=== PATIENT | male | born 1955 | race Caucasian/White ===

== ENCOUNTER → 2017-10-25 16:14 | Outpatient (CLI) | payer MEDICAID, SELFPAY ==
[2017-10-25 17:57] LABS: Hemoglobin 16.9 g/dl (13.0-16.5); Red Blood Count 5.68 M/mm3 (4.6-6.2); White Blood Count 12.1 K/mm3 (4.4-11.0)
[2017-10-25 17:58] LABS: Basophil% 0.7 % (0-1); Differential Indicated SCAN CRITERIA MET; Eosinophils% 4.1 % (0-5); Hematocrit 48.4 % (40-54); Lymphocyte % 30.5 % (19-41); Mean Corp Hgb Conc 34.9 g/gl (32-36); Mean Corpuscular Hgb 29.8 pg (27.0-32.0); Mean Corpuscular Volume 85.2 fL (80-94); Mean Platelet Vol. 13.6 fl (6.2-12.0); Monocyte% 9.1 % (0-10); Neutrophil % 55.1 % (47-70); POSITIVE COUNT NO; POSITIVE DIFFERENTIAL NO; POSITIVE MORPHOLOGY YES; Platelet Count 114 K/mm3 (150-450); RBC Distribution Width CV 13.6 % (11.6-14.6); RBC Distribution Width SD 42.4 fl (35.1-43.9)
[2017-10-25 17:59] LABS: Absolute Lymphocyte Count 3.69 X10^3/ul (0.83-4.51); Absolute Neutrophil Count 6.7 X10^3/uL (2.0-7.7); Basophil# 0.09 X10^3/uL; Lymphocyte # 3.69 X10^3/ul (4.0); Neutrophil # 6.67 X10^3/uL (2.7-7.7)
[2017-10-25 18:06] LABS: PSA,Total - Annual Screen 1.75 ng/mL (0.00-4.00); Thyroid Stim Hormone (TSH) 1.74 uIU/mL (0.358-3.74)
[2017-10-25 18:47] LABS: Platelet Estimate SLT DEC (ADEQ); Platelet Morphology LARGE; Red Cell Morphology NORM C+C NORMAL (NORM C&C)
== END ==
PROVIDERS: Family Provider Family Medicine; PCP Family Medicine; Visit Provider Family Medicine
DX: R53.83 Other fatigue (principal); Z12.5 Encounter for screening for malignant neoplasm of prostate
CPT/HCPCS: 36415; 84153; 84443; 85025; G0103

== ENCOUNTER → 2018-02-07 13:35 | Outpatient (CLI) | payer MEDICAID, SELFPAY ==
--- NOTE | 2018-02-07 13:37 | CT_ITS ---
HISTORY: LUNG SCREEN, 49 YEAR SMOKER X 1 1/2 PPD TECHNIQUE: Helically acquired images were obtained of the chest utilizing low dose technique. A radiation dose optimization technique was used for this scan. IV Contrast dosage and agent: None. COMPARISON: None FINDINGS: Advanced centrilobular emphysema within the upper and midlung zones bilaterally. Biapical mild scarring, worse on the left together with lingular segment mild parenchymal scarring. Medial segment right middle lobe minor scarring. Probable small pleural-based scar within the right middle lobe seen on axial images 177 through 180 Left lower lobe multiple calcified granulomas accompanied by left hilar benign calcified lymph nodes. No suspicious pulmonary lesion or acute infiltrate. No pleural effusion or significant pleural disease. Benign appearing mediastinal and bilateral axillary lymph nodes. No pericardial effusion. Atherosclerotic calcifications including coronary artery calcifications. CT/Low Dose CT Lung Screening IMPRESSION: 1. No acute disease or suspicious lesion. 2. Chronic lung disease with extensive emphysema and mild scarring. Old, healed granulomatous disease. 3. Atherosclerotic calcifications including coronary artery calcifications. 4. Suggest continued surveillance with follow-up low-dose CT exam in 1 year. Lung RADS: Category 2: Benign findings. Individualized dose optimization techniques were used for this CT. at 0650 Reported and signed by: Rao Leal MD Electronically Signed: Rao Leal, at 6:48 EST Tel , Service support ,
== END ==
PROVIDERS: Family Provider Family Medicine; PCP Family Medicine; Referring Provider Family Medicine; Visit Provider Family Medicine
DX: F17.200 Nicotine dependence, unspecified, uncomplicated (principal); Z12.2 Encounter for screening for malignant neoplasm of respiratory organs
CPT/HCPCS: G0297

== ENCOUNTER 2018-02-28 21:13 | Emergency (ER) | payer MEDICAID, SELFPAY ==
[2018-02-28 21:14] VITALS: BP 109/77; PULSE 98; RESP 18; TEMP 36.9; O2SAT 93; BMI 23.6
--- NOTE | 2018-02-28 21:32 | ED.VISSUMM ---
- ER Visit Summary Date of Service: 02/28/18 Chief Complaint: Nausea, lightheadedness and decreased urine output History of Present Illness: The patient is a 62 M who presents with nausea that started this morning. Had 2 episodes of bowel movements. First 1 was formed second 1 was watery. He is had decreased urine output. States only P twice which is unusual he normally urinates greater than 6 times a day. He denies fever, chills night sweats. Denies headache. He denies double vision blurred vision loss of vision. No trouble with speech or swallowing. Denies ringing in his ears or decreased hearing. He denies vertiginous symptoms. He denies cardiac or respiratory symptoms. He denies dysuria, urgency or hematuria. He denies paresthesia, anesthesia or motor weakness. Physical Examination: Vital signs are unremarkable. Head is atraumatic normocephalic. Pupils are equal round reactive. Extraocular muscles are intact. TMs are pearly white with landmarks noted. Nares patent with no drainage. Posterior pharynx without erythema or exudate. Tongue and mucosa are dry. Uvula is midline. There is no dysphonia or dysphasia. Trachea is midline. There is no stridor with auscultation of the neck. Heart is regular without murmur, gallop or rub. S1 and S2 are normal. Lungs are clear to auscultation with good movement of air bilaterally. Abdomen is soft nontender bowel sounds are present diminished. There is no guarding or rebound tenderness. There is no extremity swelling. Neuro exam is nonfocal. Affect is normal. Test Results: Glucose 121, BUN 22 and a creatinine of 1.4. No prior labs for comparison. Emergency Department Course and Treatment: IV was established and he received 1 L of normal saline. Since he is elderly with decreased urine output will obtain BMP to assess renal function and electrolytes. He also received 4 mg of Zofran IV push. Treatment Plan: Encourage fluids, prescription for Zofran and follow-up for repeat blood work in 3-5 days. Disposition: Discharged to home in stable condition Impression: 1. Nausea 2. Decreased urine output, renal insufficiency This note was generated with [employer] dictation software. It may contain incorrect words, spelling, and punctuation that were not noted in review of the chart prior to signing ED Disposition - Plan for ED Patient: Disposition: Home or Assisted Living Chief Complaint: Nausea/Vomiting Instructions: ED Nausea Vomiting, ED Insufficiency Renal Prescriptions: Ondansetron [Zofran Odt] 4 mg PO Q8H PRN PRN #10 tab PRN Reason: Nausea Referrals: Kimberley Jauregui MD [Primary Care Provider] - 3-5 Days Additional Instructions: You need to contact your primary care physician for follow-up appointment in 3-5 days for repeat blood work.
[2018-02-28] MEDS: 0.9% Normal Saline 1,000 ML 1000 ML IV (22:18)
[2018-02-28] MEDS: Ondansetron 4 MG/2 ML Vial IV (22:18)
[2018-02-28 22:42] LABS: BUN 22 mg/dL (7-18); Glucose 121 mg/dL (74-106)
[2018-02-28 22:43] LABS: Anion Gap 7 (5-15); BUN/Creat Ratio 15.7 RATIO (10-20); Calcium,Total 9.5 mg/dL (8.5-10.1); Chloride 104 mmol/L (98-107); EST Glomerular Filtration Rate 54 mL/min (>60); Est Glom Filt Rate - Afr Amer 66 mL/min (>60); Estimated Creatinine Clearance 52.93 ml/min; Sodium Level 140 mmol/L (136-145)
[2018-02-28 23:23] VITALS: BP 122/85; PULSE 76; RESP 16; O2SAT 98
== END 2018-02-28 23:25 | disposition home or self-care (01) ==
PROVIDERS: Emergency Provider Emergency Medicine; Family Provider Family Medicine; PCP Family Medicine
DX: N28.9 Disorder of kidney and ureter, unspecified (principal); R11.0 Nausea; E86.0 Dehydration; I10 Essential (primary) hypertension; E78.00 Pure hypercholesterolemia, unspecified; F32.9 Major depressive disorder, single episode, unspecified; Z72.0 Tobacco use; Z79.51 Long term (current) use of inhaled steroids; Z79.82 Long term (current) use of aspirin; Z79.899 Other long term (current) drug therapy
CPT/HCPCS: 80048; 96361; 96374; 99284; J7030; A4216; J2405

== ENCOUNTER → 2018-03-03 09:54 | Outpatient (CLI) | payer MEDICAID, SELFPAY ==
[2018-02-28 21:14] VITALS: BMI 23.6
[2018-03-03 12:24] LABS: Anion Gap 6 (5-15); BUN 12 mg/dL (7-18); Calcium,Total 9.2 mg/dL (8.5-10.1); Chloride 105 mmol/L (98-107); EST Glomerular Filtration Rate 80 mL/min (>60); Est Glom Filt Rate - Afr Amer 97 mL/min (>60); Glucose 86 mg/dL (74-106); Potassium 4.5 mmol/L (3.5-5.1); Sodium Level 140 mmol/L (136-145)
== END ==
PROVIDERS: Family Provider Family Medicine; PCP Family Medicine; Visit Provider Family Medicine
DX: E86.0 Dehydration (principal)
CPT/HCPCS: 36415; 80048

== ENCOUNTER 2018-10-13 16:22 | Observation (INO) | payer MEDICAID, SELFPAY ==
[2018-09-20 11:36] VITALS: BMI 23.7
[2018-10-13 16:23] VITALS: BP 138/88; PULSE 76; RESP 17; TEMP 36.1; O2SAT 95; BMI 24.0
--- NOTE | 2018-10-13 16:35 | EKG12_ITS ---
Test Reason : NAUSEA Blood Pressure : / mmHG Vent. Rate : 075 BPM Atrial Rate : 075 BPM P-R Int : 134 ms QRS Dur : 068 ms QT Int : 366 ms P-R-T Axes : 063 071 073 degrees QTc Int : 408 ms Normal sinus rhythm Normal ECG Confirmed by ZAIDA DEVINE MD ([id number]), slot editor SHAKIRA ZARATE ([id number]) on 10/16/2018 12:23:14 PM Referred By: Marco Antonio Vasquez Confirmed By:ZAIDA DEVINE MD
--- NOTE | 2018-10-13 16:35 | CT_ITS ---
STUDY: CT ABDOMEN AND PELVIS WITH CONTRAST REASON FOR EXAM: Male, 63 years old. Nausea and bloating. Prior cholecystectomy, hernia repair, hypertension, COPD. RADIATION DOSAGE (If Supplied By Facility): CTDIvol = ( 15.39 ) mGy, DLP = ( 686.33 ) mGycm TECHNIQUE: Transaxial images were obtained from the dome of the diaphragm to the symphysis pubis without oral contrast. 100mL IV Isovue 300 was administered. Sagittal and coronal images were reconstructed. Individualized dose optimization techniques were used for this CT. COMPARISON: None. FINDINGS: The visualized lung bases are unremarkable. The visualized portions of the heart are within normal limits. Liver is normal shape and size. It has several simple cysts measuring as much as 1.9 cm. It also has a mixed density partially enhancing mass 2.2 cm along the posterior surface of the right hepatic lobe. This is probably a hemangioma, but confirmation with dynamic contrast CT of the liver is recommended. Gallbladder has been removed. Normal pancreas. Normal shape and size of the spleen with numerous calcified granulomas.. No acute abnormalities of the kidneys. No stones. No hydronephrosis. Normal symmetric contrast enhancement. 2.2 cm simple cyst of the mid right kidney seen. Evaluation of the GI tract is limited by absence of oral contrast. Moderate distention of the stomach with fluid. Multiple loops of fluid-filled distended small bowel in the upper to mid abdomen, with normal caliber loops in the right lower quadrant. Findings are consistent with small bowel obstruction, but site and etiology of obstruction is not clearly depicted. Normal terminal ileum, and appendix. Normal caliber large bowel. Cannot exclude large bowel wall thickening without oral contrast. There is diverticulosis without diverticulitis. There is diffuse atherosclerotic calcification of the abdominal aorta, without a demonstrated aneurysm. Normal inferior vena cava. Normal retroperitoneum. Normal urinary bladder. There is enlargement of the prostate gland. There is a left-sided inguinal hernia containing adipose tissue. Normal osseous structures. CT/Abdomen/Pelvis W IV Cont ONLY IMPRESSION: Findings consistent with mid-distal small bowel obstruction. Probable hemangioma in the right hepatic lobe but recommend dynamic contrast CT of the liver is recommended. Electronically Signed: Maikol Bhagat MD at 18:04 EDT , Service support ,
--- NOTE | 2018-10-13 16:37 | RAD_ITS ---
STUDY: X-RAY CHEST REASON FOR EXAM: Male, 63 years old. Nausea. TECHNIQUE: Single frontal view of the chest. COMPARISON: 03/20/2017. FINDINGS: There is hyperinflation of the lungs consistent with chronic obstructive lung disease (COPD). Stable calcified granuloma over the mid left lung. No infiltrates. No effusions. There is no demonstrated pleural abnormality. Normal size heart. Normal mediastinum and maulik. Normal visualized pulmonary arteries. Normal visualized aortic arch and descending thoracic aorta. Normal visualized thoracic spine. Stable old bilateral rib fractures. There is no demonstrated abnormality of the visualized soft tissue structures of the upper abdomen. RAD/Chest 1 View (Portable) IMPRESSION: There are findings consistent with COPD. There is no evidence of acute chest disease. Electronically Signed: Maikol Bhagat MD at 16:57 EDT , Service support ,
--- NOTE | 2018-10-13 16:41 | NURSING ---
NO OLD EKG
--- NOTE | 2018-10-13 16:44 | ED.DCSUM_ITS ---
- ER Visit Summary Date of Service: 10/13/18 Chief Complaint: Nausea History of Present Illness: The patient is a 63 M who presents with nausea that started when he woke up this morning. He had some chills but denies any other symptoms. He tried to lay down and take a nap, but when he woke up his symptoms persisted. They were not improving, so he came to the ED. He says he had similar symptoms in the past with dehydration. He does not feel like he is dehydrated today. Denies abdominal pain, vomiting. He does have a history of coronary disease, but denies any chest pain or shortness of breath. Denies sweats. Physical Examination: Afebrile and vital signs unremarkable. Alert and oriented. No acute distress. Skin normal in color without pallor, diaphoresis, or jaundice. Heart regular rate and rhythm. Lungs clear. Abdomen soft and nontender. No guarding or rebound. Test Results: EKG, chest x-ray, CT, labs pending. Emergency Department Course and Treatment: Patient treated with fluid and Zofran IV while awaiting results. EKG showed sinus rhythm at a rate of 75. Troponin normal. I have low suspicion for cardiac cause. White count 12.6 and platelets 139. Metabolic panel unremarkable. Lipase normal. Urinalysis unremarkable. Chest x-ray showed chronic changes and COPD. CT abdomen showed a mid to distal small bowel obstruction and a probable hemangioma to his right hepatic lobe. NG and KUB were ordered. Hospitalist was contacted for further care. Treatment Plan: As above Disposition: Admission Impression: 1. Small bowel obstruction 2. Liver hemangioma suspected This note was generated with [employer] dictation software. It may contain incorrect words, spelling, and punctuation that were not noted in review of the chart prior to signing ED Disposition - Plan for ED Patient: Referrals: Kimberley Jauregui MD [Primary Care Provider] -
[2018-10-13 16:52] LABS: Absolute Neutrophil Count 9.2 X10^3/uL (2.0-7.7); Basophil# 0.11 X10^3/uL; Basophil% 0.9 % (0-1); Eosinophil# 0.26 X10^3/uL; Eosinophils% 2.1 % (0-5); Hematocrit 51.6 % (40-54); Hemoglobin 16.7 g/dL (13.0-16.5); Lymphocyte % 16.6 % (19-41); Mean Corp Hgb Conc 32.4 g/dL (32-36); Mean Corpuscular Hgb 28.5 pg (27.0-32.0); Mean Corpuscular Volume 88.1 fL (80-94); Mean Platelet Vol. 13.1 fl (6.2-12.0); Monocyte% 7.1 % (0-10); NRBC Flagged by Analyzer 0 % (0-5); Neutrophil # 9.16 X10^3/uL (2.7-7.7); Neutrophil % 72.4 % (47-70); Platelet Count 139 K/mm3 (150-450); RBC Distribution Width CV 13.9 % (11.6-14.6); RBC Distribution Width SD 44.5 fl (35.1-43.9); Red Blood Count 5.86 M/mm3 (4.6-6.2); White Blood Count 12.6 K/mm3 (4.4-11.0)
[2018-10-13] MEDS: 0.9% Normal Saline 1,000 ML 1000 ML IV (17:04)
[2018-10-13] MEDS: Ondansetron 4 MG/2 ML Vial IV (17:04)
[2018-10-13 17:06] VITALS: BP 126/80; PULSE 73; RESP 21; O2SAT 94
[2018-10-13 17:10] LABS: AST(SGOT) 17 U/L (15-37); Alanine Aminotransfer ALT/SGPT 36 U/L (16-61); Albumin, Serum 3.6 g/dL (3.2-5.0); Alkaline Phosphatase 162 U/L (45-117); Anion Gap 7 (5-15); BUN 14 mg/dL (7-18); BUN/Creat Ratio 12.2 RATIO (10-20); Calcium,Total 9.4 mg/dL (8.5-10.1); Chloride 104 mmol/L (98-107); Creatinine, Serum 1.15 mg/dL (0.70-1.30); EST Glomerular Filtration Rate 68 mL/min (>60); Est Glom Filt Rate - Afr Amer 83 mL/min (>60); Estimated Creatinine Clearance 63.61 ml/min; Globulin 3.5 g/dL (2.2-4.2); Glucose 89 mg/dL (74-106); Lipase 49 U/L (73-393); Potassium 4.9 mmol/L (3.5-5.1); Protein, Total 7.1 g/dL (6.4-8.2); Sodium Level 139 mmol/L (136-145)
[2018-10-13 18:10] LABS: Bacteria 0 SEEN /hpf (None Seen); Mucous, Urine 0 SEEN /hpf (<or=2+); Red Blood Cells-Urine 0 SEEN /hpf (0-5); Squamous Epithelial Cells - UA 0 SEEN /hpf (0-5)
[2018-10-13 18:14] LABS: Color, Urine Yellow (Yellow); Glucose, Dipstick Normal (Normal); Ketone-Dipstick Negative (Negative); Leukocyte Esterase-Dipstick 25 /ul (Negative); Nitrite-Dipstick Negative (Negative); Occult Blood-Urine Negative /ul (Negative); Protein-Dipstick Negative (Negative); Urine Bilirubin Dipstick Negative (Negative); Urine Clarity Clear (Clear); Urine Urobilinogen Normal (Normal)
[2018-10-13 18:20] LABS: White Blood Cells 0-5 SEEN /hpf (0-5)
[2018-10-13 19:06] VITALS: PULSE 73; RESP 21; O2SAT 94
--- NOTE | 2018-10-13 19:13 | HP.PCM_ITS ---
Problem List (1) SBO (small bowel obstruction) Status: Acute (2) Essential hypertension Status: Chronic History of Present Illness Date of Admission: 10/13/18 Chief Complaint: Nausea The patient is a 63 year old M with a significant history of tobacco abuse; COPD; depression; hypertension; tobacco abuse; hyperlipidemia; obstructive sleep apnea on BiPAP who presented to the emergency department with nausea that started on the morning of the day of his presentation. He denies any vomiting. His symptoms started just after waking up from his sleep. Further, he has mild epigastric non radiating pain and bloating of his abdomen. He denies any ameliorating or aggravating factors to his pain. The last time his bowels move it was on the same day of his presentation. Abdominal and pelvic CT at the emergency department showed findings consistent with mid -distal small bowel obstruction and probable hemangioma in the right hepatic lobe for which a contrast CT of the liver was recommended. Past Medical History Past Medical History (Chronic Problems): Chronic Problems (Last Reviewed 10/13/18 @ 20:01 by Marco Antonio Vasquez MD) Nicotine dependence (Chronic) Nonsustained paroxysmal supraventricular tachycardia (Chronic) Atherosclerosis of coronary artery of [place] without angina pectoris (Chronic) Hyperlipidemia (Chronic) Essential hypertension (Chronic) Medical History: Medical History (Last Reviewed 10/13/18 @ 20:01 by Marco Antonio Vasquez MD) Nicotine dependence (Chronic) F17.200 Nonsustained paroxysmal supraventricular tachycardia (Chronic) I47.1 Atherosclerosis of coronary artery of [place] heart without angina pectoris (Chronic) I25.10 Hyperlipidemia (Chronic) E78.5 Essential hypertension (Chronic) I10 COPD (chronic obstructive pulmonary disease) J44.9 Depression F32.9 GERD (gastroesophageal reflux disease) K21.9 GALE on CPAP G47.33, Z99.89 Tobacco abuse Z72.0 Allergies lisinopril Adverse Reaction (Intermediate, Verified 10/13/18 16:23) cough Home Medications: Ambulatory Orders Medication Instructions Recorded Aspirin E.C. [Ecotrin] 81 mg PO DAILY@0800 03/20/17 Atenolol [Tenormin (beta jose)] 50 mg PO DAILY 03/20/17 Fluoxetine [Prozac] 20 mg PO DAILY 03/20/17 Loratadine 10 mg PO DAILY 03/20/17 cyclobenzaprine 10 mg tablet 10 mg PO TID PRN PRN 09/13/18 losartan 100 mg tablet 100 mg PO DAILY #90 tab 09/20/18 Albuterol Sulfate [Ventolin Hfa] 2 puff INHALATION Q4H PRN PRN 10/13/18 Atorvastatin Calcium 40 mg PO QHS 10/13/18 Bupropion HCl [Bupropion HCl Sr] 100 mg PO BID 10/13/18 Omeprazole 20 mg PO DAILY 10/13/18 Surgical History: Surgical History (Last Reviewed 10/13/18 @ 20:01 by Marco Antonio Vasquez MD) History of arthroscopy of right shoulder Z98.890 History of colonoscopy with polypectomy Z98.890, Z86.010 History of rotator cuff surgery Z98.890 open repair of rotator cuff avulsion History of skin graft Z94.5 to right ring finger Lives: Spouse/ Significant Other Smoking Status: Current some day smoker Tobacco Use: Cigarettes Alcohol: None - *Family History Maternal Family History: Family History (Last Reviewed 10/13/18 @ 20:01 by Marco Antonio Vasquez MD) Mother Diabetes Father Cancer Sister Diabetes Review of Systems Constitutional: Reports: Chills. Denies: Weight Change HEENT: Denies: Head Aches, Sinus Congestion, Sinus Drainage Cardiovascular: Denies: Chest Pain, Palpitations Respiratory: Denies: Cough, Shortness of breath at rest, Sputum production Gastrointestinal: Reports: Nausea. Denies: Abdominal Pain, Vomiting Genitourinary: Denies: Dysuria Musculoskeletal: Denies: Joint Pain, Joint Tenderness Skin: Denies: Rash, Wounds Neurological: Denies: Numbness, Tingling, Focal weakness Psychiatric: Denies: Anxiety, Depression, Homicidal Ideations, Suicidal Ideations Hematologic/ Lymphatic: Denies: Easy Bruising, Easy Bleeding VTE Information - Inpt Only VTE Present on Admission: No VTE Mechan Device Prophylaxis: None VTE Pharm Prophylaxis ordered?: Yes Patient Problems: Active and Suspected Problems (Last Reviewed 10/13/18 @ 20:01 by Marco Antonio Vasquez MD) SBO (small bowel obstruction) (Acute) - Physical Exam General: Alert, Oriented x3, Cooperative HEENT: Atraumatic, PERRLA, EOMI, Normocephalic Neck: Supple, No JVD, Negative Carotid Bruits Lungs: Clear to auscultation, Normal air movement Cardiovascular: Regular rate, No murmurs Abdomen: Bowel Sounds Present, Soft, Non Tender, Distended Extremities: No edema, Capillary Refill Less than 3 Seconds Skin: No rashes, No breakdown Musculoskeletal: No Tenderness to Palpation of Joints or Extremities Neurological: Cranial nerves II-XII grossly intact Psych/Mental Status: Normal Affect, Appropriate Vital Signs Temp Pulse Resp BP Pulse Ox 97 F L 73 21 H 126/80 H 94 10/13/18 16:23 10/13/18 19:06 10/13/18 19:06 10/13/18 17:06 10/13/18 19:06 Oxygen Delivery Method Room Air Weight: 71.668 kg Body Mass Index (BMI) 24.0 Laboratory Tests Past 24 Hrs 10/13/18 10/13/18 10/13/18 16:44 16:44 18:06 WBC 12.6 H RBC 5.86 Hgb 16.7 H Hct 51.6 MCV 88.1 MCH 28.5 MCHC 32.4 RDW Std Deviation 44.5 H RDW Coeff of Delfina 13.9 Plt Count 139 L MPV 13.1 H Immature Gran % (Auto) 0.900 Neut % (Auto) 72.4 H Lymph % (Auto) 16.6 L [place] % (Auto) 7.1 Eos % (Auto) 2.1 Baso % (Auto) 0.9 Absolute Neuts (auto) 9.2 H Absolute Lymphs (auto) 2.10 Absolute Nucleated RBC 0.00 Nucleated RBC % 0 Sodium 139 Potassium 4.9 Chloride 104 Carbon Dioxide 28.0 Anion Gap 7 BUN 14 Creatinine 1.15 Estim Creat Clear Calc 63.61 Est GFR (MDRD) Af Amer 83 Est GFR (MDRD) Non-Af 68 BUN/Creatinine Ratio 12.2 Glucose 89 Calcium 9.4 Total Bilirubin 0.70 AST 17 ALT 36 Alkaline Phosphatase 162 H Troponin I < 0.015 Total Protein 7.1 Albumin 3.6 Globulin 3.5 Albumin/Globulin Ratio 1.0 Lipase 49 L Urine Color Yellow Urine Clarity Clear Urine pH 8.0 Ur Specific [place] 1.010 Urine Protein Negative Urine Glucose (UA) Normal Urine Ketones Negative Urine Occult Blood Negative Urine Nitrite Negative Urine Bilirubin Negative Urine Urobilinogen Normal Ur Leukocyte Esterase 25 H Urine RBC 0 SEEN Urine WBC 0-5 SEEN Ur Squamous Epith Cells 0 SEEN Urine Bacteria 0 SEEN Urine Mucus 0 SEEN Assessment/Plan All Active Problems (Last Reviewed 10/13/18 @ 20:01 by Marco Antonio Vasquez MD) SBO (small bowel obstruction) (Acute) The patient is a 63 year old M with a significant history of tobacco abuse; COPD; depression; hypertension; tobacco abuse; hyperlipidemia; obstructive sleep apnea on BiPAP who presented to the emergency department with nausea; mild abdominal pain; abdominal bloating; chills and found to have radiographic evidence of mid distal small bowel obstruction; and probable hemangioma in the right hepatic lobe SBO Received Zofran and normal saline bolus in the emergency department. Continue supportive treatment with IV Zofran; and IV fluids. Will start patient on lactated Ringer's infusion. Keep patient n.p.o. for now. Trend CBC and BMP Consult general surgery. Probable hemangioma Radiographic evidence of probable hemangioma for which dynamics contrast CT of the liver was recommended. Abdominal and pelvic CT was independently reviewed. I agree with the interpretation. Since patient already received IV contrast will order radiograph per radiologist recommendation in next 24 hours HTN Patient is on home losartan. Patient is allergic to lisinopril. Also he is on home atenolol. Would hold p.o. blood pressure medicine at this time and put patient on as needed labetalol because of n.p.o. status. Trend blood pressure CAD Patient denies any CABG or stent. On home aspirin. Hold for now because of n.p.o. status COPD Stable. Albuterol PRN continued. Depression/Anxiety Bupropion and Fluoxetine on hold secondary to n.p.o. status Tobacco abuse Counseled Declined nicotine patch at this time. Stated that he will think about it. GERD On home p.o. omeprazole. While n.p.o. will put patient on IV Protonix. DVT prophylaxis Subcutaneous heparin. Code Visit Inpatient E&M: 34760 Init Hosp L3
--- NOTE | 2018-10-13 20:07 | NURSING ---
this RN attempted to place NG tube and was unable to pass the tube through the nasal passages on both sides. MD aware and stated to cancel the NG placement order.
[2018-10-13 21:00] VITALS: BP 162/77; PULSE 76; RESP 18; TEMP 37.7; O2SAT 95
[2018-10-13 21:06] VITALS: BMI 23.9
[2018-10-13 21:13] VITALS: BMI 23.9
[2018-10-13] MEDS: Lactated Ringers 1,000 ML 75 ML IV (21:37)
[2018-10-13] MEDS: Heparin Injection (Vial) 5,000 UNIT/ML VIAL 5000 UNIT SC (21:41)
[2018-10-13 23:58] VITALS: PULSE 75; RESP 12; RESP 18; O2SAT 99
[2018-10-14 02:55] VITALS: BP 152/93; PULSE 70; RESP 16; TEMP 36.5; O2SAT 96
[2018-10-14 03:00] VITALS: PULSE 76; RESP 12; RESP 21; O2SAT 99
[2018-10-14] MEDS: Heparin Injection (Vial) 5,000 UNIT/ML VIAL 5000 UNIT SC (04:47)
[2018-10-14 07:34] LABS: Absolute Lymphocyte Count 2.58 X10^3/uL (0.83-4.51); Absolute Neutrophil Count 4.8 X10^3/uL (2.0-7.7); Basophil% 1.2 % (0-1); Eosinophil# 0.27 X10^3/uL; Eosinophils% 3.1 % (0-5); Hematocrit 45.6 % (40-54); Hemoglobin 14.8 g/dL (13.0-16.5); Lymphocyte # 2.58 X10^3/ul (4.0); Lymphocyte % 29.9 % (19-41); Mean Corp Hgb Conc 32.5 g/dL (32-36); Mean Corpuscular Hgb 28.3 pg (27.0-32.0); Mean Corpuscular Volume 87.2 fL (80-94); Mean Platelet Vol. 12.8 fl (6.2-12.0); Monocyte# 0.78 X10^3/uL; NRBC Flagged by Analyzer 0 % (0-5); Neutrophil # 4.83 X10^3/uL (2.7-7.7); Neutrophil % 56.1 % (47-70); Platelet Count 107 K/mm3 (150-450); RBC Distribution Width CV 13.7 % (11.6-14.6); RBC Distribution Width SD 43.8 fl (35.1-43.9); Red Blood Count 5.23 M/mm3 (4.6-6.2); White Blood Count 8.6 K/mm3 (4.4-11.0)
--- NOTE | 2018-10-14 07:40 | PCM.CONS.GEN ---
Reason for Consult Date of Consultation: 10/14/18 History of Present Illness: The patient is a 63 year old M presented to the ER due to weakness and dizziness that he was may be dehydrated with the heat. Patient states yesterday he had a nap and woke up at 4 PM and was nauseated and felt weak and dizzy again so he came into the ER. In the ER patient had a CT abdomen pelvis which questioned small bowel obstruction due to mildly dilated small bowel and stomach. Patient was unable to get an NG placed. Currently patient denies any nausea vomiting or abdominal pain and is been having flatus and has had a bowel movement this morning. Patient's only surgery on his abdomen is lap scopic cholecystectomy 3 to 4 years ago. Patient did have a colonoscopy for 5 years ago time he did have multiple follow-up polyps this was his second colonoscopy. Patient's white blood count is 12.6. Past Medical History Past Medical History (Chronic Problems): Chronic Problems (Last Reviewed 10/13/18 @ 20:01 by Marco Antonio Vasquez MD) Nicotine dependence (Chronic) Nonsustained paroxysmal supraventricular tachycardia (Chronic) Atherosclerosis of coronary artery of [place] heart without angina pectoris (Chronic) Hyperlipidemia (Chronic) Essential hypertension (Chronic) Medical History: Medical History (Last Reviewed 10/13/18 @ 20:01 by Marco Antonio Vasquez MD) Nicotine dependence (Chronic) F17.200 Nonsustained paroxysmal supraventricular tachycardia (Chronic) I47.1 Atherosclerosis of coronary artery of [place] heart without angina pectoris (Chronic) I25.10 Hyperlipidemia (Chronic) E78.5 Essential hypertension (Chronic) I10 COPD (chronic obstructive pulmonary disease) J44.9 Depression F32.9 GERD (gastroesophageal reflux disease) K21.9 GALE on CPAP G47.33, Z99.89 Tobacco abuse Z72.0 Allergies lisinopril Adverse Reaction (Intermediate, Verified 10/13/18 16:23) cough Home Medications: Ambulatory Orders Medication Instructions Recorded Aspirin E.C. [Ecotrin] 81 mg PO DAILY@0800 03/20/17 Atenolol [Tenormin (beta jose)] 50 mg PO DAILY 03/20/17 Fluoxetine [Prozac] 20 mg PO DAILY 03/20/17 Loratadine 10 mg PO DAILY 03/20/17 cyclobenzaprine 10 mg tablet 10 mg PO TID PRN PRN 09/13/18 losartan 100 mg tablet 100 mg PO DAILY #90 tab 09/20/18 Albuterol Sulfate [Ventolin Hfa] 2 puff INHALATION Q4H PRN PRN 10/13/18 Atorvastatin Calcium 40 mg PO QHS 10/13/18 Bupropion HCl [Bupropion HCl Sr] 100 mg PO BID 10/13/18 Omeprazole 20 mg PO DAILY 10/13/18 Surgical History: Surgical History (Last Reviewed 10/13/18 @ 20:01 by Marco Antonio Vasquez MD) History of arthroscopy of right shoulder Z98.890 History of colonoscopy with polypectomy Z98.890, Z86.010 History of rotator cuff surgery Z98.890 open repair of rotator cuff avulsion History of skin graft Z94.5 to right ring finger Lives: Spouse/ Significant Other Smoking Status: Current some day smoker Tobacco Use: Cigarettes Alcohol: None - *Family History Maternal Family History: Family History (Last Reviewed 10/13/18 @ 20:01 by Marco Antonio Vasquez MD) Mother Diabetes Father Cancer Sister Diabetes Review of Systems Constitutional: Denies: Anorexia, Chills, Fever Eyes: Denies: Blurred vision HEENT: Denies: Difficulty Swallowing Cardiovascular: Denies: Chest Pain Respiratory: Denies: Cough Gastrointestinal: Reports: Nausea. Denies: Abdominal Pain, Vomiting Genitourinary: Denies: Dysuria Musculoskeletal: Denies: Joint Pain Skin: Denies: Rash Neurological: Denies: Confusion Psychiatric: Reports: Depression - controlled w meds. Denies: Anxiety Hematologic/ Lymphatic: Reports: Easy Bruising. Denies: Easy Bleeding Patient Problems: Active and Suspected Problems (Last Reviewed 10/13/18 @ 20:01 by Marco Antonio Vasquez MD) SBO (small bowel obstruction) (Acute) - Physical Exam General: Alert, Oriented x3, Cooperative, No apparent distress Lungs: Normal air movement Cardiovascular: Regular rate Abdomen: Soft, Non Tender - no PS, Non-Distended Extremities: No clubbing, No cyanosis, No edema Neurological: Cranial nerves II-XII grossly intact Psych/Mental Status: Normal Affect Vital Signs Temp Pulse Resp BP Pulse Ox 97.7 F L 76 21 H 152/93 H 99 10/14/18 02:55 10/14/18 03:00 10/14/18 03:00 10/14/18 02:55 10/14/18 03:00 Oxygen Delivery Method Bi-pap Weight: 157 lb 6.561 oz Body Mass Index (BMI) 23.9 Intake and Output for Last 24 Hours 10/12/18 10/13/18 10/14/18 23:59 23:59 23:59 Intake Total 545 / 545 Balance 545 / 545 Laboratory Tests Past 24 Hrs 10/13/18 10/13/18 10/13/18 16:44 16:44 18:06 WBC 12.6 H RBC 5.86 Hgb 16.7 H Hct 51.6 MCV 88.1 MCH 28.5 MCHC 32.4 RDW Std Deviation 44.5 H RDW Coeff of Delfina 13.9 Plt Count 139 L MPV 13.1 H Immature Gran % (Auto) 0.900 Neut % (Auto) 72.4 H Lymph % (Auto) 16.6 L [place] % (Auto) 7.1 Eos % (Auto) 2.1 Baso % (Auto) 0.9 Absolute Neuts (auto) 9.2 H Absolute Lymphs (auto) 2.10 Absolute Nucleated RBC 0.00 Nucleated RBC % 0 Sodium 139 Potassium 4.9 Chloride 104 Carbon Dioxide 28.0 Anion Gap 7 BUN 14 Creatinine 1.15 Estim Creat Clear Calc 63.61 Est GFR (MDRD) Af Amer 83 Est GFR (MDRD) Non-Af 68 BUN/Creatinine Ratio 12.2 Glucose 89 Calcium 9.4 Total Bilirubin 0.70 AST 17 ALT 36 Alkaline Phosphatase 162 H Troponin I < 0.015 Total Protein 7.1 Albumin 3.6 Globulin 3.5 Albumin/Globulin Ratio 1.0 Lipase 49 L Urine Color Yellow Urine Clarity Clear Urine pH 8.0 Ur Specific [place] 1.010 Urine Protein Negative Urine Glucose (UA) Normal Urine Ketones Negative Urine Occult Blood Negative Urine Nitrite Negative Urine Bilirubin Negative Urine Urobilinogen Normal Ur Leukocyte Esterase 25 H Urine RBC 0 SEEN Urine WBC 0-5 SEEN Ur Squamous Epith Cells 0 SEEN Urine Bacteria 0 SEEN Urine Mucus 0 SEEN 10/14/18 10/14/18 07:00 07:00 WBC 8.6 RBC 5.23 Hgb 14.8 Hct 45.6 MCV 87.2 MCH 28.3 MCHC 32.5 RDW Std Deviation 43.8 RDW Coeff of [place]elf[place] 13.7 Plt Count 107 L MPV 12.8 H Immature Gran % (Auto) 0.700 Neut % (Auto) 56.1 Lymph % (Auto) 29.9 [place] % (Auto) 9.0 Eos % (Auto) 3.1 Baso % (Auto) 1.2 H Absolute Neuts (auto) 4.8 Absolute Lymphs (auto) 2.58 Absolute Nucleated RBC 0.00 Nucleated RBC % 0 Sodium Pending Potassium Pending Chloride Pending Carbon Dioxide Pending Anion Gap Pending BUN Pending Creatinine Pending Estim Creat Clear Calc Est GFR (MDRD) Af Amer Pending Est GFR (MDRD) Non-Af Pending BUN/Creatinine Ratio Pending Glucose Pending Calcium Pending Total Bilirubin AST ALT Alkaline Phosphatase Troponin I Total Protein Albumin Globulin Albumin/Globulin Ratio Lipase Urine Color Urine Clarity Urine pH Ur Specific [place] Urine Protein Urine Glucose (UA) Urine Ketones Urine Occult Blood Urine Nitrite Urine Bilirubin Urine Urobilinogen Ur Leukocyte Esterase Urine RBC Urine WBC Ur Squamous Epith Cells Urine Bacteria Urine Mucus Assessment/Plan All Active Problems (Last Reviewed 10/13/18 @ 20:01 by Marco Antonio Vasquez MD) SBO (small bowel obstruction) (Acute) 63-year-old male initially presented to the ER due to weakness/dizziness questionable dehydration, CT abdomen pelvis questionable small bowel obstruction 1. Patient is denying any nausea vomiting or abdominal pain did have some initial nausea when he came into the ER. Patient is having flatus and bowel function. Patient is only surgery on his abdomen is lap scopic cholecystectomy. CT abdomen pelvis may have been a little bit of an overcall of the small bowel obstruction. Patient's white blood count is back down to normal 8.6 from 12.6. Will give patient full liquid diet if he tolerates that okay to advance to regular if he tolerates that with no issues okay to DC per surgery standpoint. Patient was agreeable with plan. Jen Baker M.D. Pager: [phone] [facility] [address] [place] [address], [facility], [address] [place] [address] Office: [phone] Code Visit Inpatient E&M: 50805 Init Hosp L2
[2018-10-14 07:59] LABS: Anion Gap 3 (5-15); BUN 12 mg/dL (7-18); BUN/Creat Ratio 11.7 RATIO (10-20); Calcium,Total 9.1 mg/dL (8.5-10.1); Chloride 107 mmol/L (98-107); Creatinine, Serum 1.03 mg/dL (0.70-1.30); EST Glomerular Filtration Rate 77 mL/min (>60); Est Glom Filt Rate - Afr Amer 94 mL/min (>60); Estimated Creatinine Clearance 71.02 ml/min; Glucose 89 mg/dL (74-106); Potassium 4.7 mmol/L (3.5-5.1); Sodium Level 138 mmol/L (136-145)
[2018-10-14 08:02] VITALS: BP 139/84; PULSE 73; RESP 18; TEMP 36.7; O2SAT 94
[2018-10-14 08:05] VITALS: PULSE 60
--- NOTE | 2018-10-14 09:05 | PCM.PN.HOSP ---
Patient Problems: Active and Suspected Problems (Last Reviewed 10/13/18 @ 20:01 by Marco Antonio Vasquez MD) SBO (small bowel obstruction) (Acute) Subjective: Doing well. Denies any abdominal pain or nausea. He is positive for flatus as well as a bowel movement this morning and yesterday morning. Vitals/I&O's: Vital Signs Temp Pulse Resp BP Pulse Ox 98.0 F 60 18 139/84 H 94 10/14/18 08:02 10/14/18 08:05 10/14/18 08:02 10/14/18 08:02 10/14/18 08:02 Oxygen Delivery Method Room Air Weight: 157 lb 6.561 oz Body Mass Index (BMI) 23.9 Intake and Output for Last 24 Hours 10/12/18 10/13/18 10/14/18 23:59 23:59 23:59 Intake Total 545 / 545 Balance 545 / 545 General: Alert, Oriented x3, Cooperative, No apparent distress HEENT: Atraumatic, PERRLA, EOMI, Normocephalic Oral: Moist Mucosa Neck: Supple, No JVD Lungs: Clear to auscultation, Normal air movement, No rhonchi, No wheeze, No rales Cardiovascular: Regular rate, Regular Rhythm, Normal S1, Normal S2, No murmurs Abdomen: Soft, Non Tender, Non-Distended, No Hepato-splenomegaly Extremities: No edema, Capillary Refill Less than 3 Seconds Skin: No rashes, No breakdown Neurological: Neuro grossly intact, Sensory exam intact to light touch and pain Psych/Mental Status: Normal Affect, Appropriate Laboratory Results 10/13/18 16:44: WBC 12.6 H, RBC 5.86, Hgb 16.7 H, Hct 51.6, MCV 88.1, MCH 28.5, MCHC 32.4, RDW Std Deviation 44.5 H, RDW Coeff of Delfina 13.9, Plt Count 139 L, MPV 13.1 H, Immature Gran % (Auto) 0.900, Neut % (Auto) 72.4 H, Lymph % (Auto) 16.6 L, [place] % (Auto) 7.1, Eos % (Auto) 2.1, Baso % (Auto) 0.9, Absolute Neuts (auto) 9.2 H, Absolute Lymphs (auto) 2.10, Absolute Nucleated RBC 0.00, Nucleated RBC % 0 10/13/18 16:44: Sodium 139, Potassium 4.9, Chloride 104, Carbon Dioxide 28.0, Anion Gap 7, BUN 14, Creatinine 1.15, Estim Creat Clear Calc 63.61, Est GFR (MDRD) Af Amer 83, Est GFR (MDRD) Non-Af 68, BUN/Creatinine Ratio 12.2, Glucose 89, Calcium 9.4, Total Bilirubin 0.70, AST 17, ALT 36, Alkaline Phosphatase 162 H, Troponin I < 0.015, Total Protein 7.1, Albumin 3.6, Globulin 3.5, Albumin/Globulin Ratio 1.0, Lipase 49 L 10/13/18 18:06: Urine Color Yellow, Urine Clarity Clear, Urine pH 8.0, Ur Specific [place] 1.010, Urine Protein Negative, Urine Glucose (UA) Normal, Urine Ketones Negative, Urine Occult Blood Negative, Urine Nitrite Negative, Urine Bilirubin Negative, Urine Urobilinogen Normal, Ur Leukocyte Esterase 25 H, Urine RBC 0 SEEN, Urine WBC 0-5 SEEN, Ur Squamous Epith Cells 0 SEEN, Urine Bacteria 0 SEEN, Urine Mucus 0 SEEN 10/14/18 07:00: Sodium 138, Potassium 4.7, Chloride 107, Carbon Dioxide 28.0, Anion Gap 3 L, BUN 12, Creatinine 1.03, Estim Creat Clear Calc 71.02, Est GFR (MDRD) Af Amer 94, Est GFR (MDRD) Non-Af 77, BUN/Creatinine Ratio 11.7, Glucose 89, Calcium 9.1 10/14/18 07:00: WBC 8.6, RBC 5.23, Hgb 14.8, Hct 45.6, MCV 87.2, MCH 28.3, MCHC 32.5, RDW Std Deviation 43.8, RDW Coeff of Delfina 13.7, Plt Count 107 L, MPV 12.8 H, Immature Gran % (Auto) 0.700, Neut % (Auto) 56.1, Lymph % (Auto) 29.9, [place] % (Auto) 9.0, Eos % (Auto) 3.1, Baso % (Auto) 1.2 H, Absolute Neuts (auto) 4.8, Absolute Lymphs (auto) 2.58, Absolute Nucleated RBC 0.00, Nucleated RBC % 0 Current Medications Albuterol Sulfate (Ventolin Aerosols) 2.5 mg INHALATION Q2H PRN PRN PRN Reason: SOB/Wheezing Dextrose (D50w Syringe) 0 gm IV X1 PRN; Protocol PRN Reason: Hypoglycemia Glucagon () 1 mg IM .X1 PRN PRN Reason: Hypoglycemia Heparin Sodium (Porcine) (Heparin Na) 5,000 unit SC Q8 [facility] Last Admin: 10/14/18 04:47 Dose: 5,000 unit Documented by: Lactated Ringer's () 1,000 mls @ 75 mls/hr IV .[id number] [facility] Stop: 10/15/18 00:03 Last Admin: 10/13/18 21:37 Dose: 75 mls/hr Documented by: Pantoprazole Sodium 40 mg/ (Sodium Chloride) 110 mls @ 330 mls/hr IV Q24 [facility] Last Admin: 10/14/18 08:56 Dose: 330 mls/hr Documented by: Labetalol HCl (Trandate) 10 mg IV Q4H PRN PRN PRN Reason: SBP > 160 Ondansetron HCl (Zofran) 4 mg IV Q8H PRN PRN PRN Reason: NAUSEA/VOMITING Sodium Chloride () 10 - 40 ml IV UD PRN PRN Reason: SALINE FLUSH Medical Necessity - Tobacco Use Smoking Status: Current some day smoker Tobacco Use: Cigarettes Assessment/Plan All Active Problems (Last Reviewed 10/13/18 @ 20:01 by Marco Antonio Vasquez MD) SBO (small bowel obstruction) (Acute) 1. Nausea and dizziness -He came into the hospital because he thought he may have had heat stroke and they did a CT scan because of his nausea and found mildly dilated loops of small bowel and called him a small bowel obstruction -He has been eating well and has been having flatus as well as bowel movements both yesterday and today without any significant abdominal pain -Will plan on advancing his diet if he tolerates regular diet we will discharge him home later today -Clinical standpoint he does not have a small bowel obstruction 2. Probable hemangioma -Appears to be stable, he can have a repeat radiographic study as an outpatient by his PCP 3. HTN/CAD/HLD -Stable -Can restart his blood pressure medications as well as his aspirin on discharge -Continue with Lipitor on discharge 4. GERD -Stable -Continue with PPI 5. Depression/anxiety -Stable -Continue with Prozac and Wellbutrin 6. COPD -Stable without exacerbation -Continue his albuterol as needed 7. Tobacco abuse -Counseled on cessation -Does not want nicotine patch DVT: Heparin Code Visit Inpatient E&M: 17567 Subs Hosp L2
--- NOTE | 2018-10-14 12:38 | DCINST_ITS ---
- Discharge Diagnoses Current Active Problems: Current Active and Chronic Problems (Last Reviewed 10/13/18 @ 20:01 by Marco Antonio Vasquez MD) SBO (small bowel obstruction) (Acute) You will use the following diet at home:: Cardiac Your food should be the consistency of: Regular Your liquids should be the consistency of: Regular/Thin Discharge Activity: Return to Normal Activity, No Restrictions Call your doctor if you observe: Fever of 101 or Higher, Shortness of breath, Dizziness, Fainting spells, Swelling in the ankles, Chest pain, Increased palpitations (irregular heartbeat) Allergies/Adverse Reactions: Allergies lisinopril Adverse Reaction (Intermediate, Verified 10/13/18 16:23) cough Medications to take at Discharge Aspirin E.C. [Ecotrin] 81 mg PO DAILY@0800 03/20/17 Atenolol [Tenormin (beta jose)] 50 mg PO DAILY 03/20/17 Fluoxetine [Prozac] 20 mg PO DAILY 03/20/17 Loratadine 10 mg PO DAILY 03/20/17 cyclobenzaprine 10 mg tablet 10 mg PO TID PRN PRN 09/13/18 losartan 100 mg tablet 100 mg PO DAILY #90 tab 09/20/18 Albuterol Sulfate [Ventolin Hfa] 2 puff INHALATION Q4H PRN PRN 10/13/18 Atorvastatin Calcium 40 mg PO QHS 10/13/18 Bupropion HCl [Bupropion HCl Sr] 100 mg PO BID 10/13/18 Omeprazole 20 mg PO DAILY 10/13/18 Primary Care Physician: Kimberley Jauregui MD [Primary Care Provider] - Please follow up with your Primary Care Physician in: 3-5 days Test Results: Test results from this visit will be discussed in further detail at your follow- up appointment, if applicable.
--- NOTE | 2018-10-14 12:52 | DS.PCM_ITS ---
Discharge Date and Diagnosis - Problem List Patient Problems: Active and Suspected Problems (Last Reviewed 10/13/18 @ 20:01 by Marco Antonio Vasquez MD) SBO (small bowel obstruction) (Acute) Date of Admission: 10/13/18 Date of Discharge: 10/14/18 - Primary Discharge Diagnosis Active and Suspected Problems (Last Reviewed 10/13/18 @ 20:01 by Marco Antonio Vasquez MD) SBO (small bowel obstruction) (Acute) - Secondary Discharge Diagnosis Chronic Problems (Last Reviewed 10/13/18 @ 20:01 by Marco Antonio Vasquez MD) Nicotine dependence (Chronic) Nonsustained paroxysmal supraventricular tachycardia (Chronic) Atherosclerosis of coronary artery of [place] heart without angina pectoris (Chronic) Hyperlipidemia (Chronic) Essential hypertension (Chronic) Hospital Course and Treatment Imaging Results: CT Abd/Pelvis: IMPRESSION: Findings consistent with mid-distal small bowel obstruction. Probable hemangioma in the right hepatic lobe but recommend dynamic contrast CT of the liver is recommended. CXR: IMPRESSION: There are findings consistent with COPD. There is no evidence of acute chest disease. Consults: None Operations: None Procedures: None Summary of Care Provided: Per HPI: The patient is a 63 year old M with a significant history of tobacco abuse; COPD; depression; hypertension; tobacco abuse; hyperlipidemia; obstructive sleep apnea on BiPAP who presented to the emergency department with nausea that started on the morning of the day of his presentation. He denies any vomiting. His symptoms started just after waking up from his sleep. Fur ther, he has mild epigastric non radiating pain and bloating of his abdomen. He denies any ameliorating or aggravating factors to his pain. The last time his bowels move it was on the same day of his presentation. Abdominal and pelvic CT at the emergency department showed findings consistent with mid -distal small bowel obstruction and probable hemangioma in the right hepatic lobe for which a contrast CT of the liver was recommended. Hospital Course: 1. Nausea and [id number]-old male with a history of tobacco abuse, COPD, depression, HTN presented with nausea and dizziness. He did not have any vomiting. He thought that he might of been having heatstroke because of working outside and being dehydrated. On presentation to the ER he had a CT scan of the abdomen pelvis and had a mild small bowel obstruction per the read. However symptomatically he did not meet criteria for small bowel obstruction as he has been passing flatus and having bowel movements both yesterday and today. He denies any abdominal pain. General surgery evaluated him and did not feel like he had a small bowel obstruction advance his diet. He is tolerating regular diet for lunch and did not have any abdominal pain with it. I discussed with him that if he feels well in about an hour he can go home and that if anything were to happen he is to return to the hospital. He is anxious to get out of the hospital and agrees with plan. 2. Probable hemangioma-Regular CT with contrast, he will need a dynamic CT liver study for further evaluation as an outpatient by his PCP. 3. His other medical diagnoses were evaluated and his home medications were continued where appropriate Patient Problems: Active and Suspected Problems (Last Reviewed 10/13/18 @ 20:01 by Marco Antonio Vasquez MD) SBO (small bowel obstruction) (Acute) - Physical Exam Vital Signs Temp Pulse Resp BP Pulse Ox 98.0 F 60 18 139/84 H 94 10/14/18 08:02 10/14/18 08:05 10/14/18 08:02 10/14/18 08:02 10/14/18 08:02 Oxygen Delivery Method Room Air Weight: 157 lb 6.561 oz Body Mass Index (BMI) 23.9 Intake and Output for Last 24 Hours 10/12/18 10/13/18 10/14/18 23:59 23:59 23:59 Intake Total 545 / 545 Balance 545 / 545 Laboratory Tests Past 24 Hrs 10/13/18 10/13/18 10/13/18 16:44 16:44 18:06 WBC 12.6 H RBC 5.86 Hgb 16.7 H Hct 51.6 MCV 88.1 MCH 28.5 MCHC 32.4 RDW Std Deviation 44.5 H RDW Coeff of Delfina 13.9 Plt Count 139 L MPV 13.1 H Immature Gran % (Auto) 0.900 Neut % (Auto) 72.4 H Lymph % (Auto) 16.6 L [place] % (Auto) 7.1 Eos % (Auto) 2.1 Baso % (Auto) 0.9 Absolute Neuts (auto) 9.2 H Absolute Lymphs (auto) 2.10 Absolute Nucleated RBC 0.00 Nucleated RBC % 0 Sodium 139 Potassium 4.9 Chloride 104 Carbon Dioxide 28.0 Anion Gap 7 BUN 14 Creatinine 1.15 Estim Creat Clear Calc 63.61 Est GFR (MDRD) Af Amer 83 Est GFR (MDRD) Non-Af 68 BUN/Creatinine Ratio 12.2 Glucose 89 Calcium 9.4 Total Bilirubin 0.70 AST 17 ALT 36 Alkaline Phosphatase 162 H Troponin I < 0.015 Total Protein 7.1 Albumin 3.6 Globulin 3.5 Albumin/Globulin Ratio 1.0 Lipase 49 L Urine Color Yellow Urine Clarity Clear Urine pH 8.0 Ur Specific [place] 1.010 Urine Protein Negative Urine Glucose (UA) Normal Urine Ketones Negative Urine Occult Blood Negative Urine Nitrite Negative Urine Bilirubin Negative Urine Urobilinogen Normal Ur Leukocyte Esterase 25 H Urine RBC 0 SEEN Urine WBC 0-5 SEEN Ur Squamous Epith Cells 0 SEEN Urine Bacteria 0 SEEN Urine Mucus 0 SEEN 10/14/18 10/14/18 07:00 07:00 WBC 8.6 RBC 5.23 Hgb 14.8 Hct 45.6 MCV 87.2 MCH 28.3 MCHC 32.5 RDW Std Deviation 43.8 RDW Coeff of Delfina 13.7 Plt Count 107 L MPV 12.8 H Immature Gran % (Auto) 0.700 Neut % (Auto) 56.1 Lymph % (Auto) 29.9 [place] % (Auto) 9.0 Eos % (Auto) 3.1 Baso % (Auto) 1.2 H Absolute Neuts (auto) 4.8 Absolute Lymphs (auto) 2.58 Absolute Nucleated RBC 0.00 Nucleated RBC % 0 Sodium 138 Potassium 4.7 Chloride 107 Carbon Dioxide 28.0 Anion Gap 3 L BUN 12 Creatinine 1.03 Estim Creat Clear Calc 71.02 Est GFR (MDRD) Af Amer 94 Est GFR (MDRD) Non-Af 77 BUN/Creatinine Ratio 11.7 Glucose 89 Calcium 9.1 Total Bilirubin AST ALT Alkaline Phosphatase Troponin I Total Protein Albumin Globulin Albumin/Globulin Ratio Lipase Urine Color Urine Clarity Urine pH Ur Specific [place] Urine Protein Urine Glucose (UA) Urine Ketones Urine Occult Blood Urine Nitrite Urine Bilirubin Urine Urobilinogen Ur Leukocyte Esterase Urine RBC Urine WBC Ur Squamous Epith Cells Urine Bacteria Urine Mucus Discharge Activity: Return to Normal Activity, No Restrictions Call your doctor if you observe: Fever of 101 or Higher, Shortness of breath, Dizziness, Fainting spells, Swelling in the ankles, Chest pain, Increased palpitations (irregular heartbeat) Home Medications: Medications to take at Discharge Aspirin E.C. [Ecotrin] 81 mg PO DAILY@0800 03/20/17 Atenolol [Tenormin (beta jose)] 50 mg PO DAILY 03/20/17 Fluoxetine [Prozac] 20 mg PO DAILY 03/20/17 Loratadine 10 mg PO DAILY 03/20/17 cyclobenzaprine 10 mg tablet 10 mg PO TID PRN PRN 09/13/18 losartan 100 mg tablet 100 mg PO DAILY #90 tab 09/20/18 Albuterol Sulfate [Ventolin Hfa] 2 puff INHALATION Q4H PRN PRN 10/13/18 Atorvastatin Calcium 40 mg PO QHS 10/13/18 Bupropion HCl [Bupropion HCl Sr] 100 mg PO BID 10/13/18 Omeprazole 20 mg PO DAILY 10/13/18 Primary Care Physician: Kimberley Jauregui MD [Primary Care Provider] - Please follow up with your Primary Care Physician in: 3-5 days Disposition: Home Minutes spent on discharge:: 35 Patient Condition:: Good Medical Necessity - Tobacco Use Smoking Status: Current some day smoker Tobacco Use: Cigarettes Meaningful Use Info Meaningful Use Diagnoses (Choose all that apply): None applicable Code Visit OBSV E&M: 53317 Observation care discharge
[2018-10-14 14:14] VITALS: BP 138/71; PULSE 72; RESP 18; TEMP 37.4; O2SAT 94
== END 2018-10-14 14:50 | disposition home or self-care (01) ==
LOC: ED 16:40 → MS3 19:41
PROVIDERS: Admitting Provider Hospitalist; Emergency Provider Emergency Medicine; Family Provider Family Medicine; PCP Family Medicine; Referring Provider Hospitalist; Visit Provider Family Medicine
DX: K56.609 Unspecified intestinal obstruction, unspecified as to partial versus complete obstruction (principal); I10 Essential (primary) hypertension; J44.9 Chronic obstructive pulmonary disease, unspecified; E78.5 Hyperlipidemia, unspecified; G47.33 Obstructive sleep apnea (adult) (pediatric); I25.10 Atherosclerotic heart disease of native coronary artery without angina pectoris; K21.9 Gastro-esophageal reflux disease without esophagitis; F32.9 Major depressive disorder, single episode, unspecified; Z79.899 Other long term (current) drug therapy; Z79.82 Long term (current) use of aspirin; F17.210 Nicotine dependence, cigarettes, uncomplicated; I47.1 Supraventricular tachycardia
CPT/HCPCS: 36415; 71045; 74177; 80048; 80053; 81001; 83690; 84484; 85025; 93005; 94002; 94003; 96361; 96365; 96372; 96375; 99218; 99285; 99406; J7030; J7120; Q9967; A4216; G0378; J2405

== ENCOUNTER → 2018-10-16 | Outpatient (CLI) | payer MEDICAID, SELFPAY ==
[2018-09-20 11:36] VITALS: BMI 23.7
[2018-10-13 21:06] VITALS: BMI 23.9
--- NOTE | 2018-10-16 06:57 | ECHOD_ITS ---
Reason For Study: CAD/ASHD Procedure This was a 2D Doppler, Color Flow transthoracic echocardiogram. Exam performed in department. Left Ventricle Normal LV size. Left ventricular systolic function is normal. The estimated ejection fraction is 60 %. No regional wall motion abnormalities noted. Right Ventricle Normal RV size. Normal systolic function. Atria Normal left atrium. Normal right atrium. Mitral Valve Normal mitral valve. Trivial eccentric mitral valve insufficiency. Tricuspid Valve Normal tricuspid valve. Mild (1+) tricuspid valve insufficiency. Pulmonary artery systolic pressure is 30 mmHg. Aortic Valve Normal aortic valve. Trisinus/trileaflet aortic valve. Pulmonic Valve Normal pulmonic valve. Great Vessels Normal aortic root. The pulmonary artery is normal size. Normal inferior vena cava. Pericardium/Pleural No pericardial effusion. MMode/2D Measurements & Calculations LVIDd: 4.2 cm IVSd: 0.75 cm Ao root diam: 3.4 cm LVIDs: 2.9 cm LVPWd: 0.94 cm RVDd: 3.3 cm FS: 31.2 % LAV(MOD-bp): 36.5 ml LVAd ap4: 22.8 cm2 SV(MOD-sp4): 32.5 ml LAV(MOD-bp) Indexed: 19.8 ml/m2 EDV(MOD-sp4): 54.5 ml LAV(MOD-sp2): 34.9 ml EDV(sp4-el): 57.0 ml LAV(MOD-sp4): 38.2 ml LVAs ap4: 12.5 cm2 ESV(MOD-sp4): 21.9 ml ESV(sp4-el): 23.0 ml EF(MOD-sp4): 59.7 % EF(sp4-el): 59.6 % SV(sp4-el): 34.0 ml LA A4 area: 15.2 cm2 LA dimension(2D): 3.3 cm RA A4 area: 14.8 cm2 Time Measurements MV dec time: 0.18 sec Doppler Measurements & Calculations MV E max ben: 74.7 cm/sec Lat Peak E' Ben: 7.8 cm/sec Med Peak E' Ben: 8.5 cm/sec MV A max ben: 88.9 cm/sec E/E' lat: 9.6 E/E' med: 8.8 MV E/A: 0.84 Ao V2 max: 142.7 cm/sec LV V1 max: 100.0 cm/sec PA V2 max: 87.1 cm/sec Ao max P.2 mmHg LV V1 max P.0 mmHg TR max ben: 261.7 cm/sec TR max P.4 mmHg Interpretation Summary Normal LV size. Left ventricular systolic function is normal. The estimated ejection fraction is 60 %. No regional wall motion abnormalities noted. Pulmonary artery systolic pressure is 30 mmHg. Structurally normal valves. Ordering Physician: Christiano Pope Referring Physician: MARIA DEL ROSARIO GEORGE Performed By: Donna Bonds RDCS
--- NOTE | 2018-10-16 13:22 | STRESSREP ---
Stress Test Report Pharmacologic myocardial perfusion stress test. 63-year-old man with a history of chest pain. Resting EKG demonstrates sinus rhythm with a rate of 69 bpm normal intervals are noted resting blood pressures 150/90 mmHg. The patient exercised according to the Elvis protocol for total duration of 4 minutes and 45 seconds. Patient completed 1 minute and 45 seconds to stage II of the Elvis protocol. The maximum heart rate attained was 146 bpm which was 92% of maximum predicted heart rate and maximum workload was 6.7 metabolic equivalents. At rest there were no ST or T wave changes noted suggest ischemia peak exercise upsloping ST changes were noted with no meet the criteria for ischemia. This was less than 1 mm noted. There was shortness of breath noted with exertion. The test was terminated due to shortness of breath. Next the resting blood pressure 150/90 mmHg with a peak blood pressure of 200/100 mmHg Myocardial perfusion protocol. 11.7 mCi of technetium 99m sestamibi was injected at rest. The patient exercised according to regular Elvis protocol for 4 minutes and 45 seconds. At peak exercise 33.7 mCi of technetium 99m sestamibi was injected stress images were obtained stress and rest images were reconstructed in comparing the short axis vertical and horizontal long axis. Gated images were also obtained Perfusion SPECT analysis: Review of the stress images demonstrate normal uptake of tracer noted in all areas of myocardium a small cardiac silhouette is noted. No areas of reversibility are noted suggest ischemia no previous infarct is noted. Gated SPECT analysis: The gated ejection fraction is noted to be 74%. Conclusion: Normal exercise myocardial perfusion stress test at a moderate workload. Preserved ejection fraction.
== END | disposition home or self-care (01) ==
LOC: CVS 06:56
PROVIDERS: Family Provider Family Medicine; PCP Family Medicine; Referring Provider Internal Medicine Cardiovascular Disease; Visit Provider Internal Medicine Cardiovascular Disease
DX: I25.10 Atherosclerotic heart disease of native coronary artery without angina pectoris (principal)
CPT/HCPCS: 78452; 93017; 93306; A9500; A4216

== ENCOUNTER → 2018-10-23 | Outpatient (CLI) | payer MEDICAID, SELFPAY ==
[2018-10-13 21:06] VITALS: BMI 23.9
[2018-10-23 12:27] LABS: Absolute Lymphocyte Count 2.41 X10^3/uL (0.83-4.51); Absolute Neutrophil Count 5.3 X10^3/uL (2.0-7.7); Basophil# 0.14 X10^3/uL; Basophil% 1.5 % (0-1); Eosinophil# 0.32 X10^3/uL; Eosinophils% 3.5 % (0-5); Hematocrit 47.8 % (40-54); Hemoglobin 15.3 g/dL (13.0-16.5); Lymphocyte # 2.41 X10^3/ul (4.0); Lymphocyte % 26.4 % (19-41); Mean Corpuscular Hgb 28.9 pg (27.0-32.0); Mean Corpuscular Volume 90.2 fL (80-94); Mean Platelet Vol. 13.7 fl (6.2-12.0); Monocyte# 0.82 X10^3/uL; NRBC Flagged by Analyzer 0 % (0-5); Neutrophil # 5.29 X10^3/uL (2.7-7.7); Platelet Count 124 K/mm3 (150-450); RBC Distribution Width CV 14.6 % (11.6-14.6); RBC Distribution Width SD 48.1 fl (35.1-43.9); White Blood Count 9.1 K/mm3 (4.4-11.0)
[2018-10-23 12:33] LABS: AST(SGOT) 17 U/L (15-37); Alanine Aminotransfer ALT/SGPT 41 U/L (16-61); Albumin, Serum 3.5 g/dL (3.2-5.0); Alkaline Phosphatase 128 U/L (45-117); Anion Gap 3 (5-15); BUN 20 mg/dL (7-18); BUN/Creat Ratio 19.4 RATIO (10-20); Calcium,Total 8.9 mg/dL (8.5-10.1); Chloride 106 mmol/L (98-107); Cholesterol 137 mg/dL (200); Creatinine, Serum 1.03 mg/dL (0.70-1.30); EST Glomerular Filtration Rate 77 mL/min (>60); Est Glom Filt Rate - Afr Amer 94 mL/min (>60); Globulin 3.4 g/dL (2.2-4.2); Glucose 97 mg/dL (74-106); High Density Lipoprotein 38 mg/dL; Potassium 4.7 mmol/L (3.5-5.1); Protein, Total 6.9 g/dL (6.4-8.2); Sodium Level 138 mmol/L (136-145); Triglycerides 103 mg/dL; Very Low Density Lipoprotein 21 mg/dL (5-40)
== END | disposition home or self-care (01) ==
LOC: LAB.FUTURE 07:52
PROVIDERS: Family Provider Family Medicine; PCP Family Medicine; Visit Provider Family Medicine
DX: E78.5 Hyperlipidemia, unspecified (principal); I10 Essential (primary) hypertension; J44.9 Chronic obstructive pulmonary disease, unspecified; R53.83 Other fatigue
CPT/HCPCS: 36415; 80053; 80061; 85025

== ENCOUNTER → 2018-10-26 | Outpatient (CLI) | payer MEDICAID, SELFPAY ==
[2018-10-13 21:06] VITALS: BMI 23.9
[2018-10-26 13:03] LABS: PSA,Total - Annual Screen 3.18 ng/mL (0.00-4.00)
== END | disposition home or self-care (01) ==
LOC: BFHLAB 08:53
PROVIDERS: Family Provider Family Medicine; PCP Family Medicine; Visit Provider Family Medicine
DX: Z12.5 Encounter for screening for malignant neoplasm of prostate (principal)
CPT/HCPCS: 36415; 84153; G0103

== ENCOUNTER 2018-10-30 08:13 | Day surgery (SDC) | payer MEDICAID, SELFPAY ==
[2018-10-27 10:12] VITALS: BMI 23.9
--- NOTE | 2018-10-30 | GASB_PTH ---
PATIENT: EDILIA SPARKS LOC: EN U#:[id number] AGE/SX: 63/M ROOM: RE10/30/[address]: Dr. Jen Baker MD : 1955 BED: DIS: 10/30/2018 SPEC #: [id number] RECD: 10/30/18 12:15 STATUS: SARA SANDRITA #: [id number] ROSSANA: 10/30/18 00:[address]: Jen Baker DEPT: SURGICAL PATHOLOGY RECD BY: Oliver Gloria ENTERED: 10/30/18 12:23 SP TYPE: Gastric Bx OTHR DR: Dr. Kimberley Jauregui MD Tissues: A - Gastric mucous membrane B - Gastric mucous membrane C - Rectum, NOS Procedures: Special Stain Group II Surgery Specimen Level IV Alcian Blue/PAS (control) HEADER OPERATION: [place] [place] DIAGNOSIS: GERD, screening TISSUE SUBMITTED: A - Antrum, H. pylori and path, B - GE junction biopsy, C - Rectal biopsy MICROSCOPIC DIAGNOSIS A. Gastric antrum, biopsy: Mild chronic gastritis. B. Gastroesophageal junction, biopsy: Fragment of gastric mucosa with mild chronic inflammation. No evidence of intestinal metaplasia. See comment. C. Rectal biopsy: Hyperplastic polyp. AM:adeola 10/31/18 COMMENT A. The results of immunohistochemistry for Helicobacter pylori will be reported separately ([id number]). B. Alcian blue/PAS stain with matched control supports the above diagnosis. Squamous mucosa is not represented in the biopsy. Clinical correlation is suggested. MICROSCOPIC DESCRIPTION Slides are reviewed. GROSS DESCRIPTION A - Received in fixative is one container labeled with the patient's name and designated antrum biopsy. The specimen consists of one irregular fragment of light haynes soft tissue that measures 0.4 x 0.3 x 0.1 cm. The specimen is totally submitted in one cassette. B - Received in fixative is one container labeled with the patient's name and designated GE junction biopsy. The specimen consists of one irregular fragment of light haynes soft tissue that measures 0.4 x 0.3 x 0.1 cm. The specimen is totally submitted in one cassette. C - Received in fixative is one container labeled with the patient's name and designated rectal biopsy. The specimen consists of two irregular fragments of light haynes soft tissue measuring 0.4 x 0.3 x 0.1 cm and 0.1 cm in greatest dimension. The specimen is totally submitted in one cassette. / SJ:rg 10/30/18 TC:3 CPT: 47730 x3, 71380
--- NOTE | 2018-10-30 06:54 | HP.PCM_ITS ---
History and Physical Date of Admission: 10/30/18 Intake Vital Signs 10/27/18 Body Mass Index (BMI) 23.9 10/27/18 Height 5 ft 8 in 10/27/18 Weight: 164 lb 10/27/18 Body Mass Index (BMI) 24.9 10/27/18 Blood Pressure 151/90 H 10/27/18 Blood Pressure Location Rt brachial 10/27/18 Blood Pressure Position Sitting 10/27/18 Respiratory Rate 14 10/27/18 Pulse Rate 77 10/27/18 Pulse Source Monitor 10/27/18 Temperature 978 F H 10/27/18 Temperature Source Oral 10/27/18 Pulse Ox 96 10/27/18 Oxygen Delivery Method room air Intake Visit Reasons: hosp f/up psbo, abd pain, needs cscope Chief Complaint: Abd pain nausea Booster Pump Oiler Required: No Is patient in pain?: No Allergies lisinopril Adverse Reaction (Intermediate, Verified 10/27/18 10:02) cough Medications Aspirin E.C. [Ecotrin] 81 mg PO DAILY@0800 03/20/17 [History Confirmed 10/27/18] Atenolol [Tenormin (beta jose)] 50 mg PO DAILY 03/20/17 [History Confirmed 10/27/18] Fluoxetine [Prozac] 20 mg PO DAILY 03/20/17 [History Confirmed 10/27/18] Loratadine 10 mg PO DAILY 03/20/17 [History Confirmed 10/27/18] cyclobenzaprine 10 mg tablet 10 mg PO TID PRN PRN 09/13/18 [History Confirmed 10/27/18] losartan 100 mg tablet 100 mg PO DAILY #90 tab 09/20/18 [Rx Confirmed 10/27/18] Albuterol Sulfate [Ventolin Hfa] 2 puff INHALATION Q4H PRN PRN 10/13/18 [History Confirmed 10/27/18] Atorvastatin Calcium 40 mg PO QHS 10/13/18 [History Confirmed 10/27/18] Bupropion HCl [Bupropion HCl Sr] 100 mg PO BID 10/13/18 [History Confirmed 10/13/18] Omeprazole 20 mg PO DAILY 10/13/18 [History Confirmed 10/27/18] albuterol sulfate 90 mcg/actuation breath activated powder inhaler 2 inh INHALATION Q6H 10/27/18 [History Confirmed 10/27/18] benzonatate 100 mg capsule 100 mg PO TID PRN 10/27/18 [History Confirmed 10/27/18] meloxicam 15 mg tablet 15 mg PO DAILY 10/27/18 [History Confirmed 10/27/18] nitroglycerin 0.4 mg sublingual tablet 0.4 mg SUBLINGUAL Q5-15M PRN 10/27/18 [History Confirmed 10/27/18] trazodone 50 mg tablet 50 mg PO QHS 10/27/18 [History Confirmed 10/27/18] [facility] Medical History (Updated 10/27/18 @ 10:00 by Neva Vides) Emphysema/COPD (Acute) Sleep apnea (Acute) Fatigue (Acute) COPD (chronic obstructive pulmonary disease) (Chronic) Depression (Chronic) GERD (gastroesophageal reflux disease) (Chronic) Tobacco abuse (Chronic) GALE on CPAP (Chronic) SBO (small bowel obstruction) (Acute) Nicotine dependence (Chronic) Nonsustained paroxysmal supraventricular tachycardia (Chronic) Atherosclerosis of coronary artery of [place] heart without angina pectoris (Chronic) Hyperlipidemia (Chronic) Essential hypertension (Chronic) Surgical History (Updated 10/27/18 @ 10:00 by Neva Vides) Hx of cholecystectomy (Acute) History of colonoscopy with polypectomy (Resolved) History of arthroscopy of right shoulder (Resolved) History of rotator cuff surgery (Resolved) History of skin graft (Resolved) Family History (Updated 09/13/18 @ 09:17 by Sarah Stauffer) Mother Diabetes Father Cancer prostate Sister Diabetes Social History (Updated 10/27/18 @ 10:12 by Jen Baker MD) Smoking Status: Current some day smoker how long ago did patient quit smokin alcohol intake: never substance use type: does not use caffeine: Yes what type of physical activity do you participate in: none frequency: does not exercise HPI HPI HPI: EDILIA SPARKS, is a 63 M who presents to the office today for screening colonoscopy due to history of colon polyps. Patient's last colonoscopy was in 2013 where he had 3 hyperplastic polyps removed. Patient states his dad had likely pancreatic cancer questionable if it could have been colon or not but he was greater than 61 diagnosed. Patient denies any abdominal pain was admitted for questionable partial small bowel obstruction however this may have been an over call the CAT scan as patient did not need any intervention and was passing gas and having bowel function the next morning. Patient denies any nausea or vomiting. Patient states he gets heartburn maybe once or twice every 3 months he is on omeprazole 20 mg p.o. daily which he states mostly works for him. Patient's been on this for maybe about 3 years he states he did have an EGD in the past maybe about 20 years ago unsure exactly why but has not had any recently HPI HPI HPI: EDILIA SPARKS, is a 63 M who presents to the office today for ROS General General: Yes fatigue; no weight change, colon cancer, breast cancer or weakness HEENT HEENT: No difficulty swallowing, eye injury, eye surgery, swollen glands or hoarseness Endo Endocrine: No thyroid disease, diabetes mellitus, thyroid cancer, Hair loss, heat intolerance or cold intolerance Skin Skin: No rash or changing moles Musc Musculoskeletal: No back problems, arthritis, rheumatoid arthritis, gout or joint pain Cardio Cardiovascular: Yes high blood pressure; no murmur, pacemaker, heart disease, atrial fibrillation, heart attack, heart stent, palpitations, shortness of breat with exertion or chest pain Psych Psychiatric: Yes depression; no anxiety or hearing voices Resp Respiratory: No shortness of breath, Yes sleep apnea, No cough, Yes COPD, No asthma, Yes emphysema, No wheezing Gastro Gastrointestinal: No abdominal pain, No nausea or vomiting, No diarrhea, No constipation, No blood in stool, No acid reflux, No hemorrhoids, No ulcers, No gallbladder problem, No black,tarry stools Sergey Hematologic: No blood thinners, No blood disorders, No bleeding, No anemia, No blood clots Neuro Neurologic: No system reviewed and no additional complaints, except as docu, No as per HPI, No abnormal walking, No abnormal hearing, No abnormal movements, No abnormal speech, No behavioral changes, No burning sensations, No confusion, No seizure-like activity, No unsteadiness, No dizziness, No localized weakness, No frequent falls, No headache(s), No lack of coordination, No loss of vision, No memory loss, No numbness, No other visual disturbances, No radiating pain, No restless legs, No sensory deficit, No fainting, No tingling, No tremor(s), No weakness, No other Exam Const General: cooperative, comfortable, no acute distress Resp Effort & Inspection: normal respiratory effort Cardio Rate: regular rate Heart Sounds: no murmurs GI Inspection: non-distended Palpation: soft, no guarding, nontender Extrem General: no clubbing, cyanosis or edema Psych Affect: normal affect Assessment & Plan Problems 1. Colon polyp, hyperplastic K63.5 2. GERD (gastroesophageal reflux disease) K21.9 Plan Patient states is been on omeprazole for about 3 years and is never had any recent upper endoscopy. Thinks he may have had it about 20 years ago but unsure why. Recommend patient get an EGD to make sure not masking anything with the medication. Patient was agreeable to plan. I have discussed the above with the patient. I have offered the patient EGD & colonoscopy for evaluation. I have explained the risks/benefits of the procedure and described the procedure. I have discussed the risks with the patient, including but not limited to: infection, bleeding, perforation of the GI tract requiring emergency surgery, inability to complete the procedure, injury to any internal organs, complications of anesthesia, etc. - the patient understands and agrees to proceed. I have answered all the patient's questions to the patient's satisfaction and the patient has no further questions. The patient has been given instructions for the colon cleansing preparation. 1 day of clears, MiraLAX Dulcolax split prep. Jen Baker M.D. Pager: [phone] [facility] [address] [place] [address], [address] [place] [address] Office: [phone] Plan Detail Follow Up We will schedule EGD and colonoscopy Coding Level of Care Code Off vis,est,level 3 Diagnoses Colon polyp, hyperplastic K63.5 GERD (gastroesophageal reflux disease) K21.9 10/27/18 1012 <Electronically signed by Jen Beasley am, MD> Date _ Jen Baker MD CC: Kimberley Jauregui MD ~
[2018-10-30 08:27] VITALS: BP 161/86; PULSE 73; RESP 17; TEMP 36.6; O2SAT 98; BMI 23.6
--- NOTE | 2018-10-30 09:30 | IMM_PTH ---
PATIENT: EDILIA SPARKS LOC: ANUP U#:[id number] AGE/SX: 63/M ROOM: RE10/30/[address]: Dr. Jen Baker MD : 1955 BED: DIS: 10/30/2018 SPEC #: [id number] RECD: 10/30/18 12:35 STATUS: SARA REQ #: [id number] ROSSANA: 10/30/18 09:[address]: Jen Baker DEPT: IMMUNOHISTOCHEMISTRY RECD BY: Shanice Beckham ENTERED: 10/30/18 12:35 SP TYPE: IMMUNO OTHR DR: Dr. Kimberley Jauregui MD Tissues: A - Stomach, NOS Procedures: H Pylori (initial) PHYSICIAN & INSTITUTION [place] [id number] SPECIMEN INFORMATION: Tissue Source: A - Antrum Clinical Info: GERD, screening Specimen Number: [id number] CPT code: 16788 METHODOLOGY: Deparaffinized sections of prefer/formalin-fixed tissue or PAP/DQ stained slides are incubated with monoclonal/polyclonal antibodies/oligonucleotide probes. Localization is made via biotin free immunoperoxidase method. Appropriate controls are performed and reacted as expected. Results on target cell population are indicated in the following table: RESULTS: ANTIBODY / CLONE RESULT Block A H Pylori (polyclonal) negative These tests were developed and their performance characteristics determined by [facility]. They may not have been cleared or approved by the U.S. Food and Drug Administration. The FDA has determined that such clearance or approval is not necessary. INTERPRETATION: A. Antrum biopsy: Negative for Helicobacter pylori organisms. AM:adeola 10/31/18
[2018-10-30 09:57] VITALS: BP 107/60; BP 161/86; PULSE 78; RESP 18; TEMP 36.3; O2SAT 94
--- NOTE | 2018-10-30 09:57 | OP.ENDO_ITS ---
10/30/2018 Kimberley Jauregui [place] [id number] [address] Re : Upper GI endoscopy procedure for Feng Norton Dear Dr. Jauregui This procedure was performed on Tuesday, October 30, 2018. My impressions and recommendations are as follows: Impressions : - Z-line irregular, 40 cm from the incisors. Biopsied. - Erythematous mucosa in the antrum. Biopsied. - Normal examined duodenum. Recommendations : - Await pathology results. - Discharge patient to home. - Resume previous diet. - Continue present medications. My findings are described in the full procedure note, which is enclosed. If I can be of further assistance, please feel free to contact me at Doctor phone number(s): , Work: . Sincerely, MD Jen Dorantes MD 10/30/2018 9:56:36 AM This report has been signed electronically.
[2018-10-30 10:00] VITALS: BP 111/64; BP 161/86; PULSE 78; RESP 18; O2SAT 95
--- NOTE | 2018-10-30 10:01 | OP.ENDO_ITS ---
10/30/2018 Kimberley Jauregui [place] [id number] [address] Re : Colonoscopy procedure for Feng Norton Dear Dr. Jauregui This procedure was performed on Tuesday, October 30, 2018. My impressions and recommendations are as follows: Impressions : - Hemorrhoids found on perianal exam. - <5mm rectal polyp removed. Recommendations : - Discharge patient to home. - Await pathology results. - Repeat colonoscopy in 5-10 years for surveillance based on pathology results. - Continue present medications. My findings are described in the full procedure note, which is enclosed. If I can be of further assistance, please feel free to contact me at Doctor phone number(s): , Work: . Sincerely, MD Jen Dorantes MD 10/30/2018 10:00:50 AM This report has been signed electronically.
[2018-10-30 10:05] VITALS: BP 113/65; BP 161/86; PULSE 77; RESP 18; O2SAT 94
[2018-10-30 10:09] VITALS: BP 111/73; BP 161/86; PULSE 75; RESP 16; TEMP 36.3; O2SAT 93
[2018-10-30 10:11] VITALS: BP 161/86
== END 2018-10-30 10:41 | disposition home or self-care (01) ==
LOC: EN 08:13 → AC 08:13
PROVIDERS: Family Provider Family Medicine; PCP Family Medicine; Referring Provider Family Medicine; Visit Provider Surgery
PROC: 0DJD8ZZ Inspection of Lower Intestinal Tract, Via Natural or Artificial Opening Endoscopic (ICD-10-PCS; CPT 45378; principal; 2018-10-30 09:25)
DX: K29.50 Unspecified chronic gastritis without bleeding (principal); K62.1 Rectal polyp; K21.9 Gastro-esophageal reflux disease without esophagitis; K64.0 First degree hemorrhoids; J44.9 Chronic obstructive pulmonary disease, unspecified; G47.30 Sleep apnea, unspecified; F32.9 Major depressive disorder, single episode, unspecified; I25.10 Atherosclerotic heart disease of native coronary artery without angina pectoris; E78.5 Hyperlipidemia, unspecified; I10 Essential (primary) hypertension; F17.200 Nicotine dependence, unspecified, uncomplicated; Z87.19 Personal history of other diseases of the digestive system; Z79.82 Long term (current) use of aspirin; Z79.51 Long term (current) use of inhaled steroids; Z79.899 Other long term (current) drug therapy
CPT/HCPCS: 43239; 45380; 88305; 88313; 88342; J7120

== ENCOUNTER → 2018-11-06 06:37 | Outpatient (CLI) | payer MEDICAID, SELFPAY ==
[2018-10-30 08:27] VITALS: BMI 23.6
--- NOTE | 2018-11-06 06:40 | CT_ITS ---
STUDY: CT ABDOMEN WITH CONTRAST REASON FOR EXAM: Male, 63 years old. Hemangioma follow-up RADIATION DOSAGE (If Supplied By Facility): CTDIvol = ( 16.24 ) mGy, DLP = ( 1363.6 ) mGycm TECHNIQUE: Transaxial images were obtained post I.V. administration of 100 IV Isovue 300, and oral contrast. Sagittal and coronal images were reconstructed. Individualized dose optimization techniques were used for this CT. COMPARISON: October 13 FINDINGS: The visualized lung bases are unremarkable. The visualized portions of the heart are within normal limits. Multiple tiny cysts within the liver as well as a peripheral nodular enhancing lesion in the posterior segment of the right lobe which becomes isoattenuated with normal liver measuring approximately 2 to 3 cm in size consistent with hemangioma. Bile ducts are not dilated. Gallbladder has been removed. Tiny granulomatous calcifications within normal size spleen. Normal pancreas. Normal bilateral adrenal glands. Normal visualized stomach. Normal small intestine. Normal colon. The appendix is visualized and appears normal. No evidence for renal obstruction or ureteral calculus. There is a simple cyst in the right kidney. Atherosclerotic changes of the aorta without evidence for aneurysm Normal inferior vena cava. Normal retroperitoneum. Normal abdominal wall. Normal osseous structures. No significant change since prior study CT/Abdomen WITH IV Contrast IMPRESSION: Findings consistent with hemangioma in the posterior segment of the right lobe of the liver prior exam No acute abnormality Electronically Signed: Travon Murphy MD at 17:14 EDT , Service support ,
== END ==
PROVIDERS: Family Provider Family Medicine; PCP Family Medicine; Referring Provider Family Medicine; Visit Provider Family Medicine
DX: K76.9 Liver disease, unspecified (principal)
CPT/HCPCS: 74160; Q9967

== ENCOUNTER → 2019-05-01 11:04 | Outpatient (CLI) | payer MEDICAID, SELFPAY ==
[2019-05-01 12:52] LABS: ALB/GLOB Ratio 1.1 RATIO (0.9-2.4); AST(SGOT) 14 U/L (15-37); Absolute Lymphocyte Count 2.41 X10^3/uL (0.83-4.51); Absolute Neutrophil Count 3.9 X10^3/uL (2.0-7.7); Alanine Aminotransfer ALT/SGPT 31 U/L (16-61); Albumin, Serum 3.6 g/dL (3.2-5.0); Alkaline Phosphatase 111 U/L (45-117); Anion Gap 5 (5-15); BUN 14 mg/dL (7-18); BUN/Creat Ratio 12.7 RATIO (10-20); Basophil% 1.3 % (0-1); Calcium,Total 9.9 mg/dL (8.5-10.1); Chloride 105 mmol/L (98-107); Cholesterol 151 mg/dL (200); EST Glomerular Filtration Rate 72 mL/min (>60); Eosinophil# 0.33 X10^3/uL; Eosinophils% 4.3 % (0-5); Est Glom Filt Rate - Afr Amer 87 mL/min (>60); Globulin 3.4 g/dL (2.2-4.2); Glucose 67 mg/dL (74-106); Hematocrit 45.6 % (40-54); Hemoglobin 15.1 g/dL (13.0-16.5); High Density Lipoprotein 37 mg/dL; Lymphocyte # 2.41 X10^3/ul (4.0); Lymphocyte % 31.5 % (19-41); Mean Corp Hgb Conc 33.1 g/dL (32-36); Mean Corpuscular Hgb 28.8 pg (27.0-32.0); Monocyte# 0.85 X10^3/uL; Monocyte% 11.1 % (0-10); NRBC Flagged by Analyzer 0 % (0-5); Neutrophil # 3.92 X10^3/uL (2.7-7.7); Neutrophil % 51.3 % (47-70); Platelet Count 119 K/mm3 (150-450); Potassium 4.4 mmol/L (3.5-5.1); RBC Distribution Width CV 12.8 % (11.6-14.6); RBC Distribution Width SD 40.3 fl (35.1-43.9); Red Blood Count 5.24 M/mm3 (4.6-6.2); Sodium Level 139 mmol/L (136-145); Triglycerides 102 mg/dL; Very Low Density Lipoprotein 20 mg/dL (5-40); White Blood Count 7.7 K/mm3 (4.4-11.0)
== END ==
PROVIDERS: PCP Family Medicine; Visit Provider Family Medicine
DX: I10 Essential (primary) hypertension (principal); J44.9 Chronic obstructive pulmonary disease, unspecified; E78.5 Hyperlipidemia, unspecified
CPT/HCPCS: 36415; 80053; 80061; 85025

== ENCOUNTER → 2019-05-04 14:02 | Outpatient (CLI) | payer MEDICAID, SELFPAY ==
--- NOTE | 2019-05-04 14:05 | CT_ITS ---
STUDY: CT CHEST WITHOUT CONTRAST- LOW DOSE SCREENING PROTOCOL REASON FOR EXAM: Male, 64 years old. Current smoker. 75 pack per year history. No current symptoms of lung cancer or pulmonary infection. Shared decision-making with referring PCP documented in patient''s record. RADIATION DOSAGE (If Supplied By Facility): CTDIvol = ( 2.55 ) mGy, DLP = ( 90.60 ) mGycm TECHNIQUE: Low dose screening CT examination performed from the base of the neck to the upper abdomen. Sagittal and coronal reformatted images performed. Sagittal and coronal MIP images provided. The measurements provided are average, rounded measurements per ACR guidelines. COMPARISON: 02/07/2018 FINDINGS: Moderate emphysematous changes. No noncalcified nodule or mass. Some calcified granulomata along the anterior margin of the left lower lobe. There is no demonstrated pleural abnormality. Normal heart and pericardium. There are calcifications of the coronary arteries. Normal mediastinum. Normal hilar regions. Normal unenhanced pulmonary arteries. Normal aorta arch and descending thoracic aorta. Normal osseous structures. Status post cholecystectomy. CT/Low Dose CT Lung Screening IMPRESSION: 1. No significant indeterminate incidental findings requiring additional imaging. 2. Incidental findings include moderate emphysema and calcified coronary plaque.. ASSESSMENT CATEGORY: LungRADS 1 - Negative. Continue annual screening with LDCT in 12 months, per established ACR guidelines. Electronically Signed: Joe Ramirez MD at 15:54 EST Tel , Service support ,
== END ==
PROVIDERS: PCP Family Medicine; Referring Provider Family Medicine; Visit Provider Family Medicine
DX: Z12.2 Encounter for screening for malignant neoplasm of respiratory organs (principal); F17.200 Nicotine dependence, unspecified, uncomplicated
CPT/HCPCS: G0297

== ENCOUNTER → 2020-03-11 06:05 | Outpatient (CLI) | payer MEDICARE, MEDICAID, SELFPAY ==
[2019-11-19 07:56] VITALS: BMI 24.3
[2020-03-11 07:18] LABS: Absolute Lymphocyte Count 2.76 X10^3/uL (0.83-4.51); Absolute Neutrophil Count 4.1 X10^3/uL (2.0-7.7); Basophil# 0.11 X10^3/uL; Basophil% 1.3 % (0-1); Eosinophil# 0.54 X10^3/uL; Eosinophils% 6.3 % (0-5); Hematocrit 48.2 % (40-54); Hemoglobin 15.8 g/dL (13.0-16.5); Lymphocyte # 2.76 X10^3/ul (4.0); Lymphocyte % 32.2 % (19-41); Mean Corp Hgb Conc 32.8 g/dL (32-36); Mean Corpuscular Hgb 28.8 pg (27.0-32.0); Mean Platelet Vol. 14.3 fl (6.2-12.0); Monocyte# 0.92 X10^3/uL; Monocyte% 10.7 % (0-10); NRBC Flagged by Analyzer 0 % (0-5); Neutrophil # 4.14 X10^3/uL (2.7-7.7); Neutrophil % 48.3 % (47-70); Platelet Count 117 K/mm3 (150-450); RBC Distribution Width CV 13.1 % (11.6-14.6); RBC Distribution Width SD 42.3 fl (35.1-43.9); Red Blood Count 5.48 M/mm3 (4.6-6.2); White Blood Count 8.6 K/mm3 (4.4-11.0)
[2020-03-11 07:59] LABS: ALB/GLOB Ratio 1.2 RATIO (0.9-2.4); AST(SGOT) 12 U/L (15-37); Alanine Aminotransfer ALT/SGPT 33 U/L (16-61); Albumin, Serum 3.7 g/dL (3.2-5.0); Alkaline Phosphatase 129 U/L (45-117); Anion Gap 4 (5-15); BUN 22 mg/dL (7-18); BUN/Creat Ratio 20.4 RATIO (10-20); Calcium,Total 8.9 mg/dL (8.5-10.1); Chloride 109 mmol/L (98-107); Cholesterol 148 mg/dL (200); Creatinine, Serum 1.08 mg/dL (0.70-1.30); EST Glomerular Filtration Rate 73 mL/min (>60); Est Glom Filt Rate - Afr Amer 88 mL/min (>60); Globulin 3.1 g/dL (2.2-4.2); Glucose 99 mg/dL (74-106); High Density Lipoprotein 35 mg/dL; Protein, Total 6.8 g/dL (6.4-8.2); Sodium Level 142 mmol/L (136-145); Thyroid Stim Hormone (TSH) 2.02 uIU/mL (0.358-3.74); Triglycerides 111 mg/dL; Very Low Density Lipoprotein 22 mg/dL (5-40)
[2020-03-11 08:34] LABS: Vitamin B12 577 pg/mL (211-911)
== END ==
PROVIDERS: PCP Family Medicine; Referring Provider Family Medicine; Visit Provider Family Medicine
DX: R53.83 Other fatigue (principal); I10 Essential (primary) hypertension
CPT/HCPCS: 36415; 80053; 80061; 82607; 84443; 85025

== ENCOUNTER 2020-06-25 11:00 | Outpatient (RCR) | payer MEDICARE, MEDICAID, SELFPAY ==
[2019-11-19 07:56] VITALS: BMI 24.3
--- NOTE | 2020-05-15 11:40 | HP.PTEVAL_ITS ---
Patient's Visit Information EDILIA SPARKS is a 65 year old M referred to Physical Therapy by Dr. Edilia Brady MD with a diagnosis of R RTC injury. Date of Evaluation: 05/15/20 Physical Therapist: Oniel Ruiz DPT - Visit Plan Frequency: 2x /Week Duration: 4 Weeks Plan: 1)Start with AAROM progression as tolerated. 2) DFM and US to bicipital groove/supraspinatus insertion. 3) progress iso strengthening to functional RTC stability/strengthening. - Subjective Pt. is here today for his initial evaluation with diagnosis of R shoulder pain. Pt. has a hisotry of R RTC repair. He did not know which muscles were repair, but from the incision it was an open surgery rather than arthroscopic. He did report that the phsyician said it was a difficulty surgery due to the amount of muscle retracton. He reports having increased pain for ~2 months, no NENA. Increased pain: lifting, raising arm over head, upper body dressing. Decreased pain: rest. No issues with sleeping. No N/T. 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 He reports minimal increase in symptoms with working. He is hopeful to reduce symptoms in order to complete all recreational and work activities. - Pain R shoulder Pain Intensity (Out of 10): 6 Pain Intensity Range: 3, 8 Comment: anterior aspect - Objective POSTURE: Pt. has FH and rounded shoulders. Pt. has normal arm positioning. PALPATION: Pt. has increased pain at anterior shoulder closed to bicipital groove and anterior aspect of supraspinatus insertion. NEURO: normal DTR of BUE s. Normal sensation of BUEs. ROM: AROM: L shoulder- flexion 160deg, abd 155deg, Functional ER C5, functional IR L2. R shoulder- flexion- 125deg increase NW, abd 105deg increase NW, functional ER C3 increase NW, functional IR L5 increase NW. PROM: R shoulder- flexion 140deg increase NW, abd 130deg increase NW, ER at 30deg of abd 25deg increase NW, ER at 30deg 30dge increase NW. MMT: LUE- 5/5 throughout. RUE- elbow/wrist 5/5 throughout; shoulder- flexuon 4/5 increase NW, abd 4/5 increase NW, ER 4/5 increase NW, IR 4/5 increase NW (worst with this motion). - Special Tests R Shoulder Lift Off Test - Subscapular Tear: Positive R Shoulder Drop Sign - IS Test: Negative R Shoulder Empty Can - SS: Positive R Shoulder Neer - Impingement: Positive R Shoulder Hernandez Javier - Impingement: Positive R Shoulder Yeargasons - SLAP: Positive - Goals Goal 1:: LTG: Pt. to be I with HEP. Goal Time Frame: 4-6 Weeks Goal 2:: STG: Pt. to have increased PROM of R shoulder by 25% in all directions. Goal Time Frame: 2-4 Weeks Goal 3:: LTG: Pt. to have symmetrical R shoulder AROM to L shoulder without inc rease in symptoms. Goal Time Frame: 4-6 Weeks Goal 4:: LTG: Pt. to have increase RUE strength by 1/2 grade of all effected musculature. Goal Time Frame: 4-6 Weeks Goal 5:: LTG: Pt. to complete all work activities without limitations. Goal Time Frame: 4-6 Weeks - Rehabilitation Potential Physical Therapy Diagnosis: Pt. has signs and symptoms consistent with R RTC pathology. He had decent strength suggesting not complete tearing, but has marked loss of ROM and pain with all over head motions. He had some positive signs for bicpital involvement as well. Pt. would benefit from PT to work on his ROM, decrease his symptoms progressing to strength and stability as tolerated. Rehabilitation Potential: Fair - Anticipated Interventions Patient/Client Instruction: Educate patient on: Condition, Plan of Care, Risk Factors, Benefits of Fitness Program For the Purpose of:: To improve decision making, To facilitate caregiver knowledge, To improve self management, To prevent re-injury, To improve ability to perform tasks related to life management, To improve tolerance to ADL's Therapeutic Exercise to Include: Strength training, Power training, Endurance training, Postural training, Flexibilty training, Passive ROM, Active ROM, Scapular Strength/Stabilization For the Purpose of:: To decrease pain, To decrease swelling/inflammation, To increase ROM, To improve nutrient delivery to tissue, To increase oxygenation perfusion, To improve muscle performance and motor function, To decrease level of supervision to perform tasks, To improve ability of physical actions for home/community/work/leisure, To improve health of tissue, To decrease soft tissue restriction, To increase flexibility/ROM Manual Therapy Techniques to Include: Mobilization, Soft tissue mobilization Comment: Deep friction massage For the Purpose of:: To decrease pain, To decrease swelling/inflammation, To increase ROM Ultrasound (thermal/non thermal): Yes For the Purpose of:: To decrease pain, To decrease swelling/inflammation, To increase ROM, To improve nutrient delivery to tissue Thank you for the opportunity to evaluate your patient. For Medicare and Medicare HMO plans, please review the plan of care and approve it. It will need to be FAXED BACK to us at [phone] for Medicare purposes. For Medicare only, by signing this I certify the plan of care. Please let me know if there are questions or concerns regarding this plan of care. Physician Signature: Date:
--- NOTE | 2020-09-03 10:53 | HP.PTDCNRP_ITS ---
EDILIA SPARKS was seen in my office for initial evaluation on 05/15/20. The following Plan of Care was established for this patient: Initial Frequency: 2x /Week Initial Duration: 4 Weeks Patient/Client Instruction: Educate patient on: Condition, Plan of Care, Risk Factors, Benefits of Fitness Program For the Purpose of:: To improve decision making, To facilitate caregiver knowledge, To improve self management, To prevent re-injury, To improve ability to perform tasks related to life management, To improve tolerance to ADL's Therapeutic Exercise to Include: Strength training, Power training, Endurance training, Postural training, Flexibilty training, Passive ROM, Active ROM, Scapular Strength/Stabilization For the Purpose of:: To decrease pain, To decrease swelling/inflammation, To increase ROM, To improve nutrient delivery to tissue, To increase oxygenation perfusion, To improve muscle performance and motor function, To decrease level of supervision to perform tasks, To improve ability of physical actions for sanket e/community/work/leisure, To improve health of tissue, To decrease soft tissue restriction, To increase flexibility/ROM Manual Therapy Techniques to Include: Mobilization, Soft tissue mobilization Comment: Deep friction massage For the Purpose of:: To decrease pain, To decrease swelling/inflammation, To increase ROM Ultrasound (thermal/non thermal): Yes For the Purpose of:: To decrease pain, To decrease swelling/inflammation, To increase ROM, To improve nutrient delivery to tissue This patient was last seen in our office 06/25/20. Pertinent comments regarding their Physical therapy will appear below: Pt. was seen in PT for his R shoulder pain. He progressed well with ROM, strengthening and some modalities. He was doing well at our last visit. He has not been seen in several months and will be DC from PT at this point in time. At this point I will be discontinuing this patient from physical therapy. I would be happy to see this patient again in the future if found appropriate by the physician. Thank you! CHRISTIANO VenturaT
== END 2020-06-25 19:00 | disposition home or self-care (01) ==
LOC: PT 11:00
PROVIDERS: PCP Family Medicine; Referring Provider Family Medicine; Visit Provider Family Medicine
DX: S46.001D Unspecified injury of muscle(s) and tendon(s) of the rotator cuff of right shoulder, subsequent encounter (principal)
CPT/HCPCS: 97035; 97110; 97161

== ENCOUNTER 2020-09-27 12:18 | Emergency (ER) | payer MEDICARE, MEDICAID, SELFPAY ==
[2019-11-19 07:56] VITALS: BMI 24.3
[2020-09-27] VITALS (11 sets, daily range): BP systolic 119–160; BP diastolic 77–110; PULSE 80–94; RESP 12–30; TEMP 36; O2SAT 91–97; BMI 25.5
--- NOTE | 2020-09-27 12:37 | EKG12_ITS ---
Test Reason : SOB Blood Pressure : / mmHG Vent. Rate : 093 BPM Atrial Rate : 093 BPM P-R Int : 090 ms QRS Dur : 078 ms QT Int : 358 ms P-R-T Axes : 057 069 063 degrees QTc Int : 445 ms Sinus rhythm with borderline short NC Nonspecific ST abnormality Abnormal ECG Confirmed by MARIELENA ROBERTS, PITO ([id number]), slot editor SHAKIRA ZARATE ([id number]) on 10/01/2020 1:50:00 PM Referred By: DAYANA Confirmed By:PITO PEGUERO MD
--- NOTE | 2020-09-27 12:37 | RAD_ITS ---
HISTORY: chest pain EXAMINATION/TECHNIQUE: XR Chest 1 View: Portable upright AP chest x-ray COMPARISON: 10/13/18 FINDINGS: LINES/DEVICES: None. LUNGS: No consolidation, edema or effusion. No pneumothorax. MEDIASTINUM AND CARDIOVASCULAR STRUCTURES: Cardiac silhouette not enlarged. Central airways and mediastinal contour are unremarkable. BONES AND SOFT TISSUES: No acute bony abnormalities. Stable deformities of multiple bilateral ribs. RAD/Chest 1 View (Portable) IMPRESSION: No radiographic evidence of acute cardiopulmonary disease. at 1345 Reported and signed by: Marin Moreno MD Electronically Signed: Marin Moreno MD at 13:44 EDT Tel , Service support ,
--- NOTE | 2020-09-27 12:38 | EDS_ITS ---
HPI History of Present Illness Chief Complaint: Shortness of Breath Informant: patient and spouse/S.O. Onset/Context/Timing Onset: Today Context: gradual Timing: Continuous Quality: Positive for Wheezing Current Severity: Moderate Maximum Severity: Moderate Associated Symptoms cough; Negative for rhinorrhea, post nasal drip, ear pain, sore throat, clear sputum, white sputum, yellow sputum or green sputum Chest Pain: Positive for None Narrative Narrative: 65-year-old male history of COPD he has BiPAP at home and aerosol machine. He was at work today got worsening shortness of breath they called the squad who gave aerosol treatments and brought him in. He is currently been placed on BiPAP by respiratory therapy. He denies any chest pain. No history of DVT or PE. No recent travel, surgery or immobilization. No leg pain or swelling. No hemoptysis. No recent fever or chills. PE Risk Factors: Negative for Cancer, OCP + Smoking + > 35, Prior DVT or PE, Recent immobilization, Recent surgery and Recent travel Prior similar symptoms: Yes Recent Illness/Hospitalization: No PFSH PFS Medical History (Updated 09/27/20 @ 14:[address] Nathan Cho MD) Atherosclerosis of coronary artery of [place] heart without angina pectoris COPD (chronic obstructive pulmonary disease) Depression Essential hypertension GERD (gastroesophageal reflux disease) Hyperlipidemia (Unknown) Nicotine dependence Nonsustained paroxysmal supraventricular tachycardia GALE on CPAP SBO (small bowel obstruction) Home Medications aspirin 81 mg PO DAILY@0800 03/20/17 [History Last Taken 10/13/18] atenolol 50 mg PO DAILY 03/20/17 [History Last Taken 10/30/18 06:30] fluoxetine 20 mg PO DAILY 03/20/17 [History Last Taken 10/13/18] loratadine 10 mg PO DAILY 03/20/17 [History Last Taken 10/13/18] albuterol sulfate 2 puff INHALATION Q4H PRN PRN 10/13/18 [History Last Taken 10/12/18] bupropion HCl 100 mg PO BID 10/13/18 [History Last Taken 10/13/18] omeprazole 20 mg PO DAILY 10/13/18 [History Last Taken 10/13/18] albuterol sulfate 90 mcg/actuation breath activated powder inhaler 2 inh INHALATION Q6H 10/27/18 [History Last Taken Unknown] meloxicam 15 mg tablet 15 mg PO DAILY PRN 10/27/18 [History Last Taken Unknown] nitroglycerin 0.4 mg sublingual tablet 0.4 mg SUBLINGUAL Q5-15M PRN 10/27/18 [History Last Taken Unknown] atorvastatin 20 mg tablet 20 mg PO QHS tab 09/11/19 [History Last Taken Unknown] beclomethasone dipropionate 40 mcg/actuation HFA breath activated aerosol 1 inh INHALATION BID 09/11/19 [History Last Taken Unknown] losartan 100 mg tablet 100 mg PO DAILY #90 tab 10/02/19 [Rx Last Taken Unknown] albuterol sulfate [Ventolin HFA] 1 - 2 puff INHALATION Q4H PRN PRN 7 Days g NS 09/27/20 [Rx Last Taken Unknown] prednisone 40 mg PO DAILY 7 Days #14 tab 09/27/20 [Rx Last Taken Unknown] Allergy/AdvReac Type Severity Reaction Status Date / Time lisinopril AdvReac Intermediate cough Verified 09/27/20 12:23 Family History Mother Diabetes Father Cancer prostate Sister Diabetes Surgical History History of arthroscopy of right shoulder History of colonoscopy with polypectomy History of rotator cuff surgery History of skin graft Hx of cholecystectomy Social History Smoking Status: Former smoker how long ago did patient quit smokin alcohol intake: never substance use type: does not use caffeine: Yes what type of physical activity do you participate in: none frequency: does not exercise ROS ROS ED ROS Narrative Denies recent illness. Has a chronic nonproductive cough. Review of Systems ROS Unobtainable: Denies due to encephalopathy Constitutional Constitutional ED: Denies chills or fever(s) Eyes Eyes: Denies change in vision ENT ENT ED: Denies ear pain or sore throat Cardiovascular Cardiovascular: Denies chest pain or palpitations Respiratory/Chest Respiratory/Chest: Reports cough and dyspnea; Denies sputum Gastrointestinal Gastrointestinal: Denies abdominal pain, diarrhea, nausea or vomiting Genitourinary Genitourinary ED: Denies dysuria or hematuria Musculoskeletal Musculoskeletal: Denies myalgias Integumentary Denies rash Neurologic Neurologic: Denies headache(s) Psychiatric Psychiatric: Denies depression Endocrine Endocrinology: Denies polyuria Hematologic/Lymphatic Hematologic/Lymphatic: Denies easy bruising Allergic/Immunologic Allergic/Immunologic ED: Denies urticaria EXAM Physical Exam Narrative Exam Narrative: Well-appearing 65-year-old male currently on BiPAP. Is tolerating well. His vital signs are stable and pulse is 97% on the BiPAP. HEENT exam unremarkable. Lungs inspiratory wheezing throughout. Equal symmetrical. Heart regular rhythm rate in 90s no murmur. Abdomen soft nontender. Moving all 4 extremities. Calves are nontender without edema or cords. Neurologically is awake alert moving all 4 extremities. No motor deficits. Const Vital Signs: 09/27/20 12:19 09/27/20 12:22 09/27/20 12:45 Temperature 96.8 F L Temperature Source Temporal Pulse Rate 94 93 Respiratory Rate 30 H 28 H Respiratory Effort Respiratory Depth Respiratory Pattern Blood Pressure 160/110 H Blood Pressure Mean 126 Pulse Ox 97 97 97 Oxygen Delivery Method Non-Rebreather Bi-pap Oxygen Flow Rate (L/min) Fraction of Inspired Oxygen (FIO2) 30 09/27/20 12:47 09/27/20 12:57 09/27/20 13:48 Temperature Temperature Source Pulse Rate 90 90 88 Respiratory Rate 14 12 14 Respiratory Effort Respiratory Depth Respiratory Pattern Blood Pressure 119/92 H 127/94 H Blood Pressure Mean 101 105 Pulse Ox 94 92 Oxygen Delivery Method Bi-pap Bi-pap Oxygen Flow Rate (L/min) Fraction of Inspired Oxygen (FIO2) 09/27/20 13:58 09/27/20 14:00 09/27/20 14:20 Temperature Temperature Source Pulse Rate 83 Respiratory Rate 21 H Respiratory Effort Short of Breath Respiratory Depth Shallow Respiratory Pattern Tachypnea Blood Pressure 133/85 H Blood Pressure Mean 101 Pulse Ox 93 91 Oxygen Delivery Method Nasal Cannula Non-Rebreather Room Air Oxygen Flow Rate (L/min) 3 Fraction of Inspired Oxygen (FIO2) Positive well nourished and well developed; Negative for obese General Appearance ED: well developed Nutritional Appearance: Negative for obese HEENT Reports moist mucous membranes atraumatic; Negative for trauma or tenderness Eyes PERRL and EOMs intact bilaterally Neck no lymphadenopathy, supple, no meningeal signs and no JVD General: Negative for tenderness Resp normal respiratory effort and No clear to auscultation bilaterally Auscultation: wheezes; Negative for rales or rhonchi Cardio regular rate, regular rhythm, S1 normal heart sound, S2 normal heart sound and no murmurs GI non-tender, non-distended and no masses Auscultation: normoactive bowel sounds Palpation: soft; Negative for tender Back/Spine normal to inspection; Negative for no CVA tenderness Extremity normal to inspection General Extremety ED: Negative for edema or tenderness General Extremity: Negative for edema Neuro oriented x3 and CN's II-XII intact bilaterally Sensorium / Orientation: oriented to person, oriented to place, oriented to time and orientation impaired; Negative for confused Motor Exam: strength 5/5 throughout Psych mental status grossly normal Skin Lesions: no lesions Rashes: no rashes MDM MDM MDM Narrative Medical decision making narrative: 65-year-old male with COPD history seems like a COPD flare currently on BiPAP. He also be treated with aerosols and Solu- Medrol. Covid testing and lab work-up. Repeat exam at 2:45 PM patient is doing much better. He is no longer wheezing. We have taken him off of the oxygen and his O2 sat is around 92 to 94%. He is in no distress. His labs and chest x-ray are unremarkable. Were going to walk him if he does not desaturate we need we will treat him as an outpatient with steroids and aerosol treatments at home. He needs his inhaler refilled also. But he has medication and put through his nebulizer. Patient was ambulated by nursing around 2:50 PM. He did very well said he felt fine. His O2 saturation stayed between 88 - 92 %and he had no symptoms with then said he felt fine some comfortable with him being discharged to home. Lab Data Attestation: I reviewed the patient's lab results. Lab results narrative: CBC unremarkable white count of 9. Hemoglobin 15.8. Electrolytes unremarkable gap of 5. Creatinine 1.1. High sensitive troponin is 5. Labs: Laboratory Results - last 24 hr 09/27/20 09/27/20 12:25 12:25 WBC 9.7 RBC 5.38 Hgb 15.8 Hct 48.2 MCV 89.6 MCH 29.4 MCHC 32.8 RDW Std Deviation 38.7 RDW Coeff of Delfina 11.9 Plt Count 144 L MPV 13.8 H Immature Gran % (Auto) 1.100 H Neut % (Auto) 47.7 Lymph % (Auto) 29.5 [place] % (Auto) 8.3 Eos % (Auto) 12.0 H Baso % (Auto) 1.4 H Absolute Neuts (auto) 4.6 Absolute Lymphs (auto) 2.86 Nucleated RBC % 0 Sodium 137 Potassium 4.8 Chloride 104 Carbon Dioxide 28.0 Anion Gap 5 BUN 18 Creatinine 1.14 Estim Creat Clear Calc 62.50 Est GFR (MDRD) Af Amer 83 Est GFR (MDRD) Non-Af 68 BUN/Creatinine Ratio 15.8 Glucose 165 H Calcium 8.9 Troponin I High Sens 5.1 Radiography Chest X-Ray - ED: 1 View, Read by ED Physician, Heart, Lungs, Mediastinum, Bony Structures, No Acute Disease and Chronic Changes Diagnostic Testing: Radiology Impression Chest X-Ray 09/27/20 12:37 IMPRESSION: No radiographic evidence of acute cardiopulmonary disease. at 1345 Reported and signed by: Marin Moreno MD Electronically Signed: Marin Moreno MD at 13:44 EDT Tel , Service support , Rhythm Strip Rhythm Strip: Sinus Rhythm Rate: 93 Ectopy: None EKG Initial EKG: Attestation: I personally reviewed and interpreted this EKG as follows: Interpretation: Sinus Rhythm Comments: Sinus rhythm rate of 93 no acute signs of MT or ischemia. No old EKG available at this time. Prior EKG tracings: not available for review Discharge Plan Triage Chief Complaint: Shortness of Breath ED Provider: Nathan Cho Dx/Rx/DC Orders Clinical Impression: Acute exacerbation of chronic obstructive pulmonary disease Instructions: ED COPD Flare Prescriptions: New prednisone 20 mg tablet 40 mg PO DAILY 7 Days Qty: 14 RF: 0 albuterol sulfate [Ventolin HFA] 90 mcg/actuation HFA aerosol inhaler 1 - 2 puff inhalation Q4H PRN PRN (Reason: Wheezing) 7 Days RF: 1 No Action atorvastatin 20 mg tablet 20 mg PO QHS RF: 0 Qvar RediHaler 40 mcg/actuation HFA aerosol breath activated 1 inh INHALATION BID RF: 0 albuterol sulfate 90 mcg/actuation aerosol powdr breath activated 2 inh INHALATION Q6H RF: 0 meloxicam 15 mg tablet 15 mg PO DAILY PRN (Reason: Pain) RF: 0 nitroglycerin 0.4 mg tablet, sublingual 0.4 mg SUBLINGUAL Q5-15M PRN (Reason: CP) RF: 0 aspirin 81 MG tablet 81 mg PO DAILY@0800 RF: 0 fluoxetine 20 MG capsule 20 mg PO DAILY RF: 0 atenolol 50 MG tablet 50 mg PO DAILY RF: 0 loratadine 10 MG tablet 10 mg PO DAILY RF: 0 bupropion HCl 100 MG tablet sustained-release 12 hr 100 mg PO BID RF: 0 omeprazole 20 MG capsule,delayed release(DR/EC) 20 mg PO DAILY RF: 0 albuterol sulfate 18 GM HFA aerosol inhaler 2 puff inhalation Q4H PRN PRN (Reason: Sob &/Or Wheezing) RF: 0 losartan 100 mg tablet 100 mg PO DAILY Qty: 90 RF: 6 Primary Care Provider: Feng Brady Referrals: Feng Brady MD [Primary Care Provider] - As soon as possible Activity Restrictions/Additional Instructions: Prednisone daily for the next 7 days 40 mg a day. Use your inhaler and home nebulizer treatments as needed. Follow-up with your doctor to ensure you are improving. Return emergency department if feeling a lot worse. Disposition Disposition: Home, Self Care
[2020-09-27] MEDS: Ipratropium/Albuterol Sulfate 3 ML AMPUL.NEB INHALATION (12:45)
[2020-09-27 12:49] LABS: Absolute Lymphocyte Count 2.86 X10^3/uL (0.83-4.51); Absolute Neutrophil Count 4.6 X10^3/uL (2.0-7.7); Basophil# 0.14 X10^3/uL; Basophil% 1.4 % (0-1); Eosinophil# 1.16 X10^3/uL; Hematocrit 48.2 % (40-54); Hemoglobin 15.8 g/dL (13.0-16.5); Lymphocyte # 2.86 X10^3/ul (0.83-4.51); Lymphocyte % 29.5 % (19-41); Mean Corp Hgb Conc 32.8 g/dL (32-36); Mean Corpuscular Hgb 29.4 pg (27.0-32.0); Mean Corpuscular Volume 89.6 fL (80-94); Mean Platelet Vol. 13.8 fl (6.2-12.0); Monocyte% 8.3 % (0-10); NRBC Flagged by Analyzer 0 % (0-5); Neutrophil # 4.62 X10^3/uL (2.7-7.7); Neutrophil % 47.7 % (47-70); Platelet Count 144 K/mm3 (150-450); RBC Distribution Width CV 11.9 % (11.6-14.6); RBC Distribution Width SD 38.7 fl (35.1-43.9); Red Blood Count 5.38 M/mm3 (4.6-6.2); White Blood Count 9.7 K/mm3 (4.4-11.0)
[2020-09-27] MEDS: MethylPREDNISolone 125 MG/2 ML Vial IV (13:01)
[2020-09-27 13:05] LABS: Anion Gap 5 (5-15); BUN 18 mg/dL (7-18); BUN/Creat Ratio 15.8 RATIO (10-20); Calcium,Total 8.9 mg/dL (8.5-10.1); Chloride 104 mmol/L (98-107); Creatinine, Serum 1.14 mg/dL (0.70-1.30); EST Glomerular Filtration Rate 68 mL/min (>60); Est Glom Filt Rate - Afr Amer 83 mL/min (>60); Glucose 165 mg/dL (74-106); Potassium 4.8 mmol/L (3.5-5.1); Sodium Level 137 mmol/L (136-145); Troponin-I HS 5.1 pg/mL (3.0-78.5)
== END 2020-09-27 15:05 | disposition home or self-care (01) ==
PROVIDERS: Emergency Provider Emergency Medicine; PCP Family Medicine
DX: J44.1 Chronic obstructive pulmonary disease with (acute) exacerbation (principal); I25.10 Atherosclerotic heart disease of native coronary artery without angina pectoris; E78.5 Hyperlipidemia, unspecified; F32.9 Major depressive disorder, single episode, unspecified; I10 Essential (primary) hypertension; K21.9 Gastro-esophageal reflux disease without esophagitis; Z79.52 Long term (current) use of systemic steroids; Z79.82 Long term (current) use of aspirin; Z79.899 Other long term (current) drug therapy; Z87.891 Personal history of nicotine dependence
CPT/HCPCS: 71045; 80048; 84484; 85025; 87426; 93005; 94002; 94640; 96374; 99285; A4216

== ENCOUNTER → 2020-10-07 08:46 | Outpatient (CLI) | payer MEDICARE, MEDICAID, SELFPAY ==
[2020-09-27 12:19] VITALS: BMI 25.5
[2020-10-07 10:25] LABS: Hematocrit 47.4 % (40-54); Hemoglobin 15.3 g/dL (13.0-16.5); Mean Corp Hgb Conc 32.3 g/dL (32-36); Mean Corpuscular Hgb 29.6 pg (27.0-32.0); Mean Corpuscular Volume 91.7 fL (80-94); POSITIVE COUNT YES; POSITIVE DIFFERENTIAL YES; POSITIVE MORPHOLOGY YES; Platelet Count 127 K/mm3 (150-450); RBC Distribution Width CV 12.9 % (11.6-14.6); RBC Distribution Width SD 43.8 fl (35.1-43.9); Red Blood Count 5.17 M/mm3 (4.6-6.2); White Blood Count 18.5 K/mm3 (4.4-11.0)
[2020-10-07 10:27] LABS: Differential Indicated MANUAL DIFF
[2020-10-07 10:49] LABS: Basophil 1 % (0-1); Eosinophil 6 % (0-5); Lymphocyte 9 % (19-41); Monocyte 14 % (0-10); Neutrophil-Segmented 70 % (47-70); Total Cells Counted 100 (MANUAL DIFF)
[2020-10-07 10:50] LABS: Platelet Estimate SLT DEC (ADEQ); Red Cell Morphology NORM C+C NORMAL (NORM C&C)
[2020-10-07 11:02] LABS: AST(SGOT) 13 U/L (15-37); Alanine Aminotransfer ALT/SGPT 44 U/L (16-61); Albumin, Serum 3.1 g/dL (3.2-5.0); Alkaline Phosphatase 125 U/L (45-117); Anion Gap 6 (5-15); BUN 19 mg/dL (7-18); BUN/Creat Ratio 18.1 RATIO (10-20); Calcium,Total 8.9 mg/dL (8.5-10.1); Chloride 100 mmol/L (98-107); Cholesterol 138 mg/dL (200); Creatinine, Serum 1.05 mg/dL (0.70-1.30); EST Glomerular Filtration Rate 75 mL/min (>60); Est Glom Filt Rate - Afr Amer 91 mL/min (>60); Globulin 3.2 g/dL (2.2-4.2); Glucose 87 mg/dL (74-106); High Density Lipoprotein 60 mg/dL; Potassium 4.3 mmol/L (3.5-5.1); Protein, Total 6.3 g/dL (6.4-8.2); Sodium Level 135 mmol/L (136-145); Triglycerides 92 mg/dL; Very Low Density Lipoprotein 18 mg/dL (5-40)
[2020-10-08 13:38] LABS: Pathologist Review Reviewed
== END ==
PROVIDERS: PCP Family Medicine; Referring Provider Family Medicine; Visit Provider Family Medicine
DX: J44.9 Chronic obstructive pulmonary disease, unspecified (principal); I10 Essential (primary) hypertension
CPT/HCPCS: 36415; 80053; 80061; 85025

== ENCOUNTER → 2020-10-14 07:09 | Outpatient (CLI) | payer MEDICARE, MEDICAID, SELFPAY ==
[2020-09-27 12:19] VITALS: BMI 25.5
--- NOTE | 2020-10-14 17:01 | STRESSREP ---
Stress Test Report Exercise myocardial perfusion stress test. 65-year-old man with a history of chest pain. Stress protocol: Resting EKG demonstrates normal sinus rhythm with a rate of 88 bpm normal intervals are noted resting blood pressure is 138/90 mmHg. The patient exercised according to regular Elvis protocol for total duration of 4 minutes and 36 seconds. The maximum heart rate attained was 137 bpm which was 88% of max infected heart rate the maximum workload was 6.5 metabolic workload loads METS. At rest there were no ST or T wave changes noted suggest ischemia, and at peak exercise no ST or T wave changes were noted to suggest ischemia. No clinical angina was noted the test was terminated due to shortness of breath and fatigue. The peak blood pressure was 174/92 mmHg. Myocardial perfusion protocol. 10.0 mCi of technetium 99m sestamibi was injected at rest. The patient exercised according to regular Elvis protocol for 4-1/2 minutes and at peak exercise 33.3 mCi of technetium 99m sestamibi was injected stress images were obtained stress and rest images were reconstructed and compared in the short axis vertical long and horizontal long axis. Gated images were also obtained. Perfusion SPECT analysis: Review of the stress images demonstrate normal uptake of tracer noted in all areas of the myocardium. The resting images similarly demonstrate normal uptake of tracer noted in all areas of the myocardium. No areas of reversibility are noted to suggest ischemia and no previous infarct is noted. Gated SPECT analysis: The gated ejection fraction is noted to be 60%. Conclusion: Normal exercise myocardial perfusion stress test at a moderate workload. Preserved ejection fraction.
== END ==
PROVIDERS: PCP Family Medicine; Referring Provider Family Medicine; Visit Provider Family Medicine
DX: R06.02 Shortness of breath (principal)
CPT/HCPCS: 78452; 93017; A9500; A4216

== ENCOUNTER → 2020-11-13 09:24 | Outpatient (CLI) | payer MEDICARE, MEDICAID, SELFPAY ==
[2020-11-13 10:29] LABS: Absolute Lymphocyte Count 2.68 X10^3/uL (0.83-4.51); Absolute Neutrophil Count 5.8 X10^3/uL (2.0-7.7); Basophil# 0.14 X10^3/uL; Basophil% 1.4 % (0-1); Eosinophil# 0.71 X10^3/uL; Eosinophils% 6.9 % (0-5); Hemoglobin 15.5 g/dL (13.0-16.5); Lymphocyte # 2.68 X10^3/ul (0.83-4.51); Lymphocyte % 25.9 % (19-41); Mean Corpuscular Hgb 29.3 pg (27.0-32.0); Mean Corpuscular Volume 88.8 fL (80-94); Mean Platelet Vol. 14.2 fl (6.2-12.0); Monocyte# 0.92 X10^3/uL; Monocyte% 8.9 % (0-10); NRBC Flagged by Analyzer 0 % (0-5); Neutrophil # 5.78 X10^3/uL (2.7-7.7); Neutrophil % 55.7 % (47-70); Platelet Count 121 K/mm3 (150-450); RBC Distribution Width CV 12.5 % (11.6-14.6); RBC Distribution Width SD 40.5 fl (35.1-43.9); Red Blood Count 5.29 M/mm3 (4.6-6.2); White Blood Count 10.4 K/mm3 (4.4-11.0)
[2020-11-13 11:26] LABS: PSA,Total - Annual Screen 2.84 ng/mL (0.00-4.00)
== END ==
PROVIDERS: PCP Family Medicine; Referring Provider Family Medicine; Visit Provider Family Medicine
DX: D72.829 Elevated white blood cell count, unspecified (principal); Z12.5 Encounter for screening for malignant neoplasm of prostate
CPT/HCPCS: 36415; 84153; 85025; G0103

== ENCOUNTER 2020-12-10 00:48 | Emergency (ER) | payer MEDICARE, MEDICAID, SELFPAY ==
[2020-12-10] VITALS (9 sets, daily range): BP systolic 137–194; BP diastolic 89–95; PULSE 79–97; RESP 18–36; TEMP 35.9; O2SAT 71–98; BMI 25.0
--- NOTE | 2020-12-10 01:50 | RAD_ITS ---
STUDY: X-RAY CHEST REASON FOR EXAM: Male, 65 years old. Shortness of breath TECHNIQUE: Single AP portable view of the chest. COMPARISON: 09/27/2020 FINDINGS: No confluent airspace opacity. Calcified nodule in the left lateral midlung. No pleural effusion or pneumothorax. Normal size heart. Normal mediastinum and maulik. Normal visualized pulmonary arteries. There is atherosclerotic calcification of the aortic arch . Normal visualized thoracic spine. Old healed bilateral rib fracture deformities. Normal visualized ribs, clavicles, and shoulders. There is no demonstrated abnormality of the visualized soft tissue structures of the upper abdomen. RAD/Chest 1 View (Portable) IMPRESSION: No acute cardiopulmonary disease Electronically Signed: Oliver Holt MD at 2:12 EDT Tel , Service support ,
--- NOTE | 2020-12-10 02:29 | EKG12_ITS ---
Test Reason : DYSRHYTHMIA Blood Pressure : / mmHG Vent. Rate : 093 BPM Atrial Rate : 093 BPM P-R Int : 092 ms QRS Dur : 072 ms QT Int : 350 ms P-R-T Axes : 055 065 052 degrees QTc Int : 435 ms Sinus rhythm Confirmed by MARIELENA ROBERTS, PITO ([id number]), senior technical editor ALIX RENEE ([id number]) on 12/10/2020 1:27:47 PM Referred By: ZACH Confirmed By:PITO PEGUEOR MD
--- NOTE | 2020-12-10 02:29 | EDS_ITS ---
HPI History of Present Illness Chief Complaint: Shortness of Breath Informant: patient and spouse/S.O. Onset/Context/Timing Onset: Hours (1-2) Context: sudden and activity on onset (Walking across the house) Timing: Continuous Quality: Positive for Wheezing Current Severity: Mild Maximum Severity: Severe Worsened by: Exertion and Coughing Relieved by: - (Patient is unsure. Albuterol aerosols at home did not help.) Associated Symptoms cough Chest Pain: Positive for None Narrative Narrative: Patient presents after an acute COPD flareup according to the patient. He states he was really struggling to breathe after walking across the house, he was wheezing a lot, his sats were in the 50s according to his . He is not on home oxygen. Last on steroids couple months ago when he was seen here. States he did not feel like he was sick lately but he does have a chronic cough that he has noticed, denies any fevers, chills, myalgias, loss of taste or smell, contact with Covid that they know of. He has not been vaccinated. He does not have a reason why he decided not to. [facility] Medical History Atherosclerosis of coronary artery of [place] heart without angina pectoris COPD (chronic obstructive pulmonary disease) Depression Essential hypertension GERD (gastroesophageal reflux disease) Hyperlipidemia (Unknown) Nicotine dependence Nonsustained paroxysmal supraventricular tachycardia GALE on CPAP SBO (small bowel obstruction) Home Medications aspirin 81 mg PO DAILY@0800 03/20/17 [History Last Taken 10/13/18] atenolol 50 mg PO DAILY 03/20/17 [History Last Taken 10/30/18 06:30] fluoxetine 20 mg PO DAILY 03/20/17 [History Last Taken 10/13/18] loratadine 10 mg PO DAILY 03/20/17 [History Last Taken 10/13/18] albuterol sulfate 2 puff INHALATION Q4H PRN PRN 10/13/18 [History Last Taken 10/12/18] bupropion HCl 100 mg PO BID 10/13/18 [History Last Taken 10/13/18] omeprazole 20 mg PO DAILY 10/13/18 [History Last Taken 10/13/18] albuterol sulfate 90 mcg/actuation breath activated powder inhaler 2 inh INHALATION Q6H 10/27/18 [History Last Taken Unknown] meloxicam 15 mg tablet 15 mg PO DAILY PRN 10/27/18 [History Last Taken Unknown] nitroglycerin 0.4 mg sublingual tablet 0.4 mg SUBLINGUAL Q5-15M PRN 10/27/18 [History Last Taken Unknown] atorvastatin 20 mg tablet 20 mg PO QHS tab 09/11/19 [History Last Taken Unknown] beclomethasone dipropionate 40 mcg/actuation HFA breath activated aerosol 1 inh INHALATION BID 09/11/19 [History Last Taken Unknown] losartan 100 mg tablet 100 mg PO DAILY #90 tab 10/02/19 [Rx Last Taken Unknown] prednisone 40 mg PO DAILY #8 tablet 12/10/20 [Rx Last Taken Unknown] Allergy/AdvReac Type Severity Reaction Status Date / Time lisinopril AdvReac Intermediate cough Verified 12/10/20 00:52 Family History Mother Diabetes Father Cancer prostate Sister Diabetes Surgical History History of arthroscopy of right shoulder History of colonoscopy with polypectomy History of rotator cuff surgery History of skin graft Hx of cholecystectomy Social History Smoking Status: Former smoker how long ago did patient quit smokin alcohol intake: never substance use type: does not use caffeine: Yes what type of physical activity do you participate in: none frequency: does not exercise ROS ROS ED Constitutional Constitutional ED: Denies chills or fever(s) Eyes Eyes: Denies change in vision or diplopia ENT ENT ED: Denies rhinorrhea or sore throat Cardiovascular Cardiovascular: Denies chest pain or palpitations Respiratory/Chest Respiratory/Chest: Reports as per HPI, cough, dyspnea, dyspnea on exertion and wheezing Gastrointestinal Gastrointestinal: Denies abdominal pain, diarrhea, nausea or vomiting Genitourinary Genitourinary ED: Denies dysuria or hematuria Musculoskeletal Musculoskeletal: Denies back pain or neck pain Integumentary Denies abscess or rash Neurologic Neurologic: Denies headache(s), paresthesias or weakness Psychiatric Psychiatric: Denies anxiety or suicidal thoughts EXAM Physical Exam Const Vital Signs: 12/10/20 00:48 12/10/20 00:52 12/10/20 01:08 Temperature 96.7 F L Temperature Source Temporal Pulse Rate 97 94 Respiratory Rate 36 H Respiratory Effort Respiratory Depth Respiratory Pattern Blood Pressure 194/94 H Blood Pressure Mean 127 Pulse Ox 71 94 94 Oxygen Delivery Method Room Air Nasal Cannula Nasal Cannula Oxygen Flow Rate (L/min) 6 6 12/10/20 01:45 12/10/20 01:46 12/10/20 02:37 Temperature Temperature Source Pulse Rate 93 Respiratory Rate 20 H 24 H Respiratory Effort Short of Breath Labored Short of Breath Labored Respiratory Depth Shallow Shallow Respiratory Pattern Normal Tachypnea Blood Pressure Blood Pressure Mean Pulse Ox 98 90 Oxygen Delivery Method Nasal Cannula Nasal Cannula Room Air Oxygen Flow Rate (L/min) 6 12/10/20 02:41 12/10/20 03:00 Temperature Temperature Source Pulse Rate 95 90 Respiratory Rate 18 19 H Respiratory Effort Respiratory Depth Respiratory Pattern Blood Pressure 137/95 H 145/89 H Blood Pressure Mean 109 107 Pulse Ox 90 Oxygen Delivery Method Room Air Oxygen Flow Rate (L/min) Positive well nourished and well developed General Appearance ED: well developed and NAD HEENT Reports moist mucous membranes normocephalic and atraumatic Eyes PERRL and EOMs intact bilaterally Neck full ROM and supple Resp normal respiratory effort Effort and Inspection: prolonged expiratory phase; Negative for respiratory distress Auscultation: wheezes expiratory wheezes and throughout; Negative for crackles, rales or rhonchi Cardio regular rate, regular rhythm and no murmurs GI non-tender and non-distended Auscultation: normoactive bowel sounds Palpation: soft Back/Spine no CVA tenderness General Back: other FROM Extremity normal to inspection, no calf tenderness and no pedal edema General Extremety ED: Negative for edema, pulses abnormal or tenderness General Extremity: Negative for edema or pulses abnormal Neuro oriented x3, CN's II-XII intact bilaterally and no sensory deficits noted Sensorium / Orientation: awake and alert Motor Exam: strength 5/5 throughout Skin no rashes or lesions noted and no wounds MDM MDM MDM Narrative Medical decision making narrative: Patient was given a duo nebulizer treatment as well as some albuterol afterwards, Solu-Medrol 125 IV. On reevaluation he is breathing much better. Sats are around 90%, he is able to ambulate to and from the bathroom without any desaturation or difficulty. He wants to go home. Will prescribe him prednisone burst, recommend close outpatient follow-up for r eevaluation especially of his oxygen saturations. His Covid was negative, his chest x-ray was unremarkable. Since he is much better on beta agonist and has not been tachycardic I do not think he needs to be evaluated for pulmonary embolus at this time. Also since he really has no symptoms of an acute illness/infection, I do not think he needs antibiotics at this time either. Lab Data Attestation: I reviewed the patient's lab results. Labs: Laboratory Results - last 24 hr 12/10/20 12/10/20 01:01 01:01 WBC 11.5 H RBC 5.23 Hgb 15.0 Hct 47.6 MCV 91.0 MCH 28.7 MCHC 31.5 L RDW Std Deviation 42.5 RDW Coeff of Delfina 12.8 Plt Count 142 L MPV TNP Immature Gran % (Auto) 0.700 Neut % (Auto) 46.5 L Lymph % (Auto) 33.4 [place] % (Auto) 8.3 Eos % (Auto) 9.5 H Baso % (Auto) 1.6 H Absolute Neuts (auto) 5.4 Absolute Lymphs (auto) 3.85 Nucleated RBC % 0 Sodium 139 Potassium 4.9 Chloride 103 Carbon Dioxide 31.0 Anion Gap 5 BUN 19 H Creatinine 1.21 Estim Creat Clear Calc 58.88 Est GFR (MDRD) Af Amer 77 Est GFR (MDRD) Non-Af 64 BUN/Creatinine Ratio 15.7 Glucose 139 H Calcium 9.8 Troponin I High Sens 6 Radiography Chest X-Ray - ED: 1 View, Read by ED Physician, No Acute Disease and Chronic Changes Diagnostic Testing: Radiology Impression Chest X-Ray 12/10/20 01:50 IMPRESSION: No acute cardiopulmonary disease Electronically Signed: Oliver Holt MD at 2:12 EDT Tel , Service support , EKG Initial EKG: Attestation: I personally reviewed and interpreted this EKG as follows: Interpretation: Sinus Rhythm and No Acute Injury Pattern Discharge Plan Triage Chief Complaint: Shortness of Breath ED Provider: Dean Singer Dx/Rx/DC Orders Clinical Impression: Acute exacerbation of chronic obstructive pulmonary disease Instructions: ED COPD Flare Prescriptions: New prednisone 20 MG tablet 40 mg PO DAILY Qty: 8 RF: 0 No Action atorvastatin 20 mg tablet 20 mg PO QHS RF: 0 Qvar RediHaler 40 mcg/actuation HFA aerosol breath activated 1 inh INHALATION BID RF: 0 albuterol sulfate 90 mcg/actuation aerosol powdr breath activated 2 inh INHALATION Q6H RF: 0 meloxicam 15 mg tablet 15 mg PO DAILY PRN (Reason: Pain) RF: 0 nitroglycerin 0.4 mg tablet, sublingual 0.4 mg SUBLINGUAL Q5-15M PRN (Reason: CP) RF: 0 aspirin 81 MG tablet 81 mg PO DAILY@0800 RF: 0 fluoxetine 20 MG capsule 20 mg PO DAILY RF: 0 atenolol 50 MG tablet 50 mg PO DAILY RF: 0 loratadine 10 MG tablet 10 mg PO DAILY RF: 0 bupropion HCl 100 MG tablet sustained-release 12 hr 100 mg PO BID RF: 0 omeprazole 20 MG capsule,delayed release(DR/EC) 20 mg PO DAILY RF: 0 albuterol sulfate 18 GM HFA aerosol inhaler 2 puff inhalation Q4H PRN PRN (Reason: Sob &/Or Wheezing) RF: 0 losartan 100 mg tablet 100 mg PO DAILY Qty: 90 RF: 6 Primary Care Provider: Feng Brady Referrals: Feng Brady MD [Primary Care Provider] - 3-5 Days if not improving Disposition Disposition: Home, Self Care
[2020-12-10] MEDS: Albuterol 2.5 MG/3 ML VIAL.NEB. INHALATION (02:37)
[2020-12-10] MEDS: Ipratropium/Albuterol Sulfate 3 ML AMPUL.NEB INHALATION (02:37)
[2020-12-10] MEDS: MethylPREDNISolone 125 MG/2 ML Vial IV (02:43)
[2020-12-10 02:44] LABS: Absolute Lymphocyte Count 3.85 X10^3/uL (0.83-4.51); Absolute Neutrophil Count 5.4 X10^3/uL (2.0-7.7); Basophil# 0.18 X10^3/uL; Basophil% 1.6 % (0-1); Eosinophil# 1.09 X10^3/uL; Eosinophils% 9.5 % (0-5); Hematocrit 47.6 % (40-54); Lymphocyte # 3.85 X10^3/ul (0.83-4.51); Lymphocyte % 33.4 % (19-41); Mean Corp Hgb Conc 31.5 g/dL (32-36); Mean Corpuscular Hgb 28.7 pg (27.0-32.0); Monocyte# 0.96 X10^3/uL; Monocyte% 8.3 % (0-10); NRBC Flagged by Analyzer 0 % (0-5); Neutrophil # 5.37 X10^3/uL (2.7-7.7); Neutrophil % 46.5 % (47-70); Platelet Count 142 K/mm3 (150-450); RBC Distribution Width CV 12.8 % (11.6-14.6); RBC Distribution Width SD 42.5 fl (35.1-43.9); Red Blood Count 5.23 M/mm3 (4.6-6.2); White Blood Count 11.5 K/mm3 (4.4-11.0)
[2020-12-10 03:01] LABS: Anion Gap 5 (5-15); BUN 19 mg/dL (7-18); BUN/Creat Ratio 15.7 RATIO (10-20); Calcium,Total 9.8 mg/dL (8.5-10.1); Chloride 103 mmol/L (98-107); Creatinine, Serum 1.21 mg/dL (0.70-1.30); EST Glomerular Filtration Rate 64 mL/min (>60); Est Glom Filt Rate - Afr Amer 77 mL/min (>60); Estimated Creatinine Clearance 58.88 ml/min; Glucose 139 mg/dL (74-106); Potassium 4.9 mmol/L (3.5-5.1); Sodium Level 139 mmol/L (136-145); Troponin-I HS 6 pg/mL (3.0-78.0)
--- NOTE | 2020-12-10 03:14 | CPS ---
x1 Albuterol given in ER as well
== END 2020-12-10 05:05 | disposition home or self-care (01) ==
PROVIDERS: Emergency Provider Emergency Medicine; PCP Family Medicine
DX: J44.1 Chronic obstructive pulmonary disease with (acute) exacerbation (principal); I25.10 Atherosclerotic heart disease of native coronary artery without angina pectoris; K21.9 Gastro-esophageal reflux disease without esophagitis; F32.9 Major depressive disorder, single episode, unspecified; E78.5 Hyperlipidemia, unspecified; I10 Essential (primary) hypertension; Z79.82 Long term (current) use of aspirin; Z79.899 Other long term (current) drug therapy; Z87.891 Personal history of nicotine dependence
CPT/HCPCS: 71045; 80048; 84484; 85025; 87426; 93005; 94640; 94760; 96374; 99251; 99284; A4216; G0463

== ENCOUNTER → 2020-12-30 06:33 | Outpatient (CLI) | payer MEDICARE, MEDICAID, SELFPAY ==
--- NOTE | 2020-12-30 06:36 | CT_ITS ---
STUDY: LOW DOSE CT LUNG CANCER SCREENING REASON FOR EXAM: Male, 65 years old. Long history of smoking. Screening for lung cancer. RADIATION DOSAGE (If Supplied By Facility): CTDIvol = ( 3.02 ) mGy, DLP = ( 111.36 ) mGycm TECHNIQUE: No contrast was administered. Low dose technique was utilized (average mAS-38 and kVp 120). 1.25 mm axial source images with a slice interval of 1.25-mm were reconstructed in lung windows. 2.5 mm axial source images with a slice interval of 2.5-mm were reconstructed in lung windows. 5.0 mm axial source images with a slice interval of 5.0-mm were reconstructed in soft tissue windows. Nodule measured using lung windows on PACS and/or independent workstation with automated measurement of minimum and maximum diameter. Nodule measurement reported as average diameter rounded to the nearest whole number. Growth is defined as an increase ins size of greater than 1.5 mm. COMPARISON: None. NODULES: There is hyperinflation of the lungs consistent with chronic obstructive lung disease (COPD). There is extensive centrilobular emphysema more prominent in the upper lobes. There are no suspicious lung nodules There are no endobronchial lesions. There is no demonstrated pleural abnormality. Normal heart and pericardium. Normal mediastinum. Normal hilar regions. Normal unenhanced pulmonary arteries. Normal aorta arch and descending thoracic aorta. Normal osseous structures. There is no demonstrated abnormality of the visualized upper abdomen. CT/Low Dose CT Lung Screening IMPRESSION: Lung-RADS category 2. COPD and emphysema. Recommendation: Routine screening CT scan in one year. IMPORTANT NOTES FOR USE: ACR Lung-RADS Version 1.0 Assessment Categories Release Date: July 23, 2013 Category: Coded 0-4 bases on nodule(s) with highest degree of suspicion. Negative screen is defined as categories 1 and 2; a positive screen is defined as categories 3 and 4. Category 3 and 4A nodules that are unchanged on interval CT should be coded as category 2, and individuals returned to screening in 12 months. Category 4X: Category 3 or 4 nodules with additional imaging findings that increase the suspicion of lung cancer, such as spiculation, GGN that doubles in size in 1 year, enlarged lymph notes, etc. Category Modifiers: S (significant finding unrelated to lung cancer) and C (prior history of treated lung cancer) may be added to the 0-4 Lung-RADS Electronically Signed: Yeimi Armstrong MD at 7:07 EDT Tel , Service support ,
== END ==
PROVIDERS: PCP Family Medicine; Referring Provider Internal Medicine Critical Care Medicine; Visit Provider Internal Medicine Critical Care Medicine
DX: F17.211 Nicotine dependence, cigarettes, in remission (principal)
CPT/HCPCS: 71271

== ENCOUNTER → 2021-01-19 10:05 | Outpatient (CLI) | payer MEDICARE, MEDICAID, SELFPAY ==
[2020-12-25 12:13] LABS: Absolute Neutrophil Count 4.7 X10^3/uL (2.0-7.7); Basophil# 0.08 X10^3/uL; Eosinophil# 0.52 X10^3/uL; Eosinophils% 6.3 % (0-5); Hematocrit 43.7 % (40-54); Hemoglobin 14.1 g/dL (13.0-16.5); Lymphocyte % 26.8 % (19-41); Mean Corp Hgb Conc 32.3 g/dL (32-36); Mean Corpuscular Volume 89.7 fL (80-94); Mean Platelet Vol. 13.6 fl (6.2-12.0); Monocyte# 0.69 X10^3/uL; Monocyte% 8.4 % (0-10); NRBC Flagged by Analyzer 0 % (0-5); Neutrophil # 4.68 X10^3/uL (2.7-7.7); Platelet Count 132 K/mm3 (150-450); RBC Distribution Width CV 12.8 % (11.6-14.6); RBC Distribution Width SD 41.9 fl (35.1-43.9); Red Blood Count 4.87 M/mm3 (4.6-6.2); White Blood Count 8.2 K/mm3 (4.4-11.0)
[2020-12-29 18:07] LABS: Cytoplasmic Ab (C-ANCA) <1:20 titer (Neg:<1:20)
[2020-12-29 23:24] LABS: Immunoglobulin E 26 IU/mL (6-495); Perinuclear Ab (P-ANCA) <1:20 titer (Neg:<1:20)
[2020-12-30 10:08] LABS: Alternaria tenuis <0.10 kU/L (Class 0); Ash, White <0.10 kU/L (Class 0); Aspergillus fumigatus <0.10 kU/L (Class 0); Bermuda Grass <0.10 kU/L (Class 0); Birch <0.10 kU/L (Class 0); Black Walnut <0.10 kU/L (Class 0); Cat Hair / Dander,Stand <0.10 kU/L (Class 0); Cedar, Mountain <0.10 kU/L (Class 0); Cladosporium herbarum <0.10 kU/L (Class 0); Cockroach, American <0.10 kU/L (Class 0); Cottonwood <0.10 kU/L (Class 0); D farinae Mite <0.10 kU/L (Class 0); D pteronyssinus <0.10 kU/L (Class 0); Dog Epithelia <0.10 kU/L (Class 0); Elm, American White <0.10 kU/L (Class 0); Immunoglobulin E 23 IU/mL (6-495); Maple/Box Elder <0.10 kU/L (Class 0); Mulberry, White <0.10 kU/L (Class 0); Oak, White <0.10 kU/L (Class 0); Pecan <0.10 kU/L (Class 0); Penicillium Notatum <0.10 kU/L (Class 0); Pigweed, Rough <0.10 kU/L (Class 0); Ragweed, Short/Common <0.10 kU/L (Class 0); Russian Thistle <0.10 kU/L (Class 0); Sheep Sorrel <0.10 kU/L (Class 0); Sycamore, American <0.10 kU/L (Class 0); Timothy Grass <0.10 kU/L (Class 0)
[2020-12-30 16:32] LABS: Mouse Urine <0.10 kU/L (Class 0)
--- NOTE | 2021-01-19 15:29 | PFTCOMP_ITS ---
COMPLETE PULMONARY FUNCTION TEST INTERPRETATION Brief HPI: Patient is a 65 year old male, currently under the care of Dr. Daniels, who presents to [facility] for complete pulmonary function tests secondary to diagnosis of COPD. Respiratory therapist reports good effort and reproducible results. Interpretation: Forced expiration spirometry shows a moderately severe large airways obstructive ventilatory defect with an FEV1 of 50% predicted. There is a significant bronchodilator response in FVC and FEV1 by strict ATS criteria. Spirograms are of good quality and plateau slowly, indicating slowly emptying areas of the lungs. The respiratory flow volume loop shows decreased expiratory flow rates at all lung volumes consistent with airway obstruction. Lung volumes by body plethysmography show an elevated total lung capacity at 7.5 L, 123% predicted. FRC and RV are elevated out of proportion. Lung volume measurements are consistent with hyperinflation and air-trapping. Diffusion capacity by carbon monoxide is decreased at 64% predicted. The airway resistance is elevated. No previous pulmonary function tests were available for review. Impression: Partially reversible moderately severe large airways obstructive ventilatory defect with a symmetric adduction diffusion capacity, resulting in air trapping with hyperinflation, in a pattern consistent with COPD/asthma overlap syndrome.
== END ==
PROVIDERS: PCP Family Medicine; Referring Provider Internal Medicine Critical Care Medicine; Visit Provider Internal Medicine Critical Care Medicine
DX: J44.9 Chronic obstructive pulmonary disease, unspecified (principal); J30.9 Allergic rhinitis, unspecified
CPT/HCPCS: 36415; 82785; 85025; 86003; 86256; 94060; 94726; 94729

== ENCOUNTER → 2021-03-19 08:49 | Outpatient (CLI) | payer MEDICARE, MEDICAID, SELFPAY ==
[2021-03-19 11:20] LABS: Anion Gap 5 (5-15); BUN 15 mg/dL (7-18); BUN/Creat Ratio 13.8 RATIO (10-20); Calcium,Total 9.4 mg/dL (8.5-10.1); Chloride 106 mmol/L (98-107); Cholesterol 143 mg/dL (200); Creatinine, Serum 1.09 mg/dL (0.70-1.30); EST Glomerular Filtration Rate 72 mL/min (>60); Est Glom Filt Rate - Afr Amer 87 mL/min (>60); Glucose 94 mg/dL (74-106); High Density Lipoprotein 35 mg/dL; Potassium 4.9 mmol/L (3.5-5.1); Sodium Level 139 mmol/L (136-145); Triglycerides 90 mg/dL; Very Low Density Lipoprotein 18 mg/dL (5-40)
== END ==
PROVIDERS: PCP Family Medicine; Referring Provider Family Medicine; Visit Provider Family Medicine
DX: I10 Essential (primary) hypertension (principal)
CPT/HCPCS: 36415; 80048; 80061

== ENCOUNTER 2021-04-15 13:44 | Outpatient (CLI) | payer MEDICARE, MEDICAID, SELFPAY ==
[2021-04-15 14:42] LABS: Ammonia < 10.0 umol/L (11-32); Vitamin B12 554 pg/mL (211-911)
[2021-04-15 14:46] LABS: Thyroid Stim Hormone (TSH) 1.78 uIU/mL (0.358-3.74)
[2021-04-21 00:06] LABS: Ceruloplasmin 23.8 mg/dL (16.0-31.0)
[2021-04-21 16:42] LABS: Copper, Serum or Plasma 100 ug/dL (69-132)
== END 2021-04-15 23:59 | disposition short-term general hospital (02) ==
LOC: LAB 13:49
PROVIDERS: PCP Family Medicine; Referring Provider Registered Nurse; Visit Provider Registered Nurse
DX: R25.1 Tremor, unspecified (principal); R41.3 Other amnesia
CPT/HCPCS: 36415; 82140; 82390; 82525; 82607; 84443

== ENCOUNTER 2021-04-17 15:18 | Outpatient (CLI) | payer MEDICARE, MEDICAID, SELFPAY ==
--- NOTE | 2021-04-17 15:23 | MRI_ITS ---
STUDY: MRI BRAIN WITHOUT CONTRAST REASON FOR EXAM: Male, 66 years old. NEW ONSET OF HEADACHES AFTER AGE 50 TECHNIQUE: Standardized multiplanar fat and water weighted pulse sequences were obtained. COMPARISON: None. FINDINGS: There is disproportionate ventricular enlargement with prominence of the anterior horns and temporal tips of the bilateral lateral ventricles. There is confluent periventricular hyperintensity cloaking the lateral ventricles. There is thinning with bowing of the corpus callosum. There is moderate enlargement of the third ventricle. The findings are highly suggestive of normal pressure hydrocephalus (NPH). Normal white matter tracts of the supratentorial brain. There is no evidence for recent intracranial ischemia or other cause of cytotoxic edema on diffusion weighted imaging (DWI). Normal T2* images of the brain without demonstrated susceptibility artifact. There is no demonstrated hemosiderin stain. Normal bilateral basal ganglia. Normal thalami. There is no extra-axial fluid accumulation. Normal flow voids within the major intracranial circulation suggesting patency by spin echo criteria. Normal sella turcica, pituitary gland, infundibular stalk, optic chiasm and hypothalamus. Normal tectal plate and pineal gland. Normal midbrain, cristi and medulla. Normal cerebellum. Normal basal cisterns. Normal bilateral temporal bones. Normal bilateral internal auditory canals. No demonstrated orbital abnormality, within the constraints of a routine brain study. Mucus retention cyst in right sphenoid sinus consistent with chronic sinusitis. Normal calvarium and skull base. Normal visualized soft tissue structures. Normal visualized upper cervical spine. MRI/Brain without Contrast IMPRESSION: Suspected normal pressure hydrocephalus. Electronically Signed: Joe Ramirez MD at 16:46 EST Tel , Service support ,
== END 2021-04-17 23:59 | disposition short-term general hospital (02) ==
LOC: MRI 15:20
PROVIDERS: PCP Family Medicine; Referring Provider Registered Nurse; Visit Provider Registered Nurse
DX: R51.9 Headache, unspecified (principal)
CPT/HCPCS: 70551

== ENCOUNTER 2021-05-06 13:58 | Outpatient (CLI) | payer MEDICARE, MEDICAID, SELFPAY ==
[2021-05-06 15:40] LABS: Erythrocyte Sedimentation Rate 16 mm/hr (0-20)
[2021-05-06 16:04] LABS: CRP 8.57 mg/L (0.0-3.0)
== END 2021-05-06 23:59 | disposition home or self-care (01) ==
LOC: MFPLAB 14:02
PROVIDERS: PCP Family Medicine; Referring Provider Family Medicine; Visit Provider Psychiatry & Neurology Neurology
DX: R51.9 Headache, unspecified (principal)
CPT/HCPCS: 36415; 85652; 86140

== ENCOUNTER 2021-07-08 16:48 | Emergency (ER) | payer MEDICARE, MEDICAID, SELFPAY ==
[2021-07-08 16:48] VITALS: BP 107/70; PULSE 136; RESP 16; TEMP 36.8; O2SAT 95; BMI 25.4
[2021-07-08] MEDS: 0.9% Normal Saline 1,000 ML 1000 ML IV (17:22)
[2021-07-08] MEDS: Ondansetron 4 MG/2 ML Vial IV (17:22)
[2021-07-08 17:31] LABS: Absolute Lymphocyte Count 0.29 X10^3/uL (0.83-4.51); Absolute Neutrophil Count 9.9 X10^3/uL (2.0-7.7); Basophil# 0.04 X10^3/uL; Basophil% 0.4 % (0-1); Eosinophil# 0.01 X10^3/uL; Eosinophils% 0.1 % (0-5); Hematocrit 50.2 % (40-54); Hemoglobin 16.3 g/dL (13.0-16.5); Lymphocyte # 0.29 X10^3/ul (0.83-4.51); Lymphocyte % 2.7 % (19-41); Mean Corp Hgb Conc 32.5 g/dL (32-36); Mean Corpuscular Hgb 28.4 pg (27.0-32.0); Mean Corpuscular Volume 87.5 fL (80-94); Mean Platelet Vol. 13.4 fl (6.2-12.0); Monocyte# 0.38 X10^3/uL; Monocyte% 3.6 % (0-10); NRBC Flagged by Analyzer 0 % (0-5); Neutrophil % 92.6 % (47-70); POSITIVE DIFFERENTIAL YES; Platelet Count 152 K/mm3 (150-450); RBC Distribution Width CV 14.2 % (11.6-14.6); RBC Distribution Width SD 45.5 fl (35.1-43.9); Red Blood Count 5.74 M/mm3 (4.6-6.2); White Blood Count 10.7 K/mm3 (4.4-11.0)
[2021-07-08 17:33] LABS: Differential Indicated SCAN CRITERIA MET
[2021-07-08 17:45] LABS: AST(SGOT) 12 U/L (15-37); Alanine Aminotransfer ALT/SGPT 22 U/L (16-61); Albumin, Serum 3.6 g/dL (3.2-5.0); Alkaline Phosphatase 107 U/L (45-117); Anion Gap 8 (5-15); BUN 25 mg/dL (7-18); BUN/Creat Ratio 17.5 RATIO (10-20); Bilirubin, Direct 0.17 mg/dL (0.00-0.30); Calcium,Total 9.3 mg/dL (8.5-10.1); Chloride 109 mmol/L (98-107); Creatinine, Serum 1.43 mg/dL (0.70-1.30); EST Glomerular Filtration Rate 53 mL/min (>60); Est Glom Filt Rate - Afr Amer 64 mL/min (>60); Estimated Creatinine Clearance 49.16 ml/min; Globulin 3.4 g/dL (2.2-4.2); Glucose 127 mg/dL (74-106); Lipase 43 U/L (73-393); Potassium 4.1 mmol/L (3.5-5.1); Sodium Level 142 mmol/L (136-145)
[2021-07-08 18:04] LABS: Differential Comment SCANNED
[2021-07-08 19:09] VITALS: BP 134/76; PULSE 81; RESP 18
--- NOTE | 2021-07-08 19:30 | EX.ED.DYSGE1 ---
HPI History of Present Illness Chief Complaint: Nausea/Vomiting Informant: patient Onset/Context/Timing Onset: Today Current Severity: Moderate Narrative Narrative: Patient presents with nausea and vomiting that he believes may be rate related to food poisoning. He ate a sub sandwich from a local grocery store last evening. He woke at 2:30 in the morning with vomiting. He denies diarrhea. He was seen by his PCP this morning who gave him a shot of some nausea medicine. He went home and slept but when awoke was still unable to keep anything down. The pharmacy did not have his prescription ready yet. He presents for evaluation. On arrival heart rate is noted to be 136. Other vitals normal. [facility] Medical History Atherosclerosis of coronary artery of [place] heart without angina pectoris COPD (chronic obstructive pulmonary disease) Depression Essential hypertension GERD (gastroesophageal reflux disease) Hyperlipidemia (Unknown) Nicotine dependence Nonsustained paroxysmal supraventricular tachycardia GALE on CPAP SBO (small bowel obstruction) Home Medications aspirin 81 mg PO DAILY@0800 03/20/17 [History Last Taken 10/13/18] atenolol 50 mg PO DAILY 03/20/17 [History Last Taken 10/30/18 06:30] fluoxetine 20 mg PO DAILY 03/20/17 [History Last Taken 10/13/18] albuterol sulfate 2 puff INHALATION Q4H PRN PRN 10/13/18 [History Last Taken 10/12/18] bupropion HCl 100 mg PO BID 10/13/18 [History Last Taken 10/13/18] omeprazole 20 mg PO DAILY 10/13/18 [History Last Taken 10/13/18] nitroglycerin 0.4 mg sublingual tablet 0.4 mg SUBLINGUAL Q5-15M PRN 10/27/18 [History Last Taken Unknown] atorvastatin 20 mg tablet 20 mg PO QHS tab 09/11/19 [History Last Taken Unknown] losartan 100 mg tablet 100 mg PO DAILY #90 tab 10/02/19 [Rx Last Taken Unknown] albuterol sulfate 2.5 mg INHALATION Q8H ml 12/25/20 [History Last Taken Unknown] fluticasone fur. 200 mcg-umeclid 62.5 mcg-vilant 25 mcg inhalat.powder 1 inh INHALATION DAILY #60 ea 05/26/21 [Rx Last Taken Unknown] ondansetron 4 mg PO Q8H PRN #10 tab 07/08/21 [Rx Last Taken Unknown] Allergy/AdvReac Type Severity Reaction Status Date / Time lisinopril AdvReac Intermediate cough Verified 07/08/21 16:51 Family History Mother Diabetes Father Cancer prostate Sister Diabetes Surgical History History of arthroscopy of right shoulder History of colonoscopy with polypectomy History of rotator cuff surgery History of skin graft Hx of cholecystectomy Social History Smoking Status: Former smoker how long ago did patient quit smokin alcohol intake: never substance use type: does not use caffeine: Yes what type of physical activity do you participate in: none frequency: does not exercise ROS ROS ED Constitutional Constitutional ED: Denies chills or fever(s) Eyes Eyes: Denies change in vision ENT ENT ED: Denies sore throat Cardiovascular Cardiovascular: Denies chest pain Respiratory/Chest Respiratory/Chest: Denies cough or dyspnea Gastrointestinal Gastrointestinal: Reports abdominal pain, nausea and vomiting; Denies diarrhea Genitourinary Genitourinary ED: Denies dysuria Musculoskeletal Musculoskeletal: Denies back pain Integumentary Denies rash Neurologic Neurologic: Denies headache(s) Allergic/Immunologic Allergic/Immunologic ED: Denies urticaria EXAM Physical Exam Const Vital Signs: 07/08/21 16:48 07/08/21 19:09 07/08/21 19:42 Temperature 98.3 F Temperature Source Temporal Pulse Rate 136 H 81 84 Respiratory Rate 16 18 18 Blood Pressure 107/70 134/76 H 139/76 H Blood Pressure Mean 82 95 Pulse Ox 95 Oxygen Delivery Method Room Air Positive well nourished and well developed General Appearance ED: well developed HEENT Reports dry mucous membranes Mouth ED: Yes dry mucous membranes Mouth: dry mucous membranes Eyes PERRL and EOMs intact bilaterally Neck supple Chest Wall inspection of chest normal and palpation of chest normal Resp normal respiratory effort and clear to auscultation bilaterally Cardio regular rhythm Rate: tachycardic GI non-tender Auscultation: hypoactive bowel sounds Palpation: soft Extremity normal to inspection Neuro oriented x3 Sensorium / Orientation: alert Psych mental status grossly normal Skin no rashes or lesions noted and no wounds MDM MDM MDM Narrative Medical decision making narrative: Patient was given IV fluids along with Zofran. Lab work obtained. Lab Data Attestation: I reviewed the patient's lab results. Labs: Laboratory Results - last 24 hr 07/08/21 07/08/21 17:20 17:20 WBC 10.7 RBC 5.74 Hgb 16.3 Hct 50.2 MCV 87.5 MCH 28.4 MCHC 32.5 RDW Std Deviation 45.5 H RDW Coeff of Delfina 14.2 Plt Count 152 MPV 13.4 H Immature Gran % (Auto) 0.600 Neut % (Auto) 92.6 H Lymph % (Auto) 2.7 L [place] % (Auto) 3.6 Eos % (Auto) 0.1 Baso % (Auto) 0.4 Absolute Neuts (auto) 9.9 H Absolute Lymphs (auto) 0.29 L Nucleated RBC % 0 Differential Comment SCANNED Sodium 142 Potassium 4.1 Chloride 109 H Carbon Dioxide 25.0 Anion Gap 8 BUN 25 H Creatinine 1.43 H Estim Creat Clear Calc 49.16 Est GFR (MDRD) Af Amer 64 Est GFR (MDRD) Non-Af 53 L BUN/Creatinine Ratio 17.5 Glucose 127 H Calcium 9.3 Total Bilirubin 0.60 Direct Bilirubin 0.17 AST 12 L ALT 22 Alkaline Phosphatase 107 Total Protein 7.0 Albumin 3.6 Globulin 3.4 Lipase 43 L Treatment and Re-Evaluation Narrative: Repeat evaluation patient does feel improved. CBC is unremarkable. Chemistry studies significant for creatinine of 1.43. LFTs and lipase normal. Patient is able to tolerate p.o. fluids at this time. He is given a prescription for Zofran as he believes the prior prescription was for Phenergan. Patient has prescription filled here at the hospital pharmacy prior to discharge so that he will have meds at home. Return instructions are provided. Discharge Plan Triage Chief Complaint: Nausea/Vomiting ED Provider: Idalmis Sommers Dx/Rx/DC Orders Clinical Impression: Vomiting Instructions: ED Vomiting (Adult) Prescriptions: New ondansetron 4 mg tablet,disintegrating 4 mg PO Q8H PRN (Reason: nausea and vomiting) Qty: 10 RF: 0 No Action atorvastatin 20 mg tablet 20 mg PO QHS RF: 0 nitroglycerin 0.4 mg tablet, sublingual 0.4 mg SUBLINGUAL Q5-15M PRN (Reason: CP) RF: 0 albuterol sulfate 2.5 mg /3 mL (0.083 %) solution for nebulization 2.5 mg inhalation Q8H RF: 0 aspirin 81 MG tablet 81 mg PO DAILY@0800 RF: 0 fluoxetine 20 MG capsule 20 mg PO DAILY RF: 0 atenolol 50 MG tablet 50 mg PO DAILY RF: 0 bupropion HCl 100 MG tablet sustained-release 12 hr 100 mg PO BID RF: 0 omeprazole 20 MG capsule,delayed release(DR/EC) 20 mg PO DAILY RF: 0 albuterol sulfate 18 GM HFA aerosol inhaler 2 puff inhalation Q4H PRN PRN (Reason: Sob &/Or Wheezing) RF: 0 losartan 100 mg tablet 100 mg PO DAILY Qty: 90 RF: 6 Trelegy Ellipta 200-62.5-25 mcg blister with device 1 inh inhalation DAILY Qty: 60 RF: 6 Primary Care Provider: Abiodun Grider Referrals: Abiodun Grider MD [Primary Care Provider] - 3-5 Days if not improving Disposition Disposition: Home, Self Care Discharge Date/Time: 07/08/21 19:48
[2021-07-08 19:42] VITALS: BP 139/76; PULSE 84; RESP 18
[2021-07-08] MEDS: 0.9% Normal Saline 1,000 ML 150 ML IV (19:47)
== END 2021-07-08 19:48 | disposition home or self-care (01) ==
PROVIDERS: Emergency Provider Emergency Medicine; PCP Family Medicine; Visit Provider Emergency Medicine
DX: R11.2 Nausea with vomiting, unspecified (principal); I25.10 Atherosclerotic heart disease of native coronary artery without angina pectoris; G47.33 Obstructive sleep apnea (adult) (pediatric); Z87.891 Personal history of nicotine dependence
CPT/HCPCS: 80048; 80076; 83690; 85025; 96374; 99283; J7030; A4216; J2405

== ENCOUNTER → 2021-11-12 | Outpatient (CLI) | payer MEDICARE, MEDICAID, SELFPAY ==
[2021-11-12 08:32] LABS: Anion Gap 4 (5-15); BUN 19 mg/dL (7-18); BUN/Creat Ratio 16.2 RATIO (10-20); Chloride 112 mmol/L (98-107); Cholesterol 134 mg/dL (200); Creatinine, Serum 1.17 mg/dL (0.70-1.30); EST Glomerular Filtration Rate 66 mL/min (>60); Est Glom Filt Rate - Afr Amer 80 mL/min (>60); Glucose 100 mg/dL (74-106); High Density Lipoprotein 29 mg/dL; Potassium 4.1 mmol/L (3.5-5.1); Sodium Level 142 mmol/L (136-145); Triglycerides 257 mg/dL; Very Low Density Lipoprotein 51 mg/dL (5-40)
== END | disposition home or self-care (01) ==
LOC: LAB 07:32
PROVIDERS: PCP Family Medicine; Visit Provider Family Medicine
DX: I10 Essential (primary) hypertension (principal)
CPT/HCPCS: 36415; 80048; 80061

== ENCOUNTER → 2022-01-01 | Outpatient (CLI) | payer MEDICARE, MEDICAID, SELFPAY ==
--- NOTE | 2022-01-01 07:42 | CT_ITS ---
STUDY: LOW DOSE CT LUNG CANCER SCREENING REASON FOR EXAM: Male, 66 years old. Smoker and gt; 30 pack years quit 2015 RADIATION DOSAGE (If Supplied By Facility): CTDIvol = ( 3.02 ) mGy, DLP = ( 110.61 ) mGycm TECHNIQUE: No contrast was administered. Low dose technique was utilized (average mAS-38 and kVp 120). 1.25 mm axial source images with a slice interval of 1.25-mm were reconstructed in lung windows. 2.5 mm axial source images with a slice interval of 2.5-mm were reconstructed in lung windows. 5.0 mm axial source images with a slice interval of 5.0-mm were reconstructed in soft tissue windows. COMPARISON: Comparison is made with prior study dated 12/30/2020. NODULES: No suspicious nodules are seen. Emphysema: Hyperinflation. Diffuse emphysematous changes worse in the upper lobes with the centrilobular emphysematous changes. Calcified granulomas in the anterior aspect of the left lower lobe. Stable scarring in the right lung base as well as the right middle lobe and lingular segment of the left upper lobe. Endobronchial lesion: Unremarkable Aorta: Atherosclerotic plaque formation. CORONARY ARTERIES: Coronary artery calcification is seen. Heart: Unremarkable Pulmonary artery: Unremarkable Mediastinal nodes: Unremarkable Other chest and abdominal findings: Calcified left hilar lymph nodes. CT/Low Dose CT Lung Screening IMPRESSION: Lung-RADS category 2 - Continue annual screening with LDCT in 12 months. IMPORTANT NOTES FOR USE: ACR Lung-RADS Version 1.1 Assessment Categories Release Date: 2018 Category: Coded 0-4 bases on nodule(s) with highest degree of suspicion. Negative screen is defined as categories 1 and 2; a positive screen is defined as categories 3 and 4. Category 3 and 4A nodules that are unchanged on interval CT should be coded as category 2, and individuals returned to screening in 12 months. Category 4X: Category 3 or 4 nodules with additional imaging findings that increase the suspicion of lung cancer, such as spiculation, GGN that doubles in size in 1 year, enlarged lymph notes, etc. Category Modifiers: S (significant finding unrelated to lung cancer) Electronically Signed: Dean Oviedo MD at 10:53 EDT ,
== END | disposition home or self-care (01) ==
LOC: CT 07:41
PROVIDERS: PCP Family Medicine; Referring Provider Nurse Practitioner Acute Care; Visit Provider Nurse Practitioner Acute Care
DX: F17.210 Nicotine dependence, cigarettes, uncomplicated (principal)
CPT/HCPCS: 71271

== ENCOUNTER → 2022-05-12 | Outpatient (CLI) | payer MEDICARE, MEDICAID, SELFPAY ==
[2022-05-12 11:20] LABS: ALB/GLOB Ratio 1.2 RATIO (0.9-2.4); AST(SGOT) 13 U/L (15-37); Alanine Aminotransfer ALT/SGPT 25 U/L (16-61); Albumin, Serum 3.4 g/dL (3.2-5.0); Alkaline Phosphatase 137 U/L (45-117); Anion Gap 5 (5-15); BUN 22 mg/dL (7-18); BUN/Creat Ratio 17.5 RATIO (10-20); Calcium,Total 9.2 mg/dL (8.5-10.1); Chloride 108 mmol/L (98-107); Cholesterol 165 mg/dL (200); Creatinine, Serum 1.26 mg/dL (0.70-1.30); EST Glomerular Filtration Rate 61 mL/min (>60); Est Glom Filt Rate - Afr Amer 73 mL/min (>60); Globulin 2.9 g/dL (2.2-4.2); Glucose 88 mg/dL (74-106); High Density Lipoprotein 36 mg/dL; Potassium 4.5 mmol/L (3.5-5.1); Protein, Total 6.3 g/dL (6.4-8.2); Sodium Level 142 mmol/L (136-145); Triglycerides 153 mg/dL; Very Low Density Lipoprotein 31 mg/dL (5-40)
== END | disposition home or self-care (01) ==
LOC: MFPLAB 08:43
PROVIDERS: PCP Family Medicine; Referring Provider Family Medicine; Visit Provider Family Medicine
DX: E78.5 Hyperlipidemia, unspecified (principal)
CPT/HCPCS: 36415; 80053; 80061

== ENCOUNTER → 2022-10-14 | Outpatient (CLI) | payer MEDICARE, MEDICAID, SELFPAY ==
[2022-10-14 12:32] LABS: Absolute Lymphocyte Count 2.05 X10^3/uL (0.83-4.51); Absolute Neutrophil Count 4.6 X10^3/uL (2.0-7.7); Basophil# 0.11 X10^3/uL; Basophil% 1.4 % (0-1); Eosinophil# 0.34 X10^3/uL; Eosinophils% 4.4 % (0-5); Hematocrit 46.7 % (40-54); Hemoglobin 15.2 g/dL (13.0-16.5); Lymphocyte # 2.05 X10^3/ul (0.83-4.51); Lymphocyte % 26.6 % (19-41); Mean Corp Hgb Conc 32.5 g/dL (32-36); Mean Corpuscular Hgb 29.2 pg (27.0-32.0); Mean Corpuscular Volume 89.8 fL (80-94); Mean Platelet Vol. 13.9 fl (6.2-12.0); Monocyte# 0.54 X10^3/uL; NRBC Flagged by Analyzer 0 % (0-5); Neutrophil % 59.8 % (47-70); Platelet Count 130 K/mm3 (150-450); RBC Distribution Width CV 12.9 % (11.6-14.6); RBC Distribution Width SD 42.3 fl (35.1-43.9); White Blood Count 7.7 K/mm3 (4.4-11.0)
[2022-10-14 12:59] LABS: ALB/GLOB Ratio 1.1 RATIO (0.9-2.4); AST(SGOT) 12 U/L (15-37); Alanine Aminotransfer ALT/SGPT 22 U/L (16-61); Albumin, Serum 3.4 g/dL (3.2-5.0); Alkaline Phosphatase 115 U/L (45-117); Anion Gap 5 (5-15); BUN 17 mg/dL (7-18); BUN/Creat Ratio 13.6 RATIO (10-20); Chloride 108 mmol/L (98-107); Creatinine, Serum 1.25 mg/dL (0.70-1.30); EST Glomerular Filtration Rate 61 mL/min (>60); Est Glom Filt Rate - Afr Amer 74 mL/min (>60); Globulin 3.2 g/dL (2.2-4.2); Glucose 112 mg/dL (74-106); Potassium 4.4 mmol/L (3.5-5.1); Protein, Total 6.6 g/dL (6.4-8.2); Sodium Level 138 mmol/L (136-145)
== END | disposition home or self-care (01) ==
LOC: MFPLAB 11:18
PROVIDERS: PCP Family Medicine; Visit Provider Family Medicine
DX: R14.0 Abdominal distension (gaseous) (principal)
CPT/HCPCS: 36415; 80053; 85025

== ENCOUNTER → 2022-11-05 | Outpatient (CLI) | payer MEDICARE, MEDICAID, SELFPAY ==
[2022-11-05 10:25] LABS: Anion Gap 3 (5-15); BUN 17 mg/dL (7-18); BUN/Creat Ratio 15.7 RATIO (10-20); Chloride 111 mmol/L (98-107); Cholesterol 126 mg/dL (200); Creatinine, Serum 1.08 mg/dL (0.70-1.30); EST Glomerular Filtration Rate 72 mL/min (>60); Est Glom Filt Rate - Afr Amer 88 mL/min (>60); Glucose 95 mg/dL (74-106); High Density Lipoprotein 32 mg/dL; Potassium 4.2 mmol/L (3.5-5.1); Sodium Level 140 mmol/L (136-145); Triglycerides 109 mg/dL; Very Low Density Lipoprotein 22 mg/dL (5-40)
== END | disposition home or self-care (01) ==
LOC: MFPLAB 08:01
PROVIDERS: PCP Family Medicine; Visit Provider Family Medicine
DX: I10 Essential (primary) hypertension (principal)
CPT/HCPCS: 36415; 80048; 80061

== ENCOUNTER → 2022-11-25 | Outpatient (CLI) | payer MEDICARE, MEDICAID, SELFPAY ==
--- NOTE | 2022-11-25 13:53 | CT_ITS ---
STUDY: CT ABDOMEN AND PELVIS WITH CONTRAST REASON FOR EXAM: Male, 67 years old. Mid abdominal pain. Possible hernia. RADIATION DOSAGE (If Supplied By Facility): CTDIvol = ( 13.26 ) mGy, DLP = ( 852.81 ) mGycm TECHNIQUE: Transaxial images were obtained from the dome of the diaphragm to the symphysis pubis with oral contrast. Oral and amp; IV Readi-CAT and amp; 100mL Isovue-300 was administered. Sagittal and coronal images were reconstructed. Individualized dose optimization techniques were used for this CT. COMPARISON: Comparison is made with prior study November 06, 2018. FINDINGS: Findings suggest mild scarring in the posterior medial segment of the right lower lobe. The visualized portions of the heart are within normal limits. 1 cm cyst in the left lobe of the liver. Small cysts are seen in the right lobe. The largest cyst measures 2 cm and is in the dome of the right lobe of the liver. Findings suggestive of a 2.1 cm x 2.1 cm hemangioma in the peripheral medial aspect of the right lobe of liver inferiorly. There are surgical clips in the gallbladder fossa consistent with a prior cholecystectomy. There is a benign calcified granuloma of the spleen. Normal pancreas. Normal bilateral adrenal glands. There is a 2.3 cm cyst in the posterior midportion of the right kidney. Normal left kidney. Large amount of residual food particles are seen within a distended stomach. Normal small intestine. Normal colon. The appendix is visualized and appears normal. There is scattered atherosclerotic calcification of the abdominal aorta, without a demonstrated aneurysm. Normal inferior vena cava. Normal retroperitoneum. Normal urinary bladder. A penile implant is seen with the chamber and the right hemipelvis. There is a small umbilical hernia containing fat. Normal osseous structures. CT/Abdomen/Pelvis WITH Contrast IMPRESSION: Small hepatic cysts. Findings suggestive of an hemangioma in the inferior medial aspect of the right lobe of the liver. Stable right renal cyst. Distention of the stomach with residual food particles. Electronically Signed: Dean Oviedo MD at 15:20 EDT ,
== END | disposition home or self-care (01) ==
LOC: CT 13:51
PROVIDERS: PCP Family Medicine; Referring Provider Family Medicine; Visit Provider Family Medicine
DX: R10.9 Unspecified abdominal pain (principal)
CPT/HCPCS: 74177; Q9967

== ENCOUNTER → 2023-01-17 | Outpatient (CLI) | payer MEDICARE, MEDICAID, SELFPAY ==
--- NOTE | 2023-01-17 12:45 | CT_ITS ---
STUDY: LOW DOSE CT LUNG CANCER SCREENING REASON FOR EXAM: Male, 67 years old. 2 pack per day smoker x52 years RADIATION DOSAGE (If Supplied By Facility): CTDIvol = ( 3.02 ) mGy, DLP = ( 114.38 ) mGycm TECHNIQUE: No contrast was administered. Low dose technique was utilized (average mAS-38 and kVp 120). 1.25 mm axial source images with a slice interval of 1.25-mm were reconstructed in lung windows. 2.5 mm axial source images with a slice interval of 2.5-mm were reconstructed in lung windows. 5.0 mm axial source images with a slice interval of 5.0-mm were reconstructed in soft tissue windows. Comparison: 01/01/2022 FINDINGS: Lung windows show significant underlying emphysema with bleb formation throughout both lung longoria. Scattered calcified granulomata and nonspecific scarring noted in both lung longoria. No organized infiltrate or effusion. No suspicious noncalcified mass or nodule. Limited soft tissue windows show normal-appearing thyroid gland. No suspicious axillary, mediastinal, or perihilar mass or adenopathy. Normal tapering of the thoracic aorta is noted. There are punctate coronary artery calcifications. Limited cuts through the upper abdomen show splenic granulomatous calcifications and bony structures show degenerative change CT/Low Dose CT Lung Screening IMPRESSION: Lung-RADS category 2 - Continue annual screening with LDCT in 12 months. IMPORTANT NOTES FOR USE: ACR Lung-RADS Version 1.1 Assessment Categories Release Date: 2018 Category: Coded 0-4 bases on nodule(s) with highest degree of suspicion. Negative screen is defined as categories 1 and 2; a positive screen is defined as categories 3 and 4. Category 3 and 4A nodules that are unchanged on interval CT should be coded as category 2, and individuals returned to screening in 12 months. Category 4X: Category 3 or 4 nodules with additional imaging findings that increase the suspicion of lung cancer, such as spiculation, GGN that doubles in size in 1 year, enlarged lymph notes, etc. Category Modifiers: S (significant finding unrelated to lung cancer) Electronically Signed: Paulino Valdivia MD at 15:09 EDT ,
== END | disposition home or self-care (01) ==
LOC: CT 12:30
PROVIDERS: PCP Family Medicine; Referring Provider Nurse Practitioner Acute Care; Visit Provider Nurse Practitioner Acute Care
DX: Z12.2 Encounter for screening for malignant neoplasm of respiratory organs (principal); F17.210 Nicotine dependence, cigarettes, uncomplicated
CPT/HCPCS: 71271

== ENCOUNTER → 2023-06-08 | Outpatient (CLI) | payer MEDICARE, MEDICAID, SELFPAY ==
--- NOTE | 2023-06-08 09:57 | RAD_ITS ---
STUDY: X-RAY CHEST REASON FOR EXAM: Male, 68 years old. Pleural density. TECHNIQUE: Frontal and lateral views of the chest on 3 images. COMPARISON: None. FINDINGS: Hyperinflation with scattered healed granulomatous calcifications. There is no demonstrated pleural abnormality. Normal size heart. Normal mediastinum and maulik. Normal visualized pulmonary arteries. Aortic tortuosity with calcification. Mild diffuse thoracic spondylosis. Multiple right healed rib fractures. No abnormality of the visualized soft tissue structures of the upper abdomen. RAD/Chest PA and Lateral IMPRESSION: Hyperinflation with no acute or active cardiopulmonary disease. Electronically Signed: Augusto Clifford MD at 10:58 EDT ,
--- OUTSIDE RECORDS SUMMARY | 2023-06-08 11:35 | XMS RPT_ITS | CCD ---
Author Name Unknown Address [address] [place] [address] Organization [facility] Care Team Providers Care Non Destructive Evaluation Technician Name Role Phone ROBERT, BRENDEN E Unavailable Unavailable ROBERT, BRENDEN E Unavailable Unavailable AUDREY, JAYRAM Unavailable Unavailable MARIA DEL ROSARIO GEORGE Unavailable Unavailabl e ROBERT, BRENDEN Unavailable Unavailable ROBERT, BRENDEN Unavailable Unavailable Daron, Sage Unavailable Unavailable ROBERT, BRENDEN Unavailable Unavailable ROBERT, BRENDEN Unavailable Unavailable [place], Sage Unavailable Unavailable AUDREY, JAYRAM Unavailable Unavailable [facility] Unavailable Unavailable [facility] Unavailable Unavailable Abiodun Nolasco MD Primary Care Provider Abiodun Nolasco MD Primary Care Provider ALEISHA LOVE Attending Unavailabl e LEAL, CHAY THACKER Admitting Unavailable NOLASCOABIODUN ARIZA Primary Care Unavailable LEAL, CHAYYRIS JARRELLN Admitting Unavailable ABIODUN NOLASCO Primary Care Unavailable ALEISHA LOVE Attending Unavailabl e LEAL, CHAY THACKER Attending Unavailable LEAL, CHAY THACKER Admitting Unavailable ABIODUN NOLASCO Primary Care Unavailable LEAL, CHAY THACKER Attending Unavailable LEAL, CHAY JARRELLN Admitting Unavailable NOLASCOABIODUN ARIZA Primary Care Unavailable Abiodun Nolasco MD Primary Care Provider Abiodun Nolasco MD Primary Care Provider LEAL, CHAY THACKER Attending Unavailable ABIODUN NOLASCO Primary Care Unavailable LEAL, CHAY THACKER Attending Unavailable ABIODUN NOLASCO Referring Unavailable ABIODUN NOLASCO Primary Care Unavailable LEAL, CHAY THACKER Attending Unavailable ABIODUN NOLASCO Primary Care Unavailable ABIODUN NOLASCO Primary Care Unavailable LEAL, CHAY THACKER Attending Unavailable LEAL, CHAY THACKER Attending Unavailable LEAL, CHAYYRIS THACKER Attending Unavailable ABIODUN NOLASCO Primary Care Unavailable Abiodun Nolasco MD Primary Care Provider ABIODUN NOLASCO Primary Care Unavailable LITTLE LOGAN Attending Unavailable ABIODUN NOLASCO Primary Care Unavailable VASYL MONZON Attending Unavailable ABIODUN NOLASCO Unavailable Allergies Allergy Classification Reported Allergen(s) Allergy Type Date of Onset Reaction(s) Facility (14 sources) lisinopril; Translations: [LISINOPRIL] Drug Allergy 12-14-2013 Cough [facility] Other [employer] [facility] Medications Current Medications Medication Drug Class(es) Dates Sig (Normalized) Sig (Original) atenolol 50 mg / chlorthalidone 25 mg oral tablet (6 sources) Thiazide-like Diuretic, beta-Adrenergic Jess take 1 tablet by mouth once daily atenoloL-chlorthali done (TENORETIC) 50-25 mg per tablet Take 1 (one) tablet by mouth daily Morning . 0 Active 12 hr buPROPion hydrochloride 100 mg extended release oral tablet (6 sources) Aminoketone Start: 10-13-2018 take 1 tablet by mouth every twelve hours buPROPion (WELLBUTRIN SR) 100 MG 12 hr tablet Take by mouth Morning . 0 10/13/2018 Active ciclopirox 80 mg/ml topical solution (4 sources) Start: 07-21-2016 End: 11-16-2023 Ciclopirox (LOPROX) 8 % solution Indications: onychomycosis due to dermatophyte Apply to affected area daily at bedtime. 6.6 mL 5 11/17/2022 11/16/2023 Active Completed/Discontinued Medications Medication Drug Class(es) Dates Sig (Normalized) Sig (Original) [id number] 200 actuat albuterol 0.09 mg/actuat metered dose inhaler (2 sources) beta2-Adrenergic Agonist Start: 02-07-2018 take 2 puff(s) by mouth every four hours as needed VENTOLIN HFA 90 mcg/actuation inhaler INHALE 2 (TWO) PUFFS BY MOUTH EVERY 4 HOURS NEEDED 18 g 10 02/07/2018 Active Problems Active Problems Problem Classification Problem Date Documented Date Episodic/Chronic Cardiac dysrhythmias (4 sources) Supraventricular tachycardia; Translations: [Supraventricular tachycardia] Onset: 03-19-2016 03-19-2016 Chronic Chronic obstructive pulmonary disease and bronchiectasis (7 sources) Chronic obstructive lung disease; Translations: [Chronic obstructive pulmonary disease, unspecified] Onset: 10-26-2013 08-12-2021 Chronic Coronary atherosclerosis and other heart disease (1 source) Atherosclerotic heart disease of zuni coronary artery without angina pectoris; Translations: [Atherosclerotic heart disease of zuni coronary artery without angina pectoris] Onset: 04-27-2017 Chronic Disorders of lipid metabolism (7 sources) Hyperlipidemia; Translations: [Hyperlipidemia, unspecified] Onset: 12-24-2010 08-12-2021 Chronic Essential hypertension (7 sources) Hypertensive disorder; Translations: [Essential (primary) hypertension] Onset: 12-05-2015 08-12-2021 Chronic Genitourinary symptoms and ill-defined conditions (1 source) Gross hematuria; Translations: [Gross hematuria] Onset: 11-22-2017 Episodic Mood disorders (2 sources) Depressive disorder; Translations: [Depression] Onset: 08-25-2011 08-25-2011 Chronic Mycoses (1 source) Onychomycosis; Translations: [Tinea unguium] 11-17-2022 Episodic Osteoarthritis (2 sources) Osteoarthritis; Translations: [Unspecified osteoarthritis, unspecified site] Onset: 03-30-2011 03-30-2011 Chronic Other circulatory disease (1 source) Abnormal peripheral pulse; Translations: [Other specified symptoms and signs involving the circulatory and respiratory systems] 11-17-2022 Episodic Other connective tissue disease (1 source) Pain of toe of left foot; Translations: [Pain in left toe(s)] 11-17-2022 Episodic Other connective tissue disease (1 source) Pain of toe of right foot; Translations: [Pain in right toe(s)] 11-17-2022 Episodic Other male genital disorders (13 sources) Male erectile dysfunction, unspecified; Translations: [Impotence of organic origin] Onset: 08-05-2021 Chronic Other skin disorders (1 source) Ingrowing nail; Translations: [Ingrowing nail] 11-17-2022 Episodic Other skin disorders (1 source) Callosity; Translations: [Corns and callosities] 11-17-2022 Episodic Residual codes; unclassified (7 sources) Obstructive sleep apnea syndrome; Translations: [Obstructive sleep apnea (adult) (pediatric)] Onset: 12-24-2010 08-12-2021 Chronic Residual codes; unclassified (1 source) Pain; Translations: [Pain, unspecified] 11-17-2022 Episodic Residual codes; unclassified (2 sources) Pain, unspecified; Translations: [Pain] Onset: 11-17-2022 Episodic Unclassified (1 source) Family history of malignant neoplasm of prostate; Translations: [Family history of malignant neoplasm of prostate] Onset: 11-22-2017 Episodic Unclassified (1 source) Unknown / UNK(Unknown) Onset: 03-19-2016 Past or Other Problems Problem Classification Problem Date Documented Date Episodic/Chronic Other and unspecified benign neoplasm (2 sources) Polyp of colon; Translations: [Polyp of colon] Onset: 12-24-2010 03-23-2021 Episodic Other connective tissue disease (2 sources) Diastasis of muscle; Translations: [Separation of muscle (nontraumatic), unspecified site] Onset: 07-16-2011 07-16-2011 Episodic Other connective tissue disease (2 sources) Full thickness rotator cuff tear; Translations: [Complete rotator cuff tear or rupture of right shoulder, not specified as traumatic] Onset: 02-02-2016 02-02-2016 Episodic Other screening for suspected conditions (not mental disorders or infectious disease) (2 sources) Thallium stress test abnormal; Translations: [Abnormal result of other cardiovascular function study] Onset: 03-19-2016 03-19-2016 Episodic Results Test Name Value Interpretation Reference Range Facil it Vital Signs Date Time Vital Sign Value Performing Clinician Faci lity 03-17-2022 09:44-0500 Diastolic blood pressure 87 mm[Hg] Chay Leal MD Work Phone: [facility] 03-17-2022 09:44-0500 Heart rate 74 /min Chay Leal MD Work Phone: [facility] 03-17-2022 09:44-0500 SaO2% (BldA) [Mass fraction] 90 % Chay Leal MD Work Phone: [facility] 03-17-2022 09:44-0500 Systolic blood pressure 161 mm[Hg] Chay Leal MD Work Phone: [facility] 12-23-2021 11:04-0400 Body mass index (BMI) [Ratio] 24.33 kg/m2 Chay Leal MD Work Phone: [facility] 12-23-2021 11:04-0400 Body weight 72.58 kg Chay Leal MD Work Phone: [facility] 12-23-2021 11:04-0400 Diastolic blood pressure 80 mm[Hg] Chay Leal MD Work Phone: [facility] 12-23-2021 11:04-0400 Heart rate 77 /min Chay Leal MD Work Phone: [facility] 12-23-2021 11:04-0400 SaO2% (BldA) [Mass fraction] 91 % Chay Leal MD Work Phone: [facility] 12-23-2021 11:04-0400 Systolic blood pressure 136 mm[Hg] Chay Leal MD Work Phone: [facility] 08-05-2021 08:15-0400 Body temperature 98.4 [degF] Chay Leal MD Work Phone: [facility] 08-05-2021 08:15-0400 Diastolic blood pressure 80 mm[Hg] Chay Leal MD Work Phone: [facility] 08-05-2021 08:15-0400 Heart rate 76 /min Chay Leal MD Work Phone: [facility] 08-05-2021 08:15-0400 SaO2% (BldA) [Mass fraction] 95 % Chay Leal MD Work Phone: [facility] 08-05-2021 08:15-0400 Systolic blood pressure 119 mm[Hg] Chay Leal MD Work Phone: [facility] Encounters Encounter Date Encounter Type Care Provider Facility Start: 04-14-2023 End: 04-14-2023 ambulatory VASYL MCKENNABLOSSOM Not Available Start: 11-24-2022 Telephone encounter Little Logan DPM Work Phone: Podiatry Procedures Date Procedure Procedure Detail Performing Clinician Start: 08-16-2013 Colonoscopy Little Hild DPM Work Phone: Plan of Treatment Date Care Activity Detail Author Start: 09-20-2023 Tetanus vaccination Tetanus: Every 10yrs [facility] Start: 09-20-2023 Urine microalbumin profile DTAP,TDAP,TD (2 - Td or Tdap) [facility] Start: 01-25-2023 Pneumococcal Vaccine: Age 65+ (2 - PCV) Pneumococcal Vaccine: Age 65+ (2 - PCV) [facility] Start: 01-06-2023 LIPID SCREEN LIPID SCREEN [facility] Start: 11-26-2022 Influenza vaccination INFLUENZA (#1) [facility] Start: 11-25-2022 PROSTATE CANCER SCREENING DISCUSSION PROSTATE CANCER SCREENING DISCUSSION [facility] Start: 06-23-2022 End: 06-23-2022 Patient encounter procedure 06/23/2022 Office Visit Urology Leal, MD [address] [place] [address] [facility] Start: 03-28-2022 ADVANCE DIRECTIVE DISCUSSION ADVANCE DIRECTIVE DISCUSSION [facility] Start: 12-31-2021 COVID-19 Vaccine (5 - Booster for Pfizer series) COVID-19 Vaccine (5 - Booster for Pfizer series) [facility] Start: 12-31-2021 COVID-19 VACCINE (5 - Pfizer series) COVID-19 VACCINE (5 - Pfizer series) [facility] Start: 11-26-2021 Influenza vaccination [facility] Start: 10-21-2021 End: 10-21-2021 Admission to establishment 10/21/2021 Clinical Support Pre-Admission Testing [facility] Preadmission Testing Start: 09-23-2021 COVID-19 Vaccine (3 - Booster for Pfizer series) COVID-19 Vaccine (3 - Booster for Pfizer series) [facility] Start: 08-26-2021 End: 08-26-2021 Admission to same day surgery center 08/26/2021 Surgery Leal, Chay Thacker MD [address] [place] [address] INSERTION PENILE PROSTHESIS INFLATABLE (AMS 700) [facility] Periop Immunizations Immunization Date Immunization Notes Care Provider Fa cility 12-27-2016 influenza, injectabl e, quadrivalent, contains preservative Little Hild DPM Work Phone: [facility] 01-09-2016 influenza, injectabl e, quadrivalent, contains preservative Little Hild DPM Work Phone: [facility] Work Phone: 12-20-2014 influenza, seasonal, injectable Little Hild DPM Work Phone: [facility] 01-05-2014 zoster vaccine, live Little Hi ld DPM Work Phone: [facility] 12-26-2013 influenza, seasonal, injectable Little Hild DPM Work Phone: [facility] 09-19-2013 tetanus toxoid, redu milagros diphtheria toxoid, and acellular pertussis vaccine, adsorbed Little Hild DPM Work Phone: [facility] 12-25-2012 pneumococcal polysaccharide vaccine, 23 valent Little Hild DPM Work Phone: [facility] Payers Date Payer Category Payer Unknown [id number] 2021 Medicaid MEDICAID [facility] [id number] 2021-Present [phone] [address] [place] [address] [id number] 2021 Medicaid [id number] 2020 Medicare [id number] 2020 Medicare [id number] 2020 Medicare [id number] 1955 Unknown [id number] 1955 Unknown [id number] 1955 Unknown [id number] 1955 Unknown [id number] 1955 Unknown [id number] 1955 Unknown [id number] 1955 Unknown [id number] 1955 Unknown [id number] 1955 Unknown [id number] 1955 Unknown [id number] 1955 Unknown [id number] Medicaid [id number] Social History Date Type Detail Facility Tobacco smoking stat [facility] Tobacco smoking consumption unknown [facility] Start: 1955 Sex Assigned At Not on file [facility] Start: 07-26-2021 End: 03-17-2022 Exposure to SARS-CoV-2 (event) Not sure [facility] Start: 08-12-2021 End: 10-21-2021 Tobacco smoking status NHIS Ex-smoker [facility] End: 08-12-2020 History of tobacco use Current smoker [facility] Start: 03-28-1970 End: 08-12-2020 History of tobacco use Cigarette Smoker [facility] Start: 08-12-2021 End: 03-17-2022 Alcohol intake Ex-drinker (finding) [facility] Start: 10-21-2021 End: 11-17-2022 Tobacco use and exposure Smokeless tobacco non-user [facility] Start: 03-28-1970 [facility] Start: 11-17-2022 Cigarettes smoked cu rrent (pack per day) - Reported 0.3 [facility] Start: 11-17-2022 Alcohol intake Current non-dr mothers helper of alcohol (finding) [facility] Start: 11-17-2022 Tobacco use panel [facility] National Score (1-10 0), lower number is lower risk 66 [facility] Start: 01-06-2017 Alcohol Comment has drank in 3 0 years, in younger day s drank [facility] Start: 1955 [facility] At [facility] Start: 07-20-2018 Gender identity Identifies as male gender (finding) [facility] Start: 07-20-2018 Sexual orientation Heterosexual (brody powers) [facility] Medical Equipment Procedure Code Equipment Code Equipment Origin al Text Equipment Identifier Dates Ams 700 Lgx Ms Pump [id number], [id number] FDA Start: 11-04-2021 [place] Bio-Swive lock 4.75mm 24.5mm Suture Self Punch Sterile Disposable - [id number] Start: 12-19-2015 Clinical Notes 12-05-2015 to 12-02-2022 Telephone Encounter - Chelsy Argueta RN - 12/02/2022 8:26 AM EDTTelephone Encounter - Chelsy Argueta RN - 12/01/2022 9:03 AM EDTTelephone Encounter - Chelsy Argueta RN - 11/26/2022 12:55 PM EDT Note Date & Type Note Facility 12-02-2022 Miscellaneous Notes Patient has not returned calls. LVM for patient to call the office. Please relay message below: Urea Cream denied by insurance- not a covered medication. Can use Good Rx to get at lower cost. Go online type in GoodRx, type in medication and can get a coupon, or stop by office and get one. Most pharmacies can help with this as well. LVM for patient to call the office. Please relay message below: Urea Cream denied by insurance- not a covered medication. Can use Good Rx to get at lower cost. Go online type in GoodRx, type in medication and can get a coupon, or stop by office and get one. Most pharmacies can help with this as well. Patient returning call from Dr. Logan's office. Didn't answer because he did not recognize number. He can be reached at [phone]. JOANNA Snider LVM for patient to call the office. Urea Cream denied by insurance- not a covered medication. Can use Good Rx to get at lower cost. documented in this encounter [facility] 11-17-2022 Note HNO ID: [id number] Author: Little Logan DPM Service: ? Author Type: Physician Type: Progress Notes Filed: 11/17/2022 3:35 PM Note Text: Initial Podiatric Office Visit: Chief Complaint: This 67 year old patient who presents with: thickened toenails. HPI Patient presents today for concerns regarding nail fungus. Patient states that they have elongated, thickened toenails that are difficult to trim on their own. Thick callusing b/l plantar feet. They have tried penlac for their nails with limited success. Has been seen by Dr. Corado in [place] and Dr. Brock back in 2017. No debridement. They are interested in finding out options for their nails at this time. PAIN EVALUATION No data found in the last 1 encounters. PCP: Abiodun Nolasco MD HBA1C, [place] Date Value Ref Range Status 03/31/2010 5.8 4.0 - 6.0 % Final Comment: CC VS CLINIC PAST MEDICAL HISTORY Diagnosis Date Bloating Chronic obstructive pulmonary disease (COPD) (HCC) Depression GERD (gastroesophageal reflux disease) Hernia of unspecified site of abdominal cavity without mention of obstruction or gangrene High cholesterol HTN (hypertension) Obstructive sleep apnea Tobacco abuse has quit Current Outpatient Medications Medication Sig FLUoxetine (PROZAC) 20 mg capsule Take 1 capsule by mouth once daily. losartan (COZAAR) 50 mg tablet TAKE 1 TABLET BY MOUTH ONCE DAILY. loratadine (CLARITIN) 10 mg tablet TAKE 1 TABLET BY MOUTH ONCE DAILY. atorvastatin (LIPITOR) 40 mg tablet Take 1 tablet by mouth once daily. cyclobenzaprine (FLEXERIL) 10 mg tablet TAKE ONE (1) TABLET BY MOUTH THREE TIMES DAILY NEEDED FOR MUSCLE SPASMS omeprazole (PRILOSEC) 20 mg capsule TAKE ONE (1) CAPSULE BY MOUTH ONCE DAILY atenolol (TENORMIN) 50 mg tablet TAKE 1 TABLET BY MOUTH ONCE DAILY. aspirin, enteric coated (ASPIRIN, ENTERIC COATED) 81 mg EC tablet Take 1 tablet by mouth once daily. meloxicam (MOBIC) 15 mg tablet Take 1 tablet by mouth once daily. traZODone (DESYREL) 50 mg tablet Take 1 tablet by mouth at bedtime as needed (sedation). COMPOUNDED PRESCRIPTION cpap mask. Sleep apnea COMPOUNDED PRESCRIPTION BiPAP @ 19/15 cm of water with humidification. Mask (per patient preference) optional chin strap (if indicated) , filters, tubing, humidifier and lifetime supplies. Dx. GALE 327.23 urea (CARMOL) 40 % Apply to affected area as needed. Ciclopirox (LOPROX) 8 % solution Apply to affected area daily at bedtime. nitroglycerin sublingual (NITROQUICK) 0.4 mg SL tablet Dissolve 1 tablet under the tongue every 5 minutes as needed for Chest Pain. (Patient not taking: Reported on 11/17/2022) aspirin, enteric coated (ASPIRIN, ENTERIC COATED) 81 mg EC tablet TAKE 1 TABLET BY MOUTH ONCE DAILY VENTOLIN HFA 90 mcg/actuation inhaler INHALE 2 (TWO) PUFFS BY MOUTH EVERY 4 HOURS NEEDED INCRUSE ELLIPTA 62.5 mcg/actuation inhaler INHALE ONE (1) PUFF BY MOUTH DIRECTED ONCE DAILY *DO NOT CLICK OPEN UNTIL READY FOR DOSE* clotrimazole (MYCELEX) 10 mg sanjay Use 1 Sanjay as instructed five times daily. doxycycline monohydrate 100 mg tablet Take 1 tablet by mouth twice daily. benzonatate (TESSALON PERLE) 100 mg capsule Take 1 capsule by mouth three times daily as needed for Cough. terbinafine HCl (LAMISIL) 1 % cream APPLY 1 APPLICATION TO AFFECTED AREA EVERY NIGHT AT BEDTIME (Patient not taking: Reported on 12/26/2017) mometasone (ELOCON) 0.1 % cream Apply 1 application to affected area once daily. (Patient not taking: Reported on 12/26/2017 ) Ciclopirox (LOPROX) 8 % solution APPLY 1 APPLICATION TO AFFECTED AREA AT BEDTIME. (Patient not taking: Reported on 12/26/2017) No current facility-administered medications for this visit. ALLERGIES Allergen Reactions Lisinopril Cough PAST SURGICAL HISTORY Procedure Laterality Date COLONOSCOPY AND POLYPECTOMY 09/02/09 adenomatous polyp COLONOSCOPY FLX DX W/COLLJ SPEC WHEN PFRMD 08/16/13 Colonoscopy DIAGNOSTIC ARTHROSCOPY SHOULDER +- SYNOVIAL BX Right 12/19/2015 Right shoulder arthroscopy EGD 04/01/05 negative PAST SURGICAL HISTORY OF as child skin graft to right ring finger as a child RECONSTRUCTION ROTATOR CUFF AVULSION CHRONIC Right 12/19/2015 Open rotator cuff repair and SAD FAMILY HISTORY Problem Relation Age of Onset Diabetes Mother Prostate Cancer Father Diabetes Maternal Aunt Diabetes Maternal Uncle Diabetes Sister Social History Tobacco Use Smoking status: Every Day Packs/day: 0.25 Years: 1.00 Additional pack years: 0.00 Total pack years: 0.25 Types: Cigarettes Start date: 03/28/1970 Last attempt to quit: 03/28/2015 Years since quittin.6 Smokeless tobacco: Never Substance Use Topics Alcohol use: No Comment: has drank in 30 years, in younger day s drank Drug use: No REVIEW OF SYSTEMS GENERAL: Negative for Malaise, significant weight loss, fever RESPIRATORY: Negative for cough, wheezing and shortness of breath CARDIO (more content not included)... [facility] 11-17-2022 Instructions Little Logan DPM - 11/17/2022 3:30 PM EDT You have calluses on your feet. The best way to treat these is with a pumice stone or ped egg to debride dry skin. If you are diabetic be very cautious doing this. Constantly feel the skin to ensure that you do not get too close. Trimming your calluses will work the best right after a shower when the skin is soft. The best lotions I have found are amlactin/lac-hydrin 12% (usually at [facility]) unless you have been prescribed UREA 40 cream in which case you should use this. Amlactin cream is more expensive than other creams but will actually debride some of thickened tissue for you. Another lotion that is good is eucerin but this cream will not debride for you. I do not recommend vaseline on your feet. For nail fungus I recommend penlac which was prescribed today. Apply once daily for a year. Keep nails thin while treating for best results. The metal nail files work best for this. Use a file on the top of your nails. The thinner your nails are the more likely the medication will be able to penetrate the thick nail plate and attack the fungus which are deep under the nail plate. Once nail fungus has cleared (which often times takes a year or more) then continue to treat preventatively with the medicine a few times a week or weekly. Penlac should be removed once weekly with alcohol. If you don't completely remove the medicine a thick buildup will occur and it will appear as if the nails are getting worse. Vicks vapo rub can also be used to soften the nails but should be used in combo with penlac. If nails are not improving after about 4 months of this regimen return to my office to discuss other options. [facility] will accept Good RX as well and may offer substantial saving if the cost to you for this medication is high. documented in this encounter [facility] 11-17-2022 History of Presen t illness Narrative Initial Podiatric Office Visit: Chief Complaint: This 67 year old patient who presents with: thickened toenails. HPI Patient presents today for concerns regarding nail fungus. Patient states that they have elongated, thickened toenails that are difficult to trim on their own. Thick callusing b/l plantar feet. They have tried penlac for their nails with limited success. Has been seen by Dr. Corado in [place] and Dr. Brock back in 2017. No debridement. They are interested in finding out options for their nails at this time. PAIN EVALUATION No data found in the last 1 encounters. PCP: Abiodun Nolasco MD [facility], [place] Date Value Ref Range Status 03/31/2010 5.8 4.0 - 6.0 % Final Comment: CC VS CLINIC PAST MEDICAL HISTORY Diagnosis Date Bloating Chronic obstructive pulmonary disease (COPD) (HCC) Depression GERD (gastroesophageal reflux disease) Hernia of unspecified site of abdominal cavity without mention of obstruction or gangrene High cholesterol HTN (hypertension) Obstructive sleep apnea Tobacco abuse has quit Current Outpatient Medications Medication Sig FLUoxetine (PROZAC) 20 mg capsule Take 1 capsule by mouth once daily. losartan (COZAAR) 50 mg tablet TAKE 1 TABLET BY MOUTH ONCE DAILY. loratadine (CLARITIN) 10 mg tablet TAKE 1 TABLET BY MOUTH ONCE DAILY. atorvastatin (LIPITOR) 40 mg tablet Take 1 tablet by mouth once daily. cyclobenzaprine (FLEXERIL) 10 mg tablet TAKE ONE (1) TABLET BY MOUTH THREE TIMES DAILY NEEDED FOR MUSCLE SPASMS omeprazole (PRILOSEC) 20 mg capsule TAKE ONE (1) CAPSULE BY MOUTH ONCE DAILY atenolol (TENORMIN) 50 mg tablet TAKE 1 TABLET BY MOUTH ONCE DAILY. aspirin, enteric coated (ASPIRIN, ENTERIC COATED) 81 mg EC tablet Take 1 tablet by mouth once daily. meloxicam (MOBIC) 15 mg tablet Take 1 tablet by mouth once daily. traZODone (DESYREL) 50 mg tablet Take 1 tablet by mouth at bedtime as needed (sedation). COMPOUNDED PRESCRIPTION cpap mask. Sleep apnea COMPOUNDED PRESCRIPTION BiPAP @ 19/15 cm of water with humidification. Mask (per patient preference) optional chin strap (if indicated) , filters, tubing, humidifier and lifetime supplies. Dx. GALE 327.23 urea (CARMOL) 40 % Apply to affected area as needed. Ciclopirox (LOPROX) 8 % solution Apply to affected area daily at bedtime. nitroglycerin sublingual (NITROQUICK) 0.4 mg SL tablet Dissolve 1 tablet under the tongue every 5 minutes as needed for Chest Pain. (Patient not taking: Reported on 11/17/2022) aspirin, enteric coated (ASPIRIN, ENTERIC COATED) 81 mg EC tablet TAKE 1 TABLET BY MOUTH ONCE DAILY VENTOLIN HFA 90 mcg/actuation inhaler INHALE 2 (TWO) PUFFS BY MOUTH EVERY 4 HOURS NEEDED INCRUSE ELLIPTA 62.5 mcg/actuation inhaler INHALE ONE (1) PUFF BY MOUTH DIRECTED ONCE DAILY *DO NOT CLICK OPEN UNTIL READY FOR DOSE* clotrimazole (MYCELEX) 10 mg sanjay Use 1 Sanjay as instructed five times daily. doxycycline monohydrate 100 mg tablet Take 1 tablet by mouth twice daily. benzonatate (TESSALON PERLE) 100 mg capsule Take 1 capsule by mouth three times daily as needed for Cough. terbinafine HCl (LAMISIL) 1 % cream APPLY 1 APPLICATION TO AFFECTED AREA EVERY NIGHT AT BEDTIME (Patient not taking: Reported on 12/26/2017) mometasone (ELOCON) 0.1 % cream Apply 1 application to affected area once daily. (Patient not taking: Reported on 12/26/2017 ) Ciclopirox (LOPROX) 8 % solution APPLY 1 APPLICATION TO AFFECTED AREA AT BEDTIME. (Patient not taking: Reported on 12/26/2017) No current facility-administered medications for this visit. ALLERGIES Allergen Reactions Lisinopril Cough PAST SURGICAL HISTORY Procedure Laterality Date COLONOSCOPY & POLYPECTOMY 09/02/09 adenomatous polyp COLONOSCOPY FLX DX W/COLLJ SPEC WHEN PFRMD 08/16/13 Colonoscopy DIAGNOSTIC ARTHROSCOPY SHOULDER +- SYNOVIAL BX Right 12/19/2015 Right shoulder arthroscopy EGD 04/01/05 negative PAST SURGICAL HISTORY OF as child skin graft to right ring finger as a child RECONSTRUCTION ROTATOR CUFF AVULSION CHRONIC Right 12/19/2015 Open rotator cuff repair and SAD FAMILY HISTORY Problem Relation Age of Onset Diabetes Mother Prostate Cancer Father Diabetes Maternal Aunt Diabetes Maternal Uncle Diabetes Sister Social History Tobacco Use Smoking status: Every Day Packs/day: 0.25 Years: 1.00 Additional pack years: 0.00 Total pack years: 0.25 Types: Cigarettes Start date: 03/28/1970 Last attempt to quit: 03/28/2015 Years since quittin.6 Smokeless tobacco: Never Substance Use Topics Alcohol use: No Comment: has drank in 30 years, in younger day s drank Drug use: No REVIEW OF SYSTEMS GENERAL: Negative for Malaise, significant weight loss, fever RESPIRATORY: Negative for cough, wheezing and shortness of breath CARDIOVASCULAR: Negative for chest pain, leg swelling and palpitations GI: Negative for abdominal discomfort, blood in stools or black stools and change in bowel habits : Negative for dysuria, frequency and incontinence MUSCULOSKELETAL: Negative for joint pain or swelling, back pain, and muscle pain. SKIN: Negative for lesions, rash, and itching. HEMATOLOGY/LYMPHOLOGY Negative for prolonged bleeding, bruising easily, and swollen nodes. ENDOCRINE: +heat intolerance, polyuria, polydipsia and goiter. NEURO: negative Physical Exam: OBJECTIVE: Constitutional: Pt is a well developed 67 year old male who is alert, oriented, cooperative and in no apparent distress. Eyes: Following during examination. No redness or drainage. Respiratory: RR normal and nonlabored. Even breathing. No evidence of distress. Psychology: Patient is engaged during conversation. Normal affect and mood. Does not appear depressed or anxious. Vascular: Dorsalis pedis diminished b/l and posterior tibial pulses palpable b/l Capillary Fill time < 3 seconds to digits 1-5 b/l Skin temperature warm to warm proximal to distal b/l Hair growth present to digits Neurological: Intact light touch/epicritic sensation Vibratory sensation intact to MTPJ b/l Intact protective sensation NO significant neurological deficits Dermatological: Nails 1-5 b/l are severely yellow, thickened, hypertrophic and dystrophic. Over growth of penlac on all nails today. Nails are brittle and have subungual debrise. Patient has no pain to palpation of nails 1-5 b/l. Webspaces clean and dry 1-4 b/l. Skin appears well hydrated and supple. good color, texture, turgor. No open lesions present. Hyperkeratosis noted diffuse plantar feet b/l Musculoskeletal/Orthopaedic: Foot type is structurally within normal limits MTJ, STJ are full and free of pain and crepitus. +5/5 muscle strength dorsiflexion, plantarflexion, inversion, eversion b/l Radiographs:defer 08/11/22: +tinea unguium ASSESSMENT: Onychomycosis (primary encounter diagnosis) Onychocryptosis Pain Pain in toe of left foot Pain in toe of right foot Tyloma Diminished pulses in lower extremity PLAN: 1. History and physical examination 2. Nails 1-10 b/l debrided today in both length and thickness without complication. Overgrown nails today, thick with penlac 3. For nail fungus I recommend penlac which was prescribed today. Apply once daily for a year. Keep nails thin while treating for best results. The metal nail files work best for this. Use a file on the top of your nails. The thinner your nails are the more likely the medication will be able to penetrate the thick nail plate and attack the fungus which are deep under the nail plate. Once nail fungus has cleared (which often times takes a year or more) then continue to treat preventatively with the medicine a few times a week or weekly. Penlac should be removed once weekly with alcohol. If you don't completely remove the medicine a thick buildup will occur and it will appear as if the nails are getting worse. Vicks vapo rub can also be used to soften the nails but should be used in combo with penlac. If nails are not improving after about 4 months of this regimen return to my office to discuss other options. 4. RX Urea 40. [place] DPM, TREVOR, FACFAS Pager: [phone] [facility] [place] [facility] and [facility] locations documented in this encounter [facility] 03-17-2022 Evaluation + Plan note Associated Problem(s): Erectile dysfunction He felt like he was having difficulty operating the device. Turns out that he had not fully inflated and that is why he could not squeeze the pump any further. I once again instructed him on operation of the device. I was able to deflate the device completely and then inflated again without difficulty. It is in excellent position and actually functions perfectly. I reassured him and we did have him practice operating the device while he was in the office today. [facility] 03-17-2022 History of Presen t illness Narrative Images from the original note were not included. DATE: 03/17/2022 CHIEF COMPLAINT: Chief Complaint Patient presents with Penile Implant Assessment HISTORY OF PRESENT ILLNESS: Edilia Norton is a 66 y.o. male with history of erectile dysfunction. He had penile prosthesis placed earlier this year. He felt like it was functioning reasonably well but recently he felt like he could not squeeze the pump any further and he did not feel it was operating properly. He has some concerns and presents for evaluation. He has no voiding issues. Initially seen by and referred by Abiodun Nolasco MD . Duration: Chronic Aggravating Factors: Multiple medical issues Alleviating Factors: Penile prosthesis Associated Symptoms: None Systemic:The patient denies any weight loss, malaise, fatigue, pain, or night sweats. Urinary: The patient reports normal FOS and urinary function. Patient denies urinary dysuria, frequency, urgency, nocturia, hematuria, or incontinence. Bowel: No constipation, diarrhea, or fecal incontinence HISTORY: PMH Past Medical History: Diagnosis Date Anxiety Cancer (HCC) skin COPD (chronic obstructive pulmonary disease) (HCC) Depression Emphysema (subcutaneous) (surgical) resulting from a procedure Erectile dysfunction HL (hearing loss) hearing aids Hyperlipidemia Hypertension Sleep apnea, obstructive BPAP PSH Past Surgical History: Procedure Laterality Date cancer removal in arm CHOLECYSTECTOMY PENILE PROSTHESIS INFLATABLE (MULTI PART) INSERTION N/A 11/04/2021 Procedure: INSERTION PENILE PROSTHESIS INFLATABLE AMS 700; Surgeon: Chay Leal MD; Location: [place]; Service: Urology PROSTHODONTIC PROCEDURE upper and lower Social History Socioeconomic History Marital status: Tobacco Use Smoking status: Former Types: Cigarettes Quit date: 08/12/2020 Years since quittin.5 Smokeless tobacco: Never Vaping Use Vaping Use: Never used Substance and Sexual Activity Alcohol use: Not Currently Drug use: Never FH Family History Problem Relation Age of Onset No Known Problems Mother Lung cancer Father Diabetes Sister No Known Problems Brother ALLERGIES AND MEDICATIONS Allergies: Lisinopril Current Outpatient Medications: aspirin 81 MG EC tablet, Take 1 (one) tablet (81 mg total) by mouth daily Morning ., Disp: , Rfl: atenoloL-chlorthalidone (TENORETIC) 50-25 mg per tablet, Take 1 (one) tablet by mouth daily Morning ., Disp: , Rfl: atorvastatin (LIPITOR) 20 MG tablet, Take 1 (one) tablet (20 mg total) by mouth daily Morning ., Disp: , Rfl: buPROPion (WELLBUTRIN SR) 100 MG 12 hr tablet, Take by mouth Morning ., Disp: , Rfl: custom prescription (e-prescribable), cpap mask. Sleep apnea, Disp: , Rfl: FLUoxetine (PROZAC) 20 MG capsule, Take by mouth Morning ., Disp: , Rfl: fscnfyhaifu-zektvmgow-mrauyqcp (Trelegy Ellipta) 200-62.5-25 mcg DsDv, daily AM ., Disp: , Rfl: losartan (COZAAR) 100 MG tablet, Take 1 (one) tablet (100 mg total) by mouth daily morning ., Disp: , Rfl: tiotropium bromide (Spiriva Respimat) 2.5 mcg/actuation Mist, as needed ., Disp: , Rfl: REVIEW OF SYSTEMS: CONSTITUTIONAL: No weight loss, malaise, or fatigue EYES: No changes in vision, no blurry vision EARS, NOSE, MOUTH, THROAT: No change in hearing, No difficulty swallowing. CARDIOVASCULAR: No chest pain or heart palpitations. RESPIRATORY: No difficulty breathing or wheezing. GI: No changes in bowel habit. No blood in his stool. : No dysuria, hematuria, or urinary tract infections. The rest as above in the HPI. MUSCULOSKELETAL: No joint pain or swelling. VASCULAR: No peripheral edema. No calf pain with exertion. NEURO: No changes in gait or sensation. SKIN: No rashes or lesions. PSYCHIATRIC: No depressive or suicidal thoughts PHYSICAL EXAM: CONSTITUTIONAL: VITAL SIGNS: Vitals: 03/17/22 0944 BP: (!) 161/87 BP Location: Left arm Patient Position: Sitting BP Cuff Size: Adult Pulse: 74 SpO2: 90% GENERAL: Well appearing. No acute distress. EYES: PERRLA, EOMI EARS, NOSE, MOUTH, THROAT: mucous memebranes moist, trachea midline CARDIOVASCULAR: RRR, normal carotid pulse, no peripheral edema. ABDOMEN: Soft, nondistended, nontender. BACK: No CVA tenderness. : Inflatable IPP in place with good position and good function MUSCULOSKELETAL: normal extremity ROM with no edema LYMPH: No cervical or supraclavicular lymphadenopathy NEURO: Normal gait, CN II-XII grossly intact PSYCHATRIC: A & O x3, mood and affect appropriate SKIN: No rashes, ulcers, or lesions visible ASSESSMENT / PLAN: Problem List Items Addressed This Visit Other Erectile dysfunction He felt like he was having difficulty operating the device. Turns out that he had not fully inflated and that is why he could not squeeze the pump any further. I once again instructed him on operation of the device. I was able to deflate the device completely and then inflated again without difficulty. It is in excellent position and actually functions perfectly. I reassured him and we did have him practice operating the device while he was in the office today. We discussed the differential diagnosis which includes: Patient wants to pursue evaluation with: We discussed treatment options including: Chay Leal M.D [facility] documented in this encounter [facility] 03-17-2022 Miscellaneous Notes Associated Problem(s): Erectile dysfunction He felt like he was having difficulty operating the device. Turns out that he had not fully inflated and that is why he could not squeeze the pump any further. I once again instructed him on operation of the device. I was able to deflate the device completely and then inflated again without difficulty. It is in excellent position and actually functions perfectly. I reassured him and we did have him practice operating the device while he was in the office today. documented in this encounter [facility] 12-23-2021 History of Presen t illness Narrative Images from the original note were not included. DATE: 12/23/2021 CHIEF COMPLAINT: Chief Complaint Patient presents with Post-op HISTORY OF PRESENT ILLNESS: Edilia Norton is a 66 y.o. male with history of erectile dysfunction now status post insertion of an inflatable penile prosthesis (AMS 700) on November 04, 2021. He presents for his postop follow-up. He is healing well. He has no pain. He has no voiding issues. Initially seen by and referred by Abiodun Nolasco MD . Duration: Chronic Aggravating Factors: Multiple medical factors Alleviating Factors: Penile prosthesis Associated Symptoms: None Systemic:The patient denies any weight loss, malaise, fatigue, pain, or night sweats. Urinary: The patient reports normal FOS and urinary function. Patient denies urinary dysuria, frequency, urgency, nocturia, hematuria, or incontinence. Bowel: No constipation, diarrhea, or fecal incontinence HISTORY: [facility] Past Medical History: Diagnosis Date Anxiety Cancer (HCC) skin COPD (chronic obstructive pulmonary disease) (HCC) Depression Emphysema (subcutaneous) (surgical) resulting from a procedure Erectile dysfunction HL (hearing loss) hearing aids Hyperlipidemia Hypertension Sleep apnea, obstructive BPAP PSH Past Surgical History: Procedure Laterality Date cancer removal in arm CHOLECYSTECTOMY PENILE PROSTHESIS INFLATABLE (MULTI PART) INSERTION N/A 11/04/2021 Procedure: INSERTION PENILE PROSTHESIS INFLATABLE AMS 700; Surgeon: Chay Leal MD; Location: [facility] [place]; Service: Urology PROSTHODONTIC PROCEDURE upper and lower [place] Social History Socioeconomic History Marital status: Tobacco Use Smoking status: Former Types: Cigarettes Quit date: 08/12/2020 Years since quittin.3 Smokeless tobacco: Never Vaping Use Vaping Use: Never used Substance and Sexual Activity Alcohol use: Not Currently Drug use: Never FH Family History Problem Relation Age of Onset No Known Problems Mother Lung cancer Father Diabetes Sister No Known Problems Brother ALLERGIES AND MEDICATIONS Allergies: Lisinopril Current Outpatient Medications: aspirin 81 MG EC tablet, Take 81 mg by mouth daily Morning ., Disp: , Rfl: atenoloL-chlorthalidone (TENORETIC) 50-25 mg per tablet, Take 1 tablet by mouth daily Morning ., Disp: , Rfl: atorvastatin (LIPITOR) 20 MG tablet, Take 20 mg by mouth daily Morning ., Disp: , Rfl: buPROPion (WELLBUTRIN SR) 100 MG 12 hr tablet, Take by mouth Morning ., Disp: , Rfl: custom prescription (e-prescribable), cpap mask. Sleep apnea, Disp: , Rfl: FLUoxetine (PROZAC) 20 MG capsule, Take by mouth Morning ., Disp: , Rfl: xezplsioocg-gvzjlafwp-wrljtgre (Trelegy Ellipta) 200-62.5-25 mcg DsDv, daily AM ., Disp: , Rfl: losartan (COZAAR) 100 MG tablet, Take 100 mg by mouth daily morning ., Disp: , Rfl: tiotropium bromide (Spiriva Respimat) 2.5 mcg/actuation Mist, as needed ., Disp: , Rfl: REVIEW OF SYSTEMS: CONSTITUTIONAL: No weight loss, malaise, or fatigue EYES: No changes in vision, no blurry vision EARS, NOSE, MOUTH, THROAT: No change in hearing, No difficulty swallowing. CARDIOVASCULAR: No chest pain or heart palpitations. RESPIRATORY: No difficulty breathing or wheezing. GI: No changes in bowel habit. No blood in his stool. : No dysuria, hematuria, or urinary tract infections. The rest as above in the HPI. MUSCULOSKELETAL: No joint pain or swelling. VASCULAR: No peripheral edema. No calf pain with exertion. NEURO: No changes in gait or sensation. SKIN: No rashes or lesions. PSYCHIATRIC: No depressive or suicidal thoughts PHYSICAL EXAM: CONSTITUTIONAL: VITAL SIGNS: Vitals: 12/23/21 1104 BP: 136/80 BP Location: Left arm Patient Position: Sitting BP Cuff Size: Adult Pulse: 77 SpO2: 91% Weight: 72.6 kg (160 lb) GENERAL: Well appearing. No acute distress. EYES: PERRLA, EOMI EARS, NOSE, MOUTH, THROAT: mucous memebranes moist, trachea midline CARDIOVASCULAR: RRR, normal carotid pulse, no peripheral edema. ABDOMEN: Soft, nondistended, nontender. BACK: No CVA tenderness. : Incision well-healed. Prosthesis in good position both cylinders and pump. Good function of device. MUSCULOSKELETAL: normal extremity ROM with no edema LYMPH: No cervical or supraclavicular lymphadenopathy NEURO: Normal gait, CN II-XII grossly intact PSYCHATRIC: A & O x3, mood and affect appropriate SKIN: No rashes, ulcers, or lesions visible ASSESSMENT / PLAN: Problem List Items Addressed This Visit Other Erectile dysfunction He has healed nicely status post insertion of inflatable penile prosthesis on November 04, 2021. I was able to cycle the device with ease today and there was good position of the cylinders in the pump. I reviewed operation of the device in detail with the patient. We had the patient actually practice inflation and deflation while in the office. Plan will be to see him back in about 6 months. We discussed the differential diagnosis which includes: Patient wants to pursue evaluation with: We discussed treatment options including: Chay Leal M.D [facility] documented in this encounter [facility] 12-23-2021 Evaluation + Plan note Associated Problem(s): Erectile dysfunction He has healed nicely status post insertion of inflatable penile prosthesis on November 04, 2021. I was able to cycle the device with ease today and there was good position of the cylinders in the pump. I reviewed operation of the device in detail with the patient. We had the patient actually practice inflation and deflation while in the office. Plan will be to see him back in about 6 months. [facility] 12-23-2021 Miscellaneous Notes Associated Problem(s): Erectile dysfunction He has healed nicely status post insertion of inflatable penile prosthesis on November 04, 2021. I was able to cycle the device with ease today and there was good position of the cylinders in the pump. I reviewed operation of the device in detail with the patient. We had the patient actually practice inflation and deflation while in the office. Plan will be to see him back in about 6 months. documented in this encounter [facility] 10-06-2021 History of Presen t illness Narrative [facility] for [facility] Wu penile rep to call office to schedule for this procedure. documented in this encounter [facility] 10-06-2021 History of Presen t illness Narrative Patient faxed a reversal decision from insurance company that approved his penile implant surgery. Patient has been informed that surgery is scheduled for 11/04/21 and PAT 10/21/21 @ 8 am. Patient is also aware that he is to arrive at [facility] @ 1130 am on day of surgery. Patient was informed to follow all previous instructions for surgery. He stated that he understood. documented in this encounter [facility] 08-05-2021 History of Presen t illness Narrative Images from the original note were not included. DATE: 08/05/2021 CHIEF COMPLAINT: Chief Complaint Patient presents with Erectile Dysfunction HISTORY OF PRESENT ILLNESS: Edilia Norton is a 66 y.o. male with history of erectile dysfunction. He has had this for some years. He states he gets slight partial erections on his own. He has failed the oral erection medications. He also tried the vacuum erection therapy without success. He is here to discuss other potential treatment options. His libido is very good. His is present for this discussion. Initially seen by and referred by Abiodun Nolasco MD . Duration: Chronic Aggravating Factors: Hypertension and elevated cholesterol Alleviating Factors: None Associated Symptoms: None Systemic:The patient denies any weight loss, malaise, fatigue, pain, or night sweats. Urinary: The patient reports normal FOS and urinary function. Patient denies urinary dysuria, frequency, urgency, nocturia, hematuria, or incontinence. Bowel: No constipation, diarrhea, or fecal incontinence HISTORY: PMH Past Medical History: Diagnosis Date Anxiety COPD (chronic obstructive pulmonary disease) (HCC) Emphysema (subcutaneous) (surgical) resulting from a procedure Erectile dysfunction Hypertension PSH Past Surgical History: Procedure Laterality Date cancer removal in arm CHOLECYSTECTOMY SH Social History Socioeconomic History Marital status: FH History reviewed. No pertinent family history. ALLERGIES AND MEDICATIONS Allergies: Lisinopril Current Outpatient Medications: aspirin 81 MG EC tablet, every night at bedtime ., Disp: , Rfl: atenoloL-chlorthalidone (TENORETIC) 50-25 mg per tablet, every night at bedtime ., Disp: , Rfl: atorvastatin (LIPITOR) 20 MG tablet, every night at bedtime ., Disp: , Rfl: buPROPion (WELLBUTRIN SR) 100 MG 12 hr tablet, Take by mouth ., Disp: , Rfl: custom prescription (e-prescribable), cpap mask. Sleep apnea, Disp: , Rfl: FLUoxetine (PROZAC) 20 MG capsule, Take by mouth ., Disp: , Rfl: gswbnlzeteu-vrpyufcdt-ffekzkve (Trelegy Ellipta) 200-62.5-25 mcg DsDv, every night at bedtime ., Disp: , Rfl: losartan (COZAAR) 100 MG tablet, every night at bedtime ., Disp: , Rfl: tiotropium bromide (Spiriva Respimat) 2.5 mcg/actuation Mist, every night at bedtime ., Disp: , Rfl: umeclidinium (Incruse Ellipta) 62.5 mcg/actuation DsDv, INHALE ONE (1) PUFF BY MOUTH DIRECTED ONCE DAILY *DO NOT CLICK OPEN UNTIL READY FOR DOSE*, Disp: , Rfl: REVIEW OF SYSTEMS: CONSTITUTIONAL: No weight loss, malaise, or fatigue EYES: No changes in vision, no blurry vision EARS, NOSE, MOUTH, THROAT: No change in hearing, No difficulty swallowing. CARDIOVASCULAR: No chest pain or heart palpitations. RESPIRATORY: No difficulty breathing or wheezing. GI: No changes in bowel habit. No blood in his stool. : No dysuria, hematuria, or urinary tract infections. The rest as above in the HPI. MUSCULOSKELETAL: No joint pain or swelling. VASCULAR: No peripheral edema. No calf pain with exertion. NEURO: No changes in gait or sensation. SKIN: No rashes or lesions. PSYCHIATRIC: No depressive or suicidal thoughts PHYSICAL EXAM: CONSTITUTIONAL: VITAL SIGNS: Vitals: 08/05/21 0815 BP: 119/80 BP Location: Left arm Patient Position: Sitting BP Cuff Size: X-large Adult Pulse: 76 Temp: 98.4 F (36.9 C) SpO2: 95% GENERAL: Well appearing. No acute distress. EYES: PERRLA, EOMI EARS, NOSE, MOUTH, THROAT: mucous memebranes moist, trachea midline CARDIOVASCULAR: RRR, normal carotid pulse, no peripheral edema. ABDOMEN: Soft, nondistended, nontender. BACK: No CVA tenderness. : Normal external genitalia, circumcised, normal scrotum and testicles. MUSCULOSKELETAL: normal extremity ROM with no edema LYMPH: No cervical or supraclavicular lymphadenopathy NEURO: Normal gait, CN II-XII grossly intact PSYCHATRIC: A & O x3, mood and affect appropriate SKIN: No rashes, ulcers, or lesions visible ASSESSMENT / PLAN: Problem List Items Addressed This Visit Other Erectile dysfunction He has failed oral ED meds and vacuum erection therapy. He is not interested in penile injection therapy because of issues with needles. He is interested in the penile prosthesis and we discussed this in detail. We are going to plan an inflatable penile prosthesis implant for him in the near future. We will likely be able to do this as an outpatient. Literature was provided as well. All of the risks of the procedure and long-term risks and potential complications of the device were discussed. Relevant Orders Case Request Operating Room: INSERTION PENILE PROSTHESIS INFLATABLE (AMS 700) We discussed the differential diagnosis which includes: Patient wants to pursue evaluation with: We discussed treatment options including: Chay Leal M.D [facility] documented in this encounter [facility] 08-05-2021 Evaluation + Plan note Associated Problem(s): Erectile dysfunction He has failed oral ED meds and vacuum erection therapy. He is not interested in penile injection therapy because of issues with needles. He is interested in the penile prosthesis and we discussed this in detail. We are going to plan an inflatable penile prosthesis implant for him in the near future. We will likely be able to do this as an outpatient. Literature was provided as well. All of the risks of the procedure and long-term risks and potential complications of the device were discussed. [facility] 08-05-2021 Miscellaneous Notes Associated Problem(s): Erectile dysfunction He has failed oral ED meds and vacuum erection therapy. He is not interested in penile injection therapy because of issues with needles. He is interested in the penile prosthesis and we discussed this in detail. We are going to plan an inflatable penile prosthesis implant for him in the near future. We will likely be able to do this as an outpatient. Literature was provided as well. All of the risks of the procedure and long-term risks and potential complications of the device were discussed. documented in this encounter [facility] documented as of this encounter (statuses as of 11/18/2022) [facility]09-[facility]2016 History of Past illness Narrative* Problem Noted Date Diagnosed Date Resolved Date Thrombocytopenia 12/05/2015 05/13/2016 Skin lesion of scalp 04/13/2014 017 Lipoma of unspecified site 04/13/2014 0 05/13/2016 Sebaceous cyst 04/03/2014 05/13/2016 Right rotator cuff tear 11/20/201204/28 Pain in joint, shoulder region 10/10/2012 05/13/2016 Abdominal muscle strain 07/16/201104/28 Back pain 07/16/2011 05/13/2016 Bloating 05/13/2016 documented as of this encounter (statuses as of 12/02/2022) [facility] note* Diagnosis Erectile dysfunction, unspecified erectile dysfunction type- Primary documented in this encounter [facility] [place] note* Diagnosis Erectile dysfunction, unspecified erectile dysfunction type Erectile dysfunction, unspecified erectile dysfunction type documented in this encounter [facility] note* Diagnosis Erectile dysfunction, unspecified erectile dysfunction type- Primary documented in this encounter [facility] note* Diagnosis Erectile dysfunction, unspecified erectile dysfunction type documented in this encounter [facility] note* Diagnosis Erectile dysfunction, unspecified erectile dysfunction type documented in this encounter [facility] note* Diagnosis Onychomycosis- Primary Dermatophytosis of nail Onychocryptosis Ingrowing nail Pain Generalized pain Pain in toe of left foot Pain in limb Pain in toe of right foot Pain in limb Tyloma Corns and callosities Diminished pulses in lower extremity Other symptoms involving cardiovascular system [facility] Diagnostic Procedure Only (Routine) - Authorized Specialty Diagnoses / Procedures Referred By Lauryn landry Referred To Contact XR IMAGING Diagnoses Pain Procedures XR FOOT GENERAL 3V AP/LAT/OBL BILATERAL RADEX FOOT COMPLETE MINIMUM 3 VIEWS [place] [facility] [address] [place] [address] Xr Imaging [place] [address] Referral ID Status Reason Start Date Expiration Date Visits Requested Visits Authorized [id number] Authorized Auto-Generat ed Referral 11/17/2022 03/27/2023 3 3 [facility] Summary Purpose Family History No Family History Records FoundNo Family History Records FoundNo Family History Records FoundNo Family History Records FoundNo Family History Records FoundNo Family History Records FoundNo Family History Records Found Advance Directives No Advanced Directives Records FoundDocuments on File Type Date Recorded 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 Advance Directives and Livin g Will 06/22/2021 12:00 AM Documents on File Type Date Recorded 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 Advance Directives and Living Will Documents on File Type Date Recorded 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 Advance Directive(s) 01/21/2016 9:00 PM Documents on File Type Date Recorded 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 Advance Directive(s) 01/21/2016 9:00 PM Reason for Referral Specialty Diagnoses / Procedures Referred By Contac t Referred To Contact Urology Diagnoses Erectile dysfunction, unspecified erectile dysfunction type Abiodun Nolasco MD [address] [facility] [address] [place] [address] Chay Leal MD [facility] [place] [address] Referral ID Status Reason Start Date Expiration Date Visits Requested Visits Authorized [id number] Pending Review Specialty Services Required/Pat ient's Best Interest 06/23/2021 06/23/2022 1 1 Additional Source Comments (unrecognized sect ion and content) No Status Records FoundNo Status Records FoundNo Status Records FoundNo Status Records FoundNo Status Records FoundNo Status Records FoundNo Status Records Found INFORMATION SOURCE (unrecogn ized section and content) DATE CREATED AUTHOR AUTHOR'S ORGANIZ ATION 11/29/2017 [facility] DATE CREATED AUTHOR AUTHOR'S ORGANIZ ATION 11/06/2021 [facility] DATE CREATED AUTHOR AUTHOR'S ORGANIZ ATION 03/20/2022 [facility] DATE CREATED AUTHOR AUTHOR'S ORGANIZ ATION 11/18/2022 [facility] DATE CREATED AUTHOR AUTHOR'S ORGANIZ ATION 12/03/2022 [facility] DATE CREATED AUTHOR AUTHOR'S ORGANIZ ATION 04/15/2023 [facility] Care Teams (unrecognized sec tion and content) Non Destructive Evaluation Technician Relationship Specialty Start Date End Date Abiodun Nolasco MD [address] [facility] [address] [place] [address] PCP - General Family Medicine 06/23/21 Non Destructive Evaluation Technician Relationship Specialty Start Date End Date Abiodun Nolasco MD [address] [facility] [address] [place] [address] PCP - General Family Medicine 06/23/21 Non Destructive Evaluation Technician Relationship Specialty Start Date End Date Abiodun Nolasco MD [address] [facility] [address] [place] [address] PCP - General Family Medicine 06/23/21 Non Destructive Evaluation Technician Relationship Specialty Start Date End Date Abiodun Nolasco MD [address] [facility] [address] [place] [address] PCP - General Family Medicine 06/23/21 Non Destructive Evaluation Technician Relationship Specialty Start Date End Date Abiodun Nolasco MD [address] [facility] [address] [place] [address] PCP - General Family Medicine 06/23/21 Non Destructive Evaluation Technician Relationship Specialty Start Date End Date Abiodun Nolasco MD [address] [facility] [address] [place] [address] PCP - General Family Medicine 05/26/21 Non Destructive Evaluation Technician Relationship Specialty Start Date End Date Abiodun Nolasco MD [address] [facility] [address] [place] [address] PCP - General Family Medicine 05/26/21 Reason for Visit (unrecogniz ed section and content) Specialty Diagnoses / Procedures Referred By Contjenna t Referred To Contact Urology Diagnoses Erectile dysfunction, unspecified erectile dysfunction type Abiodun Nolasco MD [address] [facility] [address] [place] [address] Chay Leal MD [address] [place] [address] Referral ID Status Reason Start Date Expiration Date V isits Requested Visits Authorized [id number] Closed Specialty Services Required/Lakeshia ent's Best Interest 06/23/2021 06/23/2022 1 1 Reason Comments Post-op Reason Comments Penile Implant Assessment Reason Comments New Nail Check Reason Comments Medication Problem Source Comments (unrecognize d section and content) In the event this informatio n is protected by the Federal Confidentiality of Alcohol and Drug Abuse Patient Records regulations: The Federal rules restrict any use of the information to criminally investigate or prosecute any alcohol or drug abuse patient.[facility] the event this information is protected by the Federal Confidentiality of Alcohol and Drug Abuse Patient Records regulations: The Federal rules restrict any use of the information to criminally investigate or prosecute any alcohol or drug abuse patient.[facility] FOR RECORDS PERTAINING TO PATIENTS WHO ARE OR HAVE BEEN ENROLLED IN A CHEMICAL DEPENDENCY/SUBSTANCEABUSE PROGRAM, SOME INFORMATION MAY BE OMITTED. This clinical summary was aggregated from multiple sources. Caution should be exercised in using it in the provision of clinical care. This summary normalizes information from multiple sources, and as a consequence, information in this document may materially change the coding, format and clinical context of patient data. In addition, data may be omitted in some cases. CLINICAL DECISIONS SHOULD BE BASED ON THE PRIMARY CLINICAL RECORDS. [facility] [employer] [facility]. provides no warranty or guarantee of the accuracy or completeness of information in this document.
== END | disposition home or self-care (01) ==
PROVIDERS: PCP Family Medicine; Referring Provider Family Medicine; Visit Provider Family Medicine
DX: R07.81 Pleurodynia (principal)
CPT/HCPCS: 71046

== ENCOUNTER → 2023-06-17 | Outpatient (CLI) | payer MEDICARE, MEDICAID, SELFPAY | END | disposition home or self-care (01) | LOC: SL 19:59 | PROVIDERS: PCP Family Medicine; Referring Provider Nurse Practitioner Acute Care; Visit Provider Nurse Practitioner Acute Care | DX: G47.33 Obstructive sleep apnea (adult) (pediatric) (principal) | CPT/HCPCS: 95810 ==

== ENCOUNTER → 2023-07-25 | Outpatient (CLI) | payer MEDICARE, MEDICAID, SELFPAY ==
--- NOTE | 2023-07-25 15:12 | RAD_ITS ---
STUDY: X-RAY CHEST REASON FOR EXAM: Male, 68 years old. ASTHMA-COPD TECHNIQUE: PA and lateral views of the chest. COMPARISON: Comparison is made with prior examination dated June 08, 2023. FINDINGS: There is hyperinflation of the lungs consistent with chronic obstructive lung disease (COPD). Scattered calcified granulomatous disease. There is no demonstrated pleural abnormality. Normal size heart. Normal mediastinum and maulik. Normal visualized pulmonary arteries. There is atherosclerotic calcification of the aortic arch with tortuosity. There are diffuse degenerative changes of the visualized thoracic spine. There is evidence of prior right rotator cuff. There is no demonstrated abnormality of the visualized soft tissue structures of the upper abdomen. RAD/Chest PA and Lateral IMPRESSION: Hyperinflation. Stable examination. Electronically Signed: Dean Oviedo MD at 12:56 EDT ,
== END | disposition home or self-care (01) ==
PROVIDERS: PCP Family Medicine; Referring Provider Family Medicine; Visit Provider Family Medicine
DX: J44.89 Other specified chronic obstructive pulmonary disease (principal)
CPT/HCPCS: 71046

== ENCOUNTER → 2023-08-11 | Outpatient (CLI) | payer MEDICARE, MEDICAID, SELFPAY ==
[2023-08-11 12:28] LABS: Absolute Lymphocyte Count 2.22 X10^3/uL (0.83-4.51); Absolute Neutrophil Count 6.5 X10^3/uL (2.0-7.7); Basophil# 0.12 X10^3/uL; Basophil% 1.2 % (0-1); Eosinophil# 0.39 X10^3/uL; Eosinophils% 3.8 % (0-5); Hematocrit 49.2 % (40-54); Hemoglobin 15.3 g/dL (13.0-16.5); Lymphocyte # 2.22 X10^3/ul (0.83-4.51); Lymphocyte % 21.7 % (19-41); Mean Corp Hgb Conc 31.1 g/dL (32-36); Mean Corpuscular Hgb 28.7 pg (27.0-32.0); Mean Corpuscular Volume 92.3 fL (80-94); Monocyte% 7.8 % (0-10); NRBC Flagged by Analyzer 0 % (0-5); Neutrophil # 6.47 X10^3/uL (2.7-7.7); Neutrophil % 63.2 % (47-70); Platelet Count 137 K/mm3 (150-450); RBC Distribution Width CV 13.9 % (11.6-14.6); RBC Distribution Width SD 46.9 fl (35.1-43.9); Red Blood Count 5.33 M/mm3 (4.6-6.2); White Blood Count 10.2 K/mm3 (4.4-11.0)
[2023-08-11 12:50] LABS: Anion Gap 2 (5-15); BUN 15 mg/dL (7-18); Calcium,Total 9.5 mg/dL (8.5-10.1); Chloride 112 mmol/L (98-107); Creatinine, Serum 1.07 mg/dL (0.70-1.30); EST Glomerular Filtration Rate 73 mL/min (>60); Est Glom Filt Rate - Afr Amer 88 mL/min (>60); Glucose 105 mg/dL (74-106); Potassium 4.7 mmol/L (3.5-5.1); Sodium Level 140 mmol/L (136-145); Thyroid Stim Hormone (TSH) 1.65 uIU/mL (0.358-3.74)
== END | disposition home or self-care (01) ==
LOC: MFPLAB 10:50
PROVIDERS: PCP Family Medicine; Visit Provider Family Medicine
DX: R53.83 Other fatigue (principal)
CPT/HCPCS: 36415; 80048; 84403; 84443; 85025

== ENCOUNTER 2023-08-24 14:02 | Inpatient (IN) | payer MEDICARE, SELFPAY ==
[2023-08-24 14:03] VITALS: BP 139/91; PULSE 102; RESP 18; TEMP 36.4; O2SAT 95; BMI 24.6
--- NOTE | 2023-08-24 14:57 | CT_ITS ---
EXAM: CT ABDOMEN AND PELVIS WITH INTRAVENOUS CONTRAST CLINICAL INDICATION: abdominal pain TECHNIQUE: Helically acquired images were obtained of the abdomen and pelvis with intravenous contrast. This CT exam was performed using one or more of the following dose reduction techniques: automated exposure control, adjustment of the mA and/or kV according to patient size, and/or use of iterative reconstruction technique. CONTRAST: IV 100mL Isovue-300 RADIATION DOSE: CTDIvol = 17.42 mGy, DLP = 727.50 mGy-cm COMPARISON: No relevant prior studies available. FINDINGS: LOWER THORAX: Unremarkable. Lung bases are clear. No cardiomegaly. No significant pericardial effusion. ABDOMEN: LIVER: Unremarkable. Normal shape and size of the liver. There are multiple liver cysts measuring as much as 2 cm in the dome of the liver. 2 cm hemangioma in the posterior surface of right hepatic lobe. GALLBLADDER AND BILE DUCTS: Cholecystectomy. No extrahepatic biliary ductal dilation. PANCREAS: Unremarkable. No focal cystic or solid mass. SPLEEN: Unremarkable. Normal size without focal cystic or solid mass. ADRENALS: Unremarkable. No nodules. KIDNEYS AND URETERS: 3.1 cm mid right renal cysts. No acute abnormalities. Normal renal size and position. No hydronephrosis. STOMACH AND BOWEL: Evaluation of the GI tract is limited by absence of oral contrast. Cannot exclude stomach wall thickening. Cannot exclude segmental thickening of the garcia of the small or large bowel. Cannot exclude enteritis or colitis. Moderate diffuse fecal retention. Normal caliber large bowel Diverticulosis without definite diverticulitis. Distended fluid-filled small bowel in the midabdomen with normal caliber ileum and large bowel . Prominent transition point in the mid bowel consistent with obstruction. A specific etiology is not seen. No focal inflammatory change. PELVIS: APPENDIX: No evidence of acute appendicitis. BLADDER: Unremarkable. REPRODUCTIVE: Moderate prostate enlargement. Fluid-filled reservoir for penile prosthesis in the right lower quadrant. ABDOMEN and PELVIS: INTRAPERITONEAL SPACE: Unremarkable. No ascites or other fluid collection. No free air. BONES/JOINTS: Unremarkable. No suspicious lytic or blastic abnormality. SOFT TISSUES: Unremarkable. No discrete abdominal or pelvic wall hernia. VASCULATURE: Heavily calcified aorta and iliac branches with no aneurysm. LYMPH NODES: Unremarkable. No enlarged lymph nodes. CT/Abdomen/Pelvis W IV Cont ONLY IMPRESSION: 1. Findings consistent with mid small bowel obstruction. 2. Intra hepatic bile duct. Electronically Signed: Maikol Bhagat MD at 17:09 EDT ,
--- NOTE | 2023-08-24 14:58 | EDS_ITS ---
HPI HPI - GI History of Present Illness Chief Complaint: Abd Pain Detail of Chief Complaint: Abdominal pain Informant: patient Narrative Narrative: Patient presents to the emergency department complaint of abdominal pain that started this morning. Patient states that he woke up feeling fine and gradually developed lower abdomen pain. Patient has nausea but no vomiting. Has had no fever. Pain worse with certain movements and rates it a 10 out of 10. He denies urinary symptoms. Pain does not go to his back. Has had prior cholecystectomy. No history of diverticulitis. [facility] Medical History (Updated 08/24/23 @ 17:[address] Lucia Jackman, DO) Personal history of colonic polyps SBO (small bowel obstruction) Nicotine dependence Nonsustained paroxysmal supraventricular tachycardia Atherosclerosis of coronary artery of havasupai heart without angina pectoris GALE on CPAP Hyperlipidemia (Unknown) Essential hypertension GERD (gastroesophageal reflux disease) Depression COPD (chronic obstructive pulmonary disease) Home Medications ?Medication ?Instructions ?Recorded ?Last Taken ?Type aspirin 81 mg tablet,delayed 81 mg PO DAILY@0800 03/20/17 10/13/18 History release atenolol 50 mg tablet 50 mg PO DAILY 03/20/17 10/30/18 06:30 History fluoxetine 20 mg capsule 20 mg PO DAILY 03/20/17 10/13/18 History bupropion HCl 100 mg tablet,12 hr 100 mg PO BID 10/13/18 10/13/18 History sustained-release atorvastatin 20 mg tablet 20 mg PO QHS 09/11/19 Unknown History losartan 100 mg tablet 100 mg PO DAILY #90 tabs 10/02/19 Unknown Rx albuterol sulfate 2.5 mg/3 mL 2.5 mg (3 mL) inhalation Q8H #180 06/23/22 Unknown Rx (0.083 %) solution for nebulization mL albuterol sulfate 90 mcg/actuation 2 puff inhalation Q4H PRN PRN Sob 10/14/22 Unknown Rx aerosol inhaler &/Or Wheezing #8.5 grams amlodipine 5 mg tablet 5 mg PO 12/22/22 Unknown History topiramate 25 mg tablet 25 mg PO BID 12/22/22 Unknown History fluticasone fur. 200 mcg-umeclid 1 inh inhalation DAILY #60 ea 04/18/23 Unknown Rx 62.5 mcg-vilant 25 mcg inhalat.powder (Trelegy Ellipta) nitroglycerin 0.4 mg sublingual 0.4 mg sublingual QDAY 07/29/23 Unknown History tablet rizatriptan 10 mg tablet mg PO 07/29/23 Unknown History Allergy/AdvReac Type Severity Reaction Status Date / Time lisinopril AdvReac Intermediate cough Verified 08/24/23 14:05 Family History (Reviewed 07/29/23 @ 14:28 by Mylene Albarran 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, 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-C) Mother Diabetes Father Cancer prostate Sister Diabetes Surgical History Hx of cholecystectomy History of skin graft History of rotator cuff surgery History of arthroscopy of right shoulder History of colonoscopy with polypectomy Social History (Reviewed 07/29/23 @ 14:28 by Mylene Albarran 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, 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-C) Smoking Status: Former smoker how long ago did patient quit smokin alcohol intake: never substance use type: does not use caffeine: Yes what type of physical activity do you participate in: none frequency: does not exercise ROS ROS ED Review of Systems ROS Unobtainable: other Constitutional Constitutional ED: Reports lethargy; Denies chills, fever(s), sweats or weight loss Eyes Eyes: Denies blurry vision, change in vision or diplopia ENT ENT ED: Denies rhinorrhea or sore throat Cardiovascular Cardiovascular: Denies chest pain, orthopnea or racing heartbeat Respiratory/Chest Respiratory/Chest: Denies cough, dyspnea, dyspnea on exertion, orthopnea or sputum Gastrointestinal Gastrointestinal: Reports abdominal pain and nausea; Denies diarrhea or vomiting Genitourinary Genitourinary ED: Denies dysuria, hematuria or urinary frequency Musculoskeletal Musculoskeletal: Denies arthralgias, back pain, myalgias or neck pain Integumentary Denies abscess, Abrasions or rash Neurologic Neurologic: Denies headache(s) or weakness Psychiatric Psychiatric: Denies anxiety, depression or suicidal thoughts Endocrine Endocrinology: Denies polydipsia, polyphagia or polyuria Hematologic/Lymphatic Hematologic/Lymphatic: Denies easy bleeding, easy bruising or lymphadenopathy Allergic/Immunologic Allergic/Immunologic ED: Denies mouth swelling, tongue swelling or urticaria EXAM Physical Exam Const Vital Signs: 08/24/23 14:03 Temperature 97.6 F L Temperature Source Temporal Pulse Rate 102 H Respiratory Rate 18 Blood Pressure 139/91 H Blood Pressure Mean 107 Pulse Ox 95 Oxygen Delivery Method Room Air Positive well nourished and well developed General Appearance ED: well developed and NAD HEENT Reports TM's clear and moist mucous membranes normocephalic and atraumatic; Negative for trauma or tenderness Tympanic Membrane ED: Yes TM's clear Eyes PERRL and EOMs intact bilaterally General Eye ED: Negative for pale conjunctiva or scleral icterus Neck no lymphadenopathy, supple and no JVD General: Negative for tenderness Chest Wall inspection of chest normal and palpation of chest normal Chest: Negative for tenderness Resp normal respiratory effort and clear to auscultation bilaterally Effort and Inspection: Negative for respiratory distress or pain with movement Auscultation: Negative for rhonchi, wheezes or diminished lung sounds Cardio regular rate, regular rhythm, S1 normal heart sound, S2 normal heart sound and no murmurs Peripheral Pulses: pulses 2+ throughout GI normal to inspection, nondistended, normoactive bowel sounds, soft to palpation, non-distended and no masses GI Narrative: Tenderness palpation over the suprapubic region and left lower quadrant with guarding. There is no rebound, rigidity, or pineal signs. No masses palpated. Back/Spine no CVA tenderness and no thoracic nor lumbar tenderness Extremity normal to inspection General Extremety ED: Negative for edema General Extremity: Negative for edema Neuro oriented x3, CN's II-XII intact bilaterally, no sensory deficits noted and gait normal Sensorium / Orientation: awake, alert, oriented to person, oriented to place and oriented to time Motor Exam: strength 5/5 throughout and strength abnormal Psych mental status grossly normal Skin no rashes or lesions noted and no wounds MDM MDM MDM Narrative Medical decision making narrative: Patient presents to the emergency department with abdominal pain that started today. She had prior cholecystectomy. Complains nausea but no vomiting. IV line established. CBC with differential obtained showed a white count of 9.2 with hemoglobin 15.9 and platelet count of 130. Chemistries were unremarkable. BUN 16 and creatinine 1.1. Lactate was normal at 1.1. CT scan of the abdomen pelvis obtained was read by radiology as small bowel obstruction. Will discuss case with general surgeon on-call as well as hospitalist to evaluate patient for admission. Will discuss placing an NG tube. Lab Data Attestation: I reviewed the patient's lab results. Labs: Laboratory Results - last 24 hr 08/24/23 15:05 WBC 9.2 RBC 5.59 Hgb 15.9 Hct 50.0 MCV 89.4 MCH 28.4 MCHC 31.8 L RDW Std Deviation 43.5 RDW Coeff of Delfina 13.4 Plt Count 130 L MPV 14.0 H Immature Gran % (Auto) 0.800 Neut % (Auto) 73.2 H Lymph % (Auto) 13.9 L [place] % (Auto) 7.5 Eos % (Auto) 3.8 Baso % (Auto) 0.8 Absolute Neuts (auto) 6.8 Absolute Lymphs (auto) 1.28 Nucleated RBC % 0 Sodium 141 Potassium 4.7 Chloride 110 H Carbon Dioxide 26.0 Anion Gap 5 BUN 16 Creatinine 1.10 Estim Creat Clear Calc 62.18 Est GFR (MDRD) Af Amer 86 Est GFR (MDRD) Non-Af 71 BUN/Creatinine Ratio 14.5 Glucose 86 Lactic Acid 1.1 Calcium 9.8 Radiography Diagnostic Testing: Clinical Impression(s) from Imaging Studies Abdomen/Pelvis CT 08/24/23 14:57 IMPRESSION: 1. Findings consistent with mid small bowel obstruction. 2. Intra hepatic bile duct. Electronically Signed: Maikol Bhagat MD at 17:09 EDT , Discharge Plan Triage Chief Complaint: Abd Pain ED Provider: Lucia Jackman Dx/Rx/DC Orders Clinical Impression: Abdominal pain, SBO (small bowel obstruction), History of hypertension, History of COPD Prescriptions: No Action atorvastatin 20 mg tablet 20 mg PO QHS albuterol sulfate 90 mcg/actuation HFA aerosol inhaler 2 puff inhalation Q4H PRN PRN (Reason: Sob &/Or Wheezing) Qty: 8.5 11RF Trelegy Ellipta 200-62.5-25 mcg blister with device 1 inh inhalation DAILY Qty: 60 6RF topiramate 25 mg tablet 25 mg PO BID amlodipine 5 mg tablet 5 mg PO Patient Comments: TAKE 1 TABLET BY MOUTHgONCE DAILY rizatriptan 10 mg tablet PO nitroglycerin 0.4 mg tablet, sublingual 0.4 mg sublingual QDAY aspirin 81 MG tablet 81 mg PO DAILY@0800 fluoxetine 20 MG capsule 20 mg PO DAILY Patient Comments: TAKE ONE (1) CAPSULE BY MOUTH ONCE DAILY atenolol 50 MG tablet 50 mg PO DAILY Patient Comments: TAKE 1 TABLET BY MOUTH ONCE DAILY. bupropion HCl 100 MG tablet sustained-release 12 hr 100 mg PO BID Patient Comments: TAKE ONE (1) TABLET BY MOUTH TWICE DAILY losartan 100 mg tablet 100 mg PO DAILY Qty: 90 6RF albuterol sulfate 2.5 mg /3 mL (0.083 %) solution for nebulization 2.5 mg inhalation Q8H Qty: 180 6RF Primary Care Provider: Abiodun Grider Referrals: Abiodun Grider MD [Primary Care Provider] - Print Language: Greek Disposition Disposition: Acute Care Hospital [facility]
[2023-08-24] MEDS: Morphine 4 MG/ML Syringe IV (15:09)
[2023-08-24] MEDS: 0.9% Normal Saline (1000mL) 1,000 ML 125 ML IV (15:09)
[2023-08-24] MEDS: Ondansetron 4 MG/2 ML Vial IV (15:09)
[2023-08-24 15:26] LABS: Absolute Lymphocyte Count 1.28 X10^3/uL (0.83-4.51); Absolute Neutrophil Count 6.8 X10^3/uL (2.0-7.7); Basophil# 0.07 X10^3/uL; Basophil% 0.8 % (0-1); Eosinophil# 0.35 X10^3/uL; Eosinophils% 3.8 % (0-5); Hemoglobin 15.9 g/dL (13.0-16.5); Lymphocyte # 1.28 X10^3/ul (0.83-4.51); Lymphocyte % 13.9 % (19-41); Mean Corp Hgb Conc 31.8 g/dL (32-36); Mean Corpuscular Hgb 28.4 pg (27.0-32.0); Mean Corpuscular Volume 89.4 fL (80-94); Monocyte# 0.69 X10^3/uL; Monocyte% 7.5 % (0-10); NRBC Flagged by Analyzer 0 % (0-5); Neutrophil # 6.75 X10^3/uL (2.7-7.7); Neutrophil % 73.2 % (47-70); Platelet Count 130 K/mm3 (150-450); RBC Distribution Width CV 13.4 % (11.6-14.6); RBC Distribution Width SD 43.5 fl (35.1-43.9); Red Blood Count 5.59 M/mm3 (4.6-6.2); White Blood Count 9.2 K/mm3 (4.4-11.0)
[2023-08-24 15:32] LABS: Anion Gap 5 (5-15); BUN 16 mg/dL (7-18); BUN/Creat Ratio 14.5 RATIO (10-20); Calcium,Total 9.8 mg/dL (8.5-10.1); Chloride 110 mmol/L (98-107); EST Glomerular Filtration Rate 71 mL/min (>60); Est Glom Filt Rate - Afr Amer 86 mL/min (>60); Estimated Creatinine Clearance 62.18 ml/min; Glucose 86 mg/dL (74-106); Potassium 4.7 mmol/L (3.5-5.1); Sodium Level 141 mmol/L (136-145)
[2023-08-24 15:51] LABS: Lactic Acid 1.1 mmol/L (0.4-1.9)
[2023-08-24 17:24] VITALS: BP 142/94; PULSE 65; RESP 16; TEMP 36.1
--- NOTE | 2023-08-24 17:30 | PCM.HP.STD ---
HPI - General General Date of Admission: 08/24/23 Date of Service: 08/24/23 Chief Complaint: Lower abdominal pain HPI Narrative EDILIA SPARKS, is a 68 M with a significant history of COPD; hypertension; GERD; cholecystectomy; and former smoker who presents with excruciating lower abdominal pain that started on the morning of the day of presentation. His pain started when he was taking his dog to defecate. His pain was sudden onset and it persisted. The intensity of the pain was 10 out of 10. He denies any aggravating or ambulating factors to the pain. However he was given some morphine at the emergency department; and that helped with his pain. Associated symptoms is nausea without vomiting. He had a bowel movement on the same day of presentation and before his pain started. His stool was mushy. At the emergency department imaging showed small bowel obstruction. Emergency department doctor discussed the case with general surgery who recommended admission to internal medicine with general surgery following. [facility] Medical History (Updated 08/24/23 @ 19:09 by Rachel Skelton) Former smoker Hypertension Personal history of colonic polyps SBO (small bowel obstruction) Nicotine dependence Nonsustained paroxysmal supraventricular tachycardia Atherosclerosis of coronary artery of [place] heart without angina pectoris GALE on CPAP Hyperlipidemia (Unknown) Essential hypertension GERD (gastroesophageal reflux disease) Depression COPD (chronic obstructive pulmonary disease) Home Medications ?Medication ?Instructions ?Recorded ?Last Taken ?Type aspirin 81 mg tablet,delayed 81 mg PO DAILY@0800 preventive 03/20/17 10/13/18 History release atenolol 50 mg tablet 50 mg PO DAILY bp 03/20/17 10/30/18 06:30 History fluoxetine 20 mg capsule 20 mg PO DAILY mood 03/20/17 10/13/18 History bupropion HCl 100 mg tablet,12 hr 100 mg PO BID mood 10/13/18 10/13/18 History sustained-release atorvastatin 20 mg tablet 20 mg PO QHS cholestrol 09/11/19 Unknown History losartan 100 mg tablet 100 mg PO DAILY bp #90 tabs 10/02/19 Unknown Rx albuterol sulfate 90 mcg/actuation 2 puff inhalation Q4H PRN PRN Sob 10/14/22 Unknown Rx aerosol inhaler &/Or Wheezing #8.5 grams amlodipine 5 mg tablet 5 mg PO DAILY blood pressure 12/22/22 Unknown History topiramate 25 mg tablet 25 mg PO BID headaches 12/22/22 Unknown History fluticasone fur. 200 mcg-umeclid 1 inh inhalation DAILY breathing 04/18/23 Unknown Rx 62.5 mcg-vilant 25 mcg #60 ea inhalat.powder (Trelegy Ellipta) nitroglycerin 0.4 mg sublingual 0.4 mg sublingual QDAY PRN chest 07/29/23 Unknown History tablet pain albuterol sulfate 2.5 mg/3 mL 2.5 mg inhalation Q8H PRN 08/24/23 Unknown History (0.083 %) solution for nebulization shortness of breath or wheezing Allergy/AdvReac Type Severity Reaction Status Date / Time lisinopril AdvReac Intermediate cough Verified 08/24/23 14:05 Family History Mother Diabetes Father Cancer prostate Sister Diabetes Surgical History Hx of cholecystectomy History of skin graft History of rotator cuff surgery History of arthroscopy of right shoulder History of colonoscopy with polypectomy Social History Smoking Status: Former smoker how long ago did patient quit smokin alcohol intake: never substance use type: does not use caffeine: Yes what type of physical activity do you participate in: none frequency: does not exercise ROS ROS Narrative Pertinent positives and pertinent negatives as noted in HPI. All other systems were reviewed and are negative Vital Signs Vital Signs Vital Signs: 08/24/23 14:03 08/24/23 17:24 Temperature 97.6 F L 96.9 F L Temperature Source Temporal Temporal Pulse Rate 102 H 65 Respiratory Rate 18 16 Blood Pressure 139/91 H 142/94 H Blood Pressure Mean 107 110 Pulse Ox 95 Oxygen Delivery Method Room Air Weight Weight: 73.527 kg Body Mass Index (BMI) 24.6 Physical Exam Narrative Physical exam: General: Well-nourished, well-developed. Head: Normocephalic, atraumatic, no tenderness Eyes: Vision is grossly intact. EOMI ENT, no trauma, moist mucous membranes, no rhinorrhea Neck: Nontender, No thyromegaly. CVS: Regular rate and rhythm. S1-S2 present. No murmur, gallop or rub. Respiratory : clear to auscultation bilaterally, chest wall nontender Abdomen: Soft, nontender, nondistended, normal bowel sounds, no masses : Deferred Back: Nontender, no CVA tenderness, no midline spinal tenderness, deformities, step-offs Extremities: Nontender full range of motion, no trauma Skin: Normal color, no trauma, abrasions Neuro: Alert, oriented, cranial nerves II through XII grossly intact. Psychiatry: Normal mood. Normal affect. Not depressed. Not anxious. Results Lab / Micro Data 08/24/23 15:05 08/24/23 15:05 Labs: Laboratory Results - last 24 hr 08/24/23 15:05: WBC 9.2, RBC 5.59, Hgb 15.9, Hct 50.0, MCV 89.4, MCH 28.4, MCHC 31.8 L, RDW Std Deviation 43.5, RDW Coeff of Delfina 13.4, Plt Count 130 L, MPV 14.0 H, Immature Gran % (Auto) 0.800, Neut % (Auto) 73.2 H, Lymph % (Auto) 13.9 L, [place] % (Auto) 7.5, Eos % (Auto) 3.8, Baso % (Auto) 0.8, Absolute Neuts (auto) 6.8, Absolute Lymphs (auto) 1.28, Nucleated RBC % 0, Sodium 141, Potassium 4.7, Chloride 110 H, Carbon Dioxide 26.0, Anion Gap 5, BUN 16, Creatinine 1.10, Estim Creat Clear Calc 62.18, Est GFR (MDRD) Af Amer 86, Est GFR (MDRD) Non-Af 71, BUN/Creatinine Ratio 14.5, Glucose 86, Lactic Acid 1.1, Calcium 9.8 Imaging Radiology Impression Abdomen/Pelvis CT 08/24/23 14:57 IMPRESSION: 1. Findings consistent with mid small bowel obstruction. 2. Intra hepatic bile duct. Electronically Signed: Maikol Bhagat MD at 17:09 EDT , Assessment & Plan Assessment/Plan (1) SBO (small bowel obstruction): (2) History of hypertension: (3) History of COPD: PLAN: Plan Small bowel obstruction CT of abdomen and pelvis was visualized. Imaging independently interpreted: CT scan of abdomen and pelvis with results as mid small bowel obstruction. Agrees with delayed interpretation. NG tube was ordered at the ED A as needed morphine; as needed Zofran for pain and nausea respectively. Patient noted to have mild hyperchloremia. D5 with half-normal saline ordered. General surgery consult. Hyperchloremia: Noted on presentation. Also noted on 08/11/2023. Mild. D5 half-normal saline as above. Trend BMP. Hypertension Blood pressure is not within goal. Likely pain contributing. Hold home p.o. medications.. Hydralazine ordered. Trend. History of COPD Stable As needed albuterol ordered. Time spent in the patient's overall evaluation,decision-making process, review of diagnostic data, adjustment of management, discussion with other providers, nursing and ancillary staff involved in patient's care documentation, 70 minutes. Surrogate decision maker is patient's . Charges/Coding Visit Charges Inpatient E&M: 98319 Init Hosp L3 Procedures Hospitalists Procedures: 47495 Advncd Care Plan 30 Min
[2023-08-24 17:59] LABS: Bacteria 0 SEEN /hpf (None Seen); Mucous, Urine 0 SEEN /hpf (<or=2+); Red Blood Cells-Urine 0 SEEN /hpf (0-5); Squamous Epithelial Cells - UA 0 SEEN /hpf (0-5); White Blood Cells 0 SEEN /hpf (0-5)
[2023-08-24 18:00] LABS: Color, Urine Yellow (Yellow); Glucose, Dipstick Normal (Normal); Ketone-Dipstick 15 mg/dl (Negative); Leukocyte Esterase-Dipstick Negative /ul (Negative); Nitrite-Dipstick Negative (Negative); Occult Blood-Urine Negative /ul (Negative); Protein-Dipstick Negative (Negative); Urine Bilirubin Dipstick Negative (Negative); Urine Clarity Clear (Clear); Urine Urobilinogen Normal (Normal)
--- NOTE | 2023-08-24 18:12 | RAD_ITS ---
STUDY: X-RAY - ABDOMEN/PELVIS REASON FOR EXAM: Male, 68 years old. NG Insertion TECHNIQUE: Single AP view of the abdomen / pelvis. COMPARISON: CT scan of earlier today. FINDINGS: Normal visualized lung bases. There is a nasogastric tube coiled in the proximal stomach . Multiple dilated small bowel loops are still noted. Electronically Signed: Maikol Bhagat MD at 18:37 EDT , RAD/Abdomen Single View (Portable) IMPRESSION: undefined
[2023-08-24 18:40] VITALS: BP 142/94; PULSE 65; RESP 16; TEMP 36.1; O2SAT 94
[2023-08-24 19:00] VITALS: BP 155/97; PULSE 104; RESP 18; TEMP 36.8; O2SAT 93
[2023-08-24 19:04] VITALS: BMI 23.5
[2023-08-24 20:00] VITALS: RESP 15
[2023-08-24] MEDS: Dext 5%-0.45% NS 1,000 ML 75 ML IV (20:05)
[2023-08-24] MEDS: 0.9% Saline Lock 10 ML Syringe IV (20:05)
[2023-08-25 02:37] VITALS: BP 106/71; PULSE 102; RESP 15; TEMP 36.9; O2SAT 91
[2023-08-25 06:00] VITALS: RESP 15; O2SAT 90
[2023-08-25 06:25] LABS: Absolute Lymphocyte Count 1.83 X10^3/uL (0.83-4.51); Absolute Neutrophil Count 5.3 X10^3/uL (2.0-7.7); Basophil# 0.08 X10^3/uL; Basophil% 0.9 % (0-1); Eosinophils% 5.8 % (0-5); Hematocrit 44.8 % (40-54); Hemoglobin 14.7 g/dL (13.0-16.5); Lymphocyte # 1.83 X10^3/ul (0.83-4.51); Lymphocyte % 21.2 % (19-41); Mean Corp Hgb Conc 32.8 g/dL (32-36); Mean Corpuscular Hgb 29.2 pg (27.0-32.0); Mean Corpuscular Volume 88.9 fL (80-94); Mean Platelet Vol. 13.8 fl (6.2-12.0); Monocyte# 0.84 X10^3/uL; Monocyte% 9.7 % (0-10); NRBC Flagged by Analyzer 0 % (0-5); Neutrophil # 5.32 X10^3/uL (2.7-7.7); Neutrophil % 61.7 % (47-70); Platelet Count 129 K/mm3 (150-450); RBC Distribution Width CV 13.3 % (11.6-14.6); RBC Distribution Width SD 43.1 fl (35.1-43.9); Red Blood Count 5.04 M/mm3 (4.6-6.2); White Blood Count 8.6 K/mm3 (4.4-11.0)
[2023-08-25 06:44] LABS: Anion Gap 8 (5-15); BUN 15 mg/dL (7-18); BUN/Creat Ratio 15.2 RATIO (10-20); Chloride 110 mmol/L (98-107); Creatinine, Serum 0.99 mg/dL (0.70-1.30); EST Glomerular Filtration Rate 80 mL/min (>60); Est Glom Filt Rate - Afr Amer 97 mL/min (>60); Estimated Creatinine Clearance 69.09 ml/min; Glucose 118 mg/dL (74-106); Potassium 3.6 mmol/L (3.5-5.1); Sodium Level 143 mmol/L (136-145)
--- NOTE | 2023-08-25 07:10 | CON.PCM.SX_ITS ---
Assessment & Plan Assessment/Plan (1) SBO (small bowel obstruction): PLAN: Plan Continue NG/n.p.o./IV fluids. Will check KUB this morning. Likely do a small bowel follow-through later this morning. Discussed with patient and he is agreeable with plan. Patient does state he is currently having some flatus and denies any abdominal pain. Jen Baker M.D. Pager: [phone] [facility] [address] [place] [address], [facility], [address] [place] [id number] Office: [phone] HPI Consult Data Date of Consult: 08/25/23 HPI Narrative HPI Narrative: EDILIA SPARKS, is a 68 M who presents to the ER due to abdominal pain mid abdomen. Patient states started about 10 AM yesterday morning with nausea no vomiting. CT abdomen pelvis showed small bowel obstruction. NG was placed in the ER. Patient has gotten up 1500 out yesterday with the thousand overnight and has about 700 in the container currently. Patient denies any abdominal pain currently states he is having a small amount of flatus. Patient's last bowel movement was yesterday on the looser side but not diarrhea. Patient's only abdominal surgery is laparoscopic cholecystectomy. Patient did have a similar episode 09/2018 NG was unable to be placed at that time but by the next morning patient was doing well was able to be DC'd home. [facility] Medical History (Updated 08/24/23 @ 19:09 by Rachel Skelton) Former smoker Hypertension Personal history of colonic polyps SBO (small bowel obstruction) Nicotine dependence Nonsustained paroxysmal supraventricular tachycardia Atherosclerosis of coronary artery of [place] heart without angina pectoris GALE on CPAP Hyperlipidemia (Unknown) Essential hypertension GERD (gastroesophageal reflux disease) Depression COPD (chronic obstructive pulmonary disease) Home Medications ?Medication ?Instructions ?Recorded ?Last Taken ?Type aspirin 81 mg tablet,delayed 81 mg PO DAILY@0800 preventive 03/20/17 10/13/18 History release atenolol 50 mg tablet 50 mg PO DAILY bp 03/20/17 10/30/18 06:30 History fluoxetine 20 mg capsule 20 mg PO DAILY mood 03/20/17 10/13/18 History bupropion HCl 100 mg tablet,12 hr 100 mg PO BID mood 10/13/18 10/13/18 History sustained-release atorvastatin 20 mg tablet 20 mg PO QHS cholestrol 09/11/19 Unknown History losartan 100 mg tablet 100 mg PO DAILY bp #90 tabs 10/02/19 Unknown Rx albuterol sulfate 90 mcg/actuation 2 puff inhalation Q4H PRN PRN Sob 10/14/22 Unknown Rx aerosol inhaler &/Or Wheezing #8.5 grams amlodipine 5 mg tablet 5 mg PO DAILY blood pressure 12/22/22 Unknown History topiramate 25 mg tablet 25 mg PO BID headaches 12/22/22 Unknown History fluticasone fur. 200 mcg-umeclid 1 inh inhalation DAILY breathing 04/18/23 Unknown Rx 62.5 mcg-vilant 25 mcg #60 ea inhalat.powder (Trelegy Ellipta) nitroglycerin 0.4 mg sublingual 0.4 mg sublingual QDAY PRN chest 07/29/23 Unknown History tablet pain albuterol sulfate 2.5 mg/3 mL 2.5 mg inhalation Q8H PRN 08/24/23 Unknown History (0.083 %) solution for nebulization shortness of breath or wheezing Allergy/AdvReac Type Severity Reaction Status Date / Time lisinopril AdvReac Intermediate cough Verified 08/24/23 14:05 Family History Mother Diabetes Father Cancer prostate Sister Diabetes Surgical History Hx of cholecystectomy History of skin graft History of rotator cuff surgery History of arthroscopy of right shoulder History of colonoscopy with polypectomy Social History Smoking Status: Former smoker how long ago did patient quit smokin alcohol intake: never substance use type: does not use caffeine: Yes what type of physical activity do you participate in: none frequency: does not exercise ROS Constitutional Constitutional: Reports anorexia; Denies fever(s) Eyes Eyes: Denies loss of central vision ENT HEENT: Denies dysphagia Cardiovascular Cardiovascular: Denies chest pain Respiratory/Chest Respiratory/Chest: Denies productive cough Gastrointestinal Gastrointestinal: Reports abdominal pain, bloating and nausea; Denies constipation or vomiting Genitourinary Genitourinary: Denies dysuria Musculoskeletal Musculoskeletal: Denies joint swelling Integumentary Integumentary: Denies jaundice Neurologic Neurologic: Denies focal weakness Psychiatric Psychiatric: Denies anxiety or depression Hematologic/Lymphatic Hematologic/Lymphatic: Denies easy bleeding Physical Exam Const alert, oriented x3 and no apparent distress HEENT normocephalic and head/scalp atraumatic HEENT Narrative: NG in place?700 cc in the container Resp normal respiratory effort Cardio regular rate GI soft to palpation and non-tender; Negative for non-distended Palpation: Negative for guarding Extremity no clubbing, cyanosis or edema Neuro CN's II-XII intact bilaterally Psych mental status grossly normal Lab / Micro Data 08/25/23 06:03 08/25/23 06:03 Labs: Laboratory Results - last 24 hr 08/24/23 15:05: WBC 9.2, RBC 5.59, Hgb 15.9, Hct 50.0, MCV 89.4, MCH 28.4, MCHC 31.8 L, RDW Std Deviation 43.5, RDW Coeff of Delfina 13.4, Plt Count 130 L, MPV 14.0 H, Immature Gran % (Auto) 0.800, Neut % (Auto) 73.2 H, Lymph % (Auto) 13.9 L, [place] % (Auto) 7.5, Eos % (Auto) 3.8, Baso % (Auto) 0.8, Absolute Neuts (auto) 6.8, Absolute Lymphs (auto) 1.28, Nucleated RBC % 0, Sodium 141, Potassium 4.7, Chloride 110 H, Carbon Dioxide 26.0, Anion Gap 5, BUN 16, Creatinine 1.10, Estim Creat Clear Calc 62.18, Est GFR (MDRD) Af Amer 86, Est GFR (MDRD) Non-Af 71, BUN/Creatinine Ratio 14.5, Glucose 86, Lactic Acid 1.1, Calcium 9.8 08/24/23 17:54: Urine Color Yellow, Urine Clarity Clear, Urine pH 5.0, Ur Specific [place] 1.010, Urine Protein Negative, Urine Glucose (UA) Normal, Urine Ketones 15 H, Urine Occult Blood Negative, Urine Nitrite Negative, Urine Bilirubin Negative, Urine Urobilinogen Normal, Ur Leukocyte Esterase Negative, Urine RBC 0 SEEN, Urine WBC 0 SEEN, Ur Squamous Epith Cells 0 SEEN, Urine Bacteria 0 SEEN, Urine Mucus 0 SEEN 08/25/23 06:03: WBC 8.6, RBC 5.04, Hgb 14.7, Hct 44.8, MCV 88.9, MCH 29.2, MCHC 32.8, RDW Std Deviation 43.1, RDW Coeff of Delfina 13.3, Plt Count 129 L, MPV 13.8 H , Immature Gran % (Auto) 0.700, Neut % (Auto) 61.7, Lymph % (Auto) 21.2, [place] % (Auto) 9.7, Eos % (Auto) 5.8 H, Baso % (Auto) 0.9, Absolute Neuts (auto) 5.3, Absolute Lymphs (auto) 1.83, Nucleated RBC % 0, Sodium 143, Potassium 3.6, C hloride 110 H, Carbon Dioxide 25.0, Anion Gap 8, BUN 15, Creatinine 0.99, Estim Creat Clear Calc 69.09, Est GFR (MDRD) Af Amer 97, Est GFR (MDRD) Non-Af 80, BUN/Creatinine Ratio 15.2, Glucose 118 H, Calcium 9.0 Imaging Radiology Impression Abdomen/Pelvis CT 08/24/23 14:57 IMPRESSION: 1. Findings consistent with mid small bowel obstruction. 2. Intra hepatic bile duct. Electronically Signed: Maikol Bhagat MD at 17:09 EDT , KUB X-Ray 08/24/23 18:12 IMPRESSION: undefined Charges/Coding Visit Charges Inpatient E&M: 15725 Init Hosp L3
[2023-08-25] MEDS: Dext 5%-0.45% NS 1,000 ML 75 ML IV (07:38)
[2023-08-25 08:16] VITALS: BP 137/69; PULSE 101; RESP 18; TEMP 36.9; O2SAT 91
--- NOTE | 2023-08-25 08:35 | RAD_ITS ---
STUDY: X-RAY - ABDOMEN/PELVIS REASON FOR EXAM: Male, 68 years old. sbo -- portable TECHNIQUE: Single AP view of the abdomen / pelvis. COMPARISON: Comparison is made with prior study dated August 24, 2023. FINDINGS: Normal visualized lung bases. A nasogastric tube is seen with the tip in the second portion of the duodenum. There is an unremarkable bowel gas pattern. The visualized liver, spleen and kidneys are grossly normal in size and morphology. Patient status post cholecystectomy. IV contrast is seen within the urinary bladder. Penile implant is visualized. Mild levoscoliosis. RAD/Abdomen Single View (Portable) IMPRESSION: The tip of the nasogastric tube is in the second portion of the duodenum. Electronically Signed: Dean Oviedo MD at 9:04 EDT ,
--- NOTE | 2023-08-25 09:13 | PN.HOSP_ITS ---
Reason for Visit Reason for Visit: Diagnoses Unspecified intestinal obstruction, unspecified as to partial versus complete obstruction (08/24/23) Personal history of other diseases of the circulatory system (08/24/23) Personal history of other diseases of the respiratory system (08/24/23) Subjective Subjective Patient was seen and examined today, he was admitted for a possible small bowel obstruction yesterday, he has an NG in place. Patient has no complaints of any abdominal pain at this time to this examiner Objective Data Objective Data Vital Signs: Vital Signs Temp Pulse Resp BP Pulse Ox O2 Del Method 98.4 F 101 H 18 137/69 H 91 Room Air 08/25/23 08:16 08/25/23 08:16 08/25/23 08:16 08/25/23 08:16 08/25/23 08:16 08/25/23 08:16 Oxygen Delivery Method Room Air Weight: 70.1 kg Body Mass Index (BMI) 23.5 Intake & Output: Intake and Output for Last 24 Hours 08/23/23 08/24/23 08/25/23 23:59 23:59 23:59 Intake Total 608.33 / 608.33 866.25 / 866.25 Output Total 1725 / 1725 Balance 608.33 / 108.33 -858.75 / -858.75 Lab / Micro Data 08/25/23 06:03 08/25/23 06:03 Labs: Laboratory Results - last 24 hr 08/24/23 15:05: WBC 9.2, RBC 5.59, Hgb 15.9, Hct 50.0, MCV 89.4, MCH 28.4, MCHC 31.8 L, RDW Std Deviation 43.5, RDW Coeff of Delfina 13.4, Plt Count 130 L, MPV 14.0 H, Immature Gran % (Auto) 0.800, Neut % (Auto) 73.2 H, Lymph % (Auto) 13.9 L, [place] % (Auto) 7.5, Eos % (Auto) 3.8, Baso % (Auto) 0.8, Absolute Neuts (auto) 6.8, Absolute Lymphs (auto) 1.28, Nucleated RBC % 0, Sodium 141, Potassium 4.7, Chloride 110 H, Carbon Dioxide 26.0, Anion Gap 5, BUN 16, Creatinine 1.10, Estim Creat Clear Calc 62.18, Est GFR (MDRD) Af Amer 86, Est GFR (MDRD) Non-Af 71, BUN/Creatinine Ratio 14.5, Glucose 86, Lactic Acid 1.1, Calcium 9.8 08/24/23 17:54: Urine Color Yellow, Urine Clarity Clear, Urine pH 5.0, Ur Specific [place] 1.010, Urine Protein Negative, Urine Glucose (UA) Normal, Urine Ketones 15 H, Urine Occult Blood Negative, Urine Nitrite Negative, Urine Bilirubin Negative, Urine Urobilinogen Normal, Ur Leukocyte Esterase Negative, Urine RBC 0 SEEN, Urine WBC 0 SEEN, Ur Squamous Epith Cells 0 SEEN, Urine Bacteria 0 SEEN, Urine Mucus 0 SEEN 08/25/23 06:03: WBC 8.6, RBC 5.04, Hgb 14.7, Hct 44.8, MCV 88.9, MCH 29.2, MCHC 32.8, RDW Std Deviation 43.1, RDW Coeff of Delfina 13.3, Plt Count 129 L, MPV 13.8 H , Immature Gran % (Auto) 0.700, Neut % (Auto) 61.7, Lymph % (Auto) 21.2, [place] % (Auto) 9.7, Eos % (Auto) 5.8 H, Baso % (Auto) 0.9, Absolute Neuts (auto) 5.3, Absolute Lymphs (auto) 1.83, Nucleated RBC % 0, Sodium 143, Potassium 3.6, C hloride 110 H, Carbon Dioxide 25.0, Anion Gap 8, BUN 15, Creatinine 0.99, Estim Creat Clear Calc 69.09, Est GFR (MDRD) Af Amer 97, Est GFR (MDRD) Non-Af 80, BUN/Creatinine Ratio 15.2, Glucose 118 H, Calcium 9.0 Radiography Diagnostic Testing: Radiology Impression Abdomen/Pelvis CT 08/24/23 14:57 IMPRESSION: 1. Findings consistent with mid small bowel obstruction. 2. Intra hepatic bile duct. Electronically Signed: Maikol Bhagat MD at 17:09 EDT , KUB X-Ray 08/24/23 18:12 IMPRESSION: undefined KUB X-Ray 08/25/23 08:35 IMPRESSION: The tip of the nasogastric tube is in the second portion of the duodenum. Electronically Signed: Dean Oviedo MD at 9:04 EDT , Physical Exam Const alert, oriented x3 and no apparent distress Constitutional Narrative: Patient appears older than his stated age General Appearance: cooperative, well kempt and well developed Orientation / Consciousness: awake, oriented to person, oriented to place and oriented to time HEENT normocephalic, head/scalp atraumatic and moist oral mucous membranes Eyes PERRL, EOMs intact bilaterally and conjunctivae normal Neck supple, no JVD, thyroid normal and no carotid bruits General: trachea midline Resp normal respiratory effort, no retractions, no use of accessory muscles and clear to auscultation bilaterally Auscultation: Negative for rales, rhonchi or wheezes Cardio regular rate, regular rhythm, no murmurs, no rub and no gallops GI GI Narrative: Patient has an NG tube in place Extremity no clubbing, cyanosis or edema Skin no rashes or lesions noted General Skin Exam: no breakdown Neuro oriented x3, CN's II-XII intact bilaterally, moves all extremities, no focal motor deficits and no sensory deficits noted Sensorium / Orientation: awake and alert Speech: speech normal Psych affect normal Assessment & Plan Assessment/Plan (1) SBO (small bowel obstruction): PLAN: Plan 1. Small bowel obstruction-General surgery is seeing the patient in consultation and patient will likely have a small bowel follow-through performed today. #2 chronic obstructive pulmonary disease-patient is on room air at this time, he is on albuterol aerosols as needed, I will place him on DuoNeb aerosol treatments every 6 hours while awake #3 essential hypertension-patient's blood pressure will be monitored, he is on IV hydralazine as needed #4 chronic depression-patient's home medications are being held at this time due to his NG tube Total clinical time spent by myself addressing the patient's medical issues, reviewing all of his data, and collaborating with patient's care team: 35 minutes Charges/Coding Visit Charges Inpatient E&M: 40606 Subs Hosp L2
--- NOTE | 2023-08-25 09:15 | RAD_ITS ---
STUDY: MODIFIED GASTROGRAFIN SMALL BOWEL FOLLOW-THROUGH EXAMINATION. REASON FOR EXAM: Male, 68 years old. sbo-gastrografin -- modified-KUB 1hr/3hr- gastrografin TECHNIQUE: Gastrografin was introduced through the indwelling nasogastric tube. COMPARISON: None. FINDINGS: Imaging at one hour was obtained. Contrast is seen throughout the colon. No evidence of bowel obstruction. RAD/Small Bowel Series Only IMPRESSION: No evidence of bowel obstruction. Electronically Signed: Dean Oviedo MD at 10:53 EDT ,
--- NOTE | 2023-08-25 11:11 | NURSING ---
NG removed at 1105 08/25/[address] Baker's orders
--- NOTE | 2023-08-25 12:20 | CASEMGMT ---
MOOSE LUZ Assessment: Face to Face with pt for initial transition planning/care coordination assessment. RN SUKH introduced self and role at [facility], pt voices understanding and consents to assessment. Pt lying in bed in no distress, pt at bedside. Pt is A&O x4 and answers all questions appropriately at this time. Care providers, pharmacy, and demographics verified/updated. Admitting Dx: Small Bowel obstruction PCP: [facility] Specialists: Deyvi Daniels - sales engagement manager Preferred Pharmacy: [facility] Insurance: [facility] Prescription Benefit: yes LNOK: Sharla - Living Arrangements: Pt lives with in a 1 story apt. with zero steps to enter. Pt states he is I with ADLs and IADLs. Transportation: Pt drives self and denies concerns with transportation. DME: [employer] - pt states he does not use it. HHC/SNF: Denies Hx of Pt states no concerns with going home at time of dc. Pt states no further concerns/needs. CM to follow. Advised pt to ask CM if any further question/concerns/needs arise, voices understanding. Pt Goal: Home Plan: Home no needs. Alexis VIRK CM
--- NOTE | 2023-08-25 13:02 | CHAPLAIN ---
Type of Pastoral Visit _x__ Initial Visit ___ Follow-up Visit ___ On-call Visit ___ General Patient Visit ___ Spiritual Assessment ___ Family Conference ___ Bereavement ___ Rapid Response ___ Code Blue ___ Other (describe below) Pastoral Care Referral From _x__ Patient ___ Family ___ Nurse ___ Physician ___ Watermaster ___ Quality Control Auditor ___ Other (describe below) Sacrament/Intervention _x__ Active listening ___ Anointing ___ Christianity ___ Bereavement ___ Communion ___ Estella exploration ___ ___ Life review ___ Prayer ___ Reconciliation ___ Sacrament of Sick ___ Supportive presence ___ Wedding ___ Other (describe below) Pastoral Comments patient reports on his health and treatment; spouse is at bedside; pt states that he is feeling better and hopefully will continue to make progress so that he can go home today; pt uses humor in his conversation; pt reports no other needs or concerns at this time
--- NOTE | 2023-08-25 13:38 | DCINST_ITS ---
Discharge Instructions Diet Discharge Diet: No restrictions Activity Discharge Activity: Return to Normal Activity Weight Bearing Status: Full weight bearing Follow Up Care Test Results: Test results from this visit will be discussed in further detail at your follow- up appointment, if applicable. Discharge Plan Admission Admit Date/Time: 08/24/23 18:07 Primary Reason for Your Visit: small bowel obstruction Attending Provider: Kristian Mills Primary Care Provider: Abiodun Grider Consulting Providers: Jen Baker; Marco Antonio Vasquez Discharge Orders/Prescriptions Prescriptions: Continued atorvastatin 20 mg tablet 20 mg PO QHS albuterol sulfate 90 mcg/actuation HFA aerosol inhaler 2 puff inhalation Q4H PRN PRN (Reason: Sob &/Or Wheezing) Qty: 8.5 11RF Trelegy Ellipta 200-62.5-25 mcg blister with device 1 inh inhalation DAILY Qty: 60 6RF topiramate 25 mg tablet 25 mg PO BID amlodipine 5 mg tablet 5 mg PO DAILY Patient Comments: TAKE 1 TABLET BY MOUTHgONCE DAILY nitroglycerin 0.4 mg tablet, sublingual 0.4 mg sublingual QDAY PRN (Reason: chest pain) aspirin 81 MG tablet 81 mg PO DAILY@0800 fluoxetine 20 MG capsule 20 mg PO DAILY Patient Comments: TAKE ONE (1) CAPSULE BY MOUTH ONCE DAILY atenolol 50 MG tablet 50 mg PO DAILY Patient Comments: TAKE 1 TABLET BY MOUTH ONCE DAILY. bupropion HCl 100 MG tablet sustained-release 12 hr 100 mg PO BID Patient Comments: TAKE ONE (1) TABLET BY MOUTH TWICE DAILY albuterol sulfate 2.5 mg /3 mL (0.083 %) solution for nebulization 2.5 mg inhalation Q8H PRN (Reason: shortness of breath or wheezing) losartan 100 mg tablet 100 mg PO DAILY Qty: 90 6RF Referrals / Follow Up: Abiodun Grider MD [Primary Care Provider] - Within 1 Month Disposition Disposition (needs filled in before D/C Order can be placed): Home, Self Care
--- NOTE | 2023-08-25 13:45 | DS.PCM_ITS ---
Providers Date of Admission: 08/24/23 Date of Discharge: 08/25/23 Primary Care Physician: Dr. Abiodun Grider MD Consultations 08/24/23 19:31 Consult: General Surgery Routine Consulting Provider: Jen Baker Reason for Consult: sbo EMERGENT Consult: No MD Notified: Yes Date Notified: 08/24/23 Time Notified: 18:12 Method of Notification: ED Physician Initiated Reason For Visit: SMALL BOWEL OBSTRUCTION Diagnosis Discharge Diagnosis (1) SBO (small bowel obstruction): Status: Acute Code(s): K56.609 - Unspecified intestinal obstruction, unspecified as to partial versus complete obstruction Plan 1. Small bowel obstruction- #2 chronic obstructive pulmonary disease-patient is on room air at this time, he is on albuterol aerosols as needed, I will place him on DuoNeb aerosol treatments every 6 hours while awake #3 essential hypertension-patient's blood pressure will be monitored, he is on IV hydralazine as needed #4 chronic depression-patient's home medications are being held at this time due to his NG tube Total clinical time spent by myself addressing the patient's medical issues, reviewing all of his data, and collaborating with patient's care team: 35 minutes Medications at Discharge Home Medications aspirin 81 mg tablet,delayed release 81 mg PO DAILY@0800 preventive 03/20/17 atenolol 50 mg tablet 50 mg PO DAILY bp 03/20/17 fluoxetine 20 mg capsule 20 mg PO DAILY mood 03/20/17 bupropion HCl 100 mg tablet,12 hr sustained-release 100 mg PO BID mood 10/13/18 atorvastatin 20 mg tablet 20 mg PO QHS cholestrol 09/11/19 losartan 100 mg tablet 100 mg PO DAILY bp #90 tabs 10/02/19 albuterol sulfate 90 mcg/actuation aerosol inhaler 2 puff inhalation Q4H PRN PRN Sob &/Or Wheezing #8.5 grams 10/14/22 amlodipine 5 mg tablet 5 mg PO DAILY blood pressure 12/22/22 topiramate 25 mg tablet 25 mg PO BID headaches 12/22/22 fluticasone fur. 200 mcg-umeclid 62.5 mcg-vilant 25 mcg inhalat.powder (Trelegy Ellipta) 1 inh inhalation DAILY breathing #60 ea 04/18/23 nitroglycerin 0.4 mg sublingual tablet 0.4 mg sublingual QDAY PRN chest pain 07/29/23 albuterol sulfate 2.5 mg/3 mL (0.083 %) solution for nebulization 2.5 mg inhalation Q8H PRN shortness of breath or wheezing 08/24/23 Hospital Course Operations None Procedures None Summary of Care Provided Minutes Spent on Discharge: 30 Hospital Course: This 68-year-old white male was seen in the emergency room at [facility] with complaints of abdominal pain, he stated the abdominal pain was in the lower abdomen, he had nausea but no vomiting. Lab work done in the emergency room showed a normal white blood cell count, chemistry profile was unremarkable, CT scan of the abdomen and pelvis was read by radiology as a small bowel obstruction. General surgery was contacted, they recommended insertion of an NG tube and the patient was admitted to [place] [address] under the hospitalist service. Patient received IV fluids and a small bowel follow-through was obtained on 08/25/2023 which showed resolution of the small bowel obstruction. Etiology of the small bowel obstruction was not known but it was suspected that the patient may have had adhesions. Patient's medical condition stabilized and his small bowel obstruction resolved quicker than expected. On 08/25/2023, patient was seen and examined: On examination he appeared in good health and spirits. Vital signs as documented. Skin warm and dry and without overt rashes. Neck without JVD, neck was supple, trachea midline, thyroid was normal. Lungs clear bilaterally, normal air movement was noted. Heart exam notable for regular rhythm, normal sounds and absence of murmurs, rubs or gallops. Abdomen unremarkable and without evidence of organomegaly, masses, or abdominal aortic enlargement. Bowel sounds are present, abdomen is not distended. Extremities nonedematous, no cyanosis was noted, no clubbing was noted. Neuro: Cranial nerves II through XII are grossly intact, no focal motor deficits were noted, sensation to light touch and pinprick intact, motor exam 5/5 throughout. Psych: Patient is alert and oriented x3, he does not appear anxious or depressed, he does not appear agitated. On 08/25/2023, patient was seen and examined and felt in stable condition for discharge home Weight / BMI Weight Weight: 70.1 kg Body Mass Index (BMI) 23.5 ABG / Lab / Microbiology Data 08/25/23 06:03 05/30/24 06:03 Laboratory: Laboratory Results - last 24 hr 08/24/23 15:05: WBC 9.2, RBC 5.59, Hgb 15.9, Hct 50.0, MCV 89.4, MCH 28.4, MCHC 31.8 L, RDW Std Deviation 43.5, RDW Coeff of Delfina 13.4, Plt Count 130 L, MPV 14.0 H, Immature Gran % (Auto) 0.800, Neut % (Auto) 73.2 H, Lymph % (Auto) 13.9 L, [place] % (Auto) 7.5, Eos % (Auto) 3.8, Baso % (Auto) 0.8, Absolute Neuts (auto) 6.8, Absolute Lymphs (auto) 1.28, Nucleated RBC % 0, Sodium 141, Potassium 4.7, Chloride 110 H, Carbon Dioxide 26.0, Anion Gap 5, BUN 16, Creatinine 1.10, Estim Creat Clear Calc 62.18, Est GFR (MDRD) Af Amer 86, Est GFR (MDRD) Non-Af 71, BUN/Creatinine Ratio 14.5, Glucose 86, Lactic Acid 1.1, Calcium 9.8 08/24/23 17:54: Urine Color Yellow, Urine Clarity Clear, Urine pH 5.0, Ur Specific [place] 1.010, Urine Protein Negative, Urine Glucose (UA) Normal, Urine Ketones 15 H, Urine Occult Blood Negative, Urine Nitrite Negative, Urine Bilirubin Negative, Urine Urobilinogen Normal, Ur Leukocyte Esterase Negative, Urine RBC 0 SEEN, Urine WBC 0 SEEN, Ur Squamous Epith Cells 0 SEEN, Urine Bacteria 0 SEEN, Urine Mucus 0 SEEN 08/25/23 06:03: WBC 8.6, RBC 5.04, Hgb 14.7, Hct 44.8, MCV 88.9, MCH 29.2, MCHC 32.8, RDW Std Deviation 43.1, RDW Coeff of Delfina 13.3, Plt Count 129 L, MPV 13.8 H , Immature Gran % (Auto) 0.700, Neut % (Auto) 61.7, Lymph % (Auto) 21.2, [place] % (Auto) 9.7, Eos % (Auto) 5.8 H, Baso % (Auto) 0.9, Absolute Neuts (auto) 5.3, Absolute Lymphs (auto) 1.83, Nucleated RBC % 0, Sodium 143, Potassium 3.6, C hloride 110 H, Carbon Dioxide 25.0, Anion Gap 8, BUN 15, Creatinine 0.99, Estim Creat Clear Calc 69.09, Est GFR (MDRD) Af Amer 97, Est GFR (MDRD) Non-Af 80, BUN/Creatinine Ratio 15.2, Glucose 118 H, Calcium 9.0 Radiography Diagnostic Testing: Radiology Impression Abdomen/Pelvis CT 08/24/23 14:57 IMPRESSION: 1. Findings consistent with mid small bowel obstruction. 2. Intra hepatic bile duct. Electronically Signed: Maikol Bhagat MD at 17:09 EDT , KUB X-Ray 08/24/23 18:12 IMPRESSION: undefined KUB X-Ray 08/25/23 08:35 IMPRESSION: The tip of the nasogastric tube is in the second portion of the duodenum. Electronically Signed: Dean Oviedo MD at 9:04 EDT , Small Bowel X-Ray 08/25/23 09:15 IMPRESSION: No evidence of bowel obstruction. Electronically Signed: Dean Oviedo MD at 10:53 EDT , D/C Instructions Discharge Diet: No restrictions Weight Bearing Status: Full weight bearing Meaningful Use Info Meaningful Use Meaningful Use Diagnoses (Choose all that apply): None applicable Ischemic Stroke Statin Dosing Therapy Reference: STATIN DOSE THERAPY REFERENCE: * Patients > 75 years receive moderate or high dose statin therapy. * Patients 75 years or YOUNGER should receive HIGH intensity statin dose unless contraindicated. You will be required to document reason for non-treatment if statin daily dose does not meet guidelines. HIGH DOSE STATIN THERAPY DAILY Atorvastatin > than or = to 40 mg Rosuvastatin > than or = to 20 mg Amlodipine + Atorvastatin > than or = to 2.5/40 mg Ezetimibe + Simvastatin 10/80 mg Simvastatin 80mg Discharge Plan Admission Admit Date/Time: 08/24/23 18:07 Primary Reason for Your Visit: small bowel obstruction Attending Provider: Kristian Mills Primary Care Provider: Abiodun Grider Consulting Providers: Jen Baker; Marco Antonio Vasquez Discharge Orders/Prescriptions Prescriptions: Continued atorvastatin 20 mg tablet 20 mg PO QHS albuterol sulfate 90 mcg/actuation HFA aerosol inhaler 2 puff inhalation Q4H PRN PRN (Reason: Sob &/Or Wheezing) Qty: 8.5 11RF Trelegy Ellipta 200-62.5-25 mcg blister with device 1 inh inhalation DAILY Qty: 60 6RF topiramate 25 mg tablet 25 mg PO BID amlodipine 5 mg tablet 5 mg PO DAILY Patient Comments: TAKE 1 TABLET BY MOUTHgONCE DAILY nitroglycerin 0.4 mg tablet, sublingual 0.4 mg sublingual QDAY PRN (Reason: chest pain) aspirin 81 MG tablet 81 mg PO DAILY@0800 fluoxetine 20 MG capsule 20 mg PO DAILY Patient Comments: TAKE ONE (1) CAPSULE BY MOUTH ONCE DAILY atenolol 50 MG tablet 50 mg PO DAILY Patient Comments: TAKE 1 TABLET BY MOUTH ONCE DAILY. bupropion HCl 100 MG tablet sustained-release 12 hr 100 mg PO BID Patient Comments: TAKE ONE (1) TABLET BY MOUTH TWICE DAILY albuterol sulfate 2.5 mg /3 mL (0.083 %) solution for nebulization 2.5 mg inhalation Q8H PRN (Reason: shortness of breath or wheezing) losartan 100 mg tablet 100 mg PO DAILY Qty: 90 6RF Referrals / Follow Up: Abiodun Grider MD [Primary Care Provider] - Within 1 Month Disposition Disposition (needs filled in before D/C Order can be placed): Home, Self Care Charges/Coding Visit Charges Inpatient E&M: 64348 Disch Hosp
--- NOTE | 2023-08-25 14:26 | PHA.DC.MR.R ---
Pharmacy [place] Med Reconciliation Pharmacy Service has performed discharge medication reconciliation for this patient. No new medications issued at the time of medication list review. Medications reviewed are from previously reported home medications. The patient's discharge medication list was reviewed for discrepancies and discrepancies were resolved. Medications at Discharge Home Medications aspirin 81 mg tablet,delayed release 81 mg PO DAILY@0800 preventive 03/20/17 atenolol 50 mg tablet 50 mg PO DAILY bp 03/20/17 fluoxetine 20 mg capsule 20 mg PO DAILY mood 03/20/17 bupropion HCl 100 mg tablet,12 hr sustained-release 100 mg PO BID mood 10/13/18 atorvastatin 20 mg tablet 20 mg PO QHS cholestrol 09/11/19 losartan 100 mg tablet 100 mg PO DAILY bp #90 tabs 10/02/19 albuterol sulfate 90 mcg/actuation aerosol inhaler 2 puff inhalation Q4H PRN PRN Sob &/Or Wheezing #8.5 grams 10/14/22 amlodipine 5 mg tablet 5 mg PO DAILY blood pressure 12/22/22 topiramate 25 mg tablet 25 mg PO BID headaches 12/22/22 fluticasone fur. 200 mcg-umeclid 62.5 mcg-vilant 25 mcg inhalat.powder (Trelegy Ellipta) 1 inh inhalation DAILY breathing #60 ea 04/18/23 nitroglycerin 0.4 mg sublingual tablet 0.4 mg sublingual QDAY PRN chest pain 07/29/23 albuterol sulfate 2.5 mg/3 mL (0.083 %) solution for nebulization 2.5 mg inhalation Q8H PRN shortness of breath or wheezing 08/24/23
[2023-08-25 15:35] VITALS: BP 127/72; PULSE 104; RESP 18; TEMP 37.2; O2SAT 93
== END 2023-08-25 15:44 | disposition home or self-care (01) | DRG 389 ==
LOC: ED 17:51 → MS3 18:16
PROVIDERS: Admitting Provider Hospitalist; Emergency Provider Emergency Medicine; PCP Family Medicine; Visit Provider Internal Medicine
DX: K56.50 Intestinal adhesions [bands], unspecified as to partial versus complete obstruction (principal); I47.10 Supraventricular tachycardia, unspecified; E87.8 Other disorders of electrolyte and fluid balance, not elsewhere classified; J44.9 Chronic obstructive pulmonary disease, unspecified; K56.609 Unspecified intestinal obstruction, unspecified as to partial versus complete obstruction; I10 Essential (primary) hypertension; F32.A Depression, unspecified; E78.5 Hyperlipidemia, unspecified; I25.10 Atherosclerotic heart disease of native coronary artery without angina pectoris; G47.33 Obstructive sleep apnea (adult) (pediatric); K21.9 Gastro-esophageal reflux disease without esophagitis; Z79.51 Long term (current) use of inhaled steroids; Z79.82 Long term (current) use of aspirin; Z79.899 Other long term (current) drug therapy; Z87.891 Personal history of nicotine dependence; Z90.49 Acquired absence of other specified parts of digestive tract
CPT/HCPCS: 36415; 74018; 74177; 74250; 80048; 81001; 83605; 85025; 97802; 99285; 99406; J7030; Q9967; A4216; J2405; J7799

== ENCOUNTER 2023-08-27 00:09 | Observation (INO) | payer MEDICARE, MEDICAID, SELFPAY ==
[2023-08-27] VITALS (20 sets, daily range): BP systolic 106–154; BP diastolic 71–96; PULSE 78–118; RESP 16–25; TEMP 36.5–38.4; O2SAT 87–99; BMI 23.8; BMI 23.1
--- NOTE | 2023-08-27 00:27 | RAD_ITS ---
ACR Level 3 findings have been noted. An addendum which confirms receipt of the report will follow. INDICATION: chest pain EXAMINATION/TECHNIQUE: X-RAY - XR Chest 1 View COMPARISON: 07/25/2023. FINDINGS: LINES/DEVICES: None. LUNGS: Small left apical pneumothorax, less than 10%. No focal infiltrate is identified. No evidence of a pleural effusion. MEDIASTINUM AND CARDIOVASCULAR STRUCTURES: Cardiac silhouette is normal in size and contour. Mediastinum is unremarkable. BONES AND SOFT TISSUES: No acute abnormality. Chronic bilateral rib fractures. RAD/Chest 1 View (Portable) IMPRESSION: Small left apical pneumothorax, less than 10%. Electronically Signed: Travon Akins DO at 1:06 EDT ,
--- NOTE | 2023-08-27 00:27 | EKG12_ITS ---
Test Reason : CP Blood Pressure : / mmHG Vent. Rate : 117 BPM Atrial Rate : 170 BPM P-R Int : 000 ms QRS Dur : 068 ms QT Int : 306 ms P-R-T Axes : 066 061 067 degrees QTc Int : 426 ms SINUS TACHYCARDIA Nonspecific ST abnormality Abnormal ECG Confirmed by SYBIL ROBERTS, ZAIDA ([id number]), metropolitan editor SHAWN ZUÑIGA ([id number]) on 08/29/2023 6:47:23 AM Referred By: Confirmed By:ZAIDA DEVINE MD
--- NOTE | 2023-08-27 00:27 | ED.VIS.CHEST ---
HPI History of Present Illness Chief Complaint: Chest Pain Informant: patient, spouse/S.O. and EMS Narrative Narrative: 68-year-old male presenting to the emergency room chief complaint of chest pain. Patient states he has no history of heart disease. He states he has no medical history but then notes a history of COPD/asthma. Patient was admitted into the hospital several days ago with a small bowel obstruction and had an NG tube placed which resolved the obstruction. Patient states this evening he developed pain in his heart. He states it is 10 out of 10 and the equivalent to being eaten alive by a bear. He had a burrito earlier in the day. He denies any indigestion vomiting or nausea. States he has more cough than normal. EMS notes that he is pulse ox was in the high 80s on room air. He does not wear oxygen at home. He denies history of DVT or PE. No aortic aneurysm or dissection history. [facility] Medical History Wears hearing aid Wears glasses Arthritis Former smoker BiPAP (biphasic positive airway pressure) dependence Sleep apnea Emphysema, unspecified Asthma Shortness of breath on exertion Leg cramps History of stress test Cardiology follow-up encounter Hypertension Personal history of colonic polyps SBO (small bowel obstruction) Nicotine dependence Nonsustained paroxysmal supraventricular tachycardia Atherosclerosis of coronary artery of [place] heart without angina pectoris GALE on CPAP Hyperlipidemia (Unknown) Essential hypertension GERD (gastroesophageal reflux disease) Depression COPD (chronic obstructive pulmonary disease) Home Medications ?Medication ?Instructions ?Recorded ?Last Taken ?Type aspirin 81 mg tablet,delayed 81 mg PO DAILY@0800 preventive 03/20/17 10/13/18 History release atenolol 50 mg tablet 50 mg PO DAILY bp 03/20/17 10/30/18 06:30 History fluoxetine 20 mg capsule 20 mg PO DAILY mood 03/20/17 10/13/18 History bupropion HCl 100 mg tablet,12 hr 100 mg PO BID mood 10/13/18 10/13/18 History sustained-release atorvastatin 20 mg tablet 20 mg PO QHS cholestrol 09/11/19 Unknown History losartan 100 mg tablet 100 mg PO DAILY bp #90 tabs 10/02/19 Unknown Rx albuterol sulfate 90 mcg/actuation 2 puff inhalation Q4H PRN PRN Sob 10/14/22 Unknown Rx aerosol inhaler &/Or Wheezing #8.5 grams amlodipine 5 mg tablet 5 mg PO DAILY blood pressure 12/22/22 Unknown History topiramate 25 mg tablet 75 mg PO BID headaches 12/22/22 Unknown History fluticasone fur. 200 mcg-umeclid 1 inh inhalation DAILY breathing 04/18/23 Unknown Rx 62.5 mcg-vilant 25 mcg #60 ea inhalat.powder (Trelegy Ellipta) nitroglycerin 0.4 mg sublingual 0.4 mg sublingual QDAY PRN chest 07/29/23 Unknown History tablet pain albuterol sulfate 2.5 mg/3 mL 2.5 mg inhalation Q8H PRN 08/24/23 Unknown History (0.083 %) solution for nebulization shortness of breath or wheezing Allergy/AdvReac Type Severity Reaction Status Date / Time lisinopril AdvReac Intermediate cough Verified 08/26/23 08:33 Family History Mother Diabetes Father Cancer prostate Sister Diabetes Surgical History History of esophagogastroduodenoscopy (EGD) Hx of cholecystectomy History of skin graft History of rotator cuff surgery History of colonoscopy with polypectomy Social History Smoking Status: Former smoker how long ago did patient quit smokin alcohol intake: never substance use type: does not use caffeine: Yes what type of physical activity do you participate in: none frequency: does not exercise ROS ROS ED Constitutional Constitutional ED: Denies chills, fever(s) or weight loss Eyes Eyes: Denies change in vision or diplopia ENT ENT ED: Denies ear pain, rhinorrhea or sore throat Cardiovascular Cardiovascular: Reports chest pain; Denies orthopnea, palpitations or racing heartbeat Respiratory/Chest Respiratory/Chest: Reports cough and other Details: No change in chronic dyspnea ; Denies dyspnea or orthopnea Gastrointestinal Gastrointestinal: Denies abdominal pain, diarrhea, nausea or vomiting Genitourinary Genitourinary ED: Denies dysuria, hematuria or urinary frequency Musculoskeletal Musculoskeletal: Denies arthralgias or myalgias Integumentary Denies abscess or rash Neurologic Neurologic: Denies headache(s) or weakness Psychiatric Psychiatric: Denies anxiety, depression, suicidal ideation or suicidal thoughts Endocrine Endocrinology: Denies polydipsia, polyphagia or polyuria Allergic/Immunologic Allergic/Immunologic ED: Denies mouth swelling, tongue swelling or urticaria EXAM Physical Exam Narrative Exam Narrative: 68-year-old male laying comfortably in the bed in no acute distress. He is breathing normally. He points to the left anterior lower chest as a source of pain. Const Vital Signs: 08/27/23 00:10 08/27/23 00:13 08/27/23 00:14 Temperature 99 F 99 F Temperature Source Oral Oral Pulse Rate 113 H 118 H Respiratory Rate 24 H 25 H Respiratory Effort Respiratory Pattern Blood Pressure 154/84 H 154/84 H Blood Pressure Mean 107 107 Pulse Ox 87 87 94 Oxygen Delivery Method Room Air Room Air Nasal Cannula Oxygen Flow Rate (L/min) 2 08/27/23 00:15 08/27/23 00:35 08/27/23 00:40 Temperature Temperature Source Pulse Rate 108 H Respiratory Rate 20 H Respiratory Effort Normal Non-Labored Respiratory Pattern Normal Blood Pressure Blood Pressure Mean Pulse Ox Oxygen Delivery Method Nasal Cannula Oxygen Flow Rate (L/min) 2 08/27/23 00:40 08/27/23 01:05 08/27/23 02:00 Temperature 99.2 F H Temperature Source Oral Pulse Rate 104 H 94 Respiratory Rate 24 H 24 H Respiratory Effort Respiratory Pattern Blood Pressure 134/83 H 107/72 Blood Pressure Mean 100 83 Pulse Ox 95 94 98 Oxygen Delivery Method Nasal Cannula Nasal Cannula Nasal Cannula Oxygen Flow Rate (L/min) 2 2 2 08/27/23 02:00 Temperature 98 F Temperature Source Temporal Pulse Rate 78 Respiratory Rate 25 H Respiratory Effort Respiratory Pattern Blood Pressure 107/72 Blood Pressure Mean 83 Pulse Ox 97 Oxygen Delivery Method Nasal Cannula Oxygen Flow Rate (L/min) 2 Positive well nourished and well developed General Appearance ED: well developed HEENT Reports normocephalic, head/scalp atraumatic and moist mucous membranes Eyes PERRL and EOMs intact bilaterally Neck no lymphadenopathy, supple and no JVD Chest Wall inspection of chest normal and palpation of chest normal Resp normal respiratory effort and clear to auscultation bilaterally Cardio regular rate, regular rhythm and no murmurs GI normal to inspection, nondistended, normoactive bowel sounds and non-tender Palpation: soft Back/Spine no CVA tenderness and normal ROM Extremity normal to inspection General Extremety ED: Negative for edema General Extremity: Negative for edema Neuro oriented x3 and CN's II-XII intact bilaterally Sensorium / Orientation: alert Motor Exam: strength 5/5 throughout Psych mental status grossly normal Mood & Affect: Negative for depressed or tearful Skin no rashes or lesions noted and no wounds MDM MDM MDM Narrative Medical decision making narrative: Prehospital EKG was reviewed which shows a sinus tachycardia at a rate of 114 bpm. PVC noted. EKG done here in the department shows a sinus tachycardic rhythm at a rate of [address] elevation. White count 10.5 platelet count 139 D-dimer slightly elevated despite age correction is 0.69. Troponin normal. BMP normal. My independent interpretation of the chest x-ray is small apical pneumothorax. A CTA of the chest was obtained which demonstrates a lung nodule, small pneumothorax, emphysematous changes and no pulmonary embolism. Patient has been receiving supplemental oxygen. He has been resting more comfortably after morphine and Zofran. He also received a DuoNeb which decreased wheezing and improved his symptoms as well. I think his symptoms are most likely due to the small pneumothorax. Case was discussed with on-call surgeon Dr. Kirkland. I also spoke with Dr. Martell from the hospitalist service. Patient will be admitted to the hospital. Will keep a percutaneous thoracostomy kit near the bedside. History & Record Review Discussion w/independent historian: Patient and Significant other Additional record(s) reviewed:: Prior inpatient record, Prior ED visit and Prior labs Lab Data Attestation: I reviewed the patient's lab results. Labs: Laboratory Results - last 24 hr 08/27/23 00:00 WBC 10.5 RBC 5.23 Hgb 15.2 Hct 47.0 MCV 89.9 MCH 29.1 MCHC 32.3 RDW Std Deviation 42.5 RDW Coeff of Delfina 12.9 Plt Count 139 L MPV 14.1 H Immature Gran % (Auto) 0.900 Neut % (Auto) 61.2 Lymph % (Auto) 22.6 [place] % (Auto) 10.8 H Eos % (Auto) 3.8 Baso % (Auto) 0.7 Absolute Neuts (auto) 6.4 Absolute Lymphs (auto) 2.37 Nucleated RBC % 0 D-Dimer Quant (PE/DVT) 0.69 H* Sodium 139 Potassium 3.7 Chloride 107 Carbon Dioxide 26.0 Anion Gap 6 BUN 14 Creatinine 1.03 Estim Creat Clear Calc 66.41 Est GFR (MDRD) Af Amer 92 Est GFR (MDRD) Non-Af 76 BUN/Creatinine Ratio 13.6 Glucose 98 Calcium 9.4 Troponin I High Sens 6 Radiography Diagnostic Testing: Clinical Impression(s) from Imaging Studies Chest X-Ray 08/27/23 00:27 IMPRESSION: Small left apical pneumothorax, less than 10%. Electronically Signed: Travon Akins DO at 1:06 EDT , ADDENDUM: 08/27/23 0118 IMPRESSION: Small left apical pneumothorax, less than 10%. N.B. : MOOSE Martinez, confirmed on 08/27/2023 01:11:22 (ET) that the healthcare facility has received the radiology report. Electronically Signed: Travon Akins DO at 1:06 EDT , Chest CTA 08/27/23 01:06 IMPRESSION: 1. Small left pneumothorax, approximately 10%, more prominent at the lung base. 2. No pulmonary embolism. 3. Centrilobular emphysematous changes of the lungs. 4. 3 mm right upper lobe pulmonary nodule. Recommend follow-up CT of the chest in 12 months. Electronically Signed: Travon Akins DO at 2:47 EDT , EKG Initial EKG: Attestation: I personally reviewed and interpreted this EKG as follows: Comments: Sinus tachycardia ventricular rate of 117 bpm Management Discussion w/another healthcare provider: Hospitalist (Dr. Martell) and Fire Extinguisher Sprinkler Inspector (Dr. Baker) Discharge Plan Dx/Rx/DC Orders Clinical Impression: Chest pain, Asthma-COPD overlap syndrome, Pneumothorax, Lung nodule Disposition Disposition: Acute Care Hospital [facility]
[2023-08-27 00:38] LABS: Absolute Lymphocyte Count 2.37 X10^3/uL (0.83-4.51); Absolute Neutrophil Count 6.4 X10^3/uL (2.0-7.7); Basophil# 0.07 X10^3/uL; Basophil% 0.7 % (0-1); Eosinophils% 3.8 % (0-5); Hemoglobin 15.2 g/dL (13.0-16.5); Lymphocyte # 2.37 X10^3/ul (0.83-4.51); Lymphocyte % 22.6 % (19-41); Mean Corp Hgb Conc 32.3 g/dL (32-36); Mean Corpuscular Hgb 29.1 pg (27.0-32.0); Mean Corpuscular Volume 89.9 fL (80-94); Mean Platelet Vol. 14.1 fl (6.2-12.0); Monocyte# 1.13 X10^3/uL; Monocyte% 10.8 % (0-10); NRBC Flagged by Analyzer 0 % (0-5); Neutrophil # 6.42 X10^3/uL (2.7-7.7); Neutrophil % 61.2 % (47-70); Platelet Count 139 K/mm3 (150-450); RBC Distribution Width CV 12.9 % (11.6-14.6); RBC Distribution Width SD 42.5 fl (35.1-43.9); Red Blood Count 5.23 M/mm3 (4.6-6.2); White Blood Count 10.5 K/mm3 (4.4-11.0)
[2023-08-27] MEDS: Ipratropium/Albuterol Sulfate 3 ML AMPUL.NEB INHALATION (00:40)
[2023-08-27 00:53] LABS: D-Dimer Quantitative (DVT/PE) 0.69 FEU/ug/m (0.27-0.49)
[2023-08-27 00:54] LABS: Anion Gap 6 (5-15); BUN 14 mg/dL (7-18); BUN/Creat Ratio 13.6 RATIO (10-20); Calcium,Total 9.4 mg/dL (8.5-10.1); Chloride 107 mmol/L (98-107); Creatinine, Serum 1.03 mg/dL (0.70-1.30); EST Glomerular Filtration Rate 76 mL/min (>60); Est Glom Filt Rate - Afr Amer 92 mL/min (>60); Estimated Creatinine Clearance 66.41 ml/min; Glucose 98 mg/dL (74-106); Potassium 3.7 mmol/L (3.5-5.1); Sodium Level 139 mmol/L (136-145); Troponin-I HS (w/2H Reflex) 6 pg/mL (3.0-78.0)
--- NOTE | 2023-08-27 01:06 | CT_ITS ---
INDICATION: pulmonary embolism, elevated d dimer EXAMINATION: CT CHEST WITH CONTRAST - CTA Chest WO/W Contrast Injection TECHNIQUE: Helically acquired images were obtained of the chest following IV contrast timed in the pulmonary arterial phase with sagittal and coronal reconstructed images. Post-processing of the angiographic images was performed with multiplanar reformation and 3D reconstruction. Individualized dose optimization techniques were used for this CT. IV contrast dosage and agent: 100 mL of Isovue-[id number]. COMPARISON: 01/17/2023 CT. FINDINGS: LUNGS, PLEURA AND LARGE AIRWAYS: No consolidation or edema. Centrilobular emphysematous changes. 3 mm right upper lobe noncalcified pulmonary nodule. Multiple calcified left lung nodules. No pleural effusion. Small left pneumothorax, approximately 10% and more prominent at the lung base. THYROID: Unremarkable. HEART AND PERICARDIUM: Coronary artery calcifications are present. No pericardial effusion. No evidence of right heart strain. Right ventricle to left ventricle ratio measures less than 1. MEDIASTINUM AND JAE: Left hilar calcified lymph nodes. Esophagus is unremarkable. No hiatal hernia. VESSELS: No pulmonary embolism. No thoracic aortic aneurysm. UPPER ABDOMEN: Hepatic cysts. Probable hemangioma in the posterior right lobe with globular peripheral enhancement. Splenic calcifications consistent with benign old granulomatous disease. BONES: Subacute versus chronic right posterior seventh rib fracture. CT/CTA Chest W/WO Contrast IMPRESSION: 1. Small left pneumothorax, approximately 10%, more prominent at the lung base. 2. No pulmonary embolism. 3. Centrilobular emphysematous changes of the lungs. 4. 3 mm right upper lobe pulmonary nodule. Recommend follow-up CT of the chest in 12 months. Electronically Signed: Travon Akins DO at 2:47 EDT ,
[2023-08-27] MEDS: Ondansetron 4 MG/2 ML Vial IV (01:16)
[2023-08-27] MEDS: Morphine 4 MG/ML Syringe IV (01:17)
[2023-08-27 02:31] LABS: Reflex Troponin-HS? (from REC) Y
--- NOTE | 2023-08-27 02:42 | HP.PCM.HOS_ITS ---
HPI - General General Date of Admission: 08/27/23 Date of Service: 08/27/23 Chief Complaint: Chest pain. HPI Narrative The patient is a 68 y/o M w/ PMHx: COPD/Asthma, Former tobacco use, GALE not using PAP therapy reporting that he was told it was not longer medically necessary, HTN, HLD, GERD, Anxiety and Depression, recent discharge 08/25/23 following evaluation and treatment conservatively of SBO who now re-presents to the [facility] ED on 08/27/23 following onset of sudden left-sided chest discomfort described as severe and sharp tentative 10 in severity with mild increased cough with dyspnea sensation prompting immediate EMS call who reported that patient was in the 80s on room air upon their initial evaluation prompting eventual ED evaluation. He notes that his abdomen has felt fine and has been tolerating food with no nausea or emesis or abdominal discomfort since his discharge. In the ED upon evaluation currently for admission he notes his pain is 0.5-1 out of 10 but significantly improved with only aerosol and oxygen supplementation he notes. Workup in the ED included T99, heart rate 113, BP 154/84, respiratory rate 24, initially 87% on room air with most recent repeat vital signs T98.9, heart rate 99, BP 114/81, respiratory rate 20, 95% on 2 L nasal cannula, CBC with WC 10.5, hemoglobin 15.2, platelet 139 without marked shift, D-dimer 0.69, BMP unremarkable, troponin 6 with repeat delta 5, chest x-ray with sinus tachycardia with nonspecific changes with no acute evidence of ischemia, chest x-ray with a small left apical pneumothorax of less than 10%, follow-up CTPA with small left pneumothoraces approximately 10%, more prominent at the lung base, no evidence of any pulmonary embolism, centrilobular emphysematous changes to the lung, 3 mm right upper lobe pulmonary nodule. In the ED patient administered DuoNeb therapy, morphine 4 mg IV x 1 and Zofran 4 mg IV x 1. ED discussed case with general surgery Dr. Baker. [facility] Medical History Wears hearing aid Wears glasses Arthritis Former smoker BiPAP (biphasic positive airway pressure) dependence Sleep apnea Emphysema, unspecified Asthma Shortness of breath on exertion Leg cramps History of stress test Cardiology follow-up encounter Hypertension Personal history of colonic polyps SBO (small bowel obstruction) Nicotine dependence Nonsustained paroxysmal supraventricular tachycardia Atherosclerosis of coronary artery of [place] heart without angina pectoris GALE on CPAP Hyperlipidemia (Unknown) Essential hypertension GERD (gastroesophageal reflux disease) Depression COPD (chronic obstructive pulmonary disease) Home Medications ?Medication ?Instructions ?Recorded ?Last Taken ?Type aspirin 81 mg tablet,delayed 81 mg PO DAILY@0800 preventive 03/20/17 10/13/18 History release atenolol 50 mg tablet 50 mg PO DAILY bp 03/20/17 10/30/18 06:30 History fluoxetine 20 mg capsule 20 mg PO DAILY mood 03/20/17 10/13/18 History bupropion HCl 100 mg tablet,12 hr 100 mg PO BID mood 10/13/18 10/13/18 History sustained-release atorvastatin 20 mg tablet 20 mg PO QHS cholestrol 09/11/19 Unknown History losartan 100 mg tablet 100 mg PO DAILY bp #90 tabs 10/02/19 Unknown Rx albuterol sulfate 90 mcg/actuation 2 puff inhalation Q4H PRN PRN Sob 10/14/22 Unknown Rx aerosol inhaler &/Or Wheezing #8.5 grams amlodipine 5 mg tablet 5 mg PO DAILY blood pressure 12/22/22 Unknown History topiramate 25 mg tablet 75 mg PO BID headaches 12/22/22 Unknown History fluticasone fur. 200 mcg-umeclid 1 inh inhalation DAILY breathing 04/18/23 Unknown Rx 62.5 mcg-vilant 25 mcg #60 ea inhalat.powder (Trelegy Ellipta) nitroglycerin 0.4 mg sublingual 0.4 mg sublingual QDAY PRN chest 07/29/23 Unknown History tablet pain albuterol sulfate 2.5 mg/3 mL 2.5 mg inhalation Q8H PRN 08/24/23 Unknown History (0.083 %) solution for nebulization shortness of breath or wheezing Allergy/AdvReac Type Severity Reaction Status Date / Time lisinopril AdvReac Intermediate cough Verified 08/26/23 08:33 Family History Mother Diabetes Father Cancer prostate Sister Diabetes Surgical History History of esophagogastroduodenoscopy (EGD) Hx of cholecystectomy History of skin graft History of rotator cuff surgery History of colonoscopy with polypectomy Social History (Updated 08/27/23 @ 03:[address] Gianna Martell MD) household members: spouse Smoking Status: Former smoker how long ago did patient quit smokin alcohol intake: never substance use type: does not use caffeine: Yes what type of physical activity do you participate in: none frequency: does not exercise ROS ROS Narrative Admission Review of Systems: CONSTITUTIONAL: No weight loss, fever, chills, + weakness or fatigue. HEENT: Eyes: No visual loss, blurred vision, double vision or yellow sclerae. Ears, Nose, Throat: No hearing loss, sneezing, congestion, runny nose or sore throat. SKIN: No rash or itching, lesions, wounds. CARDIOVASCULAR: chest pain. No+ palpitations, edema, orthopnea, syncopal events. RESPIRATORY: + Dyspnea, increased cough. No markedly productive sputum, wheezing, hemoptysis. GASTROINTESTINAL: No anorexia, nausea, vomiting or diarrhea, abdominal pain, melena, BRBPR. GENITOURINARY: No dysuria, frequency, urgency or retention. NEUROLOGICAL: No headache, dizziness, syncope, paralysis, ataxia, numbness or tingling in the extremities, focal weakness, change in bowel or bladder control, seizure. MUSCULOSKELETAL: + muscle, back pain, joint pain or stiffness. HEMATOLOGIC: No anemia. + Easy bleeding/bruising. LYMPHATICS: No enlarged nodes. No history of splenectomy. PSYCHIATRIC: + History of anxiety and depression. ENDOCRINOLOGIC: No reports of sweating, cold or heat intolerance. No polyuria or polydipsia. ALLERGIES: + History of asthma. Vital Signs Vital Signs Vital Signs: 08/27/23 00:10 08/27/23 00:13 08/27/23 00:14 Temperature 99 F 99 F Temperature Source Oral Oral Pulse Rate 113 H 118 H Respiratory Rate 24 H 25 H Respiratory Effort Respiratory Pattern Blood Pressure 154/84 H 154/84 H Blood Pressure Mean 107 107 Pulse Ox 87 87 94 Oxygen Delivery Method Room Air Room Air Nasal Cannula Oxygen Flow Rate (L/min) 2 08/27/23 00:15 08/27/23 00:35 08/27/23 00:40 Temperature Temperature Source Pulse Rate 108 H Respiratory Rate 20 H Respiratory Effort Normal Non-Labored Respiratory Pattern Normal Blood Pressure Blood Pressure Mean Pulse Ox Oxygen Delivery Method Nasal Cannula Oxygen Flow Rate (L/min) 2 08/27/23 00:40 08/27/23 01:05 08/27/23 02:00 Temperature 99.2 F H Temperature Source Oral Pulse Rate 104 H 94 Respiratory Rate 24 H 24 H Respiratory Effort Respiratory Pattern Blood Pressure 134/83 H 107/72 Blood Pressure Mean 100 83 Pulse Ox 95 94 98 Oxygen Delivery Method Nasal Cannula Nasal Cannula Nasal Cannula Oxygen Flow Rate (L/min) 2 2 2 08/27/23 02:00 Temperature 98 F Temperature Source Temporal Pulse Rate 78 Respiratory Rate 25 H Respiratory Effort Respiratory Pattern Blood Pressure 107/72 Blood Pressure Mean 83 Pulse Ox 97 Oxygen Delivery Method Nasal Cannula Oxygen Flow Rate (L/min) 2 Weight Weight: 156 lb 8.451 oz Body Mass Index (BMI) 23.8 Physical Exam Narrative Physical Examination: General: Awake, alert, oriented x 3 and cooperative, seated upright in the ED bed in no apparent distress, notes feeling significantly improved, rating discomfort to the left chest 0.5-1 out of 10 in severity. Skin: Normal color, normal turgor, no icterus, no cyanosis. HEENT: AT/NC, EOMI, PERRLA, MMM, no carotid bruits or JVD noted. Lungs: Diminished, greater bases, mildly increased respiratory rate but no distress, very soft occasional expiratory wheeze, no rales, or rhonchi. Heart: Improved but still mildly tachycardic with regular rhythm; no gallop, rub audible. Abdomen: Soft, NTTP, no distention noted, normal BS, no appreciated HSM. Extremities: No cyanosis, clubbing, or edema. Neurological: Patient awake, alert, oriented as noted, cognitive function intact; pupils equally reactive to light and accommodation, cranial nerves grossly normal, moving all 4 extremities, no focal deficits, strength moderately global decreased secondary to acute presentation complaints. Psychiatric: Affect appears fatigued otherwise normal, no acute evidence of depressive or anxiety feelings but does have underlying history. Results Lab / Micro Data 08/27/23 00:00 08/27/23 00:00 Labs: Laboratory Results - last 24 hr 08/27/23 00:00: WBC 10.5, RBC 5.23, Hgb 15.2, Hct 47.0, MCV 89.9, MCH 29.1, MCHC 32.3, RDW Std Deviation 42.5, RDW Coeff of Delfina 12.9, Plt Count 139 L, MPV 14.1 H , Immature Gran % (Auto) 0.900, Neut % (Auto) 61.2, Lymph % (Auto) 22.6, [place] % (Auto) 10.8 H, Eos % (Auto) 3.8, Baso % (Auto) 0.7, Absolute Neuts (auto) 6.4, Absolute Lymphs (auto) 2.37, Nucleated RBC % 0, D-Dimer Quant (PE/DVT) 0.69 H*, Sodium 139, Potassium 3.7, Chloride 107, Carbon Dioxide 26.0, Anion Gap 6, BUN 14, Creatinine 1.03, Estim Creat Clear Calc 66.41, Est GFR (MDRD) Af Amer 92, Est GFR (MDRD) Non-Af 76, BUN/Creatinine Ratio 13.6, Glucose 98, Calcium 9.4, Troponin I High Sens 6 Imaging Radiology Impression Chest X-Ray 08/27/23 00:27 IMPRESSION: Small left apical pneumothorax, less than 10%. Electronically Signed: Travon Akins DO at 1:06 EDT , ADDENDUM: 08/27/23 0118 IMPRESSION: Small left apical pneumothorax, less than 10%. N.B. : MOOSE Martinez, confirmed on 08/27/2023 01:11:22 (ET) that the healthcare facility has received the radiology report. Electronically Signed: Travon Akins DO at 1:06 EDT , Assessment & Plan Assessment/Plan (1) Pneumothorax: PLAN: Plan The patient is a 68 y/o M w/ PMHx: COPD/Asthma, Former tobacco use, GALE not using PAP therapy reporting that he was told it was not longer medically necessary, HTN, HLD, GERD, Anxiety and Depression, recent discharge 5/30/24 following evaluation and treatment conservatively of SBO who now re-presents to the [facility] ED on 08/27/23 following onset of sudden left-sided chest discomfort described as severe and sharp tentative 10 in severity with mild increased cough with dyspnea sensation prompting immediate EMS call who reported that patient was in the 80s on room air upon their initial evaluation prompting eventual ED evaluation. #1. Spontaneous small left-sided pneumothoraces with associated chest discomfort, improving: Will admit to medical surgical floor maintain on telemetry monitoring, will continue persistent oxygen supplementation, as needed pain regimen and antiemetic regimen, will have repeat PA and lateral in AM, will continue consultation with general surgery, will maintain chest tube kit nearby per surgery request, will continue ATC budesonide therapy and have as needed albuterol. #2. Incidental pulmonary nodule: CTPA with noted 3 mm right upper lobe nodule, will need follow-up outpatient CT reassessment. #3. Recent SBO, resolved: Patient with no recurrent symptoms of abdominal discomfort, distention, nausea or emesis and appropriate bowel movements as well as tolerating diet. Continue to closely monitor but appears completely resolved. #4. Anxiety and depression: We will continue patient home fluoxetine and bupropion regimen, encourage continued outpatient follow-up and assessment. #5. Hypertension: Continue home regimen including losartan, atenolol, amlodipine, PRN hydralazine. #6. Hyperlipidemia: We will continue patient on statin therapy. #7. Chronic headache/migraine: We will continue patient home topiramate regimen. #8. GALE: Not currently using PAP therapy, encourage continued outpatient follow-up to assure not necessary as patient notes he was told medically he did not need it any longer. #9. GERD: Will have as needed Mylanta for dyspepsia. #10. Former tobacco use: Encourage continued tobacco cessation. #11. Chronic COPD/asthma: Will maintain on continuous 2 L nasal cannula supplementation given acute presentation as noted #1 unless further increased oxygen requirement is necessary, maintain on ATC budesonide therapy, PRN albuterol, HOB, IS parameters. #12. DVT prophylaxis: SCDs, will defer chemoprophylaxis in case pneumothoraces worsens and intervention is necessary. #13. CODE STATUS: Full Code. Charges/Coding Visit Charges Inpatient E&M: 86016 Init Hosp L3
[2023-08-27 03:10] LABS: Troponin-I HS 5 pg/mL (3.0-78.0)
[2023-08-27 06:10] LABS: Absolute Lymphocyte Count 2.17 X10^3/uL (0.83-4.51); Absolute Neutrophil Count 3.3 X10^3/uL (2.0-7.7); Basophil# 0.06 X10^3/uL; Basophil% 0.9 % (0-1); Eosinophil# 0.36 X10^3/uL; Eosinophils% 5.3 % (0-5); Hematocrit 43.1 % (40-54); Hemoglobin 13.9 g/dL (13.0-16.5); Lymphocyte # 2.17 X10^3/ul (0.83-4.51); Lymphocyte % 32.1 % (19-41); Mean Corp Hgb Conc 32.3 g/dL (32-36); Mean Corpuscular Hgb 28.6 pg (27.0-32.0); Mean Corpuscular Volume 88.7 fL (80-94); Mean Platelet Vol. 13.8 fl (6.2-12.0); Monocyte# 0.79 X10^3/uL; Monocyte% 11.7 % (0-10); NRBC Flagged by Analyzer 0 % (0-5); Neutrophil # 3.31 X10^3/uL (2.7-7.7); Neutrophil % 48.8 % (47-70); Platelet Count 112 K/mm3 (150-450); RBC Distribution Width CV 12.9 % (11.6-14.6); RBC Distribution Width SD 42.2 fl (35.1-43.9); Red Blood Count 4.86 M/mm3 (4.6-6.2); White Blood Count 6.8 K/mm3 (4.4-11.0)
[2023-08-27 06:36] LABS: ALB/GLOB Ratio 0.9 RATIO (0.9-2.4); AST(SGOT) 9 U/L (15-37); Alanine Aminotransfer ALT/SGPT 15 U/L (16-61); Albumin, Serum 2.8 g/dL (3.2-5.0); Alkaline Phosphatase 84 U/L (45-117); Anion Gap 6 (5-15); BUN 13 mg/dL (7-18); BUN/Creat Ratio 14.6 RATIO (10-20); Calcium,Total 8.8 mg/dL (8.5-10.1); Chloride 110 mmol/L (98-107); Creatinine, Serum 0.89 mg/dL (0.70-1.30); EST Glomerular Filtration Rate 90 mL/min (>60); Est Glom Filt Rate - Afr Amer 109 mL/min (>60); Estimated Creatinine Clearance 76.85 ml/min; Globulin 3.1 g/dL (2.2-4.2); Glucose 117 mg/dL (74-106); Potassium 3.6 mmol/L (3.5-5.1); Protein, Total 5.9 g/dL (6.4-8.2); Sodium Level 139 mmol/L (136-145)
[2023-08-27] MEDS: Budesonide Respules 0.5 MG/2 ML AMPUL.NEB. INHALATION ×2 (07:06→19:18)
--- NOTE | 2023-08-27 07:24 | EX.PCM.CON.S ---
Assessment & Plan Assessment/Plan (1) Pneumothorax: (2) History of COPD: PLAN: Plan Chest x-ray ordered for this morning. If continues to be small we will continue to monitor. Discussed with patient would not DC today even if stable --would check a chest x-ray tomorrow to make sure this is stable and not worsening. Patient is aware that if the pneumothorax got larger he may need chest tube placement. Due to his history of COPD he had a chest tube placed and there continues to be an air leak he could possibly require transfer to tertiary care facility. Addendum: Patient's chest x-ray from this morning looks similar to last night per my read official read pending. Will continue to monitor. Jen Baker M.D. Pager: [phone] [facility] [address] [place] [address], [facility], [address] [place] [id number] Office: [phone] HPI Consult Data Date of Consult: 08/27/23 HPI Narrative HPI Narrative: EDILIA SPARKS, is a 68 M who presents to the ER due to chest pain. Patient is well-known to me just left hospitalization for small bowel obstruction which resolved with conservative management. Patient states he was having some chest pain on and off throughout the day yesterday. Patient had a chest x-ray in the ER showed a small left apical pneumothorax. A CTA was done again just showed a small pneumothorax. Patient denies any coughing worse than normal yesterday. Plan was to watch patient with conservative management as he does have a history of COPD and the pneumothorax was stable patient was placed on supplemental O2. Patient denies any chest pain this morning even with deep breaths. [facility] Medical History Wears hearing aid Wears glasses Arthritis Former smoker BiPAP (biphasic positive airway pressure) dependence Sleep apnea Emphysema, unspecified Asthma Shortness of breath on exertion Leg cramps History of stress test Cardiology follow-up encounter Hypertension Personal history of colonic polyps SBO (small bowel obstruction) Nicotine dependence Nonsustained paroxysmal supraventricular tachycardia Atherosclerosis of coronary artery of [place] heart without angina pectoris GALE on CPAP Hyperlipidemia (Unknown) Essential hypertension GERD (gastroesophageal reflux disease) Depression COPD (chronic obstructive pulmonary disease) Home Medications ?Medication ?Instructions ?Recorded ?Last Taken ?Type aspirin 81 mg tablet,delayed 81 mg PO DAILY@0800 preventive 03/20/17 10/13/18 History release atenolol 50 mg tablet 50 mg PO DAILY bp 03/20/17 10/30/18 06:30 History fluoxetine 20 mg capsule 20 mg PO DAILY mood 03/20/17 10/13/18 History bupropion HCl 100 mg tablet,12 hr 100 mg PO BID mood 10/13/18 10/13/18 History sustained-release atorvastatin 20 mg tablet 20 mg PO QHS cholestrol 09/11/19 Unknown History losartan 100 mg tablet 100 mg PO DAILY bp #90 tabs 10/02/19 Unknown Rx albuterol sulfate 90 mcg/actuation 2 puff inhalation Q4H PRN PRN Sob 10/14/22 Unknown Rx aerosol inhaler &/Or Wheezing #8.5 grams amlodipine 5 mg tablet 5 mg PO DAILY blood pressure 12/22/22 Unknown History topiramate 25 mg tablet 75 mg PO BID headaches 12/22/22 Unknown History fluticasone fur. 200 mcg-umeclid 1 inh inhalation DAILY breathing 04/18/23 Unknown Rx 62.5 mcg-vilant 25 mcg #60 ea inhalat.powder (Trelegy Ellipta) nitroglycerin 0.4 mg sublingual 0.4 mg sublingual QDAY PRN chest 07/29/23 Unknown History tablet pain albuterol sulfate 2.5 mg/3 mL 2.5 mg inhalation Q8H PRN 08/24/23 Unknown History (0.083 %) solution for nebulization shortness of breath or wheezing Allergy/AdvReac Type Severity Reaction Status Date / Time lisinopril AdvReac Intermediate cough Verified 08/26/23 08:33 Family History Mother Diabetes Father Cancer prostate Sister Diabetes Surgical History History of esophagogastroduodenoscopy (EGD) Hx of cholecystectomy History of skin graft History of rotator cuff surgery History of colonoscopy with polypectomy Social History (Updated 08/27/23 @ 03:[address] Gianna Martell MD) household members: spouse Smoking Status: Former smoker how long ago did patient quit smokin alcohol intake: never substance use type: does not use caffeine: Yes what type of physical activity do you participate in: none frequency: does not exercise Physical Exam Const alert, oriented x3 and no apparent distress HEENT normocephalic and head/scalp atraumatic Resp normal respiratory effort Resp Narrative: 2 L nasal cannula in place Cardio regular rate GI soft to palpation and non-tender; Negative for non-distended Palpation: Negative for guarding Extremity no clubbing, cyanosis or edema Skin no rashes or lesions noted Neuro CN's II-XII intact bilaterally Psych mental status grossly normal Lab / Micro Data 08/27/23 05:37 08/27/23 05:37 Labs: Laboratory Results - last 24 hr 08/27/23 00:00: WBC 10.5, RBC 5.23, Hgb 15.2, Hct 47.0, MCV 89.9, MCH 29.1, MCHC 32.3, RDW Std Deviation 42.5, RDW Coeff of Delfina 12.9, Plt Count 139 L, MPV 14.1 H, Immature Gran % (Auto) 0.900, Neut % (Auto) 61.2, Lymph % (Auto) 22.6, [place] % (Auto) 10.8 H, Eos % (Auto) 3.8, Baso % (Auto) 0.7, Absolute Neuts (auto) 6.4, Absolute Lymphs (auto) 2.37, Nucleated RBC % 0, D-Dimer Quant (PE/DVT) 0.69 H*, Sodium 139, Potassium 3.7, Chloride 107, Carbon Dioxide 26.0, Anion Gap 6, BUN 14, Creatinine 1.03, Estim Creat Clear Calc 66.41, Est GFR (MDRD) Af Amer 92, Est GFR (MDRD) Non-Af 76, BUN/Creatinine Ratio 13.6, Glucose 98, Calcium 9.4, Troponin I High Sens 6 08/27/23 02:43: Troponin I High Sens 5 08/27/23 05:37: WBC 6.8, RBC 4.86, Hgb 13.9, Hct 43.1, MCV 88.7, MCH 28.6, MCHC 32.3, RDW Std Deviation 42.2, RDW Coeff of Delfina 12.9, Plt Count 112 L, MPV 13.8 H, Immature Gran % (Auto) 1.200 H, Neut % (Auto) 48.8, Lymph % (Auto) 32.1, [place] % (Auto) 11.7 H, Eos % (Auto) 5.3 H, Baso % (Auto) 0.9, Absolute Neuts (auto) 3.3, Absolute Lymphs (auto) 2.17, Nucleated RBC % 0, Sodium 139, Potassium 3.6, Chloride 110 H, Carbon Dioxide 23.0, Anion Gap 6, BUN 13, Creatinine 0.89, Estim Creat Clear Calc 76.85, Est GFR (MDRD) Af Amer 109, Est GFR (MDRD) Non-Af 90, BUN/Creatinine Ratio 14.6, Glucose 117 H, Calcium 8.8, Total Bilirubin 0.40, AST 9 L, ALT 15 L, Alkaline Phosphatase 84, Total Protein 5.9 L, Albumin 2.8 L, Globulin 3.1, Albumin/Globulin Ratio 0.9 Imaging Radiology Impression Chest X-Ray 08/27/23 00:27 IMPRESSION: Small left apical pneumothorax, less than 10%. Electronically Signed: Travon Akins DO at 1:06 EDT , ADDENDUM: 08/27/23 0118 IMPRESSION: Small left apical pneumothorax, less than 10%. N.B. : MOOSE Martinez, confirmed on 08/27/2023 01:11:22 (ET) that the healthcare facility has received the radiology report. Electronically Signed: Travon Akins DO at 1:06 EDT , Chest CTA 08/27/23 01:06 IMPRESSION: 1. Small left pneumothorax, approximately 10%, more prominent at the lung base. 2. No pulmonary embolism. 3. Centrilobular emphysematous changes of the lungs. 4. 3 mm right upper lobe pulmonary nodule. Recommend follow-up CT of the chest in 12 months. Electronically Signed: Travon Akins DO at 2:47 EDT , Charges/Coding Visit Charges Inpatient E&M: 04997 Init Hosp L3
--- NOTE | 2023-08-27 07:31 | PCM.PN.HOSP ---
Reason for Visit Reason for Visit: Diagnoses Pneumothorax, unspecified (08/27/23) Objective Data Objective Data Vital Signs: Vital Signs Temp Pulse Resp BP Pulse Ox O2 Del Method O2 Flow Rate 97.7 F L 91 18 134/82 H 97 Nasal Cannula 2 08/27/23 04:31 08/27/23 07:07 08/27/23 07:07 08/27/23 04:31 08/27/23 07:07 08/27/23 07:07 08/27/23 07:07 Oxygen Flow Rate (L/min) 2 Oxygen Delivery Method Nasal Cannula Weight: 152 lb 1.903 oz Body Mass Index (BMI) 23.1 Intake & Output: Intake and Output for Last 24 Hours 08/25/23 08/26/23 08/27/23 23:59 23:59 23:59 Intake Total 0 / 0 Balance 0 / 0 Lab / Micro Data 08/27/23 05:37 08/27/23 05:37 Labs: Laboratory Results - last 24 hr 08/27/23 00:00: WBC 10.5, RBC 5.23, Hgb 15.2, Hct 47.0, MCV 89.9, MCH 29.1, MCHC 32.3, RDW Std Deviation 42.5, RDW Coeff of Delfina 12.9, Plt Count 139 L, MPV 14.1 H, Immature Gran % (Auto) 0.900, Neut % (Auto) 61.2, Lymph % (Auto) 22.6, [place] % (Auto) 10.8 H, Eos % (Auto) 3.8, Baso % (Auto) 0.7, Absolute Neuts (auto) 6.4, Absolute Lymphs (auto) 2.37, Nucleated RBC % 0, D-Dimer Quant (PE/DVT) 0.69 H*, Sodium 139, Potassium 3.7, Chloride 107, Carbon Dioxide 26.0, Anion Gap 6, BUN 14, Creatinine 1.03, Estim Creat Clear Calc 66.41, Est GFR (MDRD) Af Amer 92, Est GFR (MDRD) Non-Af 76, BUN/Creatinine Ratio 13.6, Glucose 98, Calcium 9.4, Troponin I High Sens 6 08/27/23 02:43: Troponin I High Sens 5 08/27/23 05:37: WBC 6.8, RBC 4.86, Hgb 13.9, Hct 43.1, MCV 88.7, MCH 28.6, MCHC 32.3, RDW Std Deviation 42.2, RDW Coeff of Delfina 12.9, Plt Count 112 L, MPV 13.8 H, Immature Gran % (Auto) 1.200 H, Neut % (Auto) 48.8, Lymph % (Auto) 32.1, [place] % (Auto) 11.7 H, Eos % (Auto) 5.3 H, Baso % (Auto) 0.9, Absolute Neuts (auto) 3.3, Absolute Lymphs (auto) 2.17, Nucleated RBC % 0, Sodium 139, Potassium 3.6, Chloride 110 H, Carbon Dioxide 23.0, Anion Gap 6, BUN 13, Creatinine 0.89, Estim Creat Clear Calc 76.85, Est GFR (MDRD) Af Amer 109, Est GFR (MDRD) Non-Af 90, BUN/Creatinine Ratio 14.6, Glucose 117 H, Calcium 8.8, Total Bilirubin 0.40, AST 9 L, ALT 15 L, Alkaline Phosphatase 84, Total Protein 5.9 L, Albumin 2.8 L, Globulin 3.1, Albumin/Globulin Ratio 0.9 Radiography Diagnostic Testing: Radiology Impression Chest X-Ray 08/27/23 00:27 IMPRESSION: Small left apical pneumothorax, less than 10%. Electronically Signed: Travon Akins DO at 1:06 EDT Reading Location ID and State: [facility] / [place] Tel , Service support , ADDENDUM: 08/27/23 0118 IMPRESSION: Small left apical pneumothorax, less than 10%. N.B. : MOOSE Martinez, confirmed on 08/27/2023 01:11:22 (ET) that the healthcare facility has received the radiology report. Electronically Signed: Travon Akins DO at 1:06 EDT , Chest CTA 08/27/23 01:06 IMPRESSION: 1. Small left pneumothorax, approximately 10%, more prominent at the lung base. 2. No pulmonary embolism. 3. Centrilobular emphysematous changes of the lungs. 4. 3 mm right upper lobe pulmonary nodule. Recommend follow-up CT of the chest in 12 months. Electronically Signed: Travon Akins DO at 2:47 EDT Reading Location ID and State: [facility] / [place] Tel , Service support , Physical Exam Narrative Seen and examined. Patient has history of COPD. Denies any increase in severity of cough, shortness of breath or fever. He wants to go home but is told that he has to stay. Last time admitted for bowel ileus. He had burrito after discharge. Had not bowel movement for 2 days though passing flatus. Physical exam General: Alert, Oriented x3, Cooperative HEENT: Atraumatic, PERRLA, EOMI, Normocephalic Oral: No Gingival or Mucosal Lesions/ Ulcerations Neck: Supple, No JVD, Negative Carotid Bruits Chest wall/Lungs: Air entry diminished diffusely in all lungs [place]. No crepitation/rhonchi Cardiovascular: Regular rate, Regular Rhythm, Normal S1, Normal S2, No M/G/R Abdomen: Bowel Sounds Present, Soft, Non Tender, Non-Distended : No dysuria. No renal angle tenderness. No suprapubic tenderness. Extremities: No edema, Capillary Refill Less than 3 Seconds Skin: No rashes, No breakdown Musculoskeletal: No Tenderness to Palpation of Joints or Extremities Neurological: Cranial nerves II-XII grossly intact, DTR 2+/4. No acute focal neurological deficit. Psych/Mental Status: Normal Affect, Appropriate. Assessment & Plan Assessment/Plan (1) Pneumothorax: PLAN: Plan The patient is a 68 y/o M was brought to ED by EMS for acute left-sided chest discomfort, localized, nonradiating 10/10 in intensity on and off for the whole day. Pain worse with deep breathing. Patient has chronic cough with increased severity and white clear mucus. History of smoking. #1. Spontaneous small left-sided pneumothoraces with associated chest discomfort, improving: Patient being admitted to [facility] floor. Discussed with the surgeon.Chest CT scan and repeat chest x-ray from morning today reviewed. Shows stable 10% left apical pneumothorax. No pleural effusion, airspace opacification/consolidation. Chronic hyperinflation suggesting emphysema. Patient will need repeat chest x-ray tomorrow. No plan for surgical chest tube insertion. #2. Incidental pulmonary nodule: CTPA with noted 3 mm right upper lobe nodule, will need follow-up outpatient CT reassessment. #3. Recent SBO, resolved: Patient with no recurrent symptoms of abdominal discomfort, distention, nausea or emesis and appropriate bowel movements as well as tolerating diet. Continue to closely monitor but appears completely resolved. Bowel sounds present. Passing flatus but no bowel movements for the last 2 days #4. Anxiety and depression: We will continue patient home fluoxetine and bupropion regimen, encourage continued outpatient follow-up and assessment. #5. Hypertension: Continue home regimen including losartan, atenolol, amlodipine, PRN hydralazine. #6. Hyperlipidemia:continue patient on statin therapy. #7. Chronic headache/migraine: continue patient home topiramate regimen. #8. GALE: Not currently using PAP therapy, encourage continued outpatient follow-up to assure not necessary as patient notes he was told medically he did not need it any longer. #9. GERD: On Mylanta as needed #10. Former tobacco use: Encourage continued tobacco cessation. #11. Chronic COPD/asthma: Will maintain on continuous 2 L nasal cannula supplementation given acute presentation as noted #1 unless further increased oxygen requirement is necessary, maintain on ATC budesonide therapy, PRN albuterol, HOB, IS parameters. #12. DVT prophylaxis: SCDs, will defer chemoprophylaxis in case pneumothoraces worsens and intervention is necessary. #13. CODE STATUS: Full Code.
--- NOTE | 2023-08-27 08:00 | RAD_ITS ---
EXAM: XR CHEST, 2 VIEWS CLINICAL INDICATION: PTX re-evaluation TECHNIQUE: Frontal and lateral views of the chest. COMPARISON: XR Chest dated 08/27/2023 FINDINGS: LUNGS AND PLEURAL SPACES: No airspace opacification of the lungs. Stable 10% left apical pneumothorax. No pleural effusion. Hyperinflation suggesting emphysema. HEART: Normal heart size. MEDIASTINUM: No mediastinal or hilar mass. BONES/JOINTS: Chronic bilateral rib fractures. RAD/Chest PA and Lateral IMPRESSION: Stable small left apical pneumothorax. COPD. No interval change. Electronically Signed: Lito Mabry MD at 9:25 EDT ,
--- NOTE | 2023-08-27 09:15 | CASEMGMT ---
RN SUKH Assessment: Face to Face with pt for initial transition planning/care coordination assessment. RN CM introduced self and role at [facility], pt voices understanding and consents to assessment. Pt is A&O x4 and answers all questions appropriately at this time. Pt sitting up in bed watching TV. Care providers, pharmacy, and demographics verified/updated. Admitting Dx: COPD PCP: Dr. Abiodun Grider Specialists: Dr. Jessica and Dr. Baker Preferred Pharmacy: [facility] Insurance: [facility] Dual Complete Prescription Benefit: yes LNOK: Spouse Sharla [phone] Living Arrangements: Pt lives at home with spouse. Home is single story with no steps to enter. Pt is independent with ADLs/IADLs. Transportation: Pt drives self and denies concerns with transportation. DME: [employer] through [employer], however, pt reports he no longer uses it. HHC/SNF: No history Pt states no concerns with going home at time of dc. Pt states no further concerns/needs. CM to follow. Advised pt to ask CM if any further question/concerns/needs arise, voices understanding. Pt Goal: Home Plan: Home with no skilled needs. Pt was on oxygen earlier this morning, however on RA at time of assessment. Jackie Garcia MSN, RN, CCM
--- NOTE | 2023-08-27 09:26 | CASEMGMT ---
RN CM in to discuss NUÑEZ form with patient. RN CM explained NUÑEZ form, patient voiced understanding. Pt signed form and filed in chart. Pt provided with a copy of signed NUÑEZ form. Patient had no further questions or concerns at this time. Jackie Garcia MSN, RN, CCM
--- NOTE | 2023-08-27 10:27 | CASEMGMT ---
RN CM Assessment: Face to Face with pt for initial transition planning/care coordination assessment. RN CM introduced self and role at [facility], pt voices understanding and consents to assessment. Pt is A&O x4 and answers all questions appropriately at this time. Pt resting in bed with eyes closed. Care providers, pharmacy, and demographics verified/updated. Admitting Dx: stroke symptoms PCP: [facility] Specialists: Dr. Cardoso Preferred Pharmacy: [facility] Insurance: [place] [employer] Prescription Benefit: yes LNOK: Pt reports he wants his friend Reid [phone] Living Arrangements: Pt lives at home with friend, single level. Pt is independent with ADLs and IADLs. Transportation: Pt drives self and denies concerns with transportation. DME: CPAP but does not use it HHC/SNF: None Pt states no concerns with going home at time of dc. Pt states no further concerns/needs. CM to follow. Advised pt to ask CM if any further question/concerns/needs arise, voices understanding. Pt Goal: Home Plan: Home with no needs Jackie LAI, RN, CCM
[2023-08-27] MEDS: Lactulose 20 GM/30 ML UDC 10 GM PO (11:46)
[2023-08-27] MEDS: Senna/Docusate Sodium 1 Tablet 2 TABLET PO ×2 (11:46→22:52)
[2023-08-27] MEDS: Acetaminophen 325 MG Tablet 650 MG PO (14:30)
[2023-08-28 03:03] VITALS: BP 119/96; PULSE 97; RESP 20; TEMP 36.6; O2SAT 93
[2023-08-28 04:35] VITALS: BMI 23.1
[2023-08-28 06:15] VITALS: BMI 23.2
[2023-08-28 06:54] VITALS: PULSE 104; RESP 20; O2SAT 96
[2023-08-28] MEDS: Albuterol 2.5 MG/3 ML VIAL.NEB. INHALATION (06:54)
--- NOTE | 2023-08-28 08:04 | RAD_ITS ---
INDICATION: Pneumothorax EXAMINATION/TECHNIQUE: X-RAY - XR Chest 2 Views COMPARISON: August 27, 2023 FINDINGS: LINES/DEVICES: None. LUNGS: There is a stable small left apical pneumothorax. The lungs are hyperinflated with an appearance suggestive of emphysema. MEDIASTINUM AND CARDIOVASCULAR STRUCTURES: Cardiac silhouette not enlarged. Central airways and mediastinal contour are unremarkable. BONES AND SOFT TISSUES: There are stable right posterior rib deformities consistent with healed fractures. RAD/Chest PA and Lateral IMPRESSION: Stable small left apical pneumothorax. Emphysema. Electronically Signed: Jenny Murphy MD at 9:05 EDT ,
[2023-08-28 08:33] VITALS: BP 141/83; PULSE 98; RESP 17; TEMP 36.8; O2SAT 94
--- NOTE | 2023-08-28 08:34 | NURSING ---
Brought down via WC to Radiology at this time.
--- NOTE | 2023-08-28 08:46 | PCM.PN.SRG ---
Subjective Subjective Patient denies any chest pain even with deep breaths. Patient is ready go home. Objective Data Objective Data Vital Signs: Vital Signs Temp Pulse Resp BP Pulse Ox O2 Del Method O2 Flow Rate 98.2 F 98 17 141/83 H 94 Room Air 2 08/28/23 08:33 08/28/23 08:33 08/28/23 08:33 08/28/23 08:33 08/28/23 08:33 08/28/23 08:33 08/27/23 07:07 Oxygen Flow Rate (L/min) 2 Oxygen Delivery Method Room Air Weight: 152 lb 12.485 oz Body Mass Index (BMI) 23.2 Intake & Output: Intake and Output for Last 24 Hours 08/26/23 08/27/23 08/28/23 23:59 23:59 23:59 Intake Total 1250 / 1250 Balance 1250 / 1250 Lab / Micro Data 08/27/23 05:37 08/27/23 05:37 Radiography Diagnostic Testing: Radiology Impression Chest X-Ray 08/27/23 08:00 IMPRESSION: Stable small left apical pneumothorax. COPD. No interval change. Electronically Signed: Lito Mabry MD at 9:25 EDT , Physical Exam Const oriented x3 and no apparent distress Resp normal respiratory effort Cardio regular rate GI soft to palpation and non-tender Assessment & Plan Assessment/Plan (1) Pneumothorax: (2) History of COPD: PLAN: Plan Chest x-ray ordered for this morning. If chest x-ray stable would be okay to DC home with plans to get a chest x-ray as an outpatient on Tuesday. Patient is agreeable plan. Jen Baker M.D. Pager: [phone] [facility] [address] [place] [address], [facility], [address] [place] [address] Office: [phone] Charges/Coding Multi Select Codes Visit Charges Visit Charges: 63441 Subs Hosp L2
[2023-08-28] MEDS: Budesonide Respules 0.5 MG/2 ML AMPUL.NEB. INHALATION (10:20)
[2023-08-28 10:21] VITALS: PULSE 86; RESP 18
--- NOTE | 2023-08-28 10:49 | DCINST_ITS ---
Discharge Instructions Diet Discharge Diet: No restrictions Activity Discharge Activity: Return to Normal Activity Weight Bearing Status: Weight bearing as tolerated Dressing / Incision Call your doctor if you observe: Fever of 101 or Higher, Coldness, Increased Pain, Numbness or Tingling, Change in Color, Inability to urinate, Inability to have a bowel movement, Shortness of breath, Dizziness, Fainting spells, Swelling in the ankles, Chest pain, Prolonged hiccupping, Increased palpitations (irregular heartbeat) and Calf discomfort Follow Up Care When: IN 2 WEEKS Test Results: Test results from this visit will be discussed in further detail at your follow- up appointment, if applicable. Discharge Plan Admission Admit Date/Time: 08/27/23 02:44 Primary Reason for Your Visit: Small left apical pneumothorax Attending Provider: Paul Klein Primary Care Provider: Abiodun Grider Consulting Providers: Jen Baker; Gianna Martell Instructions Additional Instructions / Restrictions: Patient advised chest x-ray PA and lateral as an outpatient on 08/30/2023 and follow-up with surgery Dr. Baker Discharge Orders/Prescriptions Prescriptions: Continued atorvastatin 20 mg tablet 20 mg PO QHS albuterol sulfate 90 mcg/actuation HFA aerosol inhaler 2 puff inhalation Q4H PRN PRN (Reason: Sob &/Or Wheezing) Qty: 8.5 11RF Trelegy Ellipta 200-62.5-25 mcg blister with device 1 inh inhalation DAILY Qty: 60 6RF topiramate 25 mg tablet 75 mg PO BID amlodipine 5 mg tablet 5 mg PO DAILY Patient Comments: TAKE 1 TABLET BY MOUTHgONCE DAILY nitroglycerin 0.4 mg tablet, sublingual 0.4 mg sublingual QDAY PRN (Reason: chest pain) aspirin 81 MG tablet 81 mg PO DAILY@0800 fluoxetine 20 MG capsule 20 mg PO DAILY Patient Comments: TAKE ONE (1) CAPSULE BY MOUTH ONCE DAILY atenolol 50 MG tablet 50 mg PO DAILY Patient Comments: TAKE 1 TABLET BY MOUTH ONCE DAILY. bupropion HCl 100 MG tablet sustained-release 12 hr 100 mg PO BID Patient Comments: TAKE ONE (1) TABLET BY MOUTH TWICE DAILY albuterol sulfate 2.5 mg /3 mL (0.083 %) solution for nebulization 2.5 mg inhalation Q8H PRN (Reason: shortness of breath or wheezing) losartan 100 mg tablet 100 mg PO DAILY Qty: 90 6RF Other Ambulatory Orders: Chest PA and Lateral (Routine) Timeframe: [id number] Facility: [facility] - Location: [facility] Ordered By: Dr. Jen Baker Referrals / Follow Up: Abiodun Grider MD [Primary Care Provider] - Within 2 Weeks Jen Baker MD [Med Staff - Active Staff] - Within 1 Week (Follow-up chest x-ray on 08/30/2023 for small left apical pneumothorax) Disposition Disposition (needs filled in before D/C Order can be placed): Home, Self Care
--- NOTE | 2023-08-28 10:52 | DS.PCM_ITS ---
Providers Date of Admission: 08/27/23 Date of Discharge: 08/28/23 Primary Care Physician: Dr. Abiodun Grider MD Consultations 08/27/23 04:41 Consult: General Surgery Routine Consulting Provider: Jen Baker Reason for Consult: Small spontaneous PTX EMERGENT Consult: No MD Notified: Yes Date Notified: 08/27/23 Time Notified: 02:45 Method of Notification: ED Physician Initiated Reason For Visit: PTX, SMALL Diagnosis Discharge Diagnosis (1) Pneumothorax: Status: Acute Code(s): J93.9 - Pneumothorax, unspecified (2) History of COPD: Status: Chronic Code(s): Z87.09 - Personal history of other diseases of the respiratory system Plan The patient is a 68 y/o M was brought to ED by EMS for acute left-sided chest discomfort, localized, nonradiating 10/10 in intensity on and off for the whole day. Pain worse with deep breathing. Patient has chronic cough with increased severity and white clear mucus. History of smoking. #1. Spontaneous small left-sided pneumothoraces with associated chest discomfort, improving: [facility] Discussed with the surgeon.Chest CT scan and repeat chest x-ray from morning today reviewed. Shows stable 10% left apical pneumothorax. No pleural effusion, airspace opacification/consolidation. Chronic hyperinflation suggesting emphysema. Patient will need repeat chest x-ray tomorrow. No plan for surgical chest tube insertion. 08/28/2023: Repeat chest x-ray PA and lateral, the images individually reviewed with the surgeon. Small and stable left apical pneumothorax persistent. About 10% left apical pneumothorax. Patient is discharged with instruction for outpatient chest x-ray PA and lateral on 08/30/2023 and follow-up with surgeon Dr. Baker. #2. Incidental pulmonary nodule: CTPA with noted 3 mm right upper lobe nodule, will need follow-up outpatient CT reassessment. #3. Recent SBO, resolved: Patient with no recurrent symptoms of abdominal discomfort, distention, nausea or emesis and appropriate bowel movements as well as tolerating diet. Continue to closely monitor but appears completely resolved. Bowel sounds present. Passing flatus but no bowel movements for the last 2 days 08/27: Continue [id number]-[id number]-[id number] senna as and MiraLAX. Follow-up with surgery. #4. Anxiety and depression: We will continue patient home fluoxetine and bupropion regimen, encourage continued outpatient follow-up and assessment. #5. Hypertension: Continue home regimen including losartan, atenolol, amlodipine, PRN hydralazine. #6. Hyperlipidemia:continue patient on statin therapy. #7. Chronic headache/migraine: continue patient home topiramate regimen. #8. GALE: Not currently using PAP therapy, encourage continued outpatient follow-up to assure not necessary as patient notes he was told medically he did not need it any longer. #9. GERD: On Mylanta as needed #10. Former tobacco use: Encourage continued tobacco cessation. #11. Chronic COPD/asthma: Will maintain on continuous 2 L nasal cannula supplementation given acute presentation as noted #1 unless further increased oxygen requirement is necessary, maintain on ATC budesonide therapy, PRN albuterol, HOB, IS parameters. #12. DVT prophylaxis: SCDs, will defer chemoprophylaxis in case pneumothoraces worsens and intervention is necessary. #13. CODE STATUS: Full Code. Discharge medication reconciliation done. Discharge follow-up instructions completed. Discharge process discussed with the patient and all questions were answered to patient's satisfaction. Follow with PCP in 1 to 2 weeks Total time spent, exact 35 minutes on discharge meds reconciliation, examination, coordination of care with nurses and ancillary staff, review of imaging and blood test and discussion with the patient on follow-up instructions. Medications at Discharge Home Medications aspirin 81 mg tablet,delayed release 81 mg PO DAILY@0800 preventive 03/20/17 atenolol 50 mg tablet 50 mg PO DAILY bp 03/20/17 fluoxetine 20 mg capsule 20 mg PO DAILY mood 03/20/17 bupropion HCl 100 mg tablet,12 hr sustained-release 100 mg PO BID mood 10/13/18 atorvastatin 20 mg tablet 20 mg PO QHS cholestrol 09/11/19 losartan 100 mg tablet 100 mg PO DAILY bp #90 tabs 10/02/19 albuterol sulfate 90 mcg/actuation aerosol inhaler 2 puff inhalation Q4H PRN PRN Sob &/Or Wheezing #8.5 grams 10/14/22 amlodipine 5 mg tablet 5 mg PO DAILY blood pressure 12/22/22 topiramate 25 mg tablet 75 mg PO BID headaches 12/22/22 fluticasone fur. 200 mcg-umeclid 62.5 mcg-vilant 25 mcg inhalat.powder (Trelegy Ellipta) 1 inh inhalation DAILY breathing #60 ea 04/18/23 nitroglycerin 0.4 mg sublingual tablet 0.4 mg sublingual QDAY PRN chest pain 07/29/23 albuterol sulfate 2.5 mg/3 mL (0.083 %) solution for nebulization 2.5 mg inhalation Q8H PRN shortness of breath or wheezing 08/24/23 polyethylene glycol 3350 17 gram/dose oral powder (Miralax) 17 g PO DAILY 1 month #510 grams 08/28/23 sennosides 8.6 mg-docusate sodium 50 mg tablet (Stool Softener-Stimulant Laxative) 2 tab PO BID #0 tabs 08/28/23 Physical Exam Narrative Seen and examined. Patient passing flatus. Patient has history of COPD. Denies any increase in severity of cough, shortness of breath or fever. He wants to go home but is told that he has to stay. Last time admitted for bowel ileus. He had burrito after discharge. Had not bowel movement for 2-3 days though passing flatus. Physical exam General: Alert, Oriented x3, Cooperative HEENT: Atraumatic, PERRLA, EOMI, Normocephalic Oral: No Gingival or Mucosal Lesions/ Ulcerations Neck: Supple, No JVD, Negative Carotid Bruits Chest wall/Lungs: Air entry diminished diffusely in all lungs [place]. No crepitation/rhonchi Cardiovascular: Regular rate, Regular Rhythm, Normal S1, Normal S2, No M/G/R Abdomen: Bowel Sounds Present, Soft, Non Tender, Non-Distended : No dysuria. No renal angle tenderness. No suprapubic tenderness. Extremities: No edema, Capillary Refill Less than 3 Seconds Skin: No rashes, No breakdown Musculoskeletal: No Tenderness to Palpation of Joints or Extremities Neurological: Cranial nerves II-XII grossly intact, DTR 2+/4. No acute focal neurological deficit. Psych/Mental Status: Normal Affect, Appropriate. Weight / BMI Weight Weight: 152 lb 12.485 oz Body Mass Index (BMI) 23.2 ABG / Lab / Microbiology Data 08/27/23 05:37 08/27/23 05:37 Radiography Diagnostic Testing: Radiology Impression Chest X-Ray 08/28/23 08:04 IMPRESSION: Stable small left apical pneumothorax. Emphysema. Electronically Signed: Jenny Murphy MD at 9:05 EDT , D/C Instructions Discharge Diet: No restrictions Weight Bearing Status: Weight bearing as tolerated Call your doctor if you observe: Fever of 101 or Higher, Coldness, Increased Pain, Numbness or Tingling, Change in Color, Inability to urinate, Inability to have a bowel movement, Shortness of breath, Dizziness, Fainting spells, Swelling in the ankles, Chest pain, Prolonged hiccupping, Increased palpitations (irregular heartbeat) and Calf discomfort When: IN 2 WEEKS Meaningful Use Info Meaningful Use Meaningful Use Diagnoses (Choose all that apply): None applicable Ischemic Stroke Statin Dosing Therapy Reference: STATIN DOSE THERAPY REFERENCE: * Patients > 75 years receive moderate or high dose statin therapy. * Patients 75 years or YOUNGER should receive HIGH intensity statin dose unless contraindicated. You will be required to document reason for non-treatment if statin daily dose does not meet guidelines. HIGH DOSE STATIN THERAPY DAILY Atorvastatin > than or = to 40 mg Rosuvastatin > than or = to 20 mg Amlodipine + Atorvastatin > than or = to 2.5/40 mg Ezetimibe + Simvastatin 10/80 mg Simvastatin 80mg Discharge Plan Admission Admit Date/Time: 08/27/23 02:44 Primary Reason for Your Visit: Small left apical pneumothorax Attending Provider: Paul Klein Primary Care Provider: Abiodun Grider Consulting Providers: Jen Baker; Gianna Martell Instructions Additional Instructions / Restrictions: Patient advised chest x-ray PA and lateral as an outpatient on 08/30/2023 and follow-up with surgery Dr. Baker Continue tntz-thc-ewocjio MiraLAX 17 g daily and senna S, 2 tablet twice daily Discharge Orders/Prescriptions Prescriptions: New sennosides-docusate sodium [Stool Softener-Stimulant Laxat] 8.6-50 mg Tablet 2 tab PO BID Qty: 0 0RF polyethylene glycol 3350 [Miralax] 17 gram/dose powder 17 g PO DAILY 30 Days Qty: 510 0RF Continued atorvastatin 20 mg tablet 20 mg PO QHS albuterol sulfate 90 mcg/actuation HFA aerosol inhaler 2 puff inhalation Q4H PRN PRN (Reason: Sob &/Or Wheezing) Qty: 8.5 11RF Trelegy Ellipta 200-62.5-25 mcg blister with device 1 inh inhalation DAILY Qty: 60 6RF topiramate 25 mg tablet 75 mg PO BID amlodipine 5 mg tablet 5 mg PO DAILY Patient Comments: TAKE 1 TABLET BY MOUTHgONCE DAILY nitroglycerin 0.4 mg tablet, sublingual 0.4 mg sublingual QDAY PRN (Reason: chest pain) aspirin 81 MG tablet 81 mg PO DAILY@0800 fluoxetine 20 MG capsule 20 mg PO DAILY Patient Comments: TAKE ONE (1) CAPSULE BY MOUTH ONCE DAILY atenolol 50 MG tablet 50 mg PO DAILY Patient Comments: TAKE 1 TABLET BY MOUTH ONCE DAILY. bupropion HCl 100 MG tablet sustained-release 12 hr 100 mg PO BID Patient Comments: TAKE ONE (1) TABLET BY MOUTH TWICE DAILY albuterol sulfate 2.5 mg /3 mL (0.083 %) solution for nebulization 2.5 mg inhalation Q8H PRN (Reason: shortness of breath or wheezing) losartan 100 mg tablet 100 mg PO DAILY Qty: 90 6RF Other Ambulatory Orders: Chest PA and Lateral (Routine) Timeframe: [id number] Facility: [facility] - Location: [facility] Ordered By: Dr. Jen Baker Referrals / Follow Up: Abiodun Grider MD [Primary Care Provider] - Within 2 Weeks Jen Baker MD [Med Staff - Active Staff] - Within 1 Week (Follow-up chest x-ray on 08/30/2023 for small left apical pneumothorax) Disposition Disposition (needs filled in before D/C Order can be placed): Home, Self Care Charges/Coding Visit Charges Inpatient E&M: 51575 Disch Hosp >30min
[2023-08-28] MEDS: Senna/Docusate Sodium 1 Tablet 2 TABLET PO (10:57)
== END 2023-08-28 11:38 | disposition home or self-care (01) ==
LOC: ED 01:14 → MS3 03:07
PROVIDERS: Admitting Provider Family Medicine; Emergency Provider Emergency Medicine; PCP Family Medicine; Visit Provider Internal Medicine
DX: J93.9 Pneumothorax, unspecified (principal); J43.9 Emphysema, unspecified; Z87.891 Personal history of nicotine dependence; Z79.51 Long term (current) use of inhaled steroids; I25.10 Atherosclerotic heart disease of native coronary artery without angina pectoris; I49.3 Ventricular premature depolarization; E78.5 Hyperlipidemia, unspecified; I10 Essential (primary) hypertension; Z79.899 Other long term (current) drug therapy; G47.33 Obstructive sleep apnea (adult) (pediatric); Z79.82 Long term (current) use of aspirin; R91.8 Other nonspecific abnormal finding of lung field; F41.9 Anxiety disorder, unspecified; F32.A Depression, unspecified; G43.909 Migraine, unspecified, not intractable, without status migrainosus
CPT/HCPCS: 36415; 71045; 71046; 71275; 80048; 80053; 84484; 85025; 85379; 93005; 94640; 94668; 96374; 96375; 99221; 99285; 99406; Q9967; A4216; G0378; J2405

== ENCOUNTER → 2023-08-30 | Outpatient (CLI) | payer MEDICARE, MEDICAID, SELFPAY ==
--- NOTE | 2023-08-30 07:50 | RAD_ITS ---
HISTORY: Left pneumothorax. TECHNIQUE: XR Chest 2 Views. COMPARISON: 08/28/2023. FINDINGS: CARDIOMEDIASTINAL BORDERS: Cardiac silhouette within normal limits in size. Mediastinal contour unremarkable with calcification of the aortic knob. LUNGS: Hyperinflation, suggesting COPD. Chronic calcified granuloma in the left midlung. PLEURA: Decreased size of mild left apical pneumothorax. Unchanged mild left pleural effusion. OSSEOUS STRUCTURES: Surgical anchor in the right humeral head. Chronic bilateral rib fractures. UPPER ABDOMEN: Right upper quadrant surgical clips. Borderline dilated small bowel loops in the upper abdomen again seen. RAD/Chest PA and Lateral IMPRESSION: Decreased size of mild left apical pneumothorax. Unchanged mild left pleural effusion. Borderline dilated small bowel loops again seen, which may represent ileus. Electronically Signed: Shalini Fried MD at 8:59 EDT ,
== END | disposition home or self-care (01) ==
LOC: RAD 07:44
PROVIDERS: PCP Family Medicine; Referring Provider Surgery; Visit Provider Surgery
DX: J93.9 Pneumothorax, unspecified (principal)
CPT/HCPCS: 71046

== ENCOUNTER 2023-08-31 07:32 | Day surgery (SDC) | payer MEDICARE, MEDICAID, SELFPAY ==
[2023-08-31 08:11] VITALS: BP 117/76; PULSE 105; RESP 16; TEMP 36.8; O2SAT 95; BMI 23.4
[2023-08-31] MEDS: Lactated Ringers 1,000 ML 15 ML IV (08:14)
--- NOTE | 2023-08-31 09:00 | COLBX_PTH ---
PATIENT: EDILIA SPARKS LOC: EN U#:[id number] AGE/SX: 68/M ROOM: RE08/31/[address]: Dr. Ant Jessica DO : 1955 BED: DIS: 08/31/2023 SPEC #: [id number] RECD: 08/31/23 12:39 STATUS: SARA SANDRITA #: [id number] ROSSANA: 08/31/23 09:[address]: Ant Jessica DEPT: SURGICAL PATHOLOGY RECD BY: Cecile White ENTERED: 08/31/23 12:53 SP TYPE: COLON BX PAULA DR: Dr. Abiodun Grider MD Tissues: A - COLON BIOPSY B - Transverse colon C - Transverse colon D - Sigmoid colon biopsy Procedures: Surgery Specimen Level IV HEADER OPERATION: Colonoscopy, polypectomy PRE-OP DIAGNOSIS: Screening colonoscopy TISSUE SUBMITTED: A- Splenic flexure polyp, B- Transverse colon polyp, C- Transverse colon polyp #2, D. Sigmoid colon polyp MICROSCOPIC DIAGNOSIS A. Colonic polyp at splenic flexure, biopsy: Tubular adenoma. B. Transverse colon polyp, biopsy: Tubular adenoma. C . Transverse colon polyp #2, biopsy: Tubular adenoma. D. Sigmoid colon polyp, biopsy: Fragments of tubular adenoma. / 09/01/2023 MICROSCOPIC DESCRIPTION Slides are reviewed. GROSS DESCRIPTION A. Received in fixative is one container labeled with the patient's name and designated Splenic flexure polyp. The specimen consists of one irregular fragment of light haynes soft tissue that measures 0.3 x 0.3 x 0.1 cm. The specimen is totally submitted in one cassette. B. Received in fixative is one container labeled with the patient's name and designated Transverse colon polyp. The specimen consists of multiple irregular fragments of light haynes soft tissue that in aggregate measure 0.6 x 0.3 x 0.1 cm. The specimen is totally submitted in one cassette. C. Received in fixative is one container labeled with the patient's name and designated Transverse colon polyp #2. The specimen consists of one irregular fragment of light haynes soft tissue that measures 0.3 x 0.3 x 0.1 cm. The specimen is totally submitted in one cassette. D. Received in fixative is one container labeled with the patient's name and designated Sigmoid colon polyp. The specimen consists of multiple irregular fragments of light haynes soft tissue that in aggregate measure 1.0 x 0.2 x 0.1 cm. The specimen is totally submitted in one cassette. / 08/31/2023 TC:5 CPT:46583i7
[2023-08-31 09:47] VITALS: BP 117/76; BP 84/52; PULSE 79; RESP 20; TEMP 36.5; O2SAT 97
[2023-08-31 09:50] VITALS: BP 117/76; BP 81/52; PULSE 88; RESP 20; O2SAT 92
[2023-08-31 09:55] VITALS: BP 117/76; BP 99/66; PULSE 91; RESP 20; O2SAT 96
--- NOTE | 2023-08-31 09:59 | OP.CCLET_ITS ---
08/31/2023 Abiodun Grider MD [address] [place] [address] Re : Colonoscopy procedure for Feng Norton Dear Dr. Grider This procedure was performed on Thursday, August 31, 2023. My impressions and recommendations are as follows: Impressions : - Diverticulosis in the recto-sigmoid colon and in the sigmoid colon. - Four 1 to 2 mm polyps in the sigmoid colon, at the splenic flexure and in the transverse colon, removed with a cold snare. Resected and retrieved. Recommendations : - Repeat colonoscopy in 5 years for surveillance. - Continue present medications. My findings are described in the full procedure note, which is enclosed. If I can be of further assistance, please feel free to contact me at . Sincerely, Ant Jessica, 08/31/2023 9:59:04 AM This report has been signed electronically.
--- NOTE | 2023-08-31 09:59 | OP.COLON_ITS ---
Patient Name: Feng Norton Procedure Date: 08/31/2023 9:19 AM Date of : 1955 Age: 68 Procedure: Colonoscopy Indications: Screening for colorectal malignant neoplasm Providers: Ant Jessica DO Medicines: Monitored Anesthesia Care Patient Profile: This is a 68 year old male. Refer to note in patient chart for documentation of history and physical. Last Colonoscopy: 5 years ago. Complications: No immediate complications. Procedure: Pre-Anesthesia Assessment: - Prior to the procedure, a History and Physical was performed, and patient medications and allergies were reviewed. The patient is competent. The risks and benefits of the procedure and the sedation options and risks were discussed with the patient. All questions were answered and informed consent was obtained. Patient identification and proposed procedure were verified by the physician in the pre-procedure area. Mental Status Examination: alert and oriented. Airway Examination: normal oropharyngeal airway and neck mobility. Respiratory Examination: clear to auscultation. CV Examination: normal. Prophylactic Antibiotics: The patient does not require prophylactic antibiotics. Prior Anticoagulants: The patient has taken no anticoagulant or antiplatelet agents. ASA Grade Assessment: II - A patient with mild systemic disease. After reviewing the risks and benefits, the patient was deemed in satisfactory condition to undergo the procedure. The anesthesia plan was to use monitored anesthesia care (MAC). Immediately prior to administration of medications, the patient was re-assessed for adequacy to receive sedatives. The heart rate, respiratory rate, oxygen saturations, blood pressure, adequacy of pulmonary ventilation, and response to care were monitored throughout the procedure. The physical status of the patient was re-assessed after the procedure. After I obtained informed consent, the scope was passed under direct vision. Throughout the procedure, the patient's blood pressure, pulse, and oxygen saturations were monitored continuously. The Colonoscope was introduced through the anus and advanced to the cecum, identified by appendiceal orifice and ileocecal valve. The colonoscopy was performed without difficulty. The patient tolerated the procedure well. The quality of the bowel preparation was adequate. Scope In: 9:27:29 AM Scope Withdrawal Time 0 hours 8 minutes 3 seconds Scope Out: 9:40:49 AM Total Procedure Duration Time 0 hours 13 minutes 20 seconds Findings: The perianal and digital rectal examinations were normal. A few small and large-mouthed diverticula were found in the recto-sigmoid colon and sigmoid colon. Four sessile polyps were found in the sigmoid colon, splenic flexure and transverse colon. The polyps were 1 to 2 mm in size. These polyps were removed with a cold snare. Resection and retrieval were complete. Verification of patient identification for the specimen was done. Estimated blood loss was minimal. Impression: - Diverticulosis in the recto-sigmoid colon and in the sigmoid colon. - Four 1 to 2 mm polyps in the sigmoid colon, at the splenic flexure and in the transverse colon, removed with a cold snare. Resected and retrieved. Recommendation: - Repeat colonoscopy in 5 years for surveillance. - Continue present medications. Procedure Code(s): --- Professional --- 68314, Colonoscopy, flexible; with removal of tumor(s), polyp(s), or other lesion(s) by snare technique CPT copyright 2021 [employer]. All rights reserved. The codes documented in this report are preliminary and upon gambling dealer review may be revised to meet current compliance requirements. Ant Jessica DO 08/31/2023 9:59:04 AM This report has been signed electronically. Number of Addenda: 0 Note Initiated On: 08/31/2023 9:19 AM
--- NOTE | 2023-08-31 10:00 | HP.PCM_ITS ---
HPI - General General Date of Admission: 08/31/23 Date of Service: 08/31/23 Chief Complaint: Screening colonoscopy HPI Narrative EDILIA SPARKS, is a 68 M who presents with a history of small bowel obstruction, thrombocytopenia, sleep apnea, COPD who arrives here for screening colonoscopy. He does not have any abdominal pain. He is not of any cramping. He denies any chest pain or shortness of breath. He is not have any weakness. Overall he is in very good health. [facility] Medical History Wears hearing aid Wears glasses Arthritis Former smoker BiPAP (biphasic positive airway pressure) dependence Sleep apnea Emphysema, unspecified Asthma Shortness of breath on exertion Leg cramps History of stress test Cardiology follow-up encounter Hypertension Personal history of colonic polyps SBO (small bowel obstruction) Nicotine dependence Nonsustained paroxysmal supraventricular tachycardia Atherosclerosis of coronary artery of [place] heart without angina pectoris GALE on CPAP Hyperlipidemia (Unknown) Essential hypertension GERD (gastroesophageal reflux disease) Depression COPD (chronic obstructive pulmonary disease) Home Medications ?Medication ?Instructions ?Recorded ?Last Taken ?Type aspirin 81 mg tablet,delayed 81 mg PO DAILY@0800 preventive 03/20/17 08/27/23 History release atenolol 50 mg tablet 50 mg PO DAILY bp 03/20/17 10/30/18 06:30 History fluoxetine 20 mg capsule 20 mg PO DAILY mood 03/20/17 10/13/18 History bupropion HCl 100 mg tablet,12 hr 100 mg PO BID mood 10/13/18 10/13/18 History sustained-release atorvastatin 20 mg tablet 20 mg PO QHS cholestrol 09/11/19 Unknown History losartan 100 mg tablet 100 mg PO DAILY bp #90 tabs 10/02/19 Unknown Rx albuterol sulfate 90 mcg/actuation 2 puff inhalation Q4H PRN PRN Sob 10/14/22 Unknown Rx aerosol inhaler &/Or Wheezing #8.5 grams amlodipine 5 mg tablet 5 mg PO DAILY blood pressure 12/22/22 Unknown History topiramate 25 mg tablet 75 mg PO BID headaches 12/22/22 Unknown History fluticasone fur. 200 mcg-umeclid 1 inh inhalation DAILY breathing 04/18/23 Unknown Rx 62.5 mcg-vilant 25 mcg #60 ea inhalat.powder (Trelegy Ellipta) nitroglycerin 0.4 mg sublingual 0.4 mg sublingual QDAY PRN chest 07/29/23 Unknown History tablet pain albuterol sulfate 2.5 mg/3 mL 2.5 mg inhalation Q8H PRN 08/24/23 Unknown History (0.083 %) solution for nebulization shortness of breath or wheezing polyethylene glycol 3350 17 17 g PO DAILY 1 month #510 grams 08/28/23 Unknown Rx gram/dose oral powder (Miralax) sennosides 8.6 mg-docusate sodium 2 tab PO BID #0 tabs 08/28/23 Unknown Rx 50 mg tablet (Stool Softener-Stimulant Laxative) Allergy/AdvReac Type Severity Reaction Status Date / Time lisinopril AdvReac Intermediate cough Verified 08/31/23 08:10 Family History Mother Diabetes Father Cancer prostate Sister Diabetes Surgical History History of esophagogastroduodenoscopy (EGD) Hx of cholecystectomy History of skin graft History of rotator cuff surgery History of colonoscopy with polypectomy Social History (Updated 08/27/23 @ 03:[address] Gianna Martell MD) household members: spouse Smoking Status: Former smoker how long ago did patient quit smokin alcohol intake: never substance use type: does not use caffeine: Yes what type of physical activity do you participate in: none frequency: does not exercise ROS ROS Narrative Admission Review of Systems: CONSTITUTIONAL: No weight loss, fever, chills, + weakness or fatigue. HEENT: Eyes: No visual loss, blurred vision, double vision or yellow sclerae. Ears, Nose, Throat: No hearing loss, sneezing, congestion, runny nose or sore throat. SKIN: No rash or itching, lesions, wounds. CARDIOVASCULAR: chest pain. No+ palpitations, edema, orthopnea, syncopal events. RESPIRATORY: + Dyspnea, increased cough. No markedly productive sputum, wheezing, hemoptysis. GASTROINTESTINAL: No anorexia, nausea, vomiting or diarrhea, abdominal pain, melena, BRBPR. GENITOURINARY: No dysuria, frequency, urgency or retention. NEUROLOGICAL: No headache, dizziness, syncope, paralysis, ataxia, numbness or tingling in the extremities, focal weakness, change in bowel or bladder control, seizure. MUSCULOSKELETAL: + muscle, back pain, joint pain or stiffness. HEMATOLOGIC: No anemia. + Easy bleeding/bruising. LYMPHATICS: No enlarged nodes. No history of splenectomy. PSYCHIATRIC: + History of anxiety and depression. ENDOCRINOLOGIC: No reports of sweating, cold or heat intolerance. No polyuria or polydipsia. ALLERGIES: + History of asthma. Vital Signs Vital Signs Vital Signs: 08/31/23 08:11 08/31/23 08:11 08/31/23 09:47 Temperature 98.3 F 97.7 F L Temperature Source Temporal Temporal Pulse Rate 105 H 79 Respiratory Rate 16 20 H Respiratory Pattern Normal Tachypnea Blood Pressure 117/76 84/52 L Blood Pressure Mean 89 62 Blood Pressure Source Monitor Monitor Blood Pressure Position Semi-Fowlers Left Lateral Blood Pressure Location Left Arm Right Arm Baseline BP 117/76 Pulse Ox 95 97 Oxygen Delivery Method Room Air Room Air 08/31/23 09:50 Temperature Temperature Source Pulse Rate 88 Respiratory Rate 20 H Respiratory Pattern Blood Pressure 81/52 L Blood Pressure Mean 61 Blood Pressure Source Monitor Blood Pressure Position Left Lateral Blood Pressure Location Right Arm Baseline BP 117/76 Pulse Ox 92 Oxygen Delivery Method Room Air Weight Weight: 154 lb 5.177 oz Body Mass Index (BMI) 23.4 Physical Exam Const alert, oriented x3, no apparent distress, healthy appearing and well nourished General Appearance: cooperative, comfortable, well kempt and well developed Orientation / Consciousness: awake and oriented to person HEENT Head and Scalp: normocephalic and atraumatic Face and Sinus: normal facial exam Mouth: oral and palatal mucosa normal Eyes General Eye: normal appearance of both eyes Neck full ROM Lymph Lymphatic: no lymphadenopathy noted Chest inspection of chest normal Resp normal respiratory effort and no use of accessory muscles Cardio regular rate and regular rhythm GI normal to inspection, nondistended, normoactive bowel sounds, soft to palpation, non-tender, non-distended and no masses Auscultation: normoactive bowel sounds Palpation: soft Percussion: normal to percussion Rectal Exam: visual inspection normal and normal sphincter tone no CVA tenderness Back/Spine no CVA tenderness and normal ROM Extremity normal to inspection Peripheral Pulses: Yes pulses 2+ throughout Skin no rashes or lesions noted General Skin Exam: no breakdown, elasticity normal and turgor normal Neuro oriented x3 Motor Exam: strength 5/5 throughout Psych mental status grossly normal Appearance: grossly normal Attitude: calm Activity / Motor Behavior: appropriate eye contact Speech: normal speech Thought Process: normal thought process Thought Content: normal thought content Attention / Concentration: attention grossly intact Memory / Cognition: memory grossly intact Insight: insight good Judgement: judgement good Assessment & Plan Assessment/Plan (1) Encounter for screening for malignant neoplasm of colon: PLAN: He was explained alternatives including not withstanding bleeding, infection, sepsis, perforation, need for emergent surgery and . He will have an ASA of 3.
[2023-08-31 10:01] VITALS: BP 105/73; BP 117/76; PULSE 90; RESP 20; TEMP 36.8; O2SAT 96
[2023-08-31 10:14] VITALS: BP 117/76
== END 2023-08-31 10:36 | disposition home or self-care (01) ==
LOC: EN 07:32 → AC 07:33
PROVIDERS: PCP Family Medicine; Referring Provider Family Medicine; Visit Provider Internal Medicine Gastroenterology
PROC: 0DJD8ZZ Inspection of Lower Intestinal Tract, Via Natural or Artificial Opening Endoscopic (ICD-10-PCS; CPT 45378; principal; 2023-08-31 08:55)
DX: Z12.11 Encounter for screening for malignant neoplasm of colon (principal); J43.9 Emphysema, unspecified; K57.30 Diverticulosis of large intestine without perforation or abscess without bleeding; I25.10 Atherosclerotic heart disease of native coronary artery without angina pectoris; E78.5 Hyperlipidemia, unspecified; I10 Essential (primary) hypertension; Z79.51 Long term (current) use of inhaled steroids; Z87.891 Personal history of nicotine dependence; D69.6 Thrombocytopenia, unspecified; K21.9 Gastro-esophageal reflux disease without esophagitis; Z79.82 Long term (current) use of aspirin; D12.3 Benign neoplasm of transverse colon; D12.5 Benign neoplasm of sigmoid colon; Z79.899 Other long term (current) drug therapy
CPT/HCPCS: 45385; 88305; J7120; J2405

== ENCOUNTER → 2023-09-02 | Outpatient (CLI) | payer MEDICARE, MEDICAID, SELFPAY | END | disposition home or self-care (01) | LOC: PSN 08:50 | PROVIDERS: PCP Family Medicine; Referring Provider Nurse Practitioner Acute Care; Visit Provider Nurse Practitioner Acute Care | DX: J44.9 Chronic obstructive pulmonary disease, unspecified (principal) | CPT/HCPCS: 94060; 94726; 94729 ==

== ENCOUNTER → 2023-09-05 | Outpatient (CLI) | payer MEDICARE, MEDICAID, SELFPAY ==
[2023-09-05 11:45] VITALS: PULSE 111; PULSE 113; PULSE 118; PULSE 119; PULSE 122; PULSE 123; PULSE 125; O2SAT 92; O2SAT 93; O2SAT 94; O2SAT 95
--- NOTE | 2023-09-08 10:38 | PCM.PSN.6M ---
PSN 6 Minute Walk Test 6 Minute Walk Test 6 Minute Walk Test: 6 Minute Walk Test PSN:6-Minute Walk Test Start: 09/05/23 11:55 Freq: Status: Active Protocol: [id number].6MINW Document 09/05/23 11:45 [facility] (Rec: 09/05/23 11:59 [facility] [id number]) 6 Minute Walk Test Date Performed 09/05/23 Time Performed 11:45 Height 5 ft 8 in Weight: 158 lb Weight in Pounds 158.[address]: Angi Assistive device used: None Pre-test Oxygen Delivery Method Room Air Pulse Ox (%) 92 Pulse Rate (60-100 beats/min) 111 H Dyspnea Kimberly Scale (0-10) 0 Exertion Kimberly Scale (6-20) 6 1st minute Oxygen Delivery Method Room Air Pulse Ox (%) 94 Pulse Rate (60-100 beats/min) 118 H 2nd minute Oxygen Delivery Method Room Air Pulse Ox (%) 93 Pulse Rate (60-100 beats/min) 119 H 3rd minute Oxygen Delivery Method Room Air Pulse Ox (%) 93 Pulse Rate (60-100 beats/min) 122 H 4th minute Oxygen Delivery Method Room Air Pulse Ox (%) 93 Pulse Rate (60-100 beats/min) 123 H 5th minute Oxygen Delivery Method Room Air Pulse Ox (%) 93 Pulse Rate (60-100 beats/min) 122 H 6th minute Oxygen Delivery Method Room Air Pulse Ox (%) 95 Pulse Rate (60-100 beats/min) 125 H Dyspnea Kimberly Scale (0-10) 2 Exertion Kimberly Scale (6-20) 8 Post-test Oxygen Delivery Method Room Air Pulse Ox (%) 95 Pulse Rate (60-100 beats/min) 113 H Full Laps Walked 16 Partial Lap, Number of Tiles Walked 0 Total Distance Walked (ft) 944 Interpretation Interpretation: The patient ambulated 944 feet over the course of 6 minutes beginning on room air without assistive devices. Pretesting oxygen saturation was noted to be 92% on room air. With ambulation, the clare oxygen saturation was 93%. There was no significant exertional oxygen desaturation. Recommendations Recommendations: There is no indication for the use of supplemental oxygen at this time.
== END | disposition home or self-care (01) ==
LOC: PSN 11:36
PROVIDERS: PCP Family Medicine; Referring Provider Nurse Practitioner Acute Care; Visit Provider Nurse Practitioner Acute Care
DX: J44.9 Chronic obstructive pulmonary disease, unspecified (principal)
CPT/HCPCS: 94618

== ENCOUNTER → 2024-01-19 | Outpatient (CLI) | payer MEDICARE, MEDICAID, SELFPAY ==
--- NOTE | 2024-01-19 07:36 | CT_ITS ---
STUDY: LOW DOSE CT LUNG CANCER SCREENING REASON FOR EXAM: Male, 68 years old. smoker, quit 2021 RADIATION DOSAGE (If Supplied By Facility): CTDIvol = ( 2.01 ) mGy, DLP = ( 72.98 ) mGycm TECHNIQUE: No contrast was administered. Low dose technique was utilized (average mAS-38 and kVp 120). 1.25 mm axial source images with a slice interval of 1.25-mm were reconstructed in lung windows. 2.5 mm axial source images with a slice interval of 2.5-mm were reconstructed in lung windows. 5.0 mm axial source images with a slice interval of 5.0-mm were reconstructed in soft tissue windows. Nodule measured using lung windows on PACS and/or independent workstation with automated measurement of minimum and maximum diameter. Nodule measurement reported as average diameter rounded to the nearest whole number. Growth is defined as an increase ins size of greater than 1.5 mm. COMPARISON: CT lung cancer screening study dated January 17, 2023. FINDINGS: Total lung nodules (excluding granulomas): Stable 4.2 mm smooth ovoid nodule in the lateral aspect of the right middle lobe seen on image 157/265 series 2 unchanged since December 30, 2020 when it was seen on image 1 64-70 series 2 and is benign postinflammatory or noncalcified granuloma. No additional nodules are present in either lung. No masses or spiculated lesions are present. Lobular small calcified granuloma in the anterior aspect of the left lower lobe. Small calcified granuloma in the central aspect of the right upper lobe see image 67/265. Emphysema: Moderate diffuse bilaterally and hyperinflated. Endobronchial lesion: None. Normal trachea and mainstem bilateral bronchi. Aorta: No aneurysmal dilatation Coronary arteries: Redemonstration of moderate LAD calcifications There are interstitial fibrotic changes of the lungs. There is no demonstrated pleural abnormality. Normal heart size and pericardium. Normal mediastinum. Normal hilar regions. Normal unenhanced pulmonary arteries. There is atherosclerotic calcification of the aortic arch with tortuosity and elongation of the aortic arch and descending thoracic aorta. There are multi-level degenerative changes of the thoracic spine. CT/Low Dose CT Lung Screening IMPRESSION: 1. COPD/emphysema 2. Stable 4.2 mm smooth ovoid nodule in the lateral aspect of the right middle lobe seen on image 157/265 series 2 unchanged since December 30, 2020 when it was seen on image 1 64-70 series 2 and is benign postinflammatory or noncalcified granuloma. No additional nodules are present in either lung. No masses or spiculated lesions are present. 3. Lung-RADS category 2 - Continue annual screening with LDCT in 12 months. IMPORTANT NOTES FOR USE: ACR Lung-RADS Version 1.0 Assessment Categories Release Date: 2021 Classification system Category 0 (Incomplete)- prior CT studies were performed but are not available, lungs incompletely imaged, findings suggest inflammation or infection Category 1 (negative, <1% chance of malignancy) (no lung nodules/lung nodule(s) with specific findings favoring benign nodule(s)) Category 2 (benign appearance or behavior, <1% chance of malignancy) juxtapleural nodule <10mm mean diameter at baseline OR new and smooth, solid, oval, lentiform, or triangular Category 3 nodules that are stable or decreased at 6 months Category 3 (probably benign, 1-2% chance of malignancy) solid nodule(s)(between 6 and 8 mm at baseline; new nodule between 4 mm and 6 mm) Category 4A lesion, stable or decreased in size at 3-month follow-up (excluding airway nodules) Category 4A (suspicious, 5-15% chance of malignancy) (version 1.1 change previously suspicious) solid nodule(s) (?8 mm to <15 mm at baseline or growing nodule(s) <8 mm) Category 4B (very suspicious, >15% chance of malignancy) stable or growing airway nodule, segmental or more proximal (solid nodule(s) ? 15 mm at baseline or new or growing, and ?8 mm) Category 4X (very suspicious, >15% chance of malignancy) category 3 or 4 nodules with additional features or imaging findings that increase the suspicion of malignancy Modified categories [X]S (e.g. 3S ) if there is a clinically significant or potentially significant non-lung cancer finding Electronically Signed: Jhon Drummond MD at 10:26 EDT ,
--- OUTSIDE RECORDS SUMMARY | 2024-01-19 07:38 | XMS RPT_ITS | CCD ---
Author Organization [facility] Care Team Providers Care Vibratory Pile Driver Name Role Phone ROBERTHILLARY PALOMARESNETH E Unavailable Unavailable ROBERT BRENDEN E Unavailable Unavailable AUDREY, JAYRAM Unavailable Unavailable MARIA DEL ROSARIO GEORGE Unavailable Unavailabl e ROBERT, BRENDEN Unavailable Unavailable ROBERT, BRENDEN Unavailable Unavailable Yale, Sage Unavailable Unavailable ROBERT, BRENDEN Unavailable Unavailable ROBERT, BRENDEN Unavailable Unavailable Daron, Sage Unavailable Unavailable AUDREY, JAYRAM Unavailable Unavailable [facility] Unavailable Unavailable [facility] Unavailable Unavailable Abiodun Nolasco MD Primary Care Provider [phone] Abiodun Nolasco MD Primary Care Provider ALEISHA LOVE Attending Unavailabl e LEAL, CHAY THACKER Admitting Unavailable ABIODUN NOLASCO Primary Care Unavailable LEAL, CHAY THACKER Admitting Unavailable ABIODUN NOLASCO Primary Care Unavailable ALEISHA LOVE Attending Unavailabl e LEAL, CHAY THACKER Attending Unavailable LEAL, CHAY THACKER Admitting Unavailable ABIODUN NOLASCO Primary Care Unavailable LEAL, CHAY THACKER Attending Unavailable LEAL, CHAY THACKER Admitting Unavailable ABIODUN NOLASCO Primary Care Unavailable Abiodun [...] Attending Unavailable LEAL, CHAY THACKER Attending Unavailable ABIODUN NOLASCO Primary Care Unavailable Abiodun Nolasco MD Primary Care Provider [phone] ABIODUN NOLASCO Primary Care Unavailable LITTLE LOGAN Attending Unavailable ABIODUN NOLASCO Primary Care Unavailable VASYL MONZON Attending Unavailable ABIODUN NOLASCO Referring Unavailable VASYL MONZON Attending Unavailable VASYL MONZON Attending Unavailable Allergies Allergy Classification Reported Allergen(s) Allergy Type Date of Onset Reaction(s) Facility (14 sources) lisinopril; Translations: [LISINOPRIL] Drug Allergy 12-14-2013 Cough [facility] Other [place] Repository Medications Current Medications Medication Drug Class(es) [...] bedtime. 6.6 mL 5 11/17/2022 11/16/2023 Active Comment on above: Apply to affected ar ea daily at bedtime. APPLY 1 APPLICATION TO AFFECTED AREA AT BEDTIME. custom prescription (e-prescribable) (6 sources) Start: 02-26-2015 custom prescription (e-prescribable) cpap mask. Sleep apnea 0 02/26/2015 Active fluticasone-umeclidi n-vilanter (Trelegy Ellipta) 200-62.5-25 mcg DsDv (6 sources) fluticasone-umec lid in-vilanter (Trelegy Ellipta) 200-62.5-25 mcg DsDv daily AM . 0 Active fluticasone-umec lidin-vilanter (Trelegy Ellipta) 200-62.5-25 mcg DsDv every night at bedtime . 0 Active 10 actuat tiotropium 0.0025 mg/actuat inhalation spray (6 sources) Anticholinergic tiotropium bromi de (Spiriva Respimat) 2.5 mcg/actuation Mist as needed . 0 Active tiotropium bromi de (Spiriva Respimat) 2.5 mcg/actuation Mist every night at bedtime . 0 Active urea 400 mg/ml topical cream (3 sources) Start: 11-17-2022 End: 05-16-2023 urea (CARMOL) 40 % Indicatio ns: Pain , Onychocryptosis , Onychomycosis , Pain in toe of left foot , Pain in toe of right foot , Tyloma Apply to affected area as needed. 198 g 4 11/17/2022 05/16/2023 Active Start: 07-21-2016 End: 11-17-2022 urea (CARMOL) 40 % crea APPL Y 1 APPLICATION TO AFFECTED AREA TWICE DAILY. 28.35 g 10 07/21/2016 11/17/2022 Discontinued Comment on above: Apply to affected ar ea as needed. APPLY 1 APPLICATION TO AFFECTED AREA TWICE DAILY. Completed/Discontinued Medications Medication Drug Class(es) Dates Sig (Normalized) Sig (Original) [id number] 200 actuat albuterol 0.09 mg/actuat metered dose inhaler (2 sources) beta2-Adrenergic Agonist Start: 02-07-2018 take 2 puff(s) by mouth every four hours as needed VENTOLIN HFA 90 mcg/actuation inhaler INHALE 2 (TWO) PUFFS BY MOUTH EVERY 4 HOURS NEEDED 18 g 10 02/07/2018 Active Comment on above: INHALE 2 (TWO) PUFFS BY MOUTH EVERY 4 HOURS NEEDED aspirin 81 mg delayed release oral tablet (10 sources) Platelet Aggregation Inhibitor, Nonsteroidal Anti-inflammatory Drug Start: 04-27-2017 take 1 tablet by mouth once daily aspirin, enteric coated (ASPIRIN, ENTERIC COATED) 81 mg EC tablet TAKE 1 TABLET BY MOUTH ONCE DAILY 30 tablet 11 03/03/2018 Active Comment on above: Take 1 tablet by kisha th once daily. TAKE 1 TABLET BY KISHA TH ONCE DAILY atenolol 50 mg oral tablet (2 sources) beta-Adrenergic Jess Start: 10-11-2017 take 1 tablet by mouth once daily atenolol (TENORMIN) 50 mg tablet TAKE 1 TABLET BY MOUTH ONCE DAILY. 90 tablet 3 10/11/2017 Active Comment on above: TAKE 1 TABLET BY KISHA TH ONCE DAILY. atorvastatin 40 mg oral tablet (8 sources) HMG-CoA Reductase Inhibitor Start: 01-09-2018 take 1 tablet by mouth once daily atorvastatin (LIPITOR) 40 mg tablet Indications: Mixed hyperlipidemia Take 1 tablet by mouth once daily. 30 tablet 11 01/09/2018 Active take 1 tablet by mouth once lanny y atorvastatin (LIPITOR) 20 MG tablet Take 1 (one) tablet (20 mg total) by mouth daily Morning . 0 Active Comment on above: Take 1 tablet by kisha th once daily. benzonatate 100 mg oral capsule (2 sources) Non-narcotic Antitussive Start: 7 take 1 capsule by mouth three times daily as needed for cough benzonatate (TESSALON PERLE) 100 mg capsule Indications: Bacterial sinusitis Take 1 capsule by mouth three times daily as needed for Cough. 30 capsule 0 02/04/2017 Active Comment on above: Take 1 capsule by mo [facility] three times daily as needed for Cough. clotrimazole 10 mg oral lozenge (2 sources) Azole Antifungal Start: 7 clotrimazole (MYCELEX) 10 mg sanjay Indications: Thrush Use 1 Sanjay as instructed five times daily. 50 Sanjay 0 02/14/2017 Active Comment on above: Use 1 Sanjay as inst ructed five times daily. COMPOUNDED PRESCRIPTION (4 sources) Start: 6 COMPOUNDED PRESCRIPTION cpap mask. Sleep apnea 1 Each 0 07/23/2015 Active Start: 02-26-2015 COMPOUNDED PRE SCRIPTION BiPAP @ 19/15 cm of water with humidification. Mask (per patient preference) optional chin strap (if indicated) , filters, tubing, humidifier and lifetime supplies. Dx. GALE 327.23 1 Device 0 02/26/2015 Active Comment on above: BiPAP @ 19/15 cm of water with humidification. Mask (per patient preference) optional chin strap (if indicated) , filters, tubing, humidifier and lifetime supplies. Dx. GALE 327.23 cpap mask. Sleep seed specialist ea cyclobenzaprine hydrochloride 10 mg oral tablet (2 sources) Muscle Relaxant Start: take 1 tablet by mouth three times daily as needed for muscle spasms cyclobenzaprine (FLEXERIL) 10 mg tablet TAKE ONE (1) TABLET BY MOUTH THREE TIMES DAILY NEEDED FOR MUSCLE SPASMS 30 tablet 5 12/12/2017 Active Comment on above: TAKE ONE (1) TABLET BY MOUTH THREE TIMES DAILY NEEDED FOR MUSCLE SPASMS doxycycline monohydrate 100 mg oral tablet (2 sources) Tetracycline-class Drug Start: take 1 tablet by mouth twice daily doxycycline monohydrate 100 mg tablet Indications: Bacterial sinusitis Take 1 tablet by mouth twice daily. 20 tablet 0 02/14/2017 Active Comment on above: Take 1 tablet by kisha twice daily. FLUoxetine 20 mg oral capsule (8 sources) Serotonin Reuptake Inhibitor Start: take 1 capsule by mouth once daily FLUoxetine (PROZAC) 20 mg capsule Take 1 capsule by mouth once daily. 30 capsule 3 04/14/2018 Active Comment on above: Take 1 capsule by mo [facility] [place] once daily. loratadine 10 mg oral tablet (2 sources) Start: take 1 tablet by mouth once daily loratadine (CLARITIN) 10 mg tablet TAKE 1 TABLET BY MOUTH ONCE DAILY. 30 tablet 12 01/11/2018 Active Comment on above: TAKE 1 TABLET BY KISHA ONCE DAILY. losartan potassium 50 mg oral tablet (8 sources) Angiotensin 2 Receptor Jess Start: take 1 tablet by mouth once daily losartan (COZAAR) 50 mg tablet Indications: Essential hypertension TAKE 1 TABLET BY MOUTH ONCE DAILY. 30 tablet 5 01/11/2018 Active take 1 tablet by mouth once lanny y losartan (COZAAR) 100 MG tablet Take 1 (one) tablet (100 mg total) by mouth daily morning . 0 Active Comment on above: TAKE 1 TABLET BY KISHA TH ONCE DAILY. meloxicam 15 mg oral tablet (2 sources) Nonsteroidal Anti-inflammatory Drug Start: take 1 tablet by mouth once daily meloxicam (MOBIC) 15 mg tablet Take 1 tablet by mouth once daily. 30 tablet 1 08/25/2016 Active Comment on above: Take 1 tablet by kisha th once daily. mometasone furoate 1 mg/ml topical cream (2 sources) Corticosteroid Start: mometasone (ELOCON) 0.1 % cream Indications: Dermatitis Apply 1 application to affected area once daily. 45 g 0 09/10/2016 Active Comment on above: Apply 1 application to affected area once daily. nitroglycerin 0.4 mg sublingual tablet (2 sources) Nitrate Vasodilator Start: nitroglycerin sublingual (NITROQUICK) 0.4 mg SL tablet Indications: Abnormal stress test Dissolve 1 tablet under the tongue every 5 minutes as needed for Chest Pain. 1 Bottle of 25 3 08/16/2018 Active Comment on above: Dissolve 1 tablet un golden the tongue every 5 minutes as needed for Chest Pain. omeprazole 20 mg delayed release oral capsule (2 sources) Proton Pump Inhibitor Start: take 1 capsule by mouth once daily omeprazole (PRILOSEC) 20 mg capsule TAKE ONE (1) CAPSULE BY MOUTH ONCE DAILY 30 capsule 5 12/12/2017 Active Comment on above: TAKE ONE (1) CAPSULE BY MOUTH ONCE DAILY terbinafine hydrochloride 10 mg/ml topical cream (2 sources) Allylamine Antifungal Start: terbinafine HCl (LAMISIL) 1 % cream APPLY 1 APPLICATION TO AFFECTED AREA EVERY NIGHT AT BEDTIME 30 g 10 10/14/2016 Active Comment on above: APPLY 1 APPLICATION TO AFFECTED AREA EVERY NIGHT AT BEDTIME traZODone hydrochloride 50 mg oral tablet (2 sources) Serotonin Reuptake Inhibitor Start: take 1 tablet by mouth at bedtime as needed traZODone (DESYREL) 50 mg tablet Indications: Insomnia, unspecified type Take 1 tablet by mouth at bedtime as needed (sedation). 30 tablet 1 06/30/2016 Active Comment on above: Take 1 tablet by kisha at bedtime as needed (sedation). 7 actuat umeclidinium 0.0625 mg/actuat dry powder inhaler (5 sources) Anticholinergic Start: take 1 puff(s) by mouth once daily INCRUSE ELLIPTA 62.5 mcg/actuation inhaler INHALE ONE (1) PUFF BY MOUTH DIRECTED ONCE DAILY *DO NOT CLICK OPEN UNTIL READY FOR DOSE* 1 Each 5 12/12/2017 Active Comment on above: INHALE ONE (1) PUFF BY MOUTH DIRECTED ONCE DAILY *DO NOT CLICK OPEN UNTIL READY FOR DOSE* Problems Active Problems Problem Classification Problem Date Documented Date Episodic/Chronic Cardiac dysrhythmias (4 sources) Supraventricular tachycardia; Translations: [Supraventricular tachycardia] Onset: 03-19-2016 03-19-2016 Chronic Chronic obstructive pulmonary disease and bronchiectasis (7 sources) Chronic obstructive lung disease; Translations: [Chronic obstructive pulmonary disease, unspecified] Onset: 10-26-2013 08-12-2021 Chronic Coronary atherosclerosis and other heart disease (1 source) Atherosclerotic heart disease of [place] coronary artery without angina pectoris; Translations: [Atherosclerotic heart disease of [place] coronary artery without angina pectoris] Onset: 04-27-2017 [...] Results Test Name Value Interpretation Reference Range Facility [facility] 11-24-2022 [facility] Telephone (PODIST) EDILIA NORTON ([id number]) 1955 [facility] Date Time Provider Department 11/24/22 LITTLE LOGAN During your visit today, we recorded the following information about you: Chelsy Argueta, MOOSE 11/24/2022 11:13 AM Signed LVM for patient to call the office. Urea Cream denied by insurance- not a covered medication. Can use Good Rx to get at lower cost. Nika Posey 11/26/2022 10:47 AM Signed Patient returning call from Dr. Logan's office. Didn't answer because he did not recognize number. He can be reached at [phone]. JOANNA Snider Susan, RN 11/26/2022 1:19 PM Signed LVM for patient to call the office. Please relay message below: Urea Cream denied by insurance- not a covered medication. Can use Good Rx to get at lower cost. Go online type in GoodRx, type in medication and can get a coupon, or stop by office and get one. Most pharmacies can help with this as well. Chelsy Argueta RN 12/01/2022 9:04 AM Signed LVM for patient to call the office. Please relay message below: Urea Cream denied by insurance- not a covered medication. Can use Good Rx to get at lower cost. Go online type in GoodRx, type in medication and can get a coupon, or stop by office and get one. Most pharmacies can help with this as well. Chelsy Argueta, MOOSE 12/02/2022 8:27 AM Signed Patient has not returned calls. Allergies As of Date: 11/24/2022 Noted Allergy Reaction LISINOPRIL 12/14/2013 3 - Cough Date Reviewed: 11/17/2022 Reviewed by: Brooke Potter OCCA - Fully Assessed Reason for Visit: Medication Problem [65] Prescriptions as of 12/02/2022 - urea (CARMOL) 40 % Apply to affected area as needed. - Ciclopirox (LOPROX) 8 % solution Apply to affected area daily at bedtime. - nitroglycerin sublingual (NITROQUICK) 0.4 mg SL tablet Dissolve 1 tablet under the tongue every 5 minutes as needed for Chest Pain. - FLUoxetine (PROZAC) 20 mg capsule Take 1 capsule by mouth once daily. - aspirin, enteric coated (ASPIRIN, ENTERIC COATED) 81 mg EC tablet TAKE 1 TABLET BY MOUTH ONCE DAILY - VENTOLIN HFA 90 mcg/actuation inhaler INHALE 2 (TWO) PUFFS BY MOUTH EVERY 4 HOURS NEEDED - losartan (COZAAR) 50 mg tablet TAKE 1 TABLET BY MOUTH ONCE DAILY. - loratadine (CLARITIN) 10 mg tablet TAKE 1 TABLET BY MOUTH ONCE DAILY. - atorvastatin (LIPITOR) 40 mg tablet Take 1 tablet by mouth once daily. - INCRUSE ELLIPTA 62.5 mcg/actuation inhaler INHALE ONE (1) PUFF BY MOUTH DIRECTED ONCE DAILY *DO NOT CLICK OPEN UNTIL READY FOR DOSE* - cyclobenzaprine (FLEXERIL) 10 mg tablet TAKE ONE (1) TABLET BY MOUTH THREE TIMES DAILY NEEDED FOR MUSCLE SPASMS - omeprazole (PRILOSEC) 20 mg capsule TAKE ONE (1) CAPSULE BY MOUTH ONCE DAILY - atenolol (TENORMIN) 50 mg tablet TAKE 1 TABLET BY MOUTH ONCE DAILY. - aspirin, enteric coated (ASPIRIN, ENTERIC COATED) 81 mg EC tablet Take 1 tablet by mouth once daily. - clotrimazole (MYCELEX) 10 mg sanjay Use 1 Sanjay as instructed five times daily. - doxycycline monohydrate 100 mg tablet Take 1 tablet by mouth twice daily. - benzonatate (TESSALON PERLE) 100 mg capsule Take 1 capsule by mouth three times daily as needed for Cough. - terbinafine HCl (LAMISIL) 1 % cream APPLY 1 APPLICATION TO AFFECTED AREA EVERY NIGHT AT BEDTIME - mometasone (ELOCON) 0.1 % cream Apply 1 application to affected area once daily. - meloxicam (MOBIC) 15 mg tablet Take 1 tablet by mouth once daily. - Ciclopirox (LOPROX) 8 % solution APPLY 1 APPLICATION TO AFFECTED AREA AT BEDTIME. - traZODone (DESYREL) 50 mg tablet Take 1 tablet by mouth at bedtime as needed (sedation). - COMPOUNDED PRESCRIPTION cpap mask. Sleep apnea - COMPOUNDED PRESCRIPTION BiPAP @ 19/15 cm of water with humidification. Mask (per patient preference) optional chin strap (if indicated) , filters, tubing, humidifier and lifetime supplies. Dx. GALE 327.23 Problem List As Of Date 11/24/2022 Noted Resolved Hyperlipidemia [E78.5] 12/24/2010 Obstructive sleep apnea AHI 9.2 per CMS criter*12/24/2010 Colon polyp [K63.5] 12/24/2010 DJD (degenerative joint disease) [M19.90] 03/30/2011 Abdominal muscle strain [S39.011A] 07/16/2011 05/13/2016 Diastasis of muscle [M62.00] 07/16/2011 Back pain [M54.9] 07/16/2011 05/13/2016 Depression [F32.A] 08/25/2011 Pain in joint, shoulder region [M25.519] 10/10/2012 05/13/2016 Right rotator cuff tear [M75.101] 11/20/2012 05/13/2016 COPD (chronic obstructive pulmonary disease) (H*10/26/2013 Sebaceous cyst [L72.3] 04/03/2014 05/13/2016 Skin lesion of scalp [L98.9] 04/13/2014 05/13/2016 Lipoma of unspecified site [D17.9] 04/13/2014 05/13/2016 Bloating [R14.0] 05/13/2016 Essential hypertension [I10] 12/05/2015 Thrombocytopenia (HCC) [D69.6] 12/05/2015 05/13/2016 Complete tear of right rotator cuff [M75.121] 02/02/2016 SVT (supraventricular tachycardia) ([facility]) [I47.1]03/19 (more content not included)... Normal [facility] CNOVon 11-17-2022 CNOV Office Visit (PODIMM ) EDILIA NORTON ([id number]) 1955 [place] [facility] Date Time Provider Department 11/17/22 2:40 PM LITTLE LOGAN PODIMM During your visit today, we recorded the following information about you: Little Logan DPM 11/17/2022 3:35 PM Signed Initial Podiatric Office Visit: Chief Complaint: This [...] 1 encounters. PCP: Abiodun Nolasco MD HBA1C, [place] Date Value Ref Range Status 03/31/2010 5.8 [...] has drank in 30 years, in younger (more content not included)... Normal [facility] CNOVon 11-22-2017 CNOV Office Visit (AKURFL) EDILIA NORTON ([id number]) 1955 [facility] Time Provider Department11/22/17 1:30 PM BRO PILLAI During your visit today, we recorded the following information about you: Blood pressure Weight Height 122/64 74.8 kg 1.727 Maximiliano Pillai DO, MBA 11/22/2017 2:29 PM SignedCYSTOSCOPY PROCEDURE NOTE:Edilia Norton is a 62 year old male who presents with hematuria gross forcystoscopy.Pt ID verified with patient: YesProcedure verified with patient: YesProcedure confirmed with physician and legal support manager: YesSign InHistory and Physical Exam reviewed and is unchanged. .Informed Consent Discussed: Yes. Risks, benefits, alternatives and personneldiscussed with patient who consents to proceed.Sign in Communication: CompletedTime Out: Team Confirms the Correct Patient, Correct Procedure; Cystoscopy,Correct Site and Site Marking, Correct Position (if applicable).Affirmation of Time Out: YesSign Out: Sign Out Discussion: CompletedPhysician: Bro Pillai DO, MBAA urinalysis was performed revealing no evidence of infection.The benefits, risks, alternatives of the cystoscopy procedure and personnelwere discussed with the patient. The verbal consent was obtained and thepatient agrees to proceed.Procedure: The patient was placed on the procedure table in the supine positionand prepped and draped in the usual sterile fashion. 2% Lidocaine Jelly wasplaced per urethra as an anesthetic in the standard fashion. Once adequatelocal anesthesia was achieved, the tip of the flexible cystoscope was carefullyplaced into the urethra under direct visual guidance. The scope was negotiatedthrough the pendulous urethra to the level of the bulbar urethra with noevidence of stricture. The verumontanum came into view and the scope wasnegotiated through the prostatic urethra which showed evidence of bi lobarocclusive disease. The bladder was entered and careful leija endoscopy wascarried out. The posterior, superior and lateral garcia and dome of the bladderwere all well visualized and the scope was retroflexed upon itself. Thefindings were consistent with no evidence of bladder mucosal pathology.At the conclusion of the procedure, the flexible cystoscope was removedatraumatically. The patient tolerated the procedure without complications.Patient was given standard post-procedure instructions, and was directed tocomplete the course of oral antibiotics and increase oral fluid intake asdirected.ASSESSMENT/PLAN:Gross hematuriaCysto negative todayPSA pending - last one in 2015 was 1.85Father has prostate cancerCT urogram negative and reviewed with patientCytology negativeF/U with Julianne with PSA resultsBro Pillai DO MBAReferring Provider: MARIA DEL ROSARIO GEORGE [[id number]]Allergies As of Date: 11/22/2017 Noted Allergy ReactionLISINOPRIL 12/14/2013 3 - CoughDate Reviewed: 11/22/2017Reviewed by: Bro Pillai - Fully AssessedReason for Visit: Procedure [88]Primary Visit Diagnosis:Gross hematuria [R31.0] Other Visit Diagnosis:Family history of malignant neoplasm of prostate [Z80.42]Order(s):UA DIP, URINE (POC) [[id number]] Order #: [id number]. #:[id number] [] ciprofloxacin HCl 500 mg tab(s) (CIPRO)Disp: Rfl:Prescriptions as of 11/22/2017 Sig: ATENOLOL 50 MG TABLET TAKE 1 TABLET BY MOUTH ONCE D* LOSARTAN 50 MG TABLET Take 1 tablet by mouth once d* FLUOXETINE 20 MG CAPSULE Take 1 capsule by mouth once * ATORVASTATIN 20 MG TABLET Take 1 tablet by mouth once d* ASPIRIN 81 MG TABLET,DELAYED * Take 1 tablet by mouth once d* VENTOLIN HFA 90 MCG/ACTUATION* INHALE 2 PUFFS BY MOUTH EVERY* CLOTRIMAZOLE 10 MG SANJAY Use 1 Sanjay as instructed fi* DOXYCYCLINE MONOHYDRATE 100 M* Take 1 tablet by mouth twice * BENZONATATE 100 MG CAPSULE Take 1 capsule by mouth three* OMEPRAZOLE 20 MG CAPSULE,JANINA* TAKE ONE (1) CAPSULE BY MOUTH* CYCLOBENZAPRINE 10 MG TABLET TAKE ONE (1) TABLET BY MOUTH * UMECLIDINIUM 62.5 MCG/ACTUATI* Inhale 1 Puff as instructed o* LORATADINE 10 MG TABLET Take 1 tablet by mouth once d* TERBINAFINE HCL 1 % TOPICAL C* APPLY 1 APPLICATION TO AFFECT* MOMETASONE 0.1 % TOPICAL CREAM Apply 1 application to affect* MELOXICAM 15 MG TABLET Take 1 tablet by mouth once d* CICLOPIROX 8 % TOPICAL SOLUTI* APPLY 1 APPLICATION TO AFFECT* UREA 40 % TOPICAL CREAM APPLY 1 APPLICATION TO AFFECT* TRAZODONE 50 MG TABLET Take 1 tablet by mouth at bed* NITROGLYCERIN 0.4 MG SUBLINGU* Dissolve 1 tablet under the t* COMPOUNDED PRESCRIPTION cpap mask. Sleep apnea COMPOUNDED PRESCRIPTION BiPAP @ 19/15 cm of water wit*Problem List As Of Date 11/22/2017 Noted Resolved Hyperlipidemia [E78.5] INVALID FOR* Obstructive sleep apnea AHI 9.2 per CMS criter*INVALID FOR* More... Colon polyp [K63.5] INVALID FOR* More... DJD (degenerative joint disease) [M19.90] INVALID FOR* Abdominal muscle strain [S39.011A] INVALID FOR*05/13/2016 Diastasis of muscle [M62.00] INVALID FOR* Back pain [M54.9] INVALID FOR*05/13/2016 Depression [F32.9] INVALID FOR* Pain in joint, shoulder region [M25.519] INVALID FOR*05/13/2016 Right rotator cuff tear [M75.101] INVALID FOR*05/13/2016 COPD (chronic obstructive pulmonary disease) (H*INVALID FOR* More... Sebaceous cyst [L72.3] INVALID FOR*05/13/2016 Skin lesion of scalp [L98.9] INVALID FOR*05/13/2016 Lipoma of unspecified site [D17.9] INVALID FOR*05/13/2016 Bloating [R14.0] 05/13/2016 Essential hypertension [I10] INVALID FOR* Thrombocytopenia (HCC) [D69.6] INVALID FOR*05/13/2016 Complete tear of right rotator cuff [M75.121] INVALID FOR* SVT (supraventricular tachycardia) ([facility]) [I47.1]INVALID FOR* Abnormal nuclear stress test [R94.39] INVALID FOR*Prescriptions ordered this encounter Disp Refills Start End CIPROFLOXACIN 500 MG TABLET 11/22/2017 11/22/2017 Route: ORALDisposition: Return if symptoms worsen or fail to improve.Follow-up and Disposition History RecordedLetter TextEncounter Number: [id number] Status:Closed by BRO PILLAI on 11/22/17 Normal [facility] PROCEDUREon 11-22-2017 Protein mass conc HNO ID: [id number]: Bro PillaiService: (none)Author Type: PhysicianType: ProceduresFiled: 11/22/2017 2:29 PMNote Text:CYSTOSCOPY PROCEDURE NOTE:Edilia Norton is a 62 year old male who presents with hematuria gross forcystoscopy.Pt ID verified with patient: YesProcedure verified with patient: YesProcedure confirmed with physician and legal support manager: YesSign InHistory and Physical Exam reviewed and is unchanged. .Informed Consent Discussed: Yes. Risks, benefits, alternatives andpersonnel discussed with patient who consents to proceed.Sign in Communication: CompletedTime Out: Team Confirms the Correct Patient, Correct Procedure;Cystoscopy, Correct Site and Site Marking, Correct Position (ifapplicable).Affirmation of Time Out: YesSign Out: Sign Out Discussion: CompletedPhysician: Bro Pillai DO, MBAA urinalysis was performed revealing no evidence of infection.The benefits, risks, alternatives of the cystoscopy procedure andpersonnel were discussed with the patient. The verbal consent was obtainedand the patient agrees to proceed.Procedure: The patient was placed on the procedure table in the supineposition and prepped and draped in the usual sterile fashion. 2% LidocaineJelly was placed per urethra as an anesthetic in the standard fashion.Once adequate local anesthesia was achieved, the tip of the flexiblecystoscope was carefully placed into the urethra under direct visualguidance. The scope was negotiated through the pendulous urethra to thelevel of the bulbar urethra with no evidence of stricture. Theverumontanum came into view and the scope was negotiated through theprostatic urethra which showed evidence of bi lobar occlusive disease. Thebladder was entered and careful leija endoscopy was carried out. Theposterior, superior and lateral garcia and dome of the bladder were allwell visualized and the scope was retroflexed upon itself. The findingswere consistent with no evidence of bladder mucosal pathology.At the conclusion of the procedure, the flexible cystoscope was removedatraumatically. The patient tolerated the procedure without complications.Patient was given standard post-procedure instructions, and was directedto complete the course of oral antibiotics and increase oral fluid intakeas directed.ASSESSMENT/PLAN:Gross hematuriaCysto negative todayPSA pending - last one in 2016 was 1.85Father has prostate cancerCT urogram negative and reviewed with patientCytology negativeF/U with Julianne with PSA resultsBro Pillai DO, MBA [facility]2017 CNPN Telephone (AGCARDWST) EDILIA NORTON ([id number]) 1955 [facility] Time Provider Department04/28/17 BRENDEN JONES During your visit today, we recorded the following information about you:Hunter Carty RN, RN 04/28/2017 4:26 PM Signed----- Message from Brenden Jones sent at 04/28/2017 4:05 PM EST -----Lipids are not quite as good. Please change to Lipitor 20 milligrams daily.This works much better then simvastatin and will be better tolerated. Repeatlipid profile in 3 months.Alo Cantu RN, RN 04/28/2017 4:28 PM SignedLeft generic msg for patient to return call.Alix Peck MA 04/29/2017 4:00 PM SignedPatient notified and verbalized understanding.Please file orders and d/c simvastatin.Kvng Elise MD 04/29/2017 4:21 PM SignedThe following approved medication requests have been transmitted electronically.Signed Prescriptions Disp Refills atorvastatin (LIPITOR) 20 mg tablet 90 tablet 3 Sig: Take 1 tablet by mouth once daily. Authorizing Provider: BRENDEN JONES MDAdam Gilmor, RN, RN 04/29/2017 4:38 PM Signedescript confirmed.Claudia Cunha Psr 05/16/2017 10:29 AM SignedPatient states that the fluoxetin had 11 refills, but patient states thepharmacy does not have remaining refills. Please call patient.Allergies As of Date: 04/28/2017 Noted Allergy ReactionLISINOPRIL 12/14/2013 3 - CoughDate Reviewed: 04/27/2017Reviewed by: Alix Peck - Fully AssessedReason for Visit: Results [95]Primary Visit Diagnosis:Mixed hyperlipidemia [E78.2]Order(s):atorvastatin (LIPITOR) 20 mg tabletTake 1 tablet by mouth once daily.Disp: 90 tabletRfl: 3 LIPID PANEL BASIC [SQLIPB] Order #: [id number] FUTUREPrescriptions as of 04/28/2017 Sig: ATORVASTATIN 20 MG TABLET Take 1 tablet by mouth once d* ASPIRIN 81 MG TABLET,DELAYED * Take 1 tablet by mouth once d* VENTOLIN HFA 90 MCG/ACTUATION* INHALE 2 PUFFS BY MOUTH EVERY* CLOTRIMAZOLE 10 MG SANJAY Use 1 Sanjay as instructed fi* DOXYCYCLINE MONOHYDRATE 100 M* Take 1 tablet by mouth twice * BENZONATATE 100 MG CAPSULE Take 1 capsule by mouth three* OMEPRAZOLE 20 MG CAPSULE,JANINA* TAKE ONE (1) CAPSULE BY MOUTH* CYCLOBENZAPRINE 10 MG TABLET TAKE ONE (1) TABLET BY MOUTH * UMECLIDINIUM 62.5 MCG/ACTUATI* Inhale 1 Puff as instructed o* LORATADINE 10 MG TABLET Take 1 tablet by mouth once d* LOSARTAN 50 MG TABLET TAKE 1 TABLET BY MOUTH ONCE D* ATENOLOL 50 MG TABLET TAKE 1 TABLET BY MOUTH ONCE D* TERBINAFINE HCL 1 % TOPICAL C* APPLY 1 APPLICATION TO AFFECT* MOMETASONE 0.1 % TOPICAL CREAM Apply 1 application to affect* MELOXICAM 15 MG TABLET Take 1 tablet by mouth once d* CICLOPIROX 8 % TOPICAL SOLUTI* APPLY 1 APPLICATION TO AFFECT* UREA 40 % TOPICAL CREAM APPLY 1 APPLICATION TO AFFECT* TRAZODONE 50 MG TABLET Take 1 tablet by mouth at bed* FLUOXETINE 20 MG CAPSULE Take 1 capsule by mouth once * NITROGLYCERIN 0.4 MG SUBLINGU* Dissolve 1 tablet under the t* COMPOUNDED PRESCRIPTION cpap mask. Sleep apnea COMPOUNDED PRESCRIPTION BiPAP @ 19/15 cm of water wit*Problem List As Of Date 04/28/2017 Noted Resolved Hyperlipidemia [E78.5] INVALID FOR* Obstructive sleep apnea AHI 9.2 per CMS criter*INVALID FOR* More... Colon polyp [K63.5] INVALID FOR* More... DJD (degenerative joint disease) [M19.90] INVALID FOR* Abdominal muscle strain [S39.011A] INVALID FOR*05/13/2016 Diastasis of muscle [M62.00] INVALID FOR* Back pain [M54.9] INVALID FOR*05/13/2016 Depression [F32.9] INVALID FOR* Pain in joint, shoulder region [M25.519] INVALID FOR*05/13/2016 Right rotator cuff tear [M75.101] INVALID FOR*05/13/2016 COPD (chronic obstructive pulmonary disease) (H*INVALID FOR* More... Sebaceous cyst [L72.3] INVALID FOR*05/13/2016 Skin lesion of scalp [L98.9] INVALID FOR*05/13/2016 Lipoma of unspecified site [D17.9] INVALID FOR*05/13/2016 Bloating [R14.0] 05/13/2016 Essential hypertension [I10] INVALID FOR* Thrombocytopenia (HCC) [D69.6] INVALID FOR*05/13/2016 Complete tear of right rotator cuff [M75.121] INVALID FOR* SVT (supraventricular tachycardia) (HCC) [I47.1]INVALID FOR* Abnormal nuclear stress test [R94.39] INVALID FOR*Prescriptions ordered this encounter Disp Refills Start End ATORVASTATIN 20 MG TABLET 90 t* 3 04/29/2017 Route: ORAL Sig: Take 1 tablet by mouth once daily.Medications Discontinued During This Encounter simvastatin (ZOCOR) 20 mg tablet 30 t* 11 05/26/2016 04/29/2017 Route: ORAL Sig: Take 1 tablet by mouth daily at bedtime. Disc: Reason for discontinue is not on file. Status:Closed by HUNTER CARTY on 04/29/17 [facility] CNOVon 04-27-2017 CNOV Office Visit (AGCARDWST) EDILIA NORTON ([id number]) 1955 [facility] Department04/27/17 8:30 AM BRENDEN JONES AGCARDWST During your visit today, we recorded the following information about you: Pulse Blood pressure Weight Height 70/minute 116/80 74.2 kg 1.727 Herrera Jones MD 04/27/2017 5:40 PM SignedPERTINENT CARDIAC HISTORYASHD - RCA ischemia by stress 03/12HTNHLOSA - CPAPSVTADHERENCE TO GUIDELINESACE-I or ARB for HF with prior LVEFANDlt;40 (NQF 0081) - N/AASA or Plavix for ASHD (NQF 0067) - metBeta jess for ASHD with prior ND or prior LVEFANDlt;40 (NQF 0070) - N/ABeta jess for HF with prior LVEFANDlt;40 (NQF 0083) - N/AACE-I or ARB for ASHD with DM or prior LVEFANDlt;40 (NQF 0066) - N/AStatin therapy for ASHD or FHL or DM - metBMI documented and plan if ANDgt;25 (NQF 0421) - lifestyle recommendation formTobacco use screening and referral (NQF 0028) - lifestyle recommendation formRecommendation for whole food, plant based diet - lifestyle recommendation formCLINICAL IMPRESSION/PLAN:Edilia Norton has stable single-vessel coronary disease. He has done well withmedical therapy over the years. His exercise tolerance is stable and he had norecent chest discomfort. He's been encouraged to use nitroglycerin liberally.He will have basic profile and lipid profile in medications will be adjustedaccordingly.I will see him in 8 months or as needed. If there is breakthrough angina orSVT, he's been encouraged to contact me promptly.Written and verbal health teaching given to patient, patient verbalizesunderstanding and agrees with treatment plan.This note was generated using [employer] voice recognition system, and there may besome incorrect words, spellings, and punctuation that were not noted inchecking the note before saving.DIAGNOSIS FOR VISIT:ASHDHypertensionHISTORY OF PRESENT ILLNESSEdilia Norton is a 62-year-old gentleman who is seen for follow-up of hisischemic heart disease, hypertension and SVT. He was formerly a patient of .He reports stable exercise tolerance. He has taken no nitroglycerin over thelast several months. His initial evaluation and 2015 was precipitated by coupleof episodes of chest heaviness, which have not recurred.He denies orthopnea, edema, syncope, TIAs, amaurosis and claudication.He's had no recent episodes of palpitation.ALLERGIES:ALLERGIESAll ergen Reactions- Lisinopril CoughCURRENT OUTPATIENT MEDICATIONS:aspirin, enteric coated (ASPIRIN, ENTERIC COATED) 81 mg EC tablet TAKE 1 TABLETBY MOUTH ONCE DAILY.VENTOLIN HFA 90 mcg/actuation inhaler INHALE 2 PUFFS BY MOUTH EVERY 4 HOURS ASNEEDEDomeprazole (PRILOSEC) 20 mg capsule TAKE ONE (1) CAPSULE BY MOUTH ONCE DAILYcyclobenzaprine (FLEXERIL) 10 mg tablet TAKE ONE (1) TABLET BY MOUTH THREETIMES DAILY NEEDED FOR MUSCLE SPASMumeclidinium (INCRUSE ELLIPTA) 62.5 mcg/actuation inhaler Inhale 1 Puff asinstructed once daily. Inhale one puff once daily. DO NOT CLICK OPEN UNTILREADY FOR DOSEloratadine (CLARITIN) 10 mg tablet Take 1 tablet by mouth once daily.losartan (COZAAR) 50 mg tablet TAKE 1 TABLET BY MOUTH ONCE DAILYatenolol (TENORMIN) 50 mg tablet TAKE 1 TABLET BY MOUTH ONCE DAILY.terbinafine HCl (LAMISIL) 1 % cream APPLY 1 APPLICATION TO AFFECTED AREA EVERYNIGHT AT BEDTIMEmometasone (ELOCON) 0.1 % cream Apply 1 application to affected area oncedaily.meloxicam (MOBIC) 15 mg tablet Take 1 tablet by mouth once daily.Ciclopirox (LOPROX) 8 % solution APPLY 1 APPLICATION TO AFFECTED AREA ATBEDTIME.urea (CARMOL) 40 % crea APPLY 1 APPLICATION TO AFFECTED AREA TWICE DAILY.FLUoxetine (PROZAC) 20 mg capsule Take 1 capsule by mouth once daily.simvastatin (ZOCOR) 20 mg tablet Take 1 tablet by mouth daily at bedtime.nitroglycerin sublingual (NITROQUICK) 0.4 mg SL tablet Dissolve 1 tablet underthe tongue every 5 minutes as needed for Chest Pain.COMPOUNDED PRESCRIPTION cpap mask. Sleep apneaCOMPOUNDED PRESCRIPTION BiPAP @ 19/15 cm of water with humidification. Mask(per patient preference) optional chin strap (if indicated) , filters, tubing,humidifier and lifetime supplies. Dx. GALE 327.23clotrimazole (MYCELEX) 10 mg sanjay Use 1 Sanjay as instructed five timesdaily.doxycycline monohydrate 100 mg tablet Take 1 tablet by mouth twice daily.benzonatate (TESSALON PERLE) 100 mg capsule Take 1 capsule by mouth three timesdaily as needed for Cough.traZODone (DESYREL) 50 mg tablet Take 1 tablet by mouth at bedtime as needed(sedation).PAST MEDICAL HISTORYDiagnosis Date- Bloating- Chronic obstructive pulmonary disease (COPD) (HCC)- Depression- GERD (gastroesophageal reflux disease)- Hernia of unspecified site of abdominal cavity without mention of obstructionor gangrene- High cholesterol- HTN (hypertension)- Obstructive sleep apnea- Tobacco abuse has quitPAST SURGICAL HISTORYProcedure Laterality Date- ARTHROS SHLDR DX W/WO SYNV BX Right 12/19/2015 Right shoulder arthroscopy- COLONOSCOP W/ OR W/O BRS SPEC 08/16/13 Colonoscopy- COLONOSCOPY ANDamp; POLYPECTOMY 09/02/09 adenomatous polyp- EGD 04/01/05 negative- PAST SURGICAL HISTORY OF as child skin graft to right ring finger as a child- REPAIR COMPL ROTATOR CUFF AVULSN,CHR Right 12/19/2015 Open rotator cuff repair and SADFAMILY HISTORYProblem Relation Age of Onset- Diabetes Mother- Prostate Cancer Father- Diabetes Maternal Aunt- Diabetes Maternal Uncle- Diabetes SisterSocial History Marital status: Spouse name: Years of education: Number of children: 3Occupational 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 Cardiac: As noted above. GI: No melena.: No dysuria. Musculoskeletal: No myalgias.PHYSICAL EXAMINATION: S/he is alert and in no distress.VITAL SIGNS: BP 116/80 Pulse 70 Ht 5' 8ANDquot; (1.73m) Wt 163 lb 9.6 oz(74.2kg) BMI 24.88 kg/(m2).SHEENT: Skin is warm and dry. No xanthelasmas appreciated. Pharynx isbenign. There is no oral cyanosis. Neck: supple. No adenopathy or thyroidenlargement. Chest: Clear to percussion and auscultation. Trachea is midline. Air entry is equal. There is no chest wall tenderness. Cardiac: Regularrhythm. S1 and S2 are normal. PMI is nondisplaced. There is a soft systolicejection murmur. Carotids are brisk without bruits. JVP is less than 10 cm.Abdomen: Soft and nontender. There are no pulsatile masses or bruits. Noliver enlargement. Bowel sounds are active. Extremities: No edema. Pulsesare intact and symmetrical. No clubbing or cyanosis. No femoral bruits.Neurologic: Grossly normal motor and sensory. S/he is alert and oriented x4.Previous records were reviewed. Stress test done in 2015 reports mild ischemiain the territory of the right coronary. Scan was felt to be low risk, althoughthe description is a ANDquot;moderate perfusion defect in the entire inferiorwallANDquot;.Recent labs were reviewed. Hemoglobin is normal. Renal function is normal. LDLwas 119. TSH is normal.Previous Holter monitor showed runs of SVT.EKG demonstrates sinus rhythm and is within normal limits. There is nosignificant change.Electronically Signed:Brenden Jones MDApril 27, 2017 8:57 [facility]:Vito Chin MD 04/27/2017 9:38 AM Allan RUIZ healthy lifestyle is the most important component of your overall treatmentplan. Please give serious thought to the following areas and commit to makinglong term changes.EAT A WHOLE FOOD, PLANT BASED DIETThe nutrition your body gets is more important than the medicine you take.What matters most is the overall way you eat. We encourage you to minimize theuse of animal products (which include dairy and all meats except fatty fish)and use whole, unprocessed plant foods to provide your protein, vitamins andother nutrients. We have a lot of information to share with you on this topic. We also hold Shared Medical Appointments, where you can come visit with in the company of other patients and spend over an hour talking aboutthe challenges of changing the way you eat. This is not a ANDquot;dietANDquot;.It is a way of life that you will keep with you.EXERCISE REGULARLYIt is not important to spend hours in the gym, lifting weights and perspiringheavily. A total of 2-3 hours per week of aerobic (causing you to bemoderately short of breath) exercise is sufficient to improve your health.Talk to us before you begin a new exercise program, if you have heart diseaseor experience shortness of breath or chest pain.REDUCE STRESSChronic emotional and physical stress leads to disease. Ways of reducingstress include meditation, visualization, prayer, yoga and other forms ofrelaxation therapy. Consistency is the antonio. Find a technique that works foryou and do it every day.CULTIVATE RELATIONSHIPSLoneliness and isolation have a major negative impact on health. Seek outothers who can love, care for and nurture you. Avoid hurtful relationships.MAINTAIN IDEAL BODY WEIGHTThe best way to do this is to do all the things above. Our bodies naturallyfind the right weight if we keep moving and feed ourselves the right food. Ifyour BMI is greater than 25, we strongly recommend a referral to a weightmanagement program. Please speak to us or your family physician aboutavailable programs.AVOID NICOTINE IN ALL FORMSThis includes all tobacco products, whether chewed, smoked, vaped, or rubbed onthe skin. Smoking cessation programs, which can make use of tobaccosubstitutes, medications to suppress cravings and behavior management, areavailable. Please contact your family physician about programs in your area.Referring Provider: BRENDEN JONES [[id number]]Allergies As of Date: 04/27/2017 Noted Allergy ReactionLISINOPRIL 12/14/2013 3 - CoughDate Reviewed: 04/27/2017Reviewed by: Alix Peck - Fully AssessedReason for Visit: Follow Up [171]Primary Visit Diagnosis:SVT (supraventricular tachycardia) (HCC) [I47.1] Other Visit Diagnosis:ASHD (arteriosclerotic heart disease) [I25.10]Order(s):aspirin, enteric coated (ASPIRIN, ENTERIC COATED) 81 mg EC tabletTake 1 tablet by mouth once daily.Disp: 30 tabletRfl: 0 ECG B/O W INTERP (MED OFFICE) [ECG06] Order #: [id number] LIPID PANEL BASIC [SQLIPB] Order #: [id number] FUTURE ALT/SGPT [SQALT] Order #: [id number] FUTURE CK CREATINE KINASE [SQCK] Order #: [id number] FUTUREPrescriptions as of 04/27/2017 Sig: VENTOLIN HFA 90 MCG/ACTUATION* INHALE 2 PUFFS BY MOUTH EVERY* OMEPRAZOLE 20 MG CAPSULE,JANINA* TAKE ONE (1) CAPSULE BY MOUTH* CYCLOBENZAPRINE 10 MG TABLET TAKE ONE (1) TABLET BY MOUTH * UMECLIDINIUM 62.5 MCG/ACTUATI* Inhale 1 Puff as instructed o* LORATADINE 10 MG TABLET Take 1 tablet by mouth once d* LOSARTAN 50 MG TABLET TAKE 1 TABLET BY MOUTH ONCE D* ATENOLOL 50 MG TABLET TAKE 1 TABLET BY MOUTH ONCE D* TERBINAFINE HCL 1 % TOPICAL C* APPLY 1 APPLICATION TO AFFECT* MOMETASONE 0.1 % TOPICAL CREAM Apply 1 application to affect* MELOXICAM 15 MG TABLET Take 1 tablet by mouth once d* CICLOPIROX 8 % TOPICAL SOLUTI* APPLY 1 APPLICATION TO AFFECT* UREA 40 % TOPICAL CREAM APPLY 1 APPLICATION TO AFFECT* FLUOXETINE 20 MG CAPSULE Take 1 capsule by mouth once * SIMVASTATIN 20 MG TABLET Take 1 tablet by mouth daily * NITROGLYCERIN 0.4 MG SUBLINGU* Dissolve 1 tablet under the t* COMPOUNDED PRESCRIPTION cpap mask. Sleep apnea COMPOUNDED PRESCRIPTION BiPAP @ 19/15 cm of water wit* ASPIRIN 81 MG TABLET,DELAYED * Take 1 tablet by mouth once d* CLOTRIMAZOLE 10 MG SANJAY Use 1 Sanjay as instructed fi* DOXYCYCLINE MONOHYDRATE 100 M* Take 1 tablet by mouth twice * BENZONATATE 100 MG CAPSULE Take 1 capsule by mouth three* TRAZODONE 50 MG TABLET Take 1 tablet by mouth at bed*Medication notes this encounter CLOTRIMAZOLE 10 MG SANJAY >> Alix Peck MA 04/27/2017 8:35 AM >> ALIX PECK MA TueApr 27, 2017 8:35 AM Course of therapy completed. DOXYCYCLINE MONOHYDRATE 100 MG TABLET >> Alix Peck MA 04/27/2017 8:35 AM >> LIV LARA ALIX TueApr 27, 2017 8:35 AM Course of therapy completed. BENZONATATE 100 MG CAPSULE >> Alix Peck MA 04/27/2017 8:35 AM >> LIV LARA ALIX TueApr 27, 2017 8:35 AM Course of therapy completed. TRAZODONE 50 MG TABLET >> Alix Peck MA 04/27/2017 8:36 AM >> ALIX PECK MA TueApr 27, 2017 8:36 AM Not takingProblem List As Of Date 04/27/2017 Noted Resolved Hyperlipidemia [E78.5] INVALID FOR* Obstructive sleep apnea AHI 9.2 per CMS criter*INVALID FOR* More... Colon polyp [K63.5] INVALID FOR* More... DJD (degenerative joint disease) [M19.90] INVALID FOR* Abdominal muscle strain [S39.011A] INVALID FOR*05/13/2016 Diastasis of muscle [M62.00] INVALID FOR* Back pain [M54.9] INVALID FOR*05/13/2016 Depression [F32.9] INVALID FOR* Pain in joint, shoulder region [M25.519] INVALID FOR*05/13/2016 Right rotator cuff tear [M75.101] INVALID FOR*05/13/2016 COPD (chronic obstructive pulmonary disease) (H*INVALID FOR* More... Sebaceous cyst [L72.3] INVALID FOR*05/13/2016 Skin lesion of scalp [L98.9] INVALID FOR*05/13/2016 Lipoma of unspecified site [D17.9] INVALID FOR*05/13/2016 Bloating [R14.0] 05/13/2016 Essential hypertension [I10] INVALID FOR* Thrombocytopenia (HCC) [D69.6] INVALID FOR*05/13/2016 Complete tear of right rotator cuff [M75.121] INVALID FOR* SVT (supraventricular tachycardia) (HCC) [I47.1]INVALID FOR* Abnormal nuclear stress test [R94.39] INVALID FOR* Other instructions from your clinician: LIFESTYLE CHANGE A healthy lifestyle is the most important component of your overall treatment plan. Please give serious thought to the following areas and commit to making nursing home changes. EAT A WHOLE FOOD, PLANT BASED DIET The nutrition your body gets is more important than the medicine you take. What matters most is the overall way you eat. We encourage you to minimize the use of animal products (which include dairy and all meats except fatty fish) and use whole, unprocessed plant foods to provide your protein, vitamins and other nutrients. We have a lot of information to share with you on this topic. We also hold Shared Medical Appointments, where you can come visit with Dr. Jones in the company of other patients and spend over an hour talking about the challenges of changing the way you eat. This is not a diet . It is a way of life that you will keep with you. EXERCISE REGULARLY It is not important to spend hours in the gym, lifting weights and perspiring heavily. A total of 2-3 hours per week of aerobic (causing you to be moderately short of breath) exercise is sufficient to improve your health. Talk to us before you begin a new exercise program, if you have heart disease or experience shortness of breath or chest pain. REDUCE STRESS Chronic emotional and physical stress leads to disease. Ways of reducing stress include meditation, visualization, prayer, yoga and other forms of relaxation therapy. Consistency is the antonio. Find a technique that works for you and do it every day. CULTIVATE RELATIONSHIPS Loneliness and isolation have a major negative impact on health. Seek out others who can love, care for and nurture you. Avoid hurtful relationships. MAINTAIN IDEAL BODY WEIGHT The best way to do this is to do all the things above. Our bodies naturally find the right weight if we keep moving and feed ourselves the right food. If your BMI is greater than 25, we strongly recommend a referral to a weight management program. Please speak to us or your family physician about available programs. AVOID NICOTINE IN ALL FORMS This includes all tobacco products, whether chewed, smoked, vaped, or rubbed on the skin. Smoking cessation programs, which can make use of tobacco substitutes, medications to suppress cravings and behavior management, are available. Please contact your family physician about programs in your area.Prescriptions ordered this encounter Disp Refills Start End ASPIRIN 81 MG TABLET,DELAYED RELEASE 30 t* 0 04/27/2017 Route: ORAL Sig: Take 1 tablet by mouth once daily.Medications Discontinued During This Encounter aspirin, enteric coated (ASPIRIN, EN* 30 t* 10 04/18/2017 04/27/2017 Sig: TAKE 1 TABLET BY MOUTH ONCE DAILY. Disc: Reason for discontinue is not on file. Status:Closed by BRENDEN JONES MD on 04/27/17 [facility] PROGRESSon 04-27-2017 Protein mass conc HNO ID: [id number]: Brenden Leung: (none)Author Type: PhysicianType: Progress NotesFiled: 04/27/2017 5:40 PMNote Text:PERTINENT CARDIAC HISTORYASHD - RCA ischemia by stress 03/12HTNHLOSA - CPAPSVTADHERENCE TO GUIDELINESACE-I or ARB for HF with prior LVEF<40 (NQF 0081) - N/AASA or Plavix for ASHD (NQF 0067) - metBeta jess for ASHD with prior ND or prior LVEF<40 (NQF 0070) - N/ABeta jess for HF with prior LVEF<40 (NQF 0083) - N/AACE-I or ARB for ASHD with DM or prior LVEF<40 (NQF 0066) - N/AStatin therapy for ASHD or FHL or DM - metBMI documented and plan if >25 (NQF 0421) - lifestyle recommendation formTobacco use screening and referral (NQF 0028) - lifestyle recommendationformRecommendation for whole food, plant based diet - lifestyle recommendationformCLINICAL IMPRESSION/PLAN:Edilia Norton has stable single-vessel coronary disease. He has done wellwith medical therapy over the years. His exercise tolerance is stable andhe had no recent chest discomfort. He's been encouraged to usenitroglycerin liberally. He will have basic profile and lipid profile inmedications will be adjusted accordingly.I will see him in 8 months or as needed. If there is breakthrough anginaor SVT, he's been encouraged to contact me promptly.Written and verbal health teaching given to patient, patient verbalizesunderstanding and agrees with treatment plan.This note was generated using [employer] voice recognition system, and theremay be some incorrect words, spellings, and punctuation that were notnoted in checking the note before saving.DIAGNOSIS FOR VISIT:ASHDHypertensionHISTORY OF PRESENT ILLNESSEdilia Norton is a 62-year-old gentleman who is seen for follow-up of hisischemic heart disease, hypertension and SVT. He was formerly a patient ofDr. Bonilla.He reports stable exercise tolerance. He has taken no nitroglycerin overthe last several months. His initial evaluation and 2015 was precipitatedby couple of episodes of chest heaviness, which have not recurred.He denies orthopnea, edema, syncope, TIAs, amaurosis and claudication.He's had no recent episodes of palpitation.ALLERGIES:ALLERGIESAll ergen Reactions- Lisinopril CoughCURRENT OUTPATIENT MEDICATIONS:aspirin, enteric coated (ASPIRIN, ENTERIC COATED) 81 mg EC tablet TAKE 1TABLET BY MOUTH ONCE DAILY.VENTOLIN HFA 90 mcg/actuation inhaler INHALE 2 PUFFS BY MOUTH EVERY 4HOURS NEEDEDomeprazole (PRILOSEC) 20 mg capsule TAKE ONE (1) CAPSULE BY MOUTH ONCEDAILYcyclobenzaprine (FLEXERIL) 10 mg tablet TAKE ONE (1) TABLET BY MOUTH THREETIMES DAILY NEEDED FOR MUSCLE SPASMumeclidinium (INCRUSE ELLIPTA) 62.5 mcg/actuation inhaler Inhale 1 Puff asinstructed once daily. Inhale one puff once daily. DO NOT CLICK OPEN UNTILREADY FOR DOSEloratadine (CLARITIN) 10 mg tablet Take 1 tablet by mouth once daily.losartan (COZAAR) 50 mg tablet TAKE 1 TABLET BY MOUTH ONCE DAILYatenolol (TENORMIN) 50 mg tablet TAKE 1 TABLET BY MOUTH ONCE DAILY.terbinafine HCl (LAMISIL) 1 % cream APPLY 1 APPLICATION TO AFFECTED AREAEVERY NIGHT AT BEDTIMEmometasone (ELOCON) 0.1 % cream Apply 1 application to affected area oncedaily.meloxicam (MOBIC) 15 mg tablet Take 1 tablet by mouth once daily.Ciclopirox (LOPROX) 8 % solution APPLY 1 APPLICATION TO AFFECTED AREA ATBEDTIME.urea (CARMOL) 40 % crea APPLY 1 APPLICATION TO AFFECTED AREA TWICE DAILY.FLUoxetine (PROZAC) 20 mg capsule Take 1 capsule by mouth once daily.simvastatin (ZOCOR) 20 mg tablet Take 1 tablet by mouth daily at bedtime.nitroglycerin sublingual (NITROQUICK) 0.4 mg SL tablet Dissolve 1 tabletunder the tongue every 5 minutes as needed for Chest Pain.COMPOUNDED PRESCRIPTION cpap mask. Sleep apneaCOMPOUNDED PRESCRIPTION BiPAP @ 19/15 cm of water with humidification.Mask (per patient preference) optional chin strap (if indicated) ,filters, tubing, humidifier and lifetime supplies. Dx. GALE 327.23clotrimazole (MYCELEX) 10 mg sanjay Use 1 Sanjay as instructed five timesdaily.doxycycline monohydrate 100 mg tablet Take 1 tablet by mouth twice daily.benzonatate (TESSALON PERLE) 100 mg capsule Take 1 capsule by mouth threetimes daily as needed for Cough.traZODone (DESYREL) 50 mg tablet Take 1 tablet by mouth at bedtime asneeded (sedation).PAST MEDICAL HISTORYDiagnosis Date- Bloating- Chronic obstructive pulmonary disease (COPD) (HCC)- Depression- GERD (gastroesophageal reflux disease)- Hernia of unspecified site of abdominal cavity without mention ofobstruction or gangrene- High cholesterol- HTN (hypertension)- Obstructive sleep apnea- Tobacco abuse has quitPAST SURGICAL HISTORYProcedure Laterality Date- ARTHROS SHLDR DX W/WO SYNV BX Right 12/19/2015 Right shoulder arthroscopy- COLONOSCOP W/ OR W/O [facility] SPEC 08/16/13 Colonoscopy- COLONOSCOPY AND POLYPECTOMY 09/02/09 adenomatous polyp- EGD 04/01/05 negative- PAST SURGICAL HISTORY OF as child skin graft to right ring finger as a child- REPAIR COMPL ROTATOR CUFF AVULSN,CHR Right 12/19/2015 Open rotator cuff repair and SADFAMILY HISTORYProblem Relation Age of Onset- Diabetes Mother- Prostate Cancer Father- Diabetes Maternal Aunt- Diabetes Maternal Uncle- Diabetes SisterSocial History Marital status: Spouse name: Years of education: Number of children: 3Occupational 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 Respiratory: No productive cough. Cardiac: As noted above. GI: Nomelena. : No dysuria. Musculoskeletal: No myalgias.PHYSICAL EXAMINATION: S/he is alert and in no distress.VITAL SIGNS: BP 116/80 Pulse 70 Ht 5' 8 (1.73m) Wt 163 lb 9.6 oz(74.2kg) BMI 24.88 kg/(m2).SHEENT: Skin is warm and dry. No xanthelasmas appreciated. Pharynx isbenign. There is no oral cyanosis. Neck: supple. No adenopathy orthyroid enlargement. Chest: Clear to percussion and auscultation.Trachea is midline. Air entry is equal. There is no chest walltenderness. Cardiac: Regular rhythm. S1 and S2 are normal. PMI isnondisplaced. There is a soft systolic ejection murmur. Carotids arebrisk without bruits. JVP is less than 10 cm. Abdomen: Soft andnontender. There are no pulsatile masses or bruits. No liverenlargement. Bowel sounds are active. Extremities: No edema. Pulsesare intact and symmetrical. No clubbing or cyanosis. No femoral bruits.Neurologic: Grossly normal motor and sensory. S/he is alert and orientedx4.Previous records were reviewed. Stress test done in 2015 reports mildischemia in the territory of the right coronary. Scan was felt to be lowrisk, although the description is a moderate perfusion defect in theentire inferior wall .Recent labs were reviewed. Hemoglobin is normal. Renal function is normal.LDL was 119. TSH is normal.Previous Holter monitor showed runs of SVT.EKG demonstrates sinus rhythm and is within normal limits. There is nosignificant change.Electronically Signed:Brenden Jones MDJan2017 8:57 [facility]:Sage Neri MD [facility] Vital Signs Date Time Vital Sign Value Performing Clinician Faci lity 03-17-2022 09:44-0500 Diastolic blood pressure 87 mm[Hg] Chay Leal MD Work Phone: [facility] 03-17-2022 09:44-0500 Heart rate 74 /min Chay Leal MD Work Phone: [facility] 03-17-2022 09:44-0500 SaO2% (BldA) [Mass fraction] 90 % Chay Leal MD Work Phone: [facility] 03-17-2022 09:44-0500 Systolic blood pressure 161 mm[Hg] Chay Leal MD Work Phone: [facility] 12-23-2021 11:04-0400 Body mass index (BMI) [Ratio] 24.33 kg/m2 Chay Leal MD Work Phone: [facility] 12-23-2021 11:04-0400 Body weight 72.58 kg Chay Leal MD Work Phone: [facility] 12-23-2021 11:04-0400 Diastolic blood pressure 80 mm[Hg] Chay Leal MD Work Phone: [facility] 12-23-2021 11:04-0400 Heart rate 77 /min Chay Leal MD Work Phone: [facility] 12-23-2021 11:04-0400 SaO2% (BldA) [Mass fraction] 91 % Chay Leal MD Work Phone: [facility] 12-23-2021 11:04-0400 Systolic blood pressure 136 mm[Hg] Chay Leal MD Work Phone: [facility] 08-05-2021 08:15-0400 Body temperature 98.4 [degF] Chay Leal MD Work Phone: [facility] 08-05-2021 08:15-0400 Diastolic blood pressure 80 mm[Hg] Chay Leal MD Work Phone: [facility] 08-05-2021 08:15-0400 Heart rate 76 /min Chay Leal MD Work Phone: [facility] 08-05-2021 08:15-0400 SaO2% (BldA) [Mass fraction] 95 % Chay Leal MD Work Phone: [facility] 08-05-2021 08:15-0400 Systolic blood pressure 119 mm[Hg] Chay Leal MD Work Phone: [facility] Encounters Encounter Date Encounter Type Care Provider Facility Start: 08-08-2023 End: 08-08-2023 ambulatory VASYL MCKENNAANDT Not Available Start: 07-12-2023 End: 07-12-2023 ambulatory VASYL S WEYGANDT Not Available Start: 04-14-2023 End: 04-14-2023 ambulatory VASYL S WEYGANDT Not Available Start: 11-24-2022 Telephone encounter Little Logan DPM Work Phone: Podiatry Comment on above: Medication Problem Start: 11-17-2022 End: 11-17-2022 ambulatory ABIODUN NOLASCO Facility:[facility] Start: 11-17-2022 End: 11-17-2022 Patient encounter procedure Little Logan DPM Work Phone: Podiatry Comment on above: Onychomycosis (Prima ry Dx); Onychocryptosis; Pain; Pain in toe of left foot; Pain in toe of right foot; Tyloma; Diminished pulses in lower extremity Start: 03-17-2022 End: 03-17-2022 ambulatory ABIODUN NOLASCO [facility] Start: 03-17-2022 End: 03-17-2022 Office outpatient visit 25 minutes Chay Leal MD Work Phone: [facility] Comment on above: Erectile dysfunction , unspecified erectile dysfunction type Start: 12-23-2021 End: 12-23-2021 ambulatory CHAY LEAL [facility] Start: 12-23-2021 End: 12-23-2021 Postop follow up visit related to original px Chay Leal MD Work Phone: [facility] Comment on above: Erectile dysfunction , unspecified erectile dysfunction type Start: 11-04-2021 End: 11-04-2021 ambulatory [facility] Start: 10-21-2021 End: 10-25-2021 ambulatory ALEISHA [facility] Start: 10-08-2021 ambulatory [facility] Ambulatory Start: 10-06-2021 Documentation procedure Ghada hernandez MA [facility] Start: 10-05-2021 Orders Only Chay Leal MD Work Phone: [facility] Comment on above: Erectile dysfunction , unspecified erectile dysfunction type (Primary Dx) Start: 08-12-2021 Preprocedural examin ation done Chay Leal MD Work Phone: [facility] Work Phone: Start: 08-12-2021 End: 08-16-2021 [facility] Start: 08-05-2021 End: 08-05-2021 [facility] Start: 08-05-2021 End: 08-05-2021 Office outpatient new 45 minutes Chay Leal MD Work Phone: [facility] Comment on above: Erectile dysfunction , unspecified erectile dysfunction type Start: 06-23-2021 Transcribe Orders Abiodun Nolasco MD Work Phone: [facility] Comment on above: Erectile dysfunction , unspecified erectile dysfunction type (Primary Dx) Start: 06-22-2021 ambulatory [facility] Ambulatory Start: 12-26-2017 Patient encounter BRENDEN JONES Fac ility:[facility] Start: 11-22-2017 End: 11-22-2017 Patient encounter BRO PILLAI [facility] Start: 04-27-2017 End: 04-27-2017 Patient encounter BRENDEN JONES [facility] Procedures Date Procedure Procedure Detail Performing Clinician Start: 08-16-2013 Colonoscopy Little Logan DPM Work Phone: Plan of Treatment Date Care Activity Detail Author Start: 09-20-2023 Tetanus vaccination Tetanus: Every 1 0yrs [facility] Start: 09-20-2023 Urine microalbumin profile DTAP,TDAP,TD (2 - Td or Tdap) [facility] Start: 01-25-2023 Pneumococcal Vaccine : Age 65+ (2 - PCV) Pneumococcal Vaccine: Age 65+ (2 - PCV) [facility] Start: 01-06-2023 LIPID SCREEN LIPID SCREEN [facility] Start: 11-26-2022 Influenza vaccination INFLUENZA (#1) [facility] Start: 11-25-2022 PROSTATE CANCER SCREENING DISCUSSION PROSTATE CANCER SCREENING DISCUSSION [facility] Start: 06-23-2022 End: 06-23-2022 Patient encounter procedure 06/23/2022 Office Visit Urology Leal, Chay Thacker MD [address] [place] [address] [facility] Start: 03-28-2022 ADVANCE DIRECTIVE DISCUSSION ADVANCE DIRECTIVE DISCUSSION [facility] Start: 12-31-2021 COVID-19 Vaccine (5 - Booster for Pfizer series) COVID-19 Vaccine (5 - Booster for Pfizer series) [facility] Start: 12-31-2021 COVID-19 VACCINE (5 - Pfizer series) COVID-19 VACCINE (5 - Pfizer series) [facility] Start: 11-26-2021 Influenza vaccination [facility] Start: 10-21-2021 End: 10-21-2021 Admission to establishment 10/21/2021 Clinical Support Pre-Admission Testing [facility] Preadmission Testing Start: 09-23-2021 COVID-19 Vaccine (3 - Booster for Pfizer series) COVID-19 Vaccine (3 - Booster for Pfizer series) [facility] Start: 08-26-2021 End: 08-26-2021 Admission to same day surgery center 08/26/2021 Surgery Leal, Chay Thacker MD [address] [place] [address] INSERTION PENILE PROSTHESIS INFLATABLE (AMS 700) [facility] Comment on above: INSERTION PENILE PRO STHESIS INFLATABLE (AMS 700) Start: 08-26-2021 End: 08-26-2021 INSERTION PENILE PROSTHESIS INFLATABLE INSERTION PENILE PROSTHESIS INFLATABLE Erectile dysfunction, unspecified erectile dysfunction type 08/26/2021 1:57 PM EDT [facility] Main OR Start: 08-26-2021 Subsequent hospital visit by physician 08/26/2021 Hospital Encounter Leal, Chay Thacker MD [address] [place] [address] [facility] Start: 08-12-2021 End: 08-12-2021 Admission to establishment 08/12/2021 Clinical Support Pre-Admission Testing [facility] Preadmission Testing Start: 08-05-2021 End: 08-05-2021 Patient encounter procedure 08/05/2021 Office Visit Urology Leal, Chay Thacker MD [address] [place] [address] [facility] Start: 11-26-2020 Influenza vaccination Sequenti al Influenza Vaccine (#1) [facility] Start: 2020 Fall risk assessment Falls Risk Asse ssment [facility] Start: 2020 Pneumococcal Vaccine : Age 65+ (1 - PCV) Pneumococcal Vaccine: Age 65+ (1 - PCV) [facility] Start: 2020 Pneumococcal Vaccine : Age 65+ (1 of 1 - PPSV23) Pneumococcal Vaccine: Age 65+ (1 of 1 - PPSV23) [facility] Start: 01-20-2020 DIABETES SCREEN DIABETES SCREEN [facility] Start: 08-16-2018 Colonoscopy COLONOSCOPY [facility] Start: 08-16-2018 COLORECTAL CANCER SCREENING COLORECTAL CANCER SCREENING [facility] Start: 03-08-2017 Screening for malign ant neoplasm of colon [facility] Start: 03-05-2017 FECAL OCCULT BLOOD FECAL OCCULT BLOO D [facility] Start: 03-02-2014 SHINGRIX VACCINE (2 of 3) SHINGRIX VACCINE (2 of 3) [facility] Start: 12-25-2013 Pneumococcal Vaccine : Age 65+ (2 - PCV) Pneumococcal Vaccine: Age 65+ (2 - PCV) [facility] Start: 12-25-2013 PNEUMOCOCCAL: 65+ (2 - PCV) PNEUMOCOCCAL: 65+ (2 - PCV) [facility] Start: 2005 Administration of he rpes zoster vaccine Zoster Vaccines (1 of 2) [facility] Start: 2005 Screening for malign ant neoplasm of colon [facility] Start: 2000 COLOGUARD (FIT-DNA) COLOGUARD (FIT-D NA) [facility] Start: [address] COLONOGRAPHY [facility] Start: 2000 SIGMOIDOSCOPY SIGMOIDOSCOPY [facility] Start: 1985 Zoledronic acid therapy ALPHA- 1 ANTITRYPSIN DEFICIENCY SCREENING [facility] Start: 1973 ANNUAL 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 VISIT ANNUAL PCP TEAM CHRONIC DISEASE VISIT [facility] Start: 1973 BP CONTROLLED (<130/80) BP CONTROLLE D (<130/80) [facility] Start: 1973 Hepatitis C screening Hepatitis C Sc reening [facility] Start: 1967 Depression screening using PHQ-9 (Patient Health Questionnaire 9) score Depression Screening (PHQ-2/9) [facility] Start: 1960 COVID-19 Vaccine (1) COVID-19 Vaccin e (1) [facility] Start: 1958 History and physical examination, annual for health maintenance Wellness Visit [facility] Start: 1955 Abdominal aortic aneurysm screening Abdominal Aortic Ultrasound [facility] Start: 1955 ABDOMINAL AORTIC ANEURYSM SCREENING ABDOMINAL AORTIC ANEURYSM SCREENING [facility] Start: 1955 Prostate specific antigen measurement PSA Level [facility] Start: 1955 Screening for malign ant neoplasm of colon [facility] Start: 1955 Tetanus vaccination Tetanus: Every 1 0yrs [facility] INSERTION PENILE PROSTHESIS INFLATABLE INSERTION PENILE PROSTHESIS INFLATABLE Erectile dysfunction, unspecified erectile dysfunction type [facility] Main OR End: 10-23-2023 XR FOOT GENERAL 3V AP/LAT/OBL BILATERAL XR FOOT GENERAL 3V AP/LAT/OBL BILATERAL Radiology Routine Pain 1 Occurrences starting 09/23/2022 until 10/23/2023 [facility] Work Phone: Comment on above: 1 Occurrences starti ng 09/23/2022 until 10/23/2023 Immunizations Immunization Date Immunization Notes Care Provider Hillary escobedo 12-27-2016 influenza, injectabl e, quadrivalent, contains preservative Little Logan DPGracy Work Phone: [facility] 01-09-2016 influenza, injectabl e, quadrivalent, contains preservative Little Hild DPM Work Phone: [facility] Work Phone: 12-20-2014 influenza, seasonal, injectable Little Hild DPM Work Phone: [facility] 01-05-2014 zoster vaccine, live Little Hi ld DPM Work Phone: [facility] 12-26-2013 influenza, seasonal, injectable Little Hild DPM Work Phone: [facility] 09-19-2013 tetanus toxoid, redu milagros diphtheria toxoid, and acellular pertussis vaccine, adsorbed Little Hild DPM Work Phone: [facility] 12-25-2012 pneumococcal polysaccharide vaccine, 23 valent Little Hild DPM Work Phone: [facility] Payers Date Payer Category Payer Unknown [id number] 2021 Medicaid [place] [id number] 2021-Present [phone] [address] [place] [address] [id number] 2021 Medicaid [id number] 2020 Medicare [id number] 2020 Medicare [id number] 2020 Medicare [id number] 1955 Unknown [id number] 1955 Unknown [id number] 1955 Unknown [id number] 1955 Unknown [id number] 1955 Unknown [id number] [id number] 1955 Unknown [id number] [id number] 1955 Unknown [id number] [id number] 1955 Unknown [id number] 1955 Unknown [id number] 1955 Unknown [id number] [id number] 1955 Unknown [id number] [id number] 1955 Unknown [id number] 1955 Unknown [id number] Medicaid [id number] Social History Date Type Detail [facility] Start: 1955 [facility] Start: 07-26-2021 End: 03-17-2022 Exposure to SARS-CoV-2 (event) Not sure [facility] Start: 08-12-2021 End: 10-21-2021 Tobacco smoking status NHIS Ex-smoker [facility] End: 08-12-2020 History of tobacco use Current smoker [facility] Start: 03-28-1970 End: 08-12-2020 History of tobacco use Cigarette Smoker [facility] Start: 08-12-2021 End: 03-17-2022 Alcohol intake Ex-drinker (finding) [facility] Start: 10-21-2021 End: 11-17-2022 Tobacco use and exposure Smokeless tobacco non-user [facility] Start: 03-28-1970 Tobacco smoking stat us NVIS Smokes tobacco daily [facility] Start: 11-17-2022 Cigarettes smoked cu rrent (pack per day) - Reported 0.3 [facility] Start: 11-17-2022 Alcohol intake Current non-dr marketing lead of alcohol (finding) [facility] Start: 11-17-2022 Tobacco use panel [facility] National Score (1-10 0), lower number is lower risk 66 [facility] Start: 01-06-2017 Alcohol Comment has drank in 3 0 years, in younger day s drank [facility] Start: 1955 Sex Assigned At Male C [facility] Start: 07-20-2018 Gender identity Identifies as male gender (finding) [facility] Start: 07-20-2018 Sexual orientation Heterosexual (brody powers) [facility] Medical Equipment Procedure Code Equipment Code Equipment Origin al Text Equipment Identifier Dates Ams 700 Lgx Ms Pump [id number], [id number] FDA Start: 11-04-2021 Patrick Bio-Swivelock 4.75mm 24.5mm Suture Self Punch Sterile Disposable - [id number] Start: 12-19-2015 Comment on above: Description: Suture Shweta Clinical Notes 12-05-2015 to 12-02-2022 Telephone Encounter [...] recognize number. He can be reached at [phone]. JOANNA Snider LVM for patient to call the office. Urea Cream denied by insurance- not a covered medication. Can use Good Rx to get at lower cost. documented in this encounter [facility] 11-17-2022 Note HNO ID: [id number] Author: Little Logan DPM Service: ? Author [...] 1 encounters. PCP: Abiodun Nolasco MD HBA1C, [place] Date Value Ref Range Status 03/31/2010 5.8 [...] of breath CARDIO (more content not included)... [facility] 11-17-2022 Instructions Little Logan DPM - 11/17/2022 [...] office to discuss other options. [facility] will accept Good RX as well and may offer substantial saving if the cost to you for this medication is high. documented in this encounter [facility] 11-17-2022 History of Presen t illness Narrative [...] 1 encounters. PCP: Abiodun Nolasco MD HBA1C, [place] Date Value Ref Range Status 03/31/2010 5.8 [...] 4. RX Urea 40. Little Logan DPM, DABPM, FACFAS Pager: [phone] [facility] locations documented in this encounter [facility] 03-17-2022 Evaluation + Plan note Associated Problem(s): [...] while he was in the office today. [facility] 03-17-2022 History of Presen t illness [...] by mouth Morning ., Disp: , Rfl: [id number]-njreqdza (Trelegy Ellipta) 200-62.5-25 mcg DsDv, daily AM [...] discussed treatment options including: Chay Leal M.D [facility] documented in this encounter [facility] 03-17-2022 Miscellaneous Notes Associated Problem(s): Erectile dysfunction [...] the office today. documented in this encounter [facility] 12-23-2021 History of Presen t illness Narrative [...] by mouth Morning ., Disp: , Rfl: [id number]-lfomsedal-iulyybtm (Trelegy Ellipta) 200-62.5-25 mcg DsDv, daily AM [...] discussed treatment options including: Chay Leal M.D [facility] documented in this encounter [facility] 12-23-2021 Evaluation + Plan note Associated Problem(s): [...] see him back in about 6 months. [facility] 12-23-2021 Miscellaneous Notes Associated Problem(s): Erectile dysfunction [...] about 6 months. documented in this encounter [facility] 10-06-2021 History of Presen t illness Narrative M for Frederick Wu penile rep to call office to schedule for this procedure. documented in this encounter [facility] 10-06-2021 History of Presen t illness Narrative Patient faxed a reversal decision from insurance company that approved his penile implant surgery. Patient has been informed that surgery is scheduled for 11/04/21 and PAT 10/21/21 @ 8 am. Patient is also aware that he is to arrive at [facility] @ 1130 am on day of surgery. Patient was informed to follow all previous instructions for surgery. He stated that he understood. documented in this encounter [facility] 08-05-2021 History of Presen t illness Narrative [...] Take by mouth ., Disp: , Rfl: [id number]-sfqxpzkbv-jfzdhanf (Trelegy Ellipta) 200-62.5-25 mcg DsDv, every night [...] discussed treatment options including: Chay Leal M.D [facility] documented in this encounter [facility] 08-05-2021 Evaluation + Plan note Associated Problem(s): [...] potential complications of the device were discussed. [facility] 08-05-2021 Miscellaneous Notes Associated Problem(s): Erectile dysfunction [...] device were discussed. documented in this encounter [facility] 12-05-2015 History of Past i llness Narrative Problem Noted Date Diagnosed Date Resolved Date Thrombocytopenia 12/05/2015 05/13/2016 Skin lesion of scalp 04/13/2014 017 Lipoma of unspecified site 04/13/2014 0 05/13/2016 Sebaceous cyst 04/03/2014 05/13/2016 Right rotator cuff tear 11/20/201204/28 Pain in joint, shoulder region 10/10/2012 05/13/2016 Abdominal muscle strain 07/16/201104/28 Back pain 07/16/2011 05/13/2016 Bloating 05/13/2016 documented as of this encounter (statuses as of 11/18/2022) [facility] History of Past illness Narrative* Problem Noted Date Diagnosed Date Resolved Date Thrombocytopenia 12/05/2015 05/13/2016 Skin lesion of scalp 04/13/2014 017 Lipoma of unspecified site 04/13/2014 0 05/13/2016 Sebaceous cyst 04/03/2014 05/13/2016 Right rotator cuff tear 11/20/201204/28 Pain in joint, shoulder region 10/10/2012 05/13/2016 Abdominal muscle strain 07/16/201104/28 Back pain 07/16/2011 05/13/2016 Bloating 05/13/2016 documented as of this encounter (statuses as of 12/02/2022) [facility] Erectile dysfunction, unspecified erectile dysfunction type- Primary [facility] Erectile dysfunction, unspecified erectile dysfunction type Erectile dysfunction, unspecified erectile dysfunction type [facility] Erectile dysfunction, unspecified erectile dysfunction type- [facility] Diagnosis Erectile dysfunction, unspecified erectile dysfunction type [facility] Diagnosis Erectile dysfunction, unspecified erectile dysfunction type [facility] Diagnosis Onychomycosis- Primary Dermatophytosis of nail Onychocryptosis Ingrowing nail Pain Generalized pain Pain in toe of left foot Pain in limb Pain in toe of right foot Pain in limb Tyloma Corns and callosities Diminished pulses in lower extremity Other symptoms involving cardiovascular system documented [facility] this encounter [facility] Diagnostic Procedure Only (Routine) - Authorized Specialty Diagnoses / Procedures Referred By Lauryn t Referred To Contact XR IMAGING Diagnoses Pain Procedures XR FOOT GENERAL 3V AP/LAT/OBL BILATERAL RADEX FOOT COMPLETE MINIMUM 3 VIEWS [place], [place] [address] [place] [address] Xr Imaging [place] [address] Referral ID Status Reason Start Date Expiration Date Visits Requested Visits Authorized [id number] Authorized Auto-Generat ed Referral 11/17/2022 03/27/2023 3 3 [facility] Summary Purpose Family History No Family History Records FoundNo Family History Records FoundNo Family History Records FoundNo Family History Records FoundNo Family History Records FoundNo Family History Records FoundNo Family History Records Found Advance Directives No Advanced Directives Records FoundDocuments on File Type Date Recorded Patient Email Deployment Specialist Expl anation Advance Directives and Livin g Will 06/22/2021 12:00 AM Documents on File Type Date Recorded Patient Email Deployment Specialist Expl anation Advance Directives and Living Will Documents on File Type Date Recorded Patient Email Deployment Specialist Expl anation Advance Directive(s) 01/21/2016 9:00 PM Documents on File Type Date Recorded Patient Email Deployment Specialist Expl anation Advance Directive(s) 01/21/2016 9:00 PM Reason for Referral Specialty Diagnoses / Procedures Referred By Lauryn t Referred To Contact Urology Diagnoses Erectile dysfunction, unspecified erectile dysfunction type Abiodun Nolasco MD [address] [facility] [address] [place] [address] Chay Leal MD [address] [place] [address] Referral ID Status Reason Start Date Expiration Date Visits Requested Visits Authorized [id number] Pending Review Specialty Services Required/Pat ient's Best Interest 06/23/2021 06/23/2022 1 1 Additional Source Comments (unrecognized sect ion and content) No Status Records FoundNo Status Records FoundNo Status Records FoundNo Status Records FoundNo Status Records FoundNo Status Records FoundNo Status Records Found INFORMATION SOURCE (unrecogn ized section and content) DATE CREATED AUTHOR 11/29/2017 [facility] DATE CREATED AUTHOR AUTHOR'S ORGANIZ ATION 11/29/2017 [facility] DATE CREATED AUTHOR AUTHOR'S ORGANIZ ATION 11/06/2021 [facility] DATE CREATED AUTHOR AUTHOR'S ORGANIZ ATION 03/20/2022 [facility] DATE CREATED AUTHOR AUTHOR'S ORGANIZ ATION 11/18/2022 [facility] DATE CREATED AUTHOR AUTHOR'S ORGANIZ ATION 12/03/2022 [facility] DATE CREATED AUTHOR AUTHOR'S ORGANIZ ATION 08/09/2023 [facility] [employer] Care Teams (unrecognized sec tion and content) 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 Start Date End Date Abiodun Nolasco MD [address] [facility] [address] [place] [address] PCP - General Family Medicine 06/23/21 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 Start Date End Date Abiodun Nolasco MD [address] [facility] [address] [place] [address] PCP - General Family Medicine 06/23/21 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 Start Date End Date Abiodun Nolasco MD [address] [facility] [address] [place] [address] PCP - General Family Medicine 06/23/21 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 Start Date End Date Abiodun Nolasco MD [address] [facility] [address] [place] [address] PCP - General Family Medicine 06/23/21 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 Start Date End Date Abiodun Nolasco MD [address] [facility] [address] [place] [address] PCP - General Family Medicine 06/23/21 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 Start Date End Date Abiodun Nolasco MD [address] [facility] [address] [place] [address] PCP - General Family Medicine 06/23/21 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 Start Date End Date Abiodun Nolasco MD [address] [facility] [address] [place] [address] PCP - General Family Medicine 05/26/21 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 Start Date End Date Abiodun Nolasco MD [address] [facility] [address] [place] [address] PCP - General Family Medicine 05/26/21 Reason for Visit (unrecogniz ed section and content) Reason Comments Erectile Dysfunction Specialty Diagnoses / Procedures Referred By Contac t Referred To Contact Urology Diagnoses Erectile dysfunction, unspecified erectile dysfunction type Abiodun Nolasco MD [address] [facility] [address] [place] [address] Chay Leal MD [address] [place] [address] Referral ID Status Reason Start Date Expiration Date V isits Requested Visits Authorized [id number] Closed Specialty Services Required/[place]akeshia ent's Best Interest [...] or prosecute any alcohol or drug abuse patient.[facility] Hospital[facility] the event this information is protected by the Federal Confidentiality of Alcohol and Drug Abuse Patient Records regulations: The Federal rules restrict any use of the information to criminally investigate or prosecute any alcohol or drug abuse patient.[facility] FOR RECORDS PERTAINING TO PATIENTS WHO ARE [...] BE BASED ON THE PRIMARY CLINICAL RECORDS. [facility] [employer] [facility]. provides no warranty or guarantee of the accuracy or completeness of information in this document.
== END | disposition home or self-care (01) ==
LOC: CT 07:35
PROVIDERS: PCP Family Medicine; Referring Provider Nurse Practitioner Acute Care; Visit Provider Nurse Practitioner Acute Care
DX: F17.210 Nicotine dependence, cigarettes, uncomplicated (principal)
CPT/HCPCS: 71271

== ENCOUNTER → 2024-02-15 | Outpatient (CLI) | payer MEDICARE, MEDICAID, SELFPAY | END | disposition home or self-care (01) | LOC: LABSPEC 08:52 | PROVIDERS: PCP Family Medicine; Referring Provider Nurse Practitioner Acute Care; Visit Provider Nurse Practitioner Acute Care | DX: J44.9 Chronic obstructive pulmonary disease, unspecified (principal) | CPT/HCPCS: 87070; 87205 ==

== ENCOUNTER → 2024-05-11 | Outpatient (CLI) | payer MEDICARE, MEDICAID, SELFPAY ==
[2024-05-11 13:19] LABS: AST(SGOT) 14 U/L (15-37); Alanine Aminotransfer ALT/SGPT 22 U/L (16-61); Albumin, Serum 3.5 g/dL (3.2-5.0); Alkaline Phosphatase 121 U/L (45-117); Anion Gap 3 (5-15); BUN 13 mg/dL (7-18); BUN/Creat Ratio 12.4 RATIO (10-20); Calcium,Total 9.7 mg/dL (8.5-10.1); Chloride 108 mmol/L (98-107); Cholesterol 216 mg/dL (200); Creatinine, Serum 1.05 mg/dL (0.70-1.30); EST Glomerular Filtration Rate 74 mL/min (>60); Est Glom Filt Rate - Afr Amer 90 mL/min (>60); Globulin 3.5 g/dL (2.2-4.2); Glucose 78 mg/dL (74-106); High Density Lipoprotein 38 mg/dL; Potassium 4.3 mmol/L (3.5-5.1); Sodium Level 140 mmol/L (136-145); Triglycerides 128 mg/dL; Very Low Density Lipoprotein 26 mg/dL (5-40)
== END | disposition home or self-care (01) ==
LOC: MFPLAB 09:51
PROVIDERS: PCP Family Medicine; Referring Provider Family Medicine; Visit Provider Family Medicine
DX: I10 Essential (primary) hypertension (principal)
CPT/HCPCS: 36415; 80053; 80061

== ENCOUNTER → 2024-08-08 | Outpatient (CLI) | payer MEDICARE, MEDICAID, SELFPAY ==
[2024-08-08 11:07] LABS: ALB/GLOB Ratio 1.5 RATIO (0.9-2.4); AST(SGOT) 19 U/L (<=37); Alanine Aminotransfer ALT/SGPT 30 U/L (<=46); Alkaline Phosphatase 144 U/L (40-129); Anion Gap 9 (5-15); BUN 11 mg/dL (4-19); BUN/Creat Ratio 12.3 RATIO (10-20); Calcium,Total 9.8 mg/dL (7.6-11.0); Carbon Dioxide 27.7 mmol/L (21.0-32.0); Chloride 105 mmol/L (98-108); Cholesterol 147 mg/dL (<=200); Creatinine, Serum 0.91 mg/dL (0.70-1.20); EST Glomerular Filtration Rate 91 (>60); Globulin 2.6 g/dL (2.2-4.2); Glucose 88 mg/dL (70-99); High Density Lipoprotein 35 mg/dL; Low Density Lipoprotein Calc. 94 mg/dL; Potassium 4.6 mmol/L (3.3-5.1); Protein, Total 6.7 g/dL (5.9-8.4); Sodium Level 142 mmol/L (133-145); Total Bilirubin 0.44 mg/dL (0.00-1.30); Triglycerides 94 mg/dL; Very Low Density Lipoprotein 19 mg/dL (5-40); cholesterol:hdl ratio screen 4.24
== END | disposition home or self-care (01) ==
LOC: MFPLAB 09:23
PROVIDERS: PCP Family Medicine; Referring Provider Family Medicine; Visit Provider Family Medicine
DX: I10 Essential (primary) hypertension (principal); E78.5 Hyperlipidemia, unspecified
CPT/HCPCS: 36415; 80053; 80061

== ENCOUNTER → 2024-08-30 | Outpatient (CLI) | payer MEDICARE, MEDICAID, SELFPAY ==
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
--- OUTSIDE RECORDS SUMMARY | 2024-08-30 21:17 | XMS RPT_ITS | CCD ---
Author Organization [facility] Care Team Providers Care Real Estate Investment Analyst Name Role Phone HILLARY JONESNETH E Unavailable Unavailable ROBERT CHEIKH E Unavailable Unavailable AUDREY, JAYRAM Unavailable Unavailable MIEDKIMBERLEY HERNANDEZ BRI Unavailable Unavailabl e ROBERT, CHEIKH Unavailable Unavailable ROBERT, CHEIKH Unavailable Unavailable [place], Sage Unavailable Unavailable ROBERT, CHEIKH Unavailable Unavailable ROBERT, CHEIKH Unavailable Unavailable [place], Sage Unavailable Unavailable AUDREY, JAYRAM Unavailable Unavailable IMCA Unavailable Unavailable [facility] Unavailable Unavailable Abiodun Grider MD Primary Care Provider Abiodun Grider MD Primary Care Provider ALEISHA LOVE Attending Unavailabl e LEAL, CHAY KEDAR Admitting Unavailable GRIDERABIODUN ARIZA Primary Care Unavailable LEAL, CHAY KEDAR Admitting Unavailable ABIODUN GRIDER Primary Care Unavailable ALEISHA LOVE Attending Unavailabl e LEAL, CHAYYRIS MORRELL Attending Unavailable LEAL, CHAY KEDAR Admitting Unavailable ABIODUN GRIDER Primary Care Unavailable LEAL, CHAY MORRELL Attending Unavailable LEAL, CHAY KEDAR Admitting Unavailable ABIODUN GRIDER Primary Care Unavailable Dr. Edilia Brady Referring Provider Dr. Prashant Daniels Attending Provider Dr. Abiodun Grider Primary Care Provider Abiodun Grider MD Primary Care Provider Abiodun Grider MD Primary Care Provider LEAL, CHAY KEDAR Attending Unavailable ABIODUN GRIDER Primary Care Unavailable LEAL, CHAY KEDAR Attending Unavailable ABIODUN GRIDER Referring Unavailable ABIODUN GRIDER Primary Care Unavailable LEAL, CHAYYRIS MORRELL Attending Unavailable ABIODUN GRIDER Primary Care Unavailable ABIODUN GRIDER Primary Care Unavailable LEAL, CHAY MORRELL Attending Unavailable LEAL, CHAY MORRELL Attending Unavailable LEAL, CHAY MORRELL Attending Unavailable ABIODUN GRIDER Primary Care Unavailable Dr. Abiodun Grider Primary Care Provider [phone] Cheo, Dr. Rascon Referring Provider Avis LIQUOR INSPECTOR, LIQUOR INSPECTOR-C Mylene Attending Provider Dr. Abiodun Grider Primary Care Provider [phone] Cheo, Dr. Rascon Referring Provider Dr. Prashant Daniels Attending Provider Abiodun Grider MD Primary Care Provider ABIODUN GRIDER Primary Care Unavailable KELLE LOGAN Attending Unavailable ABIODUN GRIDER Primary Care Unavailable Olivia, Dr. Li Attending Provider Dr. Jen Baker Referring Provider Cheo, Dr. Rascon Primary Care Provider Cheo, Dr. Rascon Referring Provider [phone] Avis LIQUOR INSPECTOR, LIQUOR INSPECTOR-C Mylene Attending Provider Unavailable Primary Care Provider Unavailabl e MILLIE MONZON Attending Unavailable ABIODUN GRIDER Referring Unavailable MILLIE MONZON Attending Unavailable MILLIE MONZON Attending Unavailable MILLIE MONZON Attending Unavailable Dr. Abiodun Grider MD Primary Care Provider Dr. Abiodun Grider MD Attending Provider Dr. Abiodun Grider MD Referring Provider [phone] Avis LIQUOR INSPECTOR-CMylene Attending Provider Jen Baker Attending Unavailable Abiodun Grider Primary Care Unavailable Abiodun Grider Referring Unavailable Gianna Martell Admitting Unavailable RobotJen leahy Consulting Unavailable Abiodun Grider Primary Care Unavailable Ernie, Paul Attending Unavailable White Gianna L Consulting Unavailable Ernie, Paul Consulting Unavailable Sanjeev Bakerera Attending Unavailable Abiodun Grider Primary Care Unavailable Marco Antonio Vasquez Admitting Unavailable Agyebere, Marco Antonio Consulting Unavailable Marco Antonio Vasquez Attending Unavailable Gianna Martell L Admitting Unavailable Robotham, Jen Consulting Unavailable Paul Klein Attending Unavailable Grider, Abiodun Primary Care Unavailable Gianna Martell Consulting Unavailable Grider, Abiodun Primary Care Unavailable Friend, Ant Attending Unavailable Grider, Abiodun Referring Unavailable Grider, Abiodun Primary Care Unavailable Grider, Abiodun Attending Unavailable Grider, Abiodun Referring Unavailable Grider, Abiodun Primary Care Unavailable Albarran LIQUOR INSPECTOR, Mylene Referring Unavailable Albarran LIQUOR INSPECTOR, Mylene Attending Unavailable Robotham, Jen Attending Unavailable Robotham, Jen Referring Unavailable Grider, Abiodun Primary Care Unavailable Grider, Abiodun Primary Care Unavailable Albarran LIQUOR INSPECTOR, Mylene Referring Unavailable Albarran LIQUOR INSPECTOR, Mylene Attending Unavailable Robotham, Ejn Attending Unavailable Robotham, Jen Consulting Unavailable Gene, Kristian Referring Unavailable Tereletsky, Kristian Consulting Unavailable Gene, Kristian Attending Unavailable Gianna Martell Attending Unavailable Ernie, Paul Referring Unavailable Friend, Ant Attending Unavailable Friend, Ant Referring Unavailable Grider, Abiodun Primary Care Unavailable Grider, Abiodun Primary Care Unavailable Claudia Rico Attending Unavailable Prashant Daniels Attending Unavailable Prashant Daniels Attending Unavailable Grider, Abiodun Primary Care Unavailable Albarran LIQUOR INSPECTOR, Mylene Referring Unavailable Albarran LIQUOR INSPECTOR, Mylene Consulting Unavailable Grider, Abiodun Primary Care Unavailable Albarran LIQUOR INSPECTOR, Mylene Attending Unavailable Grider, Abiodun Referring Unavailable Grider, Abiodun Primary Care Unavailable Albarran LIQUOR INSPECTOR, Mylene Referring Unavailable Albarran LIQUOR INSPECTOR, Mylene Attending Unavailable Grider, Abiodun Primary Care Unavailable Grider, Abiodun Attending Unavailable Grider, Abiodun Referring Unavailable Albarran LIQUOR INSPECTOR, Mylene Attending Unavailable Albarran LIQUOR INSPECTOR, Mylene Referring Unavailable Grider, Abiodun Primary Care Unavailable Grider, Abiodun Primary Care Unavailable Robotham, Jen Consulting Unavailable Marco Antonio Vasquez Admitting Unavailable Gene, Kristian Attending Unavailable Marco Antonio Vasquez Consulting Unavailable Grider, Abiodun Primary Care Unavailable Albarran LIQUOR INSPECTOR, Mylene Attending Unavailable Grider, Abiodun Referring Unavailable Allergies Allergy Classification Reported Allergen(s) Allergy Type Date of Onset Reaction(s) Facility (20 sources) lisinopril; Translations: [LISINOPRIL] Drug Allergy 12-14-2013 Cough [facility] Repository Medications Current Medications Medication Drug Class(es) Dates Sig (Normalized) Sig (Original) Albuterol Sulfate 2.5 mg /3 mL (0.083 %) solution for nebulization (2 sources) Start: 03-02-2024 take 2.5 mg by inhalation every eight hours as needed for wheezing Albuterol Sulfate 2.5 mg /3 mL (0.083 %) solution for nebulization Active 2.5 mg INHALATION Q8H as needed for shortness of breath or wheezing 180 March 02, 2024 12:32pm Start: 06-23-2022 End: 08-24-2023 take 2.5 mg by inhalation every eight hours Albuterol Sulfate 2.5 mg /3 mL (0.083 %) solution for nebulization Discontinued 2.5 mg INHALATION Q8H 180 June 23, 2022 1:34pm August 24, 2023 7:00pm amLODIPine 5 mg oral tablet (8 sources) Dihydropyridine Calcium Channel Jose Start: 12-22-2022 take 1 tablet by mouth once daily Amlodipine 5 mg tablet Active 5 mg PO DAILY December 22, 2022 12:00am aspirin 81 mg delayed release oral tablet (20 sources) Platelet Aggregation Inhibitor, Nonsteroidal Anti-inflammatory Drug Start: 03-20-2017 take 1 tablet by mouth once daily Aspirin 81 MG tablet Active 81 mg PO DAILY@0800 March 20, 2017 1:00am Comment on above: Take 1 tablet by kisha th once daily. TAKE 1 TABLET BY KISHA TH ONCE DAILY atenolol 50 mg oral tablet (16 sources) beta-Adrenergic Jose Start: 03-20-2017 take 1 tablet by mouth once daily Atenolol 50 MG tablet Active 50 mg PO DAILY March 20, 2017 1:00am Comment on above: TAKE 1 TABLET BY KISHA TH ONCE DAILY. atenolol 50 mg / chlorthalidone 25 mg oral tablet (6 sources) Thiazide-like Diuretic, beta-Adrenergic Jose take 1 tablet by mouth once daily atenoloL-chlortha lidone (TENORETIC) 50-25 mg per tablet Take 1 (one) tablet by mouth daily Morning . 0 Active atorvastatin 20 mg oral tablet (20 sources) HMG-CoA Reductase Inhibitor Start: 09-11-2019 take 1 tablet by mouth at bedtime Atorvastatin 20 mg tablet Active 20 mg PO AT BEDTIME September 11, 2019 12:00am Start: 01-09-2018 End: 09-11-2019 take 1 tablet by mouth at bedtime Atorvastatin 40 MG tablet Discontinued 40 mg PO AT BEDTIME October 13, 2018 12:00am September 11, 2019 2:23pm Comment on above: Take 1 tablet by kisha th once daily. 12 hr buPROPion hydrochloride 100 mg extended release oral tablet (20 sources) Aminoketone Start: take 1 tablet by mouth every twelve hours buPROPion (WELLBUTRIN SR) 100 MG 12 hr tablet Take by mouth Morning . 0 10/13/2018 Active Start: 10-13-2018 take 1 tablet by kisha twice daily Bupropion Hcl 100 MG tablet sustained-release 12 hr Active 100 mg PO TWICE A DAY October 13, 2018 12:00am cetirizine hydrochloride 10 mg oral tablet (1 source) Histamine-1 Receptor Antagonist Start: 06-12-2024 take 1 tablet by mouth once daily as needed Cetirizine 10 mg tablet Active 10 mg PO DAILY as needed for allergy symptoms June 12, 2024 12:00am ciclopirox 80 mg/ml topical solution (4 sources) [...] cpap mask. Sleep apnea 0 02/26/2015 Active docusate sodium 50 mg / sennosides, alf 8.6 mg oral tablet (1 source) Start: 08-28-2023 Sennosides-Docusate Sodium (Stool Softener-Stimulant Laxat) 8.6-50 mg Tablet Active 2 {tbl} PO TWICE A DAY 0 August 28, 2023 12:00am FLUoxetine 20 mg oral capsule (20 sources) Serotonin Reuptake Inhibitor Start: 03-20-2017 take 1 capsule by mouth once daily Fluoxetine 20 MG capsule Active 20 mg PO DAILY March 20, 2017 1:00am Comment on above: Take 1 capsule by mo [facility] once daily. Fluticasone-Umeclidi n-Vilanter (20 sources) Start: 04-18-2023 Fluticasone-Umeclid in-Vilanter (Trelegy Ellipta) 200-62.5-25 mcg blister with device Active 1 NMA INHALATION DAILY 60 April 18, 2023 11:34am Start: 04-18-2023 Fluticasone-Um eclidin-Vilanter (Trelegy Ellipta) 200-62.5-25 mcg blister with device Active 1 INH INHALATION DAILY 60 April 18, 2023 11:34am Start: 01-11-2023 End: 04-18-2023 Jbdyfckmbrw-Qmncskuqr-Lwxfqq er (Trelegy Ellipta) 200-62.5-25 mcg blister with device Discontinued 1 NMA INHALATION DAILY 60 January 11, 2023 11:48am April 18, 2023 11:34am Start: 01-11-2023 End: 04-18-2023 Qtkghsdsyoi-Gvjbfrfaa-Zsznls er (Trelegy Ellipta) 200-62.5-25 mcg blister with device Discontinued 1 INH INHALATION DAILY 60 January 11, 2023 11:48am April 18, 2023 11:34am Start: 01-11-2023 Fluticasone-Um eclidin-Vilanter (Trelegy Ellipta) 200-62.5-25 mcg blister with device Active 1 INH INHALATION DAILY 60 January 11, 2023 11:48am Start: 11-11-2022 End: 01-11-2023 Mozcfgnqbwe-Siscjhwco-Hmtycl er (Trelegy Ellipta) 200-62.5-25 mcg blister with device Discontinued 1 NMA INHALATION DAILY 60 November 11, 2022 11:24am January 11, 2023 11:48am Start: 11-11-2022 End: 01-11-2023 Lugnsikkcqj-Ouiphucgf-Gbgeze er (Trelegy Ellipta) 200-62.5-25 mcg blister with device Discontinued 1 INH INHALATION DAILY 60 November 11, 2022 11:24am January 11, 2023 11:48am Start: 11-11-2022 Fluticasone-Um eclidin-Vilanter (Trelegy Ellipta) 200-62.5-25 mcg blister with device Active 1 INH INHALATION DAILY 60 November 11, 2022 11:24am Start: 12-14-2021 End: 11-11-2022 Iikbilbgrid-Jqkxwydea-Rxxntx er (Trelegy Ellipta) 200-62.5-25 mcg blister with device Discontinued 1 NMA INHALATION DAILY December 14, 2021 7:53am November 11, 2022 11:24am Start: 12-14-2021 End: 11-11-2022 Egvlljqpwoq-Vrbbamlkg-Wjtxig er (Trelegy Ellipta) 200-62.5-25 mcg blister with device Discontinued 1 INH INHALATION DAILY December 14, 2021 7:53am November 11, 2022 11:24am Start: 12-14-2021 Fluticasone-Um eclidin-Vilanter (Trelegy Ellipta) 200-62.5-25 mcg blister with device Active 1 INH INHALATION DAILY December 14, 2021 6:53am Start: 12-14-2021 Fluticasone-Um eclidin-Vilanter (Trelegy Ellipta) 200-62.5-25 mcg blister with device Active 1 INH INHALATION DAILY December 14, 2021 7:53am Start: 12-14-2021 End: 12-14-2021 Kxwumxjobtf-Uibuoldlk-Gnnprw er (Trelegy Ellipta) 200-62.5-25 mcg blister with device Discontinued 1 NMA INHALATION DAILY December 14, 2021 7:46am December 14, 2021 7:53am Start: 12-14-2021 End: 12-14-2021 Ztvnjfggsbq-Lfyllgotb-Mbtgsj er (Trelegy Ellipta) 200-62.5-25 mcg blister with device Discontinued 1 INH INHALATION DAILY December 14, 2021 6:46am December 14, 2021 6:53am Start: 12-14-2021 End: 12-14-2021 Lrngdtfidxb-Exmybnepw-Eahqwo er (Trelegy Ellipta) 200-62.5-25 mcg blister with device Discontinued 1 INH INHALATION DAILY December 14, 2021 7:46am December 14, 2021 7:53am Start: 05-26-2021 End: 12-14-2021 Cutvlpoebcj-Qbrsynjqc-Bkgveo er (Trelegy Ellipta) 200-62.5-25 mcg blister with device Discontinued 1 NMA INHALATION DAILY 60 May 26, 2021 8:47am December 14, 2021 7:46am Start: 05-26-2021 End: 12-14-2021 Inyrddzmedc-Spycdxbho-Emaodu er (Trelegy Ellipta) 200-62.5-25 mcg blister with device Discontinued 1 INH INHALATION DAILY 60 May 26, 2021 7:47am December 14, 2021 6:46am Start: 05-26-2021 End: 12-14-2021 Trcpvzvnmrw-Aywbjhint-Alcbdd er (Trelegy Ellipta) 200-62.5-25 mcg blister with device Discontinued 1 INH INHALATION DAILY 60 May 26, 2021 8:47am December 14, 2021 7:46am Start: 05-26-2021 Fluticasone-Um eclidin-Vilanter (Trelegy Ellipta) 200-62.5-25 mcg blister with device Active 1 INH INHALATION DAILY 60 May 26, 2021 8:47am Start: 01-16-2021 End: 05-26-2021 Kpfjxdtytua-Qfdxoedso-Qjjbyo er (Trelegy Ellipta) 200-62.5-25 mcg blister with device Discontinued 1 INH INHALATION DAILY 60 January 16, 2021 9:38am May 26, 2021 8:47am Start: 01-16-2021 End: 05-26-2021 Teavltfynxm-Mmjtlsjyj-Bfeikd er (Trelegy Ellipta) 200-62.5-25 mcg blister with device Discontinued 1 NMA INHALATION DAILY 60 January 16, 2021 12:00am May 26, 2021 8:47am Start: 01-16-2021 End: 05-26-2021 Puiejltpahk-Stsqxhzrj-Jufetl er (Trelegy Ellipta) 200-62.5-25 mcg blister with device Discontinued 1 INH INHALATION DAILY 60 January 15, 2021 11:00pm May 26, 2021 7:47am Start: 01-16-2021 End: 05-26-2021 Kzcmdzcncyq-Ngxffzkss-Rwkmsg er (Trelegy Ellipta) 200-62.5-25 mcg blister with device Discontinued 1 INH INHALATION DAILY 60 January 16, 2021 12:00am May 26, 2021 8:47am izyttwaayhj-ctgigbrro-shjvez er (Trelegy Ellipta) 200-62.5-25 mcg DsDv (6 sources) fluticasone-umec lidin-vilanter (Trelegy Ellipta) 200-62.5-25 mcg DsDv daily AM . 0 Active fluticasone-umec lidin-vilanter (Trelegy Ellipta) 200-62.5-25 mcg DsDv every night at bedtime . 0 Active 12 hr guaiFENesin 1200 mg extended release oral tablet (1 source) Start: 02-14-2024 take 1 tablet by mouth every twelve hours Guaifenesin 1,200 mg tablet extended release 12hr Active 1200 mg PO Q12H 60 February 14, 2024 1:00am losartan potassium 100 mg oral tablet (20 sources) Angiotensin 2 Receptor Jose Start: 09-20-2018 End: 10-02-2019 take 1 tablet by mouth once daily Losartan 100 mg tablet Active 100 mg PO DAILY 90 October 02, 2019 4:37pm Start: 01-11-2018 End: 09-20-2018 take 1 tablet by mouth once daily Losartan 50 mg tablet Discontinued 50 mg PO DAILY September 13, 2018 12:00am September 20, 2018 1:39pm Comment on above: TAKE 1 TABLET BY KISHA TH ONCE DAILY. nitroglycerin 0.4 mg sublingual tablet (14 sources) Nitrate Vasodilator Start: 07-29-19 take 1 tablet under the tongue once daily as needed for pain Nitroglycerin 0.4 mg tablet, sublingual Active 0.4 mg SL daily as needed for chest pain July 29, 2023 12:00am Start: 08-16-2018 End: 04-18-2023 Nitroglycerin 0.4 mg tablet, sublingual Discontinued 0.4 mg SL every 5 to 15 minutes as needed for CP October 27, 2018 12:00am April 18, 2023 11:11am Comment on above: Dissolve 1 tablet un golden the tongue every 5 minutes as needed for Chest Pain. polyethylene glycol 3350 45928 mg powder for oral solution (1 source) Osmotic Laxative Start: Polyethylene Glycol 3350 (Miralax) 17 gram/dose powder Active 17 g PO DAILY 510 August 28, 2023 12:00am topiramate 25 mg oral tablet (10 sources) Start: End: take 3 tablets by mouth in the morning topiramate (Topamax) 25 MG tablet Indications: Chronic migraine without aura, intractable, without status migrainosus (CMS/HCC) Take 3 tablets (75 mg) by mouth in the morning and 3 tablets (75 mg) before bedtime. 540 tablet 1 01/27/2024 07/25/2024 Active Start: 12-22-2022 take 25 mg by mouth twice lanny y Topiramate Active 25 MG PO TWICE A DAY December 22, 2022 12:00am Trelegy Ellipta 200-62.5-25 MCG/ACT aerosol powder (3 sources) Start: 01-11-2023 Trelegy Ellipt a 200-62.5-25 MCG/ACT aerosol powder 01/11/2023 Active urea 400 mg/ml topical cream (3 [...] Drug Class(es) Dates Sig (Normalized) Sig (Original) albuterol 0.83 mg/ml inhalation solution (20 sources) beta2-Adrenergic Agonist Start: 08-24-2023 End: 03-02-2024 take 2.5 mg by inhalation every eight hours as needed for wheezing Albuterol Sulfate 2.5 mg /3 mL (0.083 %) solution for nebulization Discontinued 2.5 mg INHALATION Q8H as needed for shortness of breath or wheezing August 24, 2023 12:00am March 02, 2024 12:32pm Start: 10-14-2022 End: 12-05-2023 Albuterol Sulfate 90 mcg/act uation HFA aerosol inhaler Active 2 NMA INHALATION EVERY 4 HOURS NEEDED as needed for Sob &/Or Wheezing 8.5 December 05, 2023 2:20pm Start: 06-23-2022 take 2.5 mg by inhal ation every eight hours Albuterol Sulfate Active 2.5 MG INHALATION Q8H 180 June 23, 2022 1:34pm Start: 12-25-2020 End: 06-23-2022 take 2.5 mg by inhalation every eight hours Albuterol Sulfate 2.5 mg /3 mL (0.083 %) solution for nebulization Discontinued 2.5 mg INHALATION Q8H December 25, 2020 12:00am June 23, 2022 1:35pm Start: 09-27-2020 End: 10-26-2020 take 1-2 puff(s) by inhalation every two hours as needed for wheezing Albuterol Sulfate (Ventolin Hfa) 90 mcg/actuation HFA aerosol inhaler Discontinued 1 - 2 NMA INHALATION EVERY 4 HOURS NEEDED as needed for Wheezing September 27, 2020 12:00am October 25, 2020 12:00am October 26, 2020 12:01am 1 to 2 puffs every 2 hours as needed for wheezing or shortness of breath. Start: 09-27-2020 End: 10-26-2020 take 1-2 puff(s) by inhalation every two hours as needed for wheezing Albuterol Sulfate (Ventolin Hfa) 90 mcg/actuation HFA aerosol inhaler Discontinued 1 - 2 PUFF INHALATION EVERY 4 HOURS NEEDED September 27, 2020 12:00am October 26, 2020 12:01am 1 to 2 puffs every 2 hours as needed for wheezing or shortness of breath. Start: 10-27-2018 End: 12-25-2020 Albuterol Sulfate 90 mcg/act uation aerosol powdr breath activated Discontinued 2 NMA INHALATION EVERY 6 HOURS October 27, 2018 12:00am December 25, 2020 10:43am Start: 10-27-2018 End: 12-25-2020 Albuterol Sulfate Discontinu ed 2 INH INHALATION EVERY 6 HOURS October 27, 2018 12:00am December 25, 2020 10:43am Start: 10-13-2018 End: 10-14-2022 Albuterol Sulfate 18 GM HFA aerosol inhaler Discontinued 2 NMA INHALATION EVERY 4 HOURS NEEDED as needed for Sob &/Or Wheezing October 13, 2018 12:00am October 14, 2022 9:44am Start: 10-13-2018 End: 10-14-2022 take 1 puff(s) by inhalation every four hours as needed Albuterol Sulfate Active 2 PUFF INHALATION EVERY 4 HOURS NEEDED 8.5 October 14, 2022 9:44am Start: 02-07-2018 take 2 puff(s) by mo uth every four hours as needed VENTOLIN HFA 90 mcg/actuation inhaler INHALE 2 (TWO) PUFFS BY MOUTH EVERY 4 HOURS NEEDED 18 g 10 02/07/2018 Active Start: 03-20-2017 End: 09-13-2018 Albuterol Sulfate 18 GM HFA aerosol inhaler Discontinued 2 NMA INHALATION DAILY March 20, 2017 1:00am September 13, 2018 9:08am Start: 03-20-2017 End: 09-13-2018 take 1 puff(s) by inhalation once daily Albuterol Sulfate Discontinued 2 PUFF INHALATION DAILY March 20, 2017 1:00am September 13, 2018 9:08am Comment on above: INHALE 2 (TWO) PUFFS BY MOUTH EVERY 4 HOURS NEEDED Beclomethasone Dipropionate (11 sources) Corticosteroid Start: End: take 40 ug by inhalation twice daily Beclomethasone Dipropionate (Qvar Redihaler) 40 mcg/actuation HFA aerosol breath activated Discontinued 1 INH INHALATION TWICE A DAY September 11, 2019 2:25pm December 25, 2020 10:45am Start: 09-11-2019 End: 12-25-2020 take 40 ug by inhalation twice daily Beclomethasone Dipropionate (Qvar Redihaler) 40 mcg/actuation HFA aerosol breath activated Discontinued 1 NMA INHALATION TWICE A DAY September 11, 2019 12:00am December 25, 2020 10:45am Start: 09-11-2019 End: 12-25-2020 take 40 ug by inhalation twice daily Beclomethasone Dipropionate (Qvar Redihaler) 40 mcg/actuation HFA aerosol breath activated Discontinued 1 INH INHALATION TWICE A DAY September 10, 2019 11:00pm December 25, 2020 9:45am Start: 09-11-2019 End: 12-25-2020 take 40 ug by inhalation twice daily Beclomethasone Dipropionate (Qvar Redihaler) 40 mcg/actuation HFA aerosol breath activated Discontinued 1 INH INHALATION TWICE A DAY September 11, 2019 12:00am December 25, 2020 10:45am benzonatate 100 mg oral capsule (13 sources) Non-narcotic Antitussive Start: 02-04-2017 End: 11-19-2019 take 1 capsule by mouth three times daily as needed for cough Benzonatate 100 mg capsule Discontinued 100 mg PO THREE TIMES A DAY as needed for Cough October 27, 2018 12:00am November 19, 2019 8:09am Comment on above: Take 1 capsule by mo [facility] three times daily as needed for Cough. Budesonide-Glycopy r-Formoterol (20 sources) Corticosteroid, beta2-Adrenergic Agonist Start: 12-30-2020 End: 01-29-2021 Budesonide-Glycopy r-Formoterol (Breztri Aerosphere) 160-9-4.8 mcg/actuation HFA aerosol inhaler Discontinued 2 NMA INHALATION TWICE A DAY 10.7 December 30, 2020 7:53am January 29, 2021 12:49pm Start: 12-30-2020 End: 01-29-2021 Mrdihpagao-Xqhmduxd-Eznkfvxe ol (Breztri Aerosphere) 160-9-4.8 mcg/actuation HFA aerosol inhaler Discontinued 2 INH INHALATION TWICE A DAY 10.7 December 30, 2020 6:53am January 29, 2021 11:49am Start: 12-30-2020 End: 01-29-2021 Xcdcipzjds-Zkymgthq-Eavjgirw ol (Breztri Aerosphere) 160-9-4.8 mcg/actuation HFA aerosol inhaler Discontinued 2 INH INHALATION TWICE A DAY 10.7 December 30, 2020 7:53am January 29, 2021 12:49pm Start: 12-25-2020 End: 12-30-2020 Qlrgqwanzn-Nrrbbnju-Pgsexfiv ol (Breztri Aerosphere) 160-9-4.8 mcg/actuation HFA aerosol inhaler Discontinued 2 INH INHALATION TWICE A DAY 10.7 December 25, 2020 11:28am December 30, 2020 7:54am Start: 12-25-2020 End: 12-30-2020 Wiypylxmij-Pmjrlykc-Dkvvbdfy ol (Breztri Aerosphere) 160-9-4.8 mcg/actuation HFA aerosol inhaler Discontinued 2 NMA INHALATION TWICE A DAY 10.7 December 25, 2020 12:00am December 30, 2020 7:54am Start: 12-25-2020 End: 12-30-2020 Vtytzhxztk-Dhdoszdg-Zmzpsdvz ol (Breztri Aerosphere) 160-9-4.8 mcg/actuation HFA aerosol inhaler Discontinued 2 INH INHALATION TWICE A DAY 10.7 December 24, 2020 11:00pm December 30, 2020 6:54am Start: 12-25-2020 End: 12-30-2020 Qgxbhnocpx-Ptzevaro-Esihedzs ol (Breztri Aerosphere) 160-9-4.8 mcg/actuation HFA aerosol inhaler Discontinued 2 INH INHALATION TWICE A DAY 10.7 December 25, 2020 12:00am December 30, 2020 7:54am clotrimazole 10 mg oral lozenge (2 sources) Azole Antifungal Start: 02-14-2017 clotrimazole (MYCELEX) 10 mg rose Indications: Thrush Use 1 Rose as instructed five times daily. 50 Rose 0 02/14/2017 Active Comment on above: Use 1 Rose as inst ructed five times daily. COMPOUNDED PRESCRIPTION (4 sources) Start: 07-23-2015 COMPOUNDED PRESCRIPTION cpap mask. Sleep apnea 1 [...] supplies. Dx. GALE 327.23 cpap mask. 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 cyclobenzaprine hydrochloride 10 mg oral tablet (13 sources) Muscle Relaxant Start: 2017 End: 2019 take 1 tablet by mouth three times daily as needed for muscle spasms Cyclobenzaprine 10 mg tablet Discontinued 10 mg PO 3 TIMES DAILY NEEDED as needed for Muscle Spasm September 13, 2018 12:00am November 19, 2019 8:10am Comment on above: TAKE ONE (1) TABLET BY MOUTH THREE TIMES DAILY NEEDED FOR MUSCLE SPASMS doxycycline monohydrate 100 mg oral tablet (2 sources) Tetracycline-class Drug Start: 2016 take 1 tablet by mouth twice daily doxycycline monohydrate 100 mg tablet Indications: Bacterial sinusitis Take 1 tablet by mouth twice daily. 20 tablet 0 02/14/2017 Active Comment on above: Take 1 tablet by kisha th twice daily. Fluad Quad (65yr up)(PF) 60 mcg (15 mcg x 4)/0.5mL IM syringe (flu vac (1 source) Start: 2020 End: 2020 Fluad Quad (65yr up)(PF) 60 mcg (15 mcg x 4)/0.5mL IM syringe (flu vac Discontinued 60 MCG IM ONCE 0.5 March 03, 2021 9:54am March 03, 2021 10:39am levoFLOXacin 500 mg oral tablet (1 source) Quinolone Antimicrobial Start: 2023 End: 2023 take 1 tablet by mouth once daily Levofloxacin 500 mg tablet Discontinued 500 mg PO daily July 29, 2023 12:00am August 15, 2023 9:01am loratadine 10 mg oral tablet (13 sources) Start: 2016 End: 2020 take 1 tablet by mouth once daily Loratadine 10 MG tablet Discontinued 10 mg PO DAILY March 20, 2017 1:00am December 25, 2020 10:45am Comment on above: TAKE 1 TABLET BY KISHA TH ONCE DAILY. meloxicam 15 mg oral tablet (13 sources) Nonsteroidal Anti-inflammatory Drug Start: 2016 End: 2020 take 1 tablet by mouth once daily as needed for pain Meloxicam 15 mg tablet Discontinued 15 mg PO DAILY as needed for Pain October 27, 2018 12:00am December 25, 2020 10:45am Comment on above: Take 1 tablet by kisha once daily. mometasone furoate 1 mg/ml topical cream (2 sources) Corticosteroid Start: 2016 mometasone (ELOCON) 0.1 % cream Indications: Dermatitis Apply 1 application to affected area once daily. 45 g 0 09/10/2016 Active Comment on above: Apply 1 application to affected area once daily. omeprazole 20 mg delayed release oral capsule (16 sources) Proton Pump Inhibitor Start: 2017 End: 2022 take 1 capsule by mouth once daily Omeprazole 20 MG capsule,delayed release(DR/EC) Discontinued 20 mg PO DAILY October 13, 2018 12:00am December 22, 2022 2:42pm Comment on above: TAKE ONE (1) CAPSULE BY MOUTH ONCE DAILY ondansetron 4 mg disintegrating oral tablet (20 sources) Serotonin-3 Receptor Antagonist Start: 2021 End: 2022 take 1 tablet by mouth every eight hours as needed for nausea and vomiting Ondansetron 4 mg tablet,disintegrating Discontinued 4 mg PO Q8H as needed for nausea and vomiting July 08, 2021 12:00am December 22, 2022 2:09pm Start: 02-28-2018 End: 09-13-2018 take 1 tablet by mouth every eight hours as needed for nausea Ondansetron 4 MG tablet Discontinued 4 mg PO EVERY 8 HOURS NEEDED as needed for Nausea February 28, 2018 1:00am September 13, 2018 9:07am pantoprazole 40 mg delayed release oral tablet (13 sources) Proton Pump Inhibitor Start: 12-22-2022 End: 04-18-2023 take 1 tablet by mouth once daily Pantoprazole 40 mg tablet,delayed release (DR/EC) Discontinued 40 mg PO DAILY January 19, 2023 9:37am April 18, 2023 11:11am predniSONE 20 mg oral tablet (20 sources) Start: 06-12-2024 End: 06-17-2024 take 3 tablets by mouth once daily at mealtime Prednisone 20 mg tablet Discontinued 60 mg PO daily 15 5 June 12, 2024 12:00am June 16, 2024 12:00am June 17, 2024 12:11am administer with food or milk Start: 02-14-2024 End: 06-12-2024 Prednisone 10 mg tablet Discontinued 10 mg PO daily February 14, 2024 1:00am June 12, 2024 10:03am take 4 tabs for three days, then 3 tabs for three days, then 2 tabs for three days, then 1 tab for 3 days Start: 07-29-2023 End: 08-15-2023 Prednisone 20 mg tablet Discontinued mg PO July 29, 2023 12:00am August 15, 2023 9:01am Start: 04-07-2022 End: 10-14-2022 take 3 tablets by mouth once daily at mealtime Prednisone 20 mg tablet Discontinued 60 mg PO daily April 09, 2022 5:27pm October 14, 2022 8:58am administer with food or milk Start: 04-07-2022 End: 10-14-2022 take 60 mg by mouth once daily at mealtime Prednisone Discontinued 60 MG PO daily April 09, 2022 5:27pm October 14, 2022 8:58am administer with food or milk Start: 12-10-2020 End: 01-29-2021 take 2 tablets by mouth once daily Prednisone 20 mg tablet Discontinued 40 mg PO DAILY December 25, 2020 12:00am January 29, 2021 12:49pm Start: 12-10-2020 End: 01-29-2021 take 40 mg by mouth once daily Prednisone Discontinued 40 MG PO DAILY December 25, 2020 12:00am January 29, 2021 12:49pm rizatriptan 10 mg oral tablet (4 sources) Serotonin-1b and Serotonin-1d Receptor Agonist Start: 07-29-2023 End: 08-24-2023 Rizatriptan 10 mg tablet Discontinued mg PO July 29, 2023 12:00am August 24, 2023 7:00pm Start: 07-12-2023 take 1 tablet by mouth once ri zatriptan (Maxalt) 10 MG tablet Indications: Chronic migraine without aura, intractable, without status migrainosus (CMS/HCC) Take 1 tablet (10 mg) by mouth 1 (one) time if needed for migraine (1 tablet daiily as needed for onset of migraine. may repeat 2nd dose in 2 hrs if needed. Mas 2 doses in 24 hours) May repeat in 2 hours if unresolved. Do not exceed 30 mg in 24 hours. 9 tablet 2 07/12/2023 Active simvastatin 20 mg oral tablet (11 sources) HMG-CoA Reductase Inhibitor Start: 03-20-2017 End: 09-13-2018 take 1 tablet by mouth once daily Simvastatin 20 MG tablet Discontinued 20 mg PO DAILY March 20, 2017 1:00am September 13, 2018 9:06am terbinafine hydrochloride 10 mg/ml topical cream (2 sources) Allylamine Antifungal Start: 10-14-2016 terbinafine HCl (LAMISIL) 1 % cream APPLY 1 APPLICATION TO AFFECTED AREA EVERY NIGHT AT BEDTIME 30 g 10 10/14/2016 Active Comment on above: APPLY 1 APPLICATION TO AFFECTED AREA EVERY NIGHT AT BEDTIME 60 actuat tiotropium 0.0025 mg/actuat inhalation spray (17 sources) Anticholinergic Start: 03-20-2017 End: 09-13-2018 Tiotropium [place] 4 GM mist Discontinued 1 NMA INHALATION DAILY March 20, 2017 1:00am September 13, 2018 9:07am tiotropium bromi de (Spiriva Respimat) 2.5 mcg/actuation Mist as needed . 0 Active tiotropium bromi de (Spiriva Respimat) 2.5 mcg/actuation Mist every night at bedtime . 0 Active traZODone hydrochloride 50 mg oral tablet (13 sources) Serotonin Reuptake Inhibitor Start: 06-30-2016 End: 11-19-2019 take 1 tablet by mouth at bedtime Trazodone 50 mg tablet Discontinued 50 mg PO AT BEDTIME October 27, 2018 12:00am November 19, 2019 8:10am Comment on above: Take 1 tablet by kisha th at bedtime as needed (sedation). 7 actuat umeclidinium 0.0625 mg/actuat dry powder inhaler (5 sources) Anticholinergic Start: 12-12-2017 take 1 puff(s) by mouth once daily INCRUSE ELLIPTA 62.5 mcg/actuation inhaler INHALE ONE (1) PUFF BY MOUTH DIRECTED ONCE DAILY *DO NOT CLICK OPEN UNTIL READY FOR DOSE* 1 Each 5 12/12/2017 Active Comment on above: INHALE ONE (1) PUFF BY MOUTH DIRECTED ONCE DAILY *DO NOT CLICK OPEN UNTIL READY FOR DOSE* Problems Active Problems Problem Classification Problem Date Documented Da te Episodic/Chronic Abdominal pain (1 source) Abdominal pain; Translations: [Unspecified abdominal pain] 09-02-2023 Episodic Cardiac dysrhythmias (15 sources) Supraventricular tachycardia; Translations: [Supraventricular tachycardia] Onset: 6 10-13-2018 Chronic Chronic obstructive pulmonary disease and bronchiectasis (20 sources) Asthma-chronic obstructive pulmonary disease overlap syndrome; Translations: [Chronic obstructive pulmonary disease, unspecified] Onset: 4 08-12-2021 Chronic Comment on above: FEV1 41% Coagulation and hemorrhagic disorders (1 source) Thrombocytopenic disorder; Translations: [Thrombocytopenia, unspecified] 08-27-2023 Chronic Conditions associated with dizziness or vertigo (7 sources) Dizziness; Translations: [Dizziness and giddiness] 06-14-2022 Episodic Coronary atherosclerosis and other heart disease (1 source) Atherosclerotic heart disease of [place] coronary artery without angina pectoris; Translations: [Atherosclerotic heart disease of [place] coronary artery without angina pectoris] Onset: 8 Chronic Disorders of lipid metabolism (18 sources) Hyperlipidemia; Translations: [Hyperlipidemia, unspecified] Onset: 1 08-12-2021 Chronic Esophageal disorders (6 sources) Gastroesophageal reflux disease; Translations: [Gastro-esophageal reflux disease without esophagitis] 12-22-2022 Chronic Essential hypertension (19 sources) Essential hypertension; Translations: [Essential (primary) hypertension] Onset: 6 08-12-2021 Chronic Genitourinary symptoms and ill-defined conditions (1 source) Gross hematuria; Translations: [Gross hematuria] Onset: 8 Episodic Headache; including migraine (2 sources) Chronic intractable migraine without aura; Translations: [Chronic migraine without aura, intractable, without status migrainosus] 01-27-2024 Chronic Malaise and fatigue (11 sources) Fatigue; Translations: [Other fatigue] 09-10-2019 Episodic Mood disorders (2 sources) Depressive disorder; Translations: [Depression] Onset: 2 08-25-2011 Chronic Mycoses (1 source) Onychomycosis; Translations: [Tinea unguium] 11-17-2022 Episodic Nausea and vomiting (11 sources) Vomiting; Translations: [Vomiting, unspecified] 07-16-2021 Episodic Osteoarthritis (2 sources) Osteoarthritis; Translations: [Unspecified osteoarthritis, unspecified site] Onset: 2 03-30-2011 Chronic Other circulatory disease (1 source) Abnormal peripheral pulse; Translations: [Other specified symptoms and signs involving the circulatory and respiratory systems] 11-17-2022 Episodic Other circulatory disease (1 source) H/O: hypertension; Translations: [Personal history of other diseases of the circulatory system] 08-24-2023 Episodic Other connective tissue disease (1 source) Pain of toe of left foot; Translations: [Pain in left toe(s)] 11-17-2022 Episodic Other connective tissue disease (1 source) Pain of toe of right foot; Translations: [Pain in right toe(s)] 11-17-2022 Episodic Other connective tissue disease (5 sources) Diastasis recti; Translations: [Separation of muscle (nontraumatic), other site] 12-22-2022 Episodic Other connective tissue disease (2 sources) Separation of muscle (nontraumatic), other site; Translations: [Diastasis of muscle] 12-22-2022 Episodic Other gastrointestinal disorders (1 source) Personal history of other diseases of the digestive system; Translations: [History of small bowel obstruction] 09-08-2023 Episodic Other lower respiratory disease (1 source) History of chronic obstructive airway disease; Translations: [Personal history of other diseases of the respiratory system] 08-24-2023 Episodic Other lower respiratory disease (1 source) Nodule of lung; Translations: [Solitary pulmonary nodule] 08-27-2023 Episodic Other lower respiratory disease (2 sources) Hypoxia; Translations: [Hypoxemia] 02-14-2024 Episodic Other male genital disorders (13 sources) Male erectile dysfunction, unspecified; Translations: [Impotence of organic origin] Onset: Chronic Other nervous system disorders (1 source) Narcolepsy; 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] 07-11-2024 Chronic Other skin disorders (1 source) Ingrowing nail; Translations: [Ingrowing nail] 11-17-2022 Episodic Other skin disorders (1 source) Callosity; Translations: [Corns and callosities] 11-17-2022 Episodic Residual codes; unclassified (17 sources) Obstructive sleep apnea syndrome; Translations: [Obstructive sleep apnea (adult) (pediatric)] Onset: 1 08-12-2021 Chronic Residual codes; unclassified (12 sources) Obstructive sleep apnea (adult) (pediatric); Translations: [Obstructive sleep apnea (adult)(pediatric)] Chronic Residual codes; unclassified (1 source) Pain; Translations: [Pain, unspecified] 11-17-2022 Episodic Residual codes; unclassified (2 sources) Pain, unspecified; Translations: [Pain] Onset: 3 Episodic Substance-related disorders (20 sources) Nicotine dependence; Translations: [Nicotine dependence, unspecified, uncomplicated] Onset: 4 Chronic Comment on above: QUIT 2021 Ordered for December 2024 Syncope (11 sources) Syncope; Translations: [Syncope and collapse] 12-25-2020 Episodic Unclassified (1 source) Family history of malignant neoplasm of prostate; Translations: [Family history of malignant neoplasm of prostate] Onset: 8 Episodic Unclassified (1 source) Unknown / UNK(Unknown) Onset: 6 Past or Other Problems Problem Classification Problem Date Documented Date Episodic/Chronic Intestinal obstruction without hernia (3 sources) Small bowel obstruction; Translations: [Unspecified intestinal obstruction, unspecified as to partial versus complete obstruction] Onset: 09-01-2023 09-02-2023 Episodic Nonspecific chest pain (2 sources) Chest pain; Translations: [Chest pain, unspecified] Onset: 09-08-2023 08-27-2023 Episodic Other and unspecified benign neoplasm (2 sources) Polyp of colon; Translations: [Polyp of colon] Onset: 12-24-2010 03-23-2021 Episodic Other circulatory disease (1 source) Personal history of other diseases of the circulatory system; Translations: [Personal history of other diseases of the circulatory system] Onset: 09-01-2023 Episodic Other connective tissue disease (2 sources) Diastasis of muscle; Translations: [Separation of muscle (nontraumatic), unspecified site] Onset: 07-16-2011 07-16-2011 Episodic Other connective tissue disease (2 sources) Full thickness rotator cuff tear; Translations: [Complete rotator cuff tear or rupture of right shoulder, not specified as traumatic] Onset: 02-02-2016 02-02-2016 Episodic Other lower respiratory disease (1 source) Personal history of other diseases of the respiratory system; Translations: [Personal history of other diseases of the respiratory system] Onset: 09-02-2023 Episodic Other screening for suspected conditions (not mental disorders or infectious disease) (4 sources) Thallium stress test abnormal; Translations: [Abnormal result of other cardiovascular function study] Onset: 03-19-2016 03-19-2016 Episodic Pleurisy; pneumothorax; pulmonary collapse (3 sources) Pneumothorax; Translations: [Pneumothorax, unspecified] Onset: 09-02-2023 09-08-2023 Episodic Results Test Name Value Interpretation Reference Range Facility Anion gap in Serum or Plasma Ordered By: Abiodun Grider on 08-08-2024 Anion gap [Moles/Vol] 9 mmol/L 08-09 [facility] BUN/creatinine ratioOrdered By: Abiodun Grider on 08-08-2024 Urea nitrogen/Creatinine [Mass ratio] 12.3 mg/mg 10- [facility] Bilirubin, totalOrdered By: Abiodun Grider on 08-08-2024 Bilirubin [Mass/Vol] 0.44 mg/dL 0.00-1.30 [facility] Calculated very low density lipoprotein (VLDL) cholesterol measurementOrdered By: Abiodun Grider on 08-08-2024 Calculated very low density lipoprotein (VLDL) cholesterol measurement 19 mg/dL 5-40 [facility] Carbon dioxide, total [Moles /volume] in Central venous bloodOrdered By: Abiodun Grider on 08-08-2024 CO2 [Moles/Vol] 27.7 mmol/L 21.0-32.0 [facility] Chloride assayOrdered By: Kyle Grider on 08-08-2024 Chloride [Moles/Vol] 105 mmol/L 98-108 [facility] Comprehensive Metabolic Prof ilon 08-08-2024 Albumin [Mass/Vol] 4.0 g/dL Normal 3.4-4.8 [facility] Comment on above: Order Comment: Inter face Comments: HTN Order Date: 05/21/24 Order Info: [id number] - CMP Order Info: [id number] - LIPID Comments: Abnormal hyperlipidemia HTN Performed By: #### L [id number], L500.4100 #### [facility] [address] [place], [address] Albumin/Globulin [Mass ratio] 1.5 {ratio} Normal 0.9-2.4 [facility] Comment on above: Order Comment: Inter face Comments: HTN Order Date: 05/21/24 Order Info: [id number] - CMP Order Info: [id number] - LIPID Comments: Abnormal hyperlipidemia HTN Performed By: #### L [id number], [id number] #### [facility] [address] [place], [address] ALK PHOS 144 U/L High 40-129 [facility] Comment on above: Order Comment: Inter face Comments: HTN Order Date: 05/21/24 Order Info: [id number] - CMP Order Info: [id number] - LIPID Comments: Abnormal hyperlipidemia HTN Performed By: #### L [id number], [id number] #### [facility] [address] [place], [address] ALT [Catalytic activity/Vol] 30 U/L Normal <=46 [facility] Comment on above: Order Comment: Inter face Comments: HTN Order Date: 05/21/24 Order Info: [id number] - CMP Order Info: [id number] - LIPID Comments: Abnormal hyperlipidemia HTN Performed By: #### L [id number], [id number] #### [facility] [address] [place], [address] AST [Catalytic activity/Vol] 19 U/L Normal <=37 [facility] Comment on above: Order Comment: Inter face Comments: HTN Order Date: 05/21/24 Order Info: [id number] - CMP Order Info: [id number] - LIPID Comments: Abnormal hyperlipidemia HTN Performed By: #### L [id number], [id number] #### [facility] [address] [place], [address] Bilirubin [Mass/Vol] 0.44 mg/dL Normal 0.00-1.30 [facility] Comment on above: Order Comment: Inter face Comments: HTN Order Date: 05/21/24 Order Info: [id number] - CMP Order Info: [id number] - LIPID Comments: Abnormal hyperlipidemia HTN Performed By: #### L [id number], [id number] #### [facility] [address] [place], [address] BUN/CRE 12.3 RATIO Normal 10-20 [facility] Comment on above: Order Comment: Inter face Comments: HTN Order Date: 05/21/24 Order Info: [id number] - CMP Order Info: [id number] - LIPID Comments: Abnormal hyperlipidemia HTN Performed By: #### L [id number], [id number] #### [facility] [address] [place], [address] Calcium [Mass/Vol] 9.8 mg/dL Normal 7.6-11.0 [facility] Comment on above: Order Comment: Inter face Comments: HTN Order Date: 05/21/24 Order Info: [id number] - CMP Order Info: [id number] - LIPID Comments: Abnormal hyperlipidemia HTN Performed By: #### L [id number], [id number] #### [facility] [address] [place], [address] Chloride [Moles/Vol] 105 mmol/L Normal 98-108 [facility] Comment on above: Order Comment: Inter face Comments: HTN Order Date: 05/21/24 Order Info: [id number]- - CMP Order Info: [id number] - LIPID Comments: Abnormal hyperlipidemia HTN Performed By: #### L [id number], [id number] #### [facility] [address] [place], [address] CO2 [Moles/Vol] 27.7 mmol/L Normal 21.0-32.0 [facility] Comment on above: Order Comment: Inter face Comments: HTN Order Date: 05/21/24 Order Info: 07 - CMP Order Info: [id number] - LIPID Comments: Abnormal hyperlipidemia HTN Performed By: #### L [id number], [id number] #### [facility] [address] [place], [address] Creatinine [Mass/Vol] 0.91 mg/dL Normal 0.70-1.20 [facility] Comment on above: Order Comment: Inter face Comments: HTN Order Date: 05/21/24 Order Info: [id number] - CMP Order Info: - LIPID Comments: Abnormal hyperlipidemia HTN Performed By: #### L [id number], [id number] #### [facility] [address] [place], [address] GAP 9 Normal 5-15 [facility] Comment on above: Order Comment: Inter face Comments: HTN Order Date: 05/21/24 Order Info: [id number] - CMP Order Info: - LIPID Comments: Abnormal hyperlipidemia HTN Performed By: #### L [id number], [id number] #### [facility] [address] [place], [address] GFR/1.73 sq M.predicted among non-blacks MDRD (S/P/Bld) [Vol rate/Area] 91 mL/min/{1.73_m2} Normal >60 [facility] Comment on above: Order Comment: Inter face Comments: HTN Order Date: 05/21/24 Order Info: [id number] - CMP Order Info: [id number] - LIPID Comments: Abnormal hyperlipidemia HTN Result Comment: mL/m in/1.73m2 CKD-EPI Creatinine Equation (2020) Performed By: #### L [id number], [id number] #### [facility] [address] [place], [address] Globulin (S) [Mass/Vol] 2.6 g/dL Normal 2.2-4.2 [facility] Comment on above: Order Comment: Inter face Comments: HTN Order Date: 05/21/24 Order Info: [id number] - CMP Order Info: [id number] - LIPID Comments: Abnormal hyperlipidemia HTN Performed By: #### L [id number], [id number] #### [facility] [address] [place], [address] Glucose [Mass/Vol] 88 mg/dL Normal 70-99 [facility] Comment on above: Order Comment: Inter face Comments: HTN Order Date: 05/21/24 Order Info: [id number] - CMP Order Info: [id number] - LIPID Comments: Abnormal hyperlipidemia HTN Performed By: #### L [id number], [id number] #### [facility] [address] [place], [address] Potassium [Moles/Vol] 4.6 mmol/L Normal 3.3-5.1 [facility] Comment on above: Order Comment: Inter face Comments: HTN Order Date: 05/21/24 Order Info: [id number] - CMP Order Info: [id number] - LIPID Comments: Abnormal hyperlipidemia HTN Performed By: #### L [id number], [id number] #### [facility] [address] [place], [address] Sodium [Moles/Vol] 142 mmol/L Normal 133-145 [facility] Comment on above: Order Comment: Inter face Comments: HTN Order Date: 05/21/24 Order Info: [id number] - CMP Order Info: [id number] - LIPID Comments: Abnormal hyperlipidemia HTN Performed By: #### L [id number], [id number] #### [facility] [address] [place], [address] T PROT 6.7 g/dL Normal 5.9-8.4 [facility] Comment on above: Order Comment: Inter face Comments: HTN Order Date: 05/21/24 Order Info: [id number] - CMP Order Info: [id number] - LIPID Comments: Abnormal hyperlipidemia HTN Performed By: #### L [id number], [id number] #### [facility] [address] [place], [address] Urea nitrogen [Mass/Vol] 11 mg/dL Normal 4-19 [facility] Comment on above: Order Comment: Inter face Comments: HTN Order Date: 05/21/24 Order Info: [id number] - CMP Order Info: [id number] - LIPID Comments: Abnormal hyperlipidemia HTN Performed By: #### L [id number], [id number] #### [facility] [address], [address] Glomerular filtration rate ( GFR) estimation/1.73 sq m using serum, plasma, or whole bOrdered By: Abiodun Grider on 08-08-2024 GFR/1.73 sq M.predicted among non-blacks MDRD (S/P/Bld) [Vol rate/Area] 91 mL/min/{1.73_m2} >60 [facility] Comment on above: mL/min/1.73m2 CKD-EP I Creatinine Equation (2020) LDL calc ser/plasOrdered By: Abiodun Grider on 08-08-2024 Cholesterol in LDL [Mass/Vol] 94 mg/dL [facility] Comment on above: Wpbrwzmrph=289-372 m g/dL & Higher Dadp=995 mg/dL or greater Laboratory - Chemistry and C hemistry - challengeOrdered By: Abiodun Grider on 08-08-2024 AST [Catalytic activity/Vol] 19 U/L <38 [facility] Lipid Profileon 08-08-2024 CHOL:HDL 4.24 Normal [facility] Comment on above: Order Comment: Inter face Comments: HTN Order Date: 05/21/24 Order Info: [id number] - CMP Order Info: [id number] - LIPID Comments: Abnormal hyperlipidemia Performed By: #### L [id number], [id number] #### [facility] [address] [place], [address] Cholesterol [Mass/Vol] 147 mg/dL Normal <=200 [facility] Comment on above: Order Comment: Inter face Comments: HTN Order Date: 05/21/24 Order Info: [id number] - CMP Order Info: [id number] - LIPID Comments: Abnormal hyperlipidemia Result Comment: Chol esterol level, Desirable <200 mg/dL Borderline high cholesterol 200-239 mg/dL High cholesterol >=240 mg/dL Recommendations of the NCEP Adult Treatment Panel for the following risk-cutoff thresholds for the [place] population. Performed By: #### L 500.4050, [id number] #### [facility] [address] [place], [address] Cholesterol in HDL [Mass/Vol] 35 mg/dL Low [facility] Comment on above: Order Comment: Inter face Comments: HTN Order Date: 05/21/24 Order Info: [id number] - CMP Order Info: [id number] - LIPID Comments: Abnormal hyperlipidemia Result Comment: [employer]al Cholesterol Education Program (NCEP) guidelines: <40 mg/dL: Low HDL-cholesterol (major risk factor for CHD) >= 60 mg/dL: High HDL-cholesterol (negative risk factor for CHD) HDL-cholesterol is affected by a number of factors, e.g. smoking, exercise, hormones, sex and age. Performed By: #### L 500.4050, L500.4100 #### [facility] [address] [place], [address] Cholesterol in LDL [Mass/Vol] 94 mg/dL Normal [facility] Comment on above: Order Comment: Inter face Comments: HTN Order Date: 05/21/24 Order Info: [id number] - CMP Order Info: [id number] - LIPID Comments: Abnormal hyperlipidemia Result Comment: Bord ymawui=027-903 mg/dL Higher Lsky=441 mg/dL or greater Performed By: #### L 500.4050, L500.4100 #### [facility] [address] [place], [address] Cholesterol in VLDL [Mass/Vol] 19 mg/dL Normal 5-40 [facility] Comment on above: Order Comment: Inter face Comments: HTN Order Date: 05/21/24 Order Info: [id number] - CMP Order Info: [id number] - LIPID Comments: Abnormal hyperlipidemia Performed By: #### L 500.4050, L500.4100 #### [facility] [address] [place], [address] Triglyceride [Mass/Vol] 94 mg/dL Normal [facility] Comment on above: Order Comment: Inter face Comments: HTN Order Date: 05/21/24 Order Info: [id number] - CMP Order Info: [id number] - LIPID Comments: Abnormal hyperlipidemia Result Comment: The drugs N-Acetylcysteine and Metamizole may falsely depress this assay. Normal range: <150 mg/dL Borderline High: 150-199 mg/dL High: 200-499 mg/dL Very High: >500 mg/dL Performed By: #### L 500.4050, L500.4100 #### [facility] [address] [place], [place], [address] Potassium measurement (mass/ volume)Ordered By: Abiodun Grider on 08-08-2024 Potassium (Unsp spec) [Mass/Vol] 4.6 mmol/L 3.3-5.1 [facility] Screening total cholesterol/ high density lipoprotein (HDL) cholesterol ratioOrdered By: Abiodun Grider on 08-08-2024 Cholesterol.total/C holesterol in HDL [Mass ratio] 4.24 {ratio} [facility] Serum creatinine measurement (mass/volume)Ordered By: Abiodun Grider on 08-08-2024 Creatinine [Mass/Vol] 0.91 mg/dL 0.70-1.20 [facility] Serum globulin measurementOr dered By: Abiodun Grider on 08-08-2024 Globulin (S) [Mass/Vol] 2.6 g/dL 2.2-4.2 [facility] Serum glucose measurement (m ass/volume)Ordered By: Abiodun Grider on 08-08-2024 Glucose [Mass/Vol] 88 mg/dL 70-99 [facility] Serum or plasma alanine kelley otransferase (ALT) measurementOrdered By: Abiodun Grider on 08-08-2024 ALT [Catalytic activity/Vol] 30 U/L <47 [facility] Serum or plasma albumin leno urement (mass/volume)Ordered By: Abiodun Grider on 08-08-2024 Albumin [Mass/Vol] 4.0 g/dL 3.4-4.8 [facility] Serum or plasma albumin/glob ulin mass ratioOrdered By: Abiodun Grider on 08-08-2024 Albumin/Globulin [Mass ratio] 1.5 {ratio} 0.9-2.4 [facility] Serum or plasma alkaline nidia sphatase measurementOrdered By: Abiodun Grider on 08-08-2024 ALP [Catalytic activity/Vol] 144 U/L High 40-129 [facility] Serum or plasma calcium leno urement (mass/volume)Ordered By: Abiodun Grider on 08-08-2024 Calcium [Mass/Vol] 9.8 mg/dL 7.6-11.0 [facility] Serum or plasma cholesterol in HDL measurement (mass/volume)Ordered By: Abiodun Grider on 08-08-2024 Cholesterol in HDL [Mass/Vol] 35 mg/dL Low >40 [facility] Comment on above: National Cholesterol Education Program (NCEP) guidelines:<40 mg/dL: Low HDL-cholesterol (major risk factor for CHD)>= 60 mg/dL: High HDL-cholesterol (negative risk factor for CHD)HDL-cholesterol is affected by a number of factors, e.g. smoking, exercise, hormones, sex and age. Serum or plasma cholesterol measurement (mass/volume)Ordered By: Abiodun Grider on 08-08-2024 Cholesterol [Mass/Vol] 147 mg/dL <201 [facility] Comment on above: Cholesterol level, D esirable <200 mg/dLBorderline high cholesterol 200-239 mg/dLHigh cholesterol >=240 mg/dLRecommendations of the NCEP Adult Treatment Panel for the following risk-cutoff thresholds for the [place] population. Serum or plasma urea nitroge n measurement (mass/volume)Ordered By: Abiodun Grider on 08-08-2024 Urea nitrogen [Mass/Vol] 11 mg/dL 4-19 [facility] Sodium levelOrdered By: Abiodun Grider on 08-08-2024 Sodium [Moles/Vol] 142 mmol/L 133-145 [facility] Total proteinOrdered By: Jesica Grider on 08-08-2024 Protein [Mass/Vol] 6.7 g/dL 5.9-8.4 [facility] Triglycerides measurementOrd ered By: Abiodun Grider on 08-08-2024 Triglyceride [Mass/Vol] 94 mg/dL <199 [facility] Comment on above: The drugs N-Acetylcy steine and Metamizole may falsely depress this assay. Normal range: <150 mg/dLBorderline High: 150-199 mg/dLHigh: 200-499 mg/dLVery High: >500 mg/dL Pulmonary Visit Reporton Pulmonary Visit Report [facility] [place] [address] [place] [address] OFFICE VISIT Date of Service: 06/12/24 MR#: [id number] Acct: [id number] Name: EDILIA NORTON Rep #: [id number] : 1955 Provider: KATJA Albarran Age/Sex: 69/M Location: [facility] [place] Status: Signed Assessment and Plan Assessment and Plan (1) Asthma-COPD overlap syndrome: Status: Chronic Comment: FEV1 41% Plan: Deteriorated. He does appear to be in exacerbation today. Starting him on a prednisone taper. In an attempt to optimize his symptom control I am adding cetirizine. Considered Singulair, however the patient does have a history of depression and is currently under significant amount of stress taking his to various oncology appointments. Continue current maintenance medication, he is on triple therapy with the use of Trelegy, also continue Mucinex. No additional testing. Follow-up in January. (2) Smoking greater than 30 pack years: Status: Chronic Comment: Ordered for December 2024 Plan: Encourage ongoing smoking cessation. Due for LDCT in December 2024, which was previously ordered. (3) Hypoxia: Status: Chronic Plan: He is using and benefiting from supplemental oxygen. Medications: New cetirizine 10 mg PO DAILY PRN 90 tabs 3RF allergy symptoms prednisone administer with food or milk 60 mg (3 x 20 mg) PO QDAY 5 days 15 tabs 0RF Plan Details Follow Up: 01/26/25 HPI HPI Comments Details: This patient presents to the office today for follow-up of his obstructive sleep apnea with asthma/COPD overlap syndrome. He is ambulatory and currently on room air. He has not recently been seen in the ED or urgent care for any respiratory illness. He is compliant with use of Trelegy 1 puff daily. He does report rinsing his mouth out after each use. He denies any medication side effect such as sore throat or thrush. He has been using albuterol rescue inhaler once daily. He is using mucinex 1200 mg twice daily. He continues complete smoking cessation. If you recall, he quit smoking in 2016. He does have shortness of breath on exertion. He reports a daily cough that is no longer productive. He is having wheezing and chest tightness. He denies any chest tightness, chest pain or palpitations. He also denies any fever, chills or body aches. He is compliant with 2 L/min of supplemental oxygen with sleep. Intake Vital Signs 02/14/24 07:24 06/12/24 07:42 Height 5 ft 8 in 5 ft 8 in Weight: 150 lb 167 lb BMI 22.8 25.4 BP 146/76 H 160/107 H Blood Pressure Location Lt brachial Rt brachial Position Sitting Sitting Respiration 20 H 20 H Pulse 93 89 Pulse Source Monitor Monitor Temp 98.0 F 97.4 F L Temperature Source Temporal Artery Temporal Artery Pulse Oximetry (%) 95 95 Oxygen Delivery Method room air room air Intake Visit Reasons: 4 M FU Chief Complaint: hospital f/u possible SBO Bottle Packer Required: No DME Vendor: [employer] Allergies lisinopril Adverse Reaction (Intermediate, Verified 06/12/24 10:03) cough Medications ???Medication ???Instructions ???Recorded ???Confirmed ???Type aspirin 81 mg tablet,delayed 81 mg PO DAILY@0800 preventive 06/12/24 History release atenolol 50 mg tablet 50 mg PO DAILY bp 03/20/17 5 History fluoxetine 20 mg capsule 20 mg PO DAILY mood 03/20/1706/12 History bupropion HCl 100 mg tablet,12 hr 100 mg PO BID mood 10/13/1806/12 History sustained-release atorvastatin 20 mg tablet 20 mg PO QHS cholestrol 09/11/19 0 06/12/24 History losartan 100 mg tablet 100 mg PO DAILY bp #90 tabs 06/12/24 Rx amlodipine 5 mg tablet 5 mg PO DAILY blood pressure 12/2206/12/24 History topiramate 25 mg tablet 75 mg PO BID headaches 12/22/22 History fluticasone fur. 200 mcg-umeclid 1 inh inhalation DAILY breathing 0 04/18/23 06/12/24 Rx 62.5 mcg-vilant 25 mcg #60 ea inhalat.powder (Trelegy Ellipta) nitroglycerin 0.4 mg sublingual 0.4 mg sublingual QDAY PRN chest 0 07/29/23 06/12/24 History tablet pain polyethylene glycol 3350 17 17 g PO DAILY 1 month #510 grams 0 08/28/23 06/12/24 Rx gram/dose oral powder (Miralax) sennosides 8.6 mg-docusate sodium 2 tab PO BID #0 tabs 08/28/23 Rx 50 mg tablet (Stool Softener-Stimulant Laxative) albuterol sulfate 90 mcg/actuation 2 puff inhalation Q4H PRN PRN So b 12/05/23 06/12/24 Rx aerosol inhaler /Or Wheezing #8.5 grams guaifenesin 1,200 mg tablet, 1,200 mg PO Q12H #60 tabs 02/14/24 06/12/24 Rx extended release 12 hr albuterol sulfate 2.5 mg/3 mL 2.5 mg (3 mL) inhalation Q8H PRN 1 05/03/23 06/12/24 Rx (0.083 %) solution for nebulization shortness of breath or wheezing #180 mL cetirizine 10 mg t (more content not included)... Normal [facility] Albumin to globulin ratioOrd ered By: Abiodun Grider on 05-11-2024 Albumin/Globulin [Mass ratio] 1.0 {ratio} 0.9-2.4 [facility] Bilirubin, totalOrdered By: Abiodun Grider on 05-11-2024 Bilirubin [Mass/Vol] 0.30 mg/dL 0.20-1.00 [facility] Comment on above: For patients on eltr ombopag therapy, use of Dimension [place] TBIL is not recommended. Blood urea nitrogen (BUN)/cr eatinine ratioOrdered By: Abiodun Grider on 05-11-2024 Urea nitrogen/Creatinine [Mass ratio] 12.4 mg/mg 10-20 [facility] Carbon dioxide measurementOr dered By: Abiodun Grider on 05-11-2024 CO2 [Moles/Vol] 29.0 mmol/L 21.0-32.0 [facility] Chloride measurementOrdered By: Abiodun Grider on 05-11-2024 Chloride [Moles/Vol] 108 mmol/L High 98-107 [facility] Comprehensive Metabolic Prof ilon 05-11-2024 Albumin [Mass/Vol] 3.5 g/dL Normal 3.2-5.0 [facility] Comment on above: Performed By: #### L 500.4100, L500.4050 #### [facility] [address] [place], [address] Albumin/Globulin [Mass ratio] 1.0 {ratio} Normal 0.9-2.4 [facility] Comment on above: Performed By: #### L 500.4100, L500.4050 #### [facility] [address] [place], [address] ALK P 121 U/L High 45-117 [facility] Comment on above: Performed By: #### L 500.4100, L500.4050 #### [facility] [address] [place], [address] ALT [Catalytic activity/Vol] 22 U/L Normal 16-61 [facility] Comment on above: Performed By: #### L 500.4100, L500.4050 #### [facility] [address] [place], [address] AST [Catalytic activity/Vol] 14 U/L Low 15-37 [facility] Comment on above: Performed By: #### L 500.4100, L500.4050 #### [facility] [address] [place], [address] Bilirubin [Mass/Vol] 0.30 mg/dL Normal 0.20-1.00 [facility] Comment on above: Result Comment: For patients on eltrombopag therapy, use of Dimension [place] TBIL is not recommended. Performed By: #### L 500.4100, L500.4050 #### [facility] [address] [place], [address] BUN/CRE 12.4 RATIO Normal 10-20 [facility] Comment on above: Performed By: #### L 500.4100, L500.4050 #### [facility] [address] [place], [address] CA,Total 9.7 mg/dL Normal 8.5-10.1 [facility] Comment on above: Performed By: #### L 500.4100, L500.4050 #### [facility] [address] [place], [address] Chloride [Moles/Vol] 108 mmol/L High 98-107 [facility] Comment on above: Performed By: #### L 500.4100, L500.4050 #### [facility] [address] [place], [address] CO2 [Moles/Vol] 29.0 mmol/L Normal 21.0-32.0 [facility] Comment on above: Performed By: #### L 500.4100, L500.4050 #### [facility] [address] [place], [address] Creatinine [Mass/Vol] 1.05 mg/dL Normal 0.70-1.30 [facility] Comment on above: Result Comment: The validity of the calculated GFR GFRAA in patients over 70 years has not been determined. Clinical correlation is essential. Performed By: #### L 500.4100, L500.4050 #### [facility] [address] [place], [address] EST GFR - AA 90 mL/min Normal >60 [facility] Comment on above: Result Comment: Afri can [place]ian GFR Calc Performed By: #### L 500.4100, L500.4050 #### [facility] [address] [place], [address] GAP 3 Low 5-15 [facility] Comment on above: Performed By: #### L 500.4100, L500.4050 #### [facility] [address] [place], [address] GFR/1.73 sq M.predicted among non-blacks MDRD (S/P/Bld) [Vol rate/Area] 74 mL/min/{1.73_m2} Normal >60 [facility] Comment on above: Result Comment: Non- GFR Calc Performed By: #### L 500.4100, L500.4050 #### [facility] [address] [place], [address] Globulin (S) [Mass/Vol] 3.5 g/dL Normal 2.2-4.2 [facility] Comment on above: Performed By: #### L 500.4100, L500.4050 #### [facility] [address] [place], [address] Glucose [Mass/Vol] 78 mg/dL Normal 74-106 [facility] Comment on above: Performed By: #### L 500.4100, L500.4050 #### [facility] [address] [place], [address] Potassium [Moles/Vol] 4.3 mmol/L Normal 3.5-5.1 [facility] Comment on above: Performed By: #### L 500.4100, L500.4050 #### [facility] [address] [place], [address] Sodium [Moles/Vol] 140 mmol/L Normal 136-145 [facility] Comment on above: Performed By: #### L 500.4100, L500.4050 #### [facility] [address] [place], [address] T PROT 7.0 g/dL Normal 6.4-8.2 [facility] Comment on above: Performed By: #### L 500.4100, L500.4050 #### [facility] [address] [place], [address] Urea nitrogen [Mass/Vol] 13 mg/dL Normal 7-18 [facility] Comment on above: Performed By: #### L 500.4100, L500.4050 #### [facility] [address] [place], [address] Glomerular filtration rate ( GFR) estimationOrdered By: Abiodun Grider on 05-11-2024 GFR/1.73 sq M.predicted among non-blacks MDRD (S/P/Bld) [Vol rate/Area] 74 mL/min/{1.73_m2} >60 [facility] Comment on above: Non- GFR Calc Glucose measurementOrdered B y: Abiodun Grider on 05-11-2024 Glucose [Mass/Vol] 78 mg/dL 74-106 [facility] High density lipoprotein (HD L) measurementOrdered By: Abiodun Grider on 05-11-2024 Cholesterol in HDL [Mass/Vol] 38 mg/dL Low >40 [facility] Comment on above: The drugs N-Acetylcy steine and Metamizole may falsely depress this assay. Reference Range HDL <40 mg/dL Low HDL Cholesterol HDL >or= 60 mg/dL High HDL Cholesterol Laboratory - Chemistry and C hemistry - challengeOrdered By: Abiodun Grider on 05-11-2024 AST [Catalytic activity/Vol] 14 U/L Low 15-37 [facility] Lipid Profileon 05-11-2024 Cholesterol [Mass/Vol] 216 mg/dL High 200 [facility] Comment on above: Result Comment: <200 mg/dL Desirable 200-240 mg/dL Borderline >240 mg/dL High Risk Performed By: #### L 500.4100, L500.4050 #### [facility] [address] [place], [address] Cholesterol in HDL [Mass/Vol] 38 mg/dL Low [facility] Comment on above: Result Comment: The drugs N-Acetylcysteine and Metamizole may falsely depress this assay. Reference Range HDL <40 mg/dL Low HDL Cholesterol HDL >or= 60 mg/dL High HDL Cholesterol Performed By: #### L 500.4100, L500.4050 #### [facility] [address] [place], [address] Cholesterol in LDL [Mass/Vol] 152 mg/dL High 0-130 [facility] Comment on above: Performed By: #### L 500.4100, L500.4050 #### [facility] [address] [place], [address] Cholesterol in VLDL [Mass/Vol] 26 mg/dL Normal 5-40 [facility] Comment on above: Performed By: #### L 500.4100, L500.4050 #### [facility] [address] [place], [address] Triglyceride [Mass/Vol] 128 mg/dL Normal [facility] Comment on above: Result Comment: The drugs N-Acetylcysteine and Metamizole may falsely depress this assay. Serum Triglycerides Reference Interval Normal <150 mg/dL Borderline high 150 - 199 mg/dL High 200 - 499 mg/dL Very High > or = 500 mg/dL Performed By: #### L 500.4100, L500.4050 #### [facility] [address] [place], [address] Low density lipoprotein (LDL ) cholesterol measurementOrdered By: Abiodun Grider on 05-11-2024 Cholesterol in LDL [Mass/Vol] 152 mg/dL High 0-130 [facility] Potassium measurementOrdered By: Abiodun Grider on 05-11-2024 Potassium [Moles/Vol] 4.3 mmol/L 3.5-5.1 [facility] Serum anion gap measurementO rdered By: Abiodun Grider on 05-11-2024 Anion gap [Moles/Vol] 3 mmol/L Low 5-15 [facility] Serum globulin measurementOr dered By: Abiodun Grider on 05-11-2024 Globulin (S) [Mass/Vol] 3.5 g/dL 2.2-4.2 [facility] Serum or plasma alanine kelley otransferase (ALT) measurementOrdered By: Abiodun Grider on 05-11-2024 ALT [Catalytic activity/Vol] 22 U/L 16-61 [facility] Serum or plasma albumin leno urement (mass/volume)Ordered By: Abiodun Grider on 05-11-2024 Albumin [Mass/Vol] 3.5 g/dL 3.2-5.0 [facility] Serum or plasma alkaline nidia sphatase measurementOrdered By: Abiodun Grider on 05-11-2024 ALP [Catalytic activity/Vol] 121 U/L High 45-117 [facility] Serum or plasma calcium leno urement (mass/volume)Ordered By: Abiodun Grider on 05-11-2024 Calcium [Mass/Vol] 9.7 mg/dL 8.5-10.1 [facility] Serum or plasma cholesterol measurement (mass/volume)Ordered By: Abiodun Grider on 05-11-2024 Cholesterol [Mass/Vol] 216 mg/dL High <200 [facility] Comment on above: <200 mg/dL Desirable 200-240 mg/dL Borderline >240 mg/dL High Risk Serum or plasma creatinine m easurement (mass/volume)Ordered By: Abiodun Grider on 05-11-2024 Creatinine [Mass/Vol] 1.05 mg/dL 0.70-1.30 [facility] Comment on above: The validity of the calculated GFR & GFRAA in patients over 70 years has not been determined. Clinical correlation is essential. Serum or plasma urea nitroge n measurement (mass/volume)Ordered By: Abiodun Grider on 05-11-2024 Urea nitrogen [Mass/Vol] 13 mg/dL 7-18 [facility] Sodium levelOrdered By: Abiodun Grider on 05-11-2024 Sodium [Moles/Vol] 140 mmol/L 136-145 [facility] Total proteinOrdered By: Jesica Grider on 05-11-2024 Protein [Mass/Vol] 7.0 g/dL 6.4-8.2 [facility] Triglycerides measurementOrd ered By: Abiodun Grider on 05-11-2024 Triglyceride [Mass/Vol] 128 mg/dL <199 [facility] Comment on above: The drugs N-Acetylcy steine and Metamizole may falsely depress this assay.Serum Triglycerides Reference Interval Normal <150 mg/dL Borderline high 150 - 199 mg/dL High 200 - 499 mg/dL Very High > or = 500 mg/dL Very low density lipoprotein (VLDL) cholesterol measurementOrdered By: Abiodun Grider on 05-11-2024 Very low density lipoprotein (VLDL) cholesterol measurement 26 mg/dL 5-40 [facility] Respiratory Cultureon 2023 RESPC Mixed normal respira tory misty. No Haemophilus, Streptococcus pneumoniae, beta-hemolytic Streptococcus or Staphylococcus aureus isolated. Normal [facility] Comment on above: Performed By: #### L 500.4050, L500.4100 #### [facility] [address] [place], [address] Gram Stainon 02-15-2024 GS Acceptable Specimen? Yes (<25 Epithelial cells per/lpf) Gram Stain 2+ Gram positive cocci in chains Rare Epithelial cells Rare White Blood Cells Normal [facility] Comment on above: Performed By: #### L 500.4050, L500.4100 #### [facility] [address] [place], [place], [address] Pulmonary Visit Reporton Pulmonary Visit Report [facility] [place] [address] [place], [place] [address] OFFICE VISIT Date of Service: 02/14/24 MR#: [id number] Acct: [id number] Name: EDILIA NORTON Rep #: [id number] : 1955 Provider: KATJA Albarran Age/Sex: 68/M Location: [facility] Status: Signed Assessment and Plan Assessment and Plan (1) Asthma-COPD overlap syndrome: Status: Chronic Comment: FEV1 41% Plan: Deteriorated. He does appear to be in exacerbation today. Starting him on a prednisone taper. I have requested a sputum for culture and sensitivity, will hold off on ordering any antibiotics until those results are available. Continue triple therapy on Trelegy. Adding Mucinex. No additional testing. Follow-up in 4 months. (2) Smoking greater than 30 pack years: Status: Chronic Comment: Ordered for December 2024 Plan: Encourage ongoing smoking cessation. Due for LDCT in December 2024, which was previously ordered. (3) Hypoxia: Status: Chronic Plan: He is using and benefiting from supplemental oxygen. Orders: Orders Culture, Sputum Today J44.9 - Chronic obstructive pulmonary disease, unspecified Low Dose CT Lung Screening 12/26/24 F17.200 - Nicotine dependence, unspecified, uncomplicated, F17.210 - Nicotine dependence, cigarettes, uncomplicated Medications: New guaifenesin ER 1,200 mg PO Q12H 60 tabs 6RF prednisone take 4 tabs for three days, then 3 tabs for three days, then 2 tabs for three days, then 1 tab for 3 days 10 mg PO QDAY 30 tabs 0RF Plan Details Follow Up: 4 Months ([facility]) HPI 10 m fu Chief Complaint: Test results HPI Comments Details: This patient presents to the office today for follow-up of his obstructive sleep apnea with asthma/COPD overlap syndrome. He is ambulatory and currently on room air. He has not recently been seen in the ED or urgent care for any respiratory illness. He was treated 1 month ago by his PCP with a course of azithromycin. He reports his symptoms did improve but did not completely resolve. He was not treated with prednisone at that time. He is compliant with use of Trelegy 1 puff daily. He does report rinsing his mouth out after each use. He denies any medication side effect such as sore throat or thrush. He has not recently needed to use the albuterol rescue inhaler. He continues complete smoking cessation. If you recall, he quit smoking in 2016. He does have shortness of breath on exertion. He reports a daily cough productive of black sputum. He is reporting wheezing, but denies any chest tightness, chest pain or palpitations. He also denies any fever, chills or body aches. He is compliant with 2 L/min of supplemental oxygen with sleep. Test results personally reviewed with patient: Overnight oximetry completed on August 31, 2023 while on room air. Hypoxia was noted with a lowest oxygen saturation rate of 86%. The patient spent 7 minutes and 38 seconds equal to or less than 88%. It was recommended to add a 2 L/min supplemental oxygen with sleep. Pulmonary function test completed on September 02, 2023. Impression is partially reversible severe large airway obstructive ventilatory defect with associated air trapping and symmetric reduction diffusing capacity. FEV1 41% of predicted. Walking oximetry completed on September 05, 2023. The patient was able to ambulate total of 944 feet over the course of 6 minutes. He has not become hypoxic and does not currently require any supplemental oxygen. Low-dose CT lung screening completed on January 19, 2024. Stable 4.2 mm smooth ovoid nodule in the lateral aspect of the right middle lobe, unchanged. Benign postinflammatory or noncalcified granu tracy. No additional nodules are present in either lung. No masses or spiculated lesions are present. Recommendation is to repeat LDCT in 12 months. Intake Vital Signs 04/18/23 08:54 09/08/23 09:14 02/14/24 07:24 Height 5 ft 8 in 5 ft 8 in 5 ft 8 in Weight: 150 lb BMI 22.8 BP 146/76 H Blood Pressure Location Lt brachial Position Sitting Respiration 20 H Pulse 93 Pulse Source Monitor Temp 98.0 F Temperature Source Temporal Artery Pulse Oximetry (%) 95 Oxygen Delivery Method room air Intake Visit Reasons: 10 m fu Chief Complaint: hospital f/u possible SBO Bottle Packer Required: No DME Vendor: [employer] Accompanied by: Self Is patient in pain?: No Allergies lisinopril Adverse Reaction (Intermediate, Verified 02/14/24 11:14) cough Medications ???Medication ???Instructions ???Recorded ???Confirmed ???Type aspirin 81 mg tablet,delayed 81 mg PO DAILY@0800 preventive 03/20/17 02/14/24 History release atenolol 50 mg tablet 50 mg PO DAILY bp 03/20/17 02/14/24 History fluoxetine 20 mg capsule 20 mg PO DAILY mood 03/20/17 02/14/24 Histo (more content not included)... Normal [facility] Low Dose CT Lung Screeningon 01-19-[address] Lung Screening [facility] Imaging Services [address], [place] [id number] Low Dose CT Lung Screening MR#: [id number] Acct: [id number] Name: EDILIA NORTON Rep #: [id number] : 1955 M 68 From: John rodriguez MD PCP: Dr. Abiodun Grider MD Status: [facility] Study: Low Dose CT Lung Screening Date of Exam: 01/18 Exam# [id number] Ordering Dr: Mylene Albarran NP LIQUOR INSPECTOR-C [id number] STUDY: LOW DOSE CT LUNG CANCER SCREENING REASON FOR EXAM: Male, 68 years old. smoker, quit 2021 RADIATION DOSAGE (If Supplied By Facility): CTDIvol = ( 2.01 ) mGy, DLP = ( 72.98 ) mGycm TECHNIQUE: No contrast was administered. Low dose technique was utilized (average mAS-38 and kVp 120). 1.25 mm axial source images with a slice interval of 1.25-mm were reconstructed in lung windows. 2.5 mm axial source images with a slice interval of 2.5-mm were reconstructed in lung windows. 5.0 mm axial source images with a slice interval of 5.0-mm were reconstructed in soft tissue windows. Nodule measured using lung windows on PACS and/or independent workstation with automated measurement of minimum and maximum diameter. Nodule measurement reported as average diameter rounded to the nearest whole number. Growth is defined as an increase ins size of greater than 1.5 mm. COMPARISON: CT lung cancer screening study dated January 17, 2023. ____ FINDINGS: Total lung nodules (excluding granulomas): Stable 4.2 mm smooth ovoid nodule in the lateral aspect of the right middle lobe seen on image 157/265 series 2 unchanged since December 30, 2020 when it was seen on image 1 64-70 series 2 and is benign postinflammatory or noncalcified granuloma. No additional nodules are present in either lung. No masses or spiculated lesions are present. Lobular small calcified granuloma in the anterior aspect of the left lower lobe. Small calcified granuloma in the central aspect of the right upper lobe see image 67/265. Emphysema: Moderate diffuse bilaterally and hyperinflated. Endobronchial lesion: None. Normal trachea and mainstem bilateral bronchi. Aorta: No aneurysmal dilatation Coronary arteries: Redemonstration of moderate LAD calcifications There are interstitial fibrotic changes of the lungs. There is no demonstrated pleural abnormality. Normal heart size and pericardium. Normal mediastinum. Normal hilar regions. Normal unenhanced pulmonary arteries. There is atherosclerotic calcification of the aortic arch with tortuosity and elongation of the aortic arch and descending thoracic aorta. There are multi-level degenerative changes of the thoracic spine. ____ CT/Low Dose CT Lung Screening IMPRESSION: 1. COPD/emphysema 2. Stable 4.2 mm smooth ovoid nodule in the lateral aspect of the right middle lobe seen on image 157/265 series 2 unchanged since December 30, 2020 when it was seen on image 1 64-70 series 2 and is benign postinflammatory or noncalcified granuloma. No additional nodules are present in either lung. No masses or spiculated lesions are present. 3. Lung-RADS category 2 - Continue annual screening with LDCT in 12 months. IMPORTANT NOTES FOR USE: ACR Lung-RADS Version 1.0 Assessment Categories Release Date: 2021 Classification system Category 0 (Incomplete)- prior CT studies were performed but are not available, lungs incompletely imaged, findings suggest inflammation or infection Category 1 (negative, <1% chance of malignancy) (no lung nodules/lung nodule(s) with specific findings favoring benign nodule(s)) Category 2 (benign appearance or behavior, <1% chance of malignancy) juxtapleural nodule <10mm mean diameter at baseline OR new and smooth, solid, oval, lentiform, or triangular Category 3 nodules that are stable or decreased at 6 months Category 3 (probably benign, 1-2% chance of malignancy) solid nodule(s)(between 6 and 8 mm at baseline; new nodule between 4 mm and 6 mm) Category 4A lesion, stable or decreased in size at 3-month follow-up (excluding airway nodules) Category 4A (suspicious, 5-15% chance of malignancy) (version 1.1 change previously suspicious) solid nodule(s) (?8 mm to <15 mm at baseline or growing nodule(s) <8 mm) Category 4B (very suspicious, >15% chance of malignancy) stable or growing airway nodule, segmental or more proximal (solid nodule(s) ? 15 mm at baseline or new or growing, and ?8 mm) Category 4X (very suspicious, >15% chance of malignancy) category 3 or 4 nodules with additional features or imaging findings that increase the suspicion of malignancy Modified categories [X]S (e.g. 3S) if there is a clinically significant or potentially significant non-lung cancer finding Electronically Signed: John Drummond MD (more content not included)... Normal [facility] 6 Minute Walk Teston 024 6 Minute Walk Test y [facility] Pulmonary Services/Neurology [address] [place] [address] MR#: [id number] Acct: [id number] Name: EDILIA NORTON Rep #: [id number] : 1955 68 From: Prashant Daniels DO Referring Dr: Mylene Albarran NP LIQUOR INSPECTOR-C Status: REG CLI Location: [facility] Date: Sex: M C PSN 6 Minute Walk Test 6 Minute Walk Test 6 Minute Walk Test: 6 Minute Walk Test PSN:6-Minute Walk Test Start: 09/05/23 11:55 Freq: Status: Active Protocol: RESP.6MINW Document 09/05/23 11:45 AE (Rec: 09/05/23 11:59 AE [id number]) 6 Minute Walk Test Date Performed 09/05/23 Time Performed 11:45 Height 5 ft 8 in Weight: 158 lb Weight in Pounds 158.[address]: Angi Assistive device used: None Pre-test Oxygen Delivery Method Room Air Pulse Ox (%) 92 Pulse Rate (60-100 beats/min) 111 H Dyspnea Kimberly Scale (0-10) 0 Exertion Kimberly Scale (6-20) 6 1st minute Oxygen Delivery Method Room Air Pulse Ox (%) 94 Pulse Rate (60-100 beats/min) 118 H 2nd minute Oxygen Delivery Method Room Air Pulse Ox (%) 93 Pulse Rate (60-100 beats/min) 119 H 3rd minute Oxygen Delivery Method Room Air Pulse Ox (%) 93 Pulse Rate (60-100 beats/min) 122 H 4th minute Oxygen Delivery Method Room Air Pulse Ox (%) 93 Pulse Rate (60-100 beats/min) 123 H 5th minute Oxygen Delivery Method Room Air Pulse Ox (%) 93 Pulse Rate (60-100 beats/min) 122 H 6th minute Oxygen Delivery Method Room Air Pulse Ox (%) 95 Pulse Rate (60-100 beats/min) 125 H Dyspnea Kimberly Scale (0-10) 2 Exertion Kimberly Scale (6-20) 8 Post-test Oxygen Delivery Method Room Air Pulse Ox (%) 95 Pulse Rate (60-100 beats/min) 113 H Full Laps Walked 16 Partial Lap, Number of Tiles Walked 0 Total Distance Walked (ft) 944 Interpretation Interpretation: The patient ambulated 944 feet over the course of 6 minutes beginning on room air without assistive devices. Pretesting oxygen saturation was noted to be 92% on room air. With ambulation, the clare oxygen saturation was 93%. There was no significant exertional oxygen desaturation. Recommendations Recommendations: There is no indication for the use of supplemental oxygen at this time. 09/08/23 1038 Date ____ Prashant Daniels DO CC: Date Dictated: 09/08/23 1038 Date Transcribed: 09/08/23 1038 Oil Change Technician: Dr. Prashant Daniels DO Signed Normal [facility] Surgery Visit Reporton 09-07 Surgery Visit Report [facility] [address] [place] [address] OFFICE VISIT Date of Service: 09/08/23 MR#: [id number] Acct: [id number] Name: EDILIA NORTON Rep #: [id number] : 1955 Provider: Dr. Jen leahy MD Age/Sex: 68/M Location: [facility] Status: Signed Intake Vital Signs 08/27/23 04:03 09/05/23 11:45 09/08/23 09:14 Height 5 ft 8 in 5 ft 8 in 5 ft 8 in Weight: 155 lb 4 oz BMI 23.6 BP 116/74 Blood Pressure Location Rt brachial Position Sitting Respiration 18 Pulse 91 Pulse Source Monitor Temp 97.2 F L Temp Source Temporal Pulse Oximetry (%) 98 Oxygen Delivery Method room air Intake Visit Reasons: HOSPITAL F/U POSSIBLE SBO Chief Complaint: hospital f/u possible SBO Accompanied by: Is patient in pain?: No Allergies lisinopril Adverse Reaction (Intermediate, Verified 09/08/23 09:16) cough Medications ???Medication ???Instructions ???Recorded ???Confirmed ???Type aspirin 81 mg tablet,delayed 81 mg PO DAILY@0800 preventive 03/20/17 09/08/23 History release atenolol 50 mg tablet 50 mg PO DAILY bp 03/20/17 09/08/23 History fluoxetine 20 mg capsule 20 mg PO DAILY mood 03/20/17 09/08/23 History bupropion HCl 100 mg tablet,12 hr 100 mg PO BID mood 10/13/18 09/08/23 History sustained-release atorvastatin 20 mg tablet 20 mg PO QHS cholestrol 09/11/19 09/08/23 History losartan 100 mg tablet 100 mg PO DAILY bp #90 tabs 10/02/19 09/08/23 Rx albuterol sulfate 90 mcg/actuation 2 puff inhalation Q4H PRN PRN Sob 10/14/22 09/08/23 Rx aerosol inhaler /Or Wheezing #8.5 grams amlodipine 5 mg tablet 5 mg PO DAILY blood pressure 12/22/22 09/08/23 History topiramate 25 mg tablet 75 mg PO BID headaches 12/22/22 09/08/23 History fluticasone fur. 200 mcg-umeclid 1 inh inhalation DAILY breathing 04/18/23 09/08/23 Rx 62.5 mcg-vilant 25 mcg #60 ea inhalat.powder (Trelegy Ellipta) nitroglycerin 0.4 mg sublingual 0.4 mg sublingual QDAY PRN chest 07/29/23 09/08/23 History tablet pain albuterol sulfate 2.5 mg/3 mL 2.5 mg inhalation Q8H PRN 08/24/23 09/08/23 History (0.083 %) solution for nebulization shortness of breath or wheezing polyethylene glycol 3350 17 17 g PO DAILY 1 month #510 grams 08/28/23 09/08/23 Rx gram/dose oral powder (Miralax) sennosides 8.6 mg-docusate sodium 2 tab PO BID #0 tabs 08/28/23 09/08/23 Rx 50 mg tablet (Stool Softener-Stimulant Laxative) [facility] Medical History Wears hearing aid Wears glasses Arthritis Former smoker BiPAP (biphasic positive airway pressure) dependence Sleep apnea Emphysema, unspecified Asthma Shortness of breath on exertion Leg cramps History of stress test Cardiology follow-up encounter Hypertension Personal history of colonic polyps SBO (small bowel obstruction) Nicotine dependence Nonsustained paroxysmal supraventricular tachycardia Atherosclerosis of coronary artery of [place] heart without angina pectoris GALE on CPAP Hyperlipidemia (Unknown) Essential hypertension GERD (gastroesophageal reflux disease) Depression COPD (chronic obstructive pulmonary disease) Surgical History History of esophagogastroduodenoscopy (EGD) Hx of cholecystectomy History of skin graft History of rotator cuff surgery History of colonoscopy with polypectomy Family History Mother Diabetes Father Cancer prostate Sister Diabetes Social History household members: spouse Smoking Status: Former smoker how long ago did patient quit smokin alcohol intake: never substance use type: does not use caffeine: Yes what type of physical activity do you participate in: none frequency: does not exercise HPI HPI HPI: 68-year-old male presents for follow-up from hospitalization for small bowel obstruction which resolved with NG and conservative management. Patient's small bowel follow-through showed contrast in the left colon after 1 hour. Patient also came back and I few days later due to chest pain and was found to have a small left pneumothorax which again was treated conservatively and did improve on x-ray after discharge. Patient states he is tolerating diet and having bowel function. Denies any abdominal pain or chest pain. ROS General General: Yes fatigue; No weight change, appetite, colon cancer, breast cancer or weakness HEENT HEENT: No difficulty swallowing, eye injury, eye surgery, swollen glands or hoarseness Endo Endocrine: No thyroid disease, diabetes mellitus, thyroid cancer, Hair loss, heat intolerance or cold intolerance S (more content not included)... Normal [facility] Colonoscopy Reporton 024 Colonoscopy Report [facility] Medical Records Department [address] [place] [address] Colonoscopy Report MR#: [id number] Acct: [id number] Name: EDIILA NORTON Rep #: [id number] : 1955 68 From: Ant Jessica DO PCP: Dr. Abiodun Grider MD Status:REG [facility] Patient Name: Edilia Norton Procedure Date: 08/31/2023 9:19 AM Date of : 1955 Age: 68 Procedure: Colonoscopy Indications: Screening for colorectal malignant neoplasm Providers: Ant Jessica DO Medicines: Monitored Anesthesia Care Patient Profile: This is a 68 year old male. Refer to note in patient chart for documentation of history and physical. Last Colonoscopy: 5 years ago. Complications: No immediate complications. Procedure: Pre-Anesthesia Assessment: - Prior to the procedure, a History and Physical was performed, and patient medications and allergies were reviewed. The patient is competent. The risks and benefits of the procedure and the sedation options and risks were discussed with the patient. All questions were answered and informed consent was obtained. Patient identification and proposed procedure were verified by the physician in the pre-procedure area. Mental Status Examination: alert and oriented. Airway Examination: normal oropharyngeal airway and neck mobility. Respiratory Examination: clear to auscultation. CV Examination: normal. Prophylactic Antibiotics: The patient does not require prophylactic antibiotics. Prior Anticoagulants: The patient has taken no anticoagulant or antiplatelet agents. ASA Grade Assessment: II - A patient with mild systemic disease. After reviewing the risks and benefits, the patient was deemed in satisfactory condition to undergo the procedure. The anesthesia plan was to use monitored anesthesia care (MAC). Immediately prior to administration of medications, the patient was re-assessed for adequacy to receive sedatives. The heart rate, respiratory rate, oxygen saturations, blood pressure, adequacy of pulmonary ventilation, and response to care were monitored throughout the procedure. The physical status of the patient was re-assessed after the procedure. After I obtained informed consent, the scope was passed under direct vision. Throughout the procedure, the patient's blood pressure, pulse, and oxygen saturations were monitored continuously. The Colonoscope was introduced through the anus and advanced to the cecum, identified by appendiceal orifice and ileocecal valve. The colonoscopy was performed without difficulty. The patient tolerated the procedure well. The quality of the bowel preparation was adequate. Scope In: 9:27:29 AM Scope Withdrawal Time 0 hours 8 minutes 3 seconds Scope Out: 9:40:49 AM Total Procedure Duration Time 0 hours 13 minutes 20 seconds Findings: The perianal and digital rectal examinations were normal. A few small and large-mouthed diverticula were found in the recto-sigmoid colon and sigmoid colon. Four sessile polyps were found in the sigmoid colon, splenic flexure and transverse colon. The polyps were 1 to 2 mm in size. These polyps were removed with a cold snare. Resection and retrieval were complete. Verification of patient identification for the specimen was done. Estimated blood loss was minimal. Impression: - Diverticulosis in the recto-sigmoid colon and in the sigmoid colon. - Four 1 to 2 mm polyps in the sigmoid colon, at the splenic flexure and in the transverse colon, removed with a cold snare. Resected and retrieved. Recommendation: - Repeat colonoscopy in 5 years for surveillance. - Continue present medications. Procedure Code(s): --- Professional --- 47236, Colonoscopy, flexible; with removal of tumor(s), polyp(s), or other lesion(s) by snare technique CPT copyright 2021 [employer]. All rights reserved. The codes documented in this report are preliminary and upon head soft sugar operator review may be revised to meet current compliance requirements. Ant Jessica DO 08/31/2023 9:59:04 AM This report has been signed electronically. Number of Addenda: 0 Note Initiated On: 08/31/2023 9:19 AM 08/31/2359 Date ____ Ant Jessica DO Cosigner Signature: Date ____ (if indicated) CC: Dr. Abiodun Grider MD; Ant Jessica DO Date Dictated: 08/31/23918 Date Transcribed: Oil Change Technician: LUCHO Signed Normal [facility] Surgery Specimen Level Mckenzie 08-31-2023 Surgery Specimen Level IV Patient Age/Sex Location Account Attending Physician EDILIA NORTON/M EN [id number] Ant Jessica DO Specimen: [id number] Received: 08/31/23 Status: SARA Lara Num: [id number] Spec Type: COLON BX Subm Dr: Ant Jessica DO HEADER OPERATION: Colonoscopy, polypectomy PRE-OP DIAGNOSIS: Screening colonoscopy TISSUE SUBMITTED: A- Splenic flexure polyp, B- Transverse colon polyp, C- Transverse colon polyp #2, D. Sigmoid colon polyp MICROSCOPIC DIAGNOSIS A. Colonic polyp at splenic flexure, biopsy: Tubular adenoma. B. Transverse colon polyp, biopsy: Tubular adenoma. C . Transverse colon polyp #2, biopsy: Tubular adenoma. D. Sigmoid colon polyp, biopsy: Fragments of tubular adenoma. AM/mr 09/01/2023 MICROSCOPIC DESCRIPTION Slides are reviewed. GROSS DESCRIPTION A. Received in fixative is one container labeled with the patient's name and designated Splenic flexure polyp. The specimen consists of one irregular fragment of light haynes soft tissue that measures 0.3 x 0.3 x 0.1 cm. The specimen is totally submitted in one cassette. B. Received in fixative is one container labeled with the patient's name and designated Transverse colon polyp. The specimen consists of multiple irregular fragments of light haynes soft tissue that in aggregate measure 0.6 x 0.3 x 0.1 cm. The specimen is totally submitted in one cassette. C. Received in fixative is one container labeled with the patient's name and designated Transverse colon polyp #2. The specimen consists of one irregular fragment of light haynes soft tissue that measures 0.3 x 0.3 x 0.1 cm. The specimen is totally submitted in one cassette. D. Received in fixative is one container labeled with the patient's name and designated Sigmoid colon polyp. The specimen consists of multiple irregular fragments of light haynes soft tissue that in aggregate measure 1.0 x 0.2 x 0.1 cm. The specimen is totally submitted in one cassette. / 08/31/2023 TC:5 [facility]:[id number] Patient Age/Sex Location Account Attending Physician EDILIA NORTON 68/M EN [id number] Ant Jessica DO Signed (signature on file) Dr. Donato Driver, 09/01/23 1423 Normal [facility] Comment on above: Performed By: #### L 500.4050, L500.4100 #### [facility] Laboratory [address] [place], [place], [address] Chest PA and Lateralon 08-29 Chest PA and Lateral [facility] Imaging Services [address] [place], [place] [address] Chest PA and Lateral MR#: [id number] Acct: [id number] Name: EDILIA NORTON Rep #: [id number] : 1955 M 68 From: Shalini carter MD PCP: Dr. Abiodun Grider MD Status: [facility] Study: Chest PA and Lateral Date of Exam: 08/30/23 Exam# [id number] Ordering Dr: Jen Baker MD [id number] HISTORY: Left pneumothorax. TECHNIQUE: XR Chest 2 Views. COMPARISON: 08/28/2023. FINDINGS: CARDIOMEDIASTINAL BORDERS: Cardiac silhouette within normal limits in size. Mediastinal contour unremarkable with calcification of the aortic knob. LUNGS: Hyperinflation, suggesting COPD. Chronic calcified granuloma in the left midlung. PLEURA: Decreased size of mild left apical pneumothorax. Unchanged mild left pleural effusion. OSSEOUS STRUCTURES: Surgical anchor in the right humeral head. Chronic bilateral rib fractures. UPPER ABDOMEN: Right upper quadrant surgical clips. Borderline dilated small bowel loops in the upper abdomen again seen. RAD/Chest PA and Lateral IMPRESSION: Decreased size of mild left apical pneumothorax. Unchanged mild left pleural effusion. Borderline dilated small bowel loops again seen, which may represent ileus. Electronically Signed: Shalini Fried MD at 8:59 EDT , CC: Dr. Abiodun Grider MD; Dr. Jen Baker MD Oil Change Technician: Signed Normal [facility] Chest PA and Lateralon 08-27 Chest PA and Lateral [facility] Imaging Services [address] [place] [id number] Chest PA and Lateral MR#: [id number] Acct: [id number] Name: EDILIA NORTON Rep #: [id number] : 1955 M 68 From: Jenny Murphy MD PCP: Dr. Abiodun Grider MD Status: [facility] Study: Chest PA and Lateral Date of Exam: 08/28/23 Exam# [id number] Ordering Dr: Jen Baker MD [id number] INDICATION: Pneumothorax EXAMINATION/TECHNIQUE: X-RAY - XR Chest 2 Views COMPARISON: August 27, 2023 FINDINGS: LINES/DEVICES: None. LUNGS: There is a stable small left apical pneumothorax. The lungs are hyperinflated with an appearance suggestive of emphysema. MEDIASTINUM AND CARDIOVASCULAR STRUCTURES: Cardiac silhouette not enlarged. Central airways and mediastinal contour are unremarkable. BONES AND SOFT TISSUES: There are stable right posterior rib deformities consistent with healed fractures. RAD/Chest PA and Lateral IMPRESSION: Stable small left apical pneumothorax. Emphysema. Electronically Signed: Jenny Murphy MD at 9:05 EDT , CC: Dr. Abiodun Grider MD; Dr. Jen Baker MD Oil Change Technician: Signed Normal [facility] Discharge Instructionon Discharge Instruction [facility] Medical Records Department [address] [place] [address] Instructions for Home/Discharge Instructions 08/28/23 1049 MR#: [id number] Acct: [id number] Name: EDILIA NORTON Rep #: [id number] : 1955 68 From: Paul Klein MD PCP: Dr. Abiodun Grider MD Status:ADM VICK Discharge Instructions Diet Discharge Diet: No restrictions Activity Discharge Activity: Return to Normal Activity Weight Bearing Status: Weight bearing as tolerated Dressing / Incision Call your doctor if you observe: Fever of 101 or Higher, Coldness, Increased Pain, Numbness or Tingling, Change in Color, Inability to urinate, Inability to have a bowel movement, Shortness of breath, Dizziness, Fainting spells, Swelling in the ankles, Chest pain, Prolonged hiccupping, Increased palpitations (irregular heartbeat) and Calf discomfort Follow Up Care When: IN 2 WEEKS Test Results: Test results from this visit will be discussed in further detail at your follow-up appointment, if applicable. Discharge Plan Admission Admit Date/Time: 08/27/23 02:44 Primary Reason for Your Visit: Small left apical pneumothorax Attending Provider: Paul Klein Primary Care Provider: Abiodun Grider Consulting Providers: Jen Baker; Gianna Martell Instructions Additional Instructions / Restrictions: Patient advised chest x-ray PA and lateral as an outpatient on 08/30/2023 and follow-up with surgery Dr. Baker Discharge Orders/Prescriptions Prescriptions: Continued atorvastatin 20 mg tablet 20 mg PO QHS albuterol sulfate 90 mcg/actuation HFA aerosol inhaler 2 puff inhalation Q4H PRN PRN (Reason: Sob /Or Wheezing) Qty: 8.5 11RF Trelegy Ellipta 200-62.5-25 mcg blister with device 1 inh inhalation DAILY Qty: 60 6RF topiramate 25 mg tablet 75 mg PO BID amlodipine 5 mg tablet 5 mg PO DAILY Patient Comments: TAKE 1 TABLET BY MOUTHgONCE DAILY nitroglycerin 0.4 mg tablet, sublingual 0.4 mg sublingual QDAY PRN (Reason: chest pain) aspirin 81 MG tablet 81 mg PO DAILY@0800 fluoxetine 20 MG capsule 20 mg PO DAILY Patient Comments: TAKE ONE (1) CAPSULE BY MOUTH ONCE DAILY atenolol 50 MG tablet 50 mg PO DAILY Patient Comments: TAKE 1 TABLET BY MOUTH ONCE DAILY. bupropion HCl 100 MG tablet sustained-release 12 hr 100 mg PO BID Patient Comments: TAKE ONE (1) TABLET BY MOUTH TWICE DAILY albuterol sulfate 2.5 mg /3 mL (0.083 %) solution for nebulization 2.5 mg inhalation Q8H PRN (Reason: shortness of breath or wheezing) losartan 100 mg tablet 100 mg PO DAILY Qty: 90 6RF Other Ambulatory Orders: Chest PA and Lateral (Routine) Timeframe: [id number] Facility: [facility] - Location: [facility] Ordered By: Dr. Jen Baker Referrals / Follow Up: Abiodun Grider MD [Primary Care Provider] - Within 2 Weeks Jen Baker MD [Med Staff - Active Staff] - Within 1 Week (Follow-up chest x-ray on 08/30/2023 for small left apical pneumothorax) Disposition Disposition (needs filled in before D/C Order can be placed): Home, Self Care 08/28/23 1052 Paul Klein MD CC: Dr. Gianna Martell MD; Dr. Abiodun Grider MD; Dr. Jen Baker MD Signed Normal [facility] 12 Lead EKGon 08-27-2023 12 Lead EKG [facility] Cardiovascular Services [address] [place] [address] 12 Lead EKG 08/27/23 0005 MR#: [id number] Acct: [id number] Name: EDILIA NORTON Rep #: [id number] : 1955 68 From: Christiano Pope MD Attending Dr: Dr. Paul Klein MD Status: DIS VICK Ordering Dr: Rowdy Lemus DO Date: 08/27/23 Location: [facility] Sex: M C Admitted: 08/27/23 Test Reason : CP Blood Pressure : / mmHG Vent. Rate : 117 BPM Atrial Rate : 170 BPM P-R Int : 000 ms QRS Dur : 068 ms QT Int : 306 ms P-R-T Axes : 066 061 067 degrees QTc Int : 426 ms SINUS TACHYCARDIA Nonspecific ST abnormality Abnormal ECG Confirmed by SYBIL ROBERTS, CHRISTIANO ([id number]), content editor SHAWN ZUÑIGA ([id number]) on 08/29/2023 6:47:23 AM Referred By: Confirmed By:CHRISTIANO POPE MD 08/29/23 0647 Date ____ Christiano Pope MD CC: Dr. Rowdy Lemus DO; Dr. Abiodun Grider MD; Dr. Paul Klein MD Signed Normal [facility] Basic Metabolic Profile (BMP )on 08-27-2023 BUN/CRE 13.6 RATIO Normal 10-20 [facility] Comment on above: Order Comment: 1Y Performed By: #### L 100.0100, L500.2500, L300.8000, L501.5425 ####[facility] [address] [place], [address] CA,Total 9.4 mg/dL Normal 8.5-10.1 [facility] Comment on above: Order Comment: 1Y Performed By: #### L 100.0100, L500.2500, L300.8000, L501.5425 ####[facility] [address] [place], [address] Chloride [Moles/Vol] 107 mmol/L Normal 98-107 [facility] Comment on above: Order Comment: 1Y Performed By: #### L 100.0100, L500.2500, L300.8000, L501.5425 ####[facility] [address] [place], [address] CO2 [Moles/Vol] 26.0 mmol/L Normal 21.0-32.0 [facility] Comment on above: Order Comment: 1Y Performed By: #### L 100.0100, L500.2500, L300.8000, L501.5425 ####[facility] [address] [place], [address] Creatinine [Mass/Vol] 1.03 mg/dL Normal 0.70-1.30 [facility] Comment on above: Order Comment: 1Y Result Comment: The validity of the calculated GFR GFRAA in patients over 70 years has not been determined. Clinical correlation is essential. Performed By: #### L 100.0100, L500.2500, L300.8000, L501.5425 ####[facility] [address] [place], [address] ECRCL 66.41 ml/min Normal [facility] Comment on above: Order Comment: 1Y Performed By: #### L 100.0100, L500.2500, L300.8000, L501.5425 ####[facility] [address] [place], [address] EST GFR - AA 92 mL/min Normal >60 [facility] Comment on above: Order Comment: 1Y Result Comment: Afri can Ghanaian GFR Calc Performed By: #### L 100.0100, L500.2500, L300.8000, L501.5425 ####[facility] [address] [place], [address] GAP 6 Normal 5-15 [facility] Comment on above: Order Comment: 1Y Performed By: #### L 100.0100, L500.2500, L300.8000, L501.5425 ####[facility] [address] [place], [address] GFR/1.73 sq M.predicted among non-blacks MDRD (S/P/Bld) [Vol rate/Area] 76 mL/min/{1.73_m2} Normal >60 [facility] Comment on above: Order Comment: 1Y Result Comment: Non- GFR Calc Performed By: #### L 100.0100, L500.2500, L300.8000, L501.5425 ####[facility] [address] [place], [address] Glucose [Mass/Vol] 98 mg/dL Normal 74-106 [facility] Comment on above: Order Comment: 1Y Performed By: #### L 100.0100, L500.2500, L300.8000, L501.5425 ####[facility] [address] [place], [address] Potassium [Moles/Vol] 3.7 mmol/L Normal 3.5-5.1 [facility] Comment on above: Order Comment: 1Y Performed By: #### L 100.0100, L500.2500, L300.8000, L501.5425 ####[facility] [address] [place], [address] Sodium [Moles/Vol] 139 mmol/L Normal 136-145 [facility] Comment on above: Order Comment: 1Y Performed By: #### L 100.0100, L500.2500, L300.8000, L501.5425 ####[facility] [address] [place], [address] Urea nitrogen [Mass/Vol] 14 mg/dL Normal 7-18 [facility] Comment on above: Order Comment: 1Y Performed By: #### L 100.0100, L500.2500, L300.8000, L501.5425 ####[facility] [address] [place], [address] CBC W/Diff, Automatedon 06-0 -2023 Absolute Lymph 2.17 X10 3/uL Normal 0.83-4.51 [facility] Comment on above: Performed By: #### L 500.4050, L100.0100 ####[facility] [address] [place], [address] Absolute Neut 3.3 X10 3/uL Normal 2.0-7.7 [facility] Comment on above: Performed By: #### L 500.4050, L100.0100 ####[facility] [address] [place], [address] Basophils/100 WBC (Bld) 0.9 % Normal 0-1 [facility] Comment on above: Performed By: #### L 500.4050, L100.0100 ####[facility] [address] [place], [address] Eosinophils/100 WBC (Bld) 5.3 % High 0-5 [facility] Comment on above: Performed By: #### L 500.4050, L100.0100 ####[facility] [address] [place], [address] Erythrocyte distribution width (RBC) [Ratio] 12.9 % Normal 11.6-14.6 [facility] Comment on above: Performed By: #### L 500.4050, L100.0100 ####[facility] [address] [place], [address] Hematocrit (Bld) [Volume fraction] 43.1 % Normal 40-54 [facility] Comment on above: Performed By: #### L 500.4050, L100.0100 ####[facility] [address] [place], [address] Hemoglobin (Bld) [Mass/Vol] 13.9 g/dL Normal 13.0-16.5 [facility] Comment on above: Performed By: #### L 500.4050, L100.0100 ####[facility] [address] [place], [address] IG% 1.200 High 0.0-0.9 [facility] Comment on above: Result Comment: IG% - Immature Granulocytes (promyelocytes, myelocytes and metamyelocytes) > 1% indicates that a LEFT SHIFT is Present. Performed By: #### L 500.4050, L100.0100 ####[facility] [address] [place], [address] Lymphocytes/100 WBC (Bld) 32.1 % Normal 19-41 [facility] Comment on above: Performed By: #### L 500.4050, L100.0100 ####[facility] [address] [place], [address] MCH (RBC) [Entitic mass] 28.6 pg Normal 27.0-32.0 [facility] Comment on above: Performed By: #### L 500.4050, L100.0100 ####[facility] [address] [place], [address] MCHC (RBC) [Mass/Vol] 32.3 g/dL Normal 32-36 [facility] Comment on above: Performed By: #### L 500.4050, L100.0100 ####[facility] [address] [place], [address] MCV (RBC) [Entitic vol] 88.7 fL Normal 80-94 [facility] Comment on above: Performed By: #### L 500.4050, L100.0100 ####[facility] [address] [place], [address] Monocytes/100 WBC (Bld) 11.7 % High 0-10 [facility] Comment on above: Performed By: #### L 500.4050, L100.0100 ####[facility] [address] [place], [address] Neutrophils/100 WBC (Bld) 48.8 % Normal 47-70 [facility] Comment on above: Performed By: #### L 500.4050, L100.0100 ####[facility] [address] [place], [address] Nucleated RBC (Bld) [#/Vol] 0 10*3/uL Normal 0-5 [facility] Comment on above: Performed By: #### L 500.4050, L100.0100 ####[facility] [address] [place], [address] Platelet mean volume (Bld) [Entitic vol] 13.8 fL High 6.2-12.0 [facility] Comment on above: Performed By: #### L 500.4050, L100.0100 ####[facility] [address] [place], [address] Platelets (Bld) [#/Vol] 112 10*3/uL Low 150-450 [facility] Comment on above: Performed By: #### L 500.4050, L100.0100 ####[facility] [address] [place], [address] RBC (Bld) [#/Vol] 4.86 10*6/uL Normal 4.6-6.2 [facility] Comment on above: Performed By: #### L 500.4050, L100.0100 ####[facility] [address] [place], [address] RDW SD 42.2 fl Normal 35.1-43.9 [facility] Comment on above: Performed By: #### L 500.4050, L100.0100 ####[facility] [address] [place], [address] WBC (Bld) [#/Vol] 6.8 10*3/uL Normal 4.4-11.0 [facility] Comment on above: Performed By: #### L 500.4050, L100.0100 ####[facility] [address] [place], [address] Absolute Lymph 2.37 X10 3/uL Normal 0.83-4.51 [facility] Comment on above: Performed By: #### L 100.0100, L500.2500, L300.8000, L501.5425 ####[facility] [address] [place], [address] Absolute Neut 6.4 X10 3/uL Normal 2.0-7.7 [facility] Comment on above: Performed By: #### L 100.0100, L500.2500, L300.8000, L501.5425 ####[facility] [address] [place], [address] Basophils/100 WBC (Bld) 0.7 % Normal 0-1 [facility] Comment on above: Performed By: #### L 100.0100, L500.2500, L300.8000, L501.5425 ####[facility] [address] [place], [address] Eosinophils/100 WBC (Bld) 3.8 % Normal 0-5 [facility] Comment on above: Performed By: #### L 100.0100, L500.2500, L300.8000, L501.5425 ####[facility] [address] [place], [address] Erythrocyte distribution width (RBC) [Ratio] 12.9 % Normal 11.6-14.6 [facility] Comment on above: Performed By: #### L 100.0100, L500.2500, L300.8000, L501.5425 ####[facility] [address] [place], [address] Hematocrit (Bld) [Volume fraction] 47.0 % Normal 40-54 [facility] Comment on above: Performed By: #### L 100.0100, L500.2500, L300.8000, L501.5425 ####[facility] [address] [place], [address] Hemoglobin (Bld) [Mass/Vol] 15.2 g/dL Normal 13.0-16.5 [facility] Comment on above: Performed By: #### L 100.0100, L500.2500, L300.8000, L501.5425 ####[facility] [address] [place], [address] IG% 0.900 Normal 0.0-0.9 [facility] Comment on above: Result Comment: IG% - Immature Granulocytes (promyelocytes, myelocytes and metamyelocytes) > 1% indicates that a LEFT SHIFT is Present. Performed By: #### L 100.0100, L500.2500, L300.8000, L501.5425 ####[facility] [address] [place], [address] Lymphocytes/100 WBC (Bld) 22.6 % Normal 19-41 [facility] Comment on above: Performed By: #### L 100.0100, L500.2500, L300.8000, L501.5425 ####[facility] [address] [place], [address] MCH (RBC) [Entitic mass] 29.1 pg Normal 27.0-32.0 [facility] Comment on above: Performed By: #### L 100.0100, L500.2500, L300.8000, L501.5425 ####[facility] [address] [place], [address] MCHC (RBC) [Mass/Vol] 32.3 g/dL Normal 32-36 [facility] Comment on above: Performed By: #### L 100.0100, L500.2500, L300.8000, L501.5425 ####[facility] [address] [place], [address] MCV (RBC) [Entitic vol] 89.9 fL Normal 80-94 [facility] Comment on above: Performed By: #### L 100.0100, L500.2500, L300.8000, L501.5425 ####[facility] [address] [place], [address] Monocytes/100 WBC (Bld) 10.8 % High 0-10 [facility] Comment on above: Performed By: #### L 100.0100, L500.2500, L300.8000, L501.5425 ####[facility] [address] [place], [address] Neutrophils/100 WBC (Bld) 61.2 % Normal 47-70 [facility] Comment on above: Performed By: #### L 100.0100, L500.2500, L300.8000, L501.5425 ####[facility] [address] [place], [address] Nucleated RBC (Bld) [#/Vol] 0 10*3/uL Normal 0-5 [facility] Comment on above: Performed By: #### L 100.0100, L500.2500, L300.8000, L501.5425 ####[facility] [address] [place], [address] Platelet mean volume (Bld) [Entitic vol] 14.1 fL High 6.2-12.0 [facility] Comment on above: Performed By: #### L 100.0100, L500.2500, L300.8000, L501.5425 ####[facility] [address] [place], [address] Platelets (Bld) [#/Vol] 139 10*3/uL Low 150-450 [facility] Comment on above: Performed By: #### L 100.0100, L500.2500, L300.8000, L501.5425 ####[facility] [address] [place], [address] RBC (Bld) [#/Vol] 5.23 10*6/uL Normal 4.6-6.2 [facility] Comment on above: Performed By: #### L 100.0100, L500.2500, L300.8000, L501.5425 ####[facility] [address] [place], [address] RDW SD 42.5 fl Normal 35.1-43.9 [facility] Comment on above: Performed By: #### L 100.0100, L500.2500, L300.8000, L501.5425 ####[facility] [address] [place], [address] WBC (Bld) [#/Vol] 10.5 10*3/uL Normal 4.4-11.0 [facility] Comment on above: Performed By: #### L 100.0100, L500.2500, L300.8000, L501.5425 ####[facility] [address] [place], [address] CTA Chest W/WO Contraston CTA Chest W/WO Contrast [facility] Imaging Services [address] [place] [address] CTA Chest W/WO Contrast MR#: [id number] Acct: [id number] Name: EDILIA NOTRON Rep #: [id number] : 1955 M 68 From: Travon Akins MD PCP: Dr. Abiodun Grider MD Status: [facility] ER Study: CTA Chest W/WO Contrast Date of Exam: 08/27/23 Exam# [id number] Ordering Dr: Rowdy Lemus DO [id number] INDICATION: pulmonary embolism, elevated d dimer EXAMINATION: CT CHEST WITH CONTRAST - CTA Chest WO/W Contrast Injection TECHNIQUE: Helically acquired images were obtained of the chest following IV contrast timed in the pulmonary arterial phase with sagittal and coronal reconstructed images. Post-processing of the angiographic images was performed with multiplanar reformation and 3D reconstruction. Individualized dose optimization techniques were used for this CT. IV contrast dosage and agent: 100 mL of Isovue-[id number]. COMPARISON: 01/17/2023 CT. FINDINGS: LUNGS, PLEURA AND LARGE AIRWAYS: No consolidation or edema. Centrilobular emphysematous changes. 3 mm right upper lobe noncalcified pulmonary nodule. Multiple calcified left lung nodules. No pleural effusion. Small left pneumothorax, approximately 10% and more prominent at the lung base. THYROID: Unremarkable. HEART AND PERICARDIUM: Coronary artery calcifications are present. No pericardial effusion. No evidence of right heart strain. Right ventricle to left ventricle ratio measures less than 1. MEDIASTINUM AND JAE: Left hilar calcified lymph nodes. Esophagus is unremarkable. No hiatal hernia. VESSELS: No pulmonary embolism. No thoracic aortic aneurysm. UPPER ABDOMEN: Hepatic cysts. Probable hemangioma in the posterior right lobe with globular peripheral enhancement. Splenic calcifications consistent with benign old granulomatous disease. BONES: Subacute versus chronic right posterior seventh rib fracture. CT/CTA Chest W/WO Contrast IMPRESSION: 1. Small left pneumothorax, approximately 10%, more prominent at the lung base. 2. No pulmonary embolism. 3. Centrilobular emphysematous changes of the lungs. 4. 3 mm right upper lobe pulmonary nodule. Recommend follow-up CT of the chest in 12 months. Electronically Signed: Travon Akins DO at 2:47 EDT , CC: Dr. Rowdy Lemus DO; Dr. Abiodun Grider MD Oil Change Technician: Signed Normal [facility] Chest 1 View (Portable)on Chest 1 View (Portable) [facility] Imaging Services [address] [place] [address] Chest 1 View (Portable) MR#: [id number] Acct: [id number] Name: EDILIA NORTON Rep #: [id number] : 1955 M 68 From: Travon Akins MD PCP: Dr. Abiodun Grider MD Status: [facility] ER Study: Chest 1 View (Portable) Date of Exam: 08/27/23 Exam# [id number] Ordering Dr: Rowdy Lemus DO ADDENDUM by Dr. Travon Akins MD on 08/27/23 at 0106 [id number] INDICATION: chest pain EXAMINATION/TECHNIQUE: X-RAY - XR Chest 1 View COMPARISON: 07/25/2023. FINDINGS: LINES/DEVICES: None. LUNGS: Small left apical pneumothorax, less than 10%. No focal infiltrate is identified. No evidence of a pleural effusion. MEDIASTINUM AND CARDIOVASCULAR STRUCTURES: Cardiac silhouette is normal in size and contour. Mediastinum is unremarkable. BONES AND SOFT TISSUES: No acute abnormality. Chronic bilateral rib fractures. 08/27/23 0106 Date cc: Dr. Rowdy Lemus DO; Dr. Abiodun Grider MD * Signed ADDENDUM by Dr. Travon Akins MD on 08/27/23 at 0106 RAD/Chest 1 View (Portable) IMPRESSION: Small left apical pneumothorax, less than 10%. N.B. : MOOSE Martinez, confirmed on 08/27/2023 01:11:22 (ET) that the healthcare facility has received the radiology report. Electronically Signed: Travon Akins DO at 1:06 EDT , 08/27/23 0118 Date cc: Dr. Rowdy Lemus DO; Dr. Abiodun Grider MD * Signed ACR Level 3 findings have been noted. An addendum which confirms receipt of the report will follow. [id number] INDICATION: chest pain EXAMINATION/TECHNIQUE: X-RAY - XR Chest 1 View COMPARISON: 07/25/2023. FINDINGS: LINES/DEVICES: None. LUNGS: Small left apical pneumothorax, less than 10%. No focal infiltrate is identified. No evidence of a pleural effusion. MEDIASTINUM AND CARDIOVASCULAR STRUCTURES: Cardiac silhouette is normal in size and contour. Mediastinum is unremarkable. BONES AND SOFT TISSUES: No acute abnormality. Chronic bilateral rib fractures. RAD/Chest 1 View (Portable) IMPRESSION: Small left apical pneumothorax, less than 10%. Electronically Signed: Travon Akins DO at 1:06 EDT , CC: Dr. Rowdy Lemus DO; Dr. Abiodun Grider MD Oil Change Technician: Signed Normal [facility] [facility] Chest PA and Lateralon 08-26 Chest PA and Lateral [facility] Imaging Services [facility] [place], [place] [id number] Chest PA and Lateral MR#: [id number] Acct: [id number] Name: EDILIA NORTON Rep #: [id number] : 1955 M 68 From: Lito Mabry MD PCP: Dr. Abiodun Grider MD Status: ADM VICK Study: Chest PA and Lateral Date of Exam: 08/27/23 Exam# [id number] Ordering Dr: Gianna Martell MD [id number] EXAM: XR CHEST, 2 VIEWS CLINICAL INDICATION: PTX re-evaluation TECHNIQUE: Frontal and lateral views of the chest. COMPARISON: XR Chest dated 08/27/2023 FINDINGS: LUNGS AND PLEURAL SPACES: No airspace opacification of the lungs. Stable 10% left apical pneumothorax. No pleural effusion. Hyperinflation suggesting emphysema. HEART: Normal heart size. MEDIASTINUM: No mediastinal or hilar mass. BONES/JOINTS: Chronic bilateral rib fractures. RAD/Chest PA and Lateral IMPRESSION: Stable small left apical pneumothorax. COPD. No interval change. Electronically Signed: Lito Mabry MD at 9:25 EDT , CC: Dr. Gianna Martell MD; Dr. Abiodun Grider MD Oil Change Technician: Signed Normal [facility] Comprehensive Metabolic Prof ncon 08-27-2023 Albumin [Mass/Vol] 2.8 g/dL Low 3.2-5.0 [facility] Comment on above: Performed By: #### L 500.4050, L100.0100 ####[facility] [address] [place], [address] Albumin/Globulin [Mass ratio] 0.9 {ratio} Normal 0.9-2.4 [facility] Comment on above: Performed By: #### L 500.4050, L100.0100 ####[facility] [address] [place], [address] ALK P 84 U/L Normal 45-117 [facility] Comment on above: Performed By: #### L 500.4050, L100.0100 ####[facility] [address] [place], [address] ALT [Catalytic activity/Vol] 15 U/L Low 16-61 [facility] Comment on above: Performed By: #### L 500.4050, L100.0100 ####[facility] [address] [place], [address] AST [Catalytic activity/Vol] 9 U/L Low 15-37 [facility] Comment on above: Performed By: #### L 500.4050, L100.0100 ####[facility] [address] [place], [address] Bilirubin [Mass/Vol] 0.40 mg/dL Normal 0.20-1.00 [facility] Comment on above: Result Comment: For patients on eltrombopag therapy, use of Dimension [place] TBIL is not recommended. Performed By: #### L 500.4050, L100.0100 ####[facility] [address] [place], [address] BUN/CRE 14.6 RATIO Normal 10-20 [facility] Comment on above: Performed By: #### L 500.4050, L100.0100 ####[facility] [address] [place], [address] CA,Total 8.8 mg/dL Normal 8.5-10.1 [facility] Comment on above: Performed By: #### L 500.4050, L100.0100 ####[facility] [address] [place], [address] Chloride [Moles/Vol] 110 mmol/L High 98-107 [facility] Comment on above: Performed By: #### L 500.4050, L100.0100 ####[facility] [address] [place], [address] CO2 [Moles/Vol] 23.0 mmol/L Normal 21.0-32.0 [facility] Comment on above: Performed By: #### L 500.4050, L100.0100 ####[facility] [address] [place], [address] Creatinine [Mass/Vol] 0.89 mg/dL Normal 0.70-1.30 [facility] Comment on above: Result Comment: The validity of the calculated GFR GFRAA in patients over 70 years has not been determined. Clinical correlation is essential. Performed By: #### L 500.4050, L100.0100 ####[facility] [address] [place], [address] ECRCL 76.85 ml/min Normal [facility] Comment on above: Performed By: #### L 500.4050, L100.0100 ####[facility] [address] [place], [address] EST GFR - AA 109 mL/min Normal >60 [facility] Comment on above: Result Comment: Afri can Ghanaian GFR Calc Performed By: #### L 500.4050, L100.0100 ####[facility] [address] [place], [address] GAP 6 Normal 5-15 [facility] Comment on above: Performed By: #### L 500.4050, L100.0100 ####[facility] [address] [place], [address] GFR/1.73 sq M.predicted among non-blacks MDRD (S/P/Bld) [Vol rate/Area] 90 mL/min/{1.73_m2} Normal >60 [facility] Comment on above: Result Comment: Non- GFR Calc Performed By: #### L 500.4050, L100.0100 ####[facility] [address] [place], [address] Globulin (S) [Mass/Vol] 3.1 g/dL Normal 2.2-4.2 [facility] Comment on above: Performed By: #### L 500.4050, L100.0100 ####[facility] [address] [place], [address] Glucose [Mass/Vol] 117 mg/dL High 74-106 [facility] Comment on above: Result Comment: Fast ing Glucose result from 100 to 125 mg/dL suggests IMPAIRED HOMEOSTASIS per A.D.A. criteria. Performed By: #### L 500.4050, L100.0100 ####[facility] [address] [place], [address] Potassium [Moles/Vol] 3.6 mmol/L Normal 3.5-5.1 [facility] Comment on above: Performed By: #### L 500.4050, L100.0100 ####[facility] [address] [place], [address] Sodium [Moles/Vol] 139 mmol/L Normal 136-145 [facility] Comment on above: Performed By: #### L 500.4050, L100.0100 ####[facility] [address] [place], [address] T PROT 5.9 g/dL Low 6.4-8.2 [facility] Comment on above: Performed By: #### L 500.4050, L100.0100 ####[facility] [address] [place], [address] Urea nitrogen [Mass/Vol] 13 mg/dL Normal 7-18 [facility] Comment on above: Performed By: #### L 500.4050, L100.0100 ####[facility] [address] [place], [address] Consultation - Surgicalon Consultation - Surgical [facility] Medical Records Department [address] [place] [address] Consultation - Surgical 08/27/2324 MR#: [id number] Acct: [id number] Name: EDILIA NORTON Rep #: [id number] : 1955 68 From: Jen Baker MD PCP: Dr. Abiodun Grider MD Status:ADM VICK [id number] Assessment Plan Assessment/Plan (1) Pneumothorax: (2) History of COPD: PLAN: Plan Chest x-ray ordered for this morning. If continues to be small we will continue to monitor. Discussed with patient would not DC today even if stable --would check a chest x-ray tomorrow to make sure this is stable and not worsening. Patient is aware that if the pneumothorax got larger he may need chest tube placement. Due to his history of COPD he had a chest tube placed and there continues to be an air leak he could possibly require transfer to tertiary care facility. Addendum: Patient's chest x-ray from this morning looks similar to last night per my read official read pending. Will continue to monitor. Jen Baker M.D. Pager: [phone] [facility] [address] [place] [address], [facility], [address] [place] [address] Office: [phone] HPI Consult Data Date of Consult: 08/27/23 HPI Narrative HPI Narrative: EDILIA NORTON, is a 68 M who presents to the ER due to chest pain. Patient is well-known to me just left hospitalization for small bowel obstruction which resolved with conservative management. Patient states he was having some chest pain on and off throughout the day yesterday. Patient had a chest x-ray in the ER showed a small left apical pneumothorax. A CTA was done again just showed a small pneumothorax. Patient denies any coughing worse than normal yesterday. Plan was to watch patient with conservative management as he does have a history of COPD and the pneumothorax was stable patient was placed on supplemental O2. Patient denies any chest pain this morning even with deep breaths. [facility] Medical History Wears hearing aid Wears glasses Arthritis Former smoker BiPAP (biphasic positive airway pressure) dependence Sleep apnea Emphysema, unspecified Asthma Shortness of breath on exertion Leg cramps History of stress test Cardiology follow-up encounter Hypertension Personal history of colonic polyps SBO (small bowel obstruction) Nicotine dependence Nonsustained paroxysmal supraventricular tachycardia Atherosclerosis of coronary artery of [place] heart without angina pectoris GALE on CPAP Hyperlipidemia (Unknown) Essential hypertension GERD (gastroesophageal reflux disease) Depression COPD (chronic obstructive pulmonary disease) Home Medications ???Medication ???Instructions ???Recorded ???Last Taken ???Type aspirin 81 mg tablet,delayed 81 mg PO DAILY@0800 preventive 03/20/17 10/13/18 History release atenolol 50 mg tablet 50 mg PO DAILY bp 03/20/17 10/30/18 06:30 History fluoxetine 20 mg capsule 20 mg PO DAILY mood 03/20/17 10/13/18 History bupropion HCl 100 mg tablet,12 hr 100 mg PO BID mood 10/13/18 10/13/18 History sustained-release atorvastatin 20 mg tablet 20 mg PO QHS cholestrol 09/11/19 Unknown History losartan 100 mg tablet 100 mg PO DAILY bp #90 tabs 10/02/19 Unknown Rx albuterol sulfate 90 mcg/actuation 2 puff inhalation Q4H PRN PRN Sob 10/14/22 Unknown Rx aerosol inhaler /Or Wheezing #8.5 grams amlodipine 5 mg tablet 5 mg PO DAILY blood pressure 12/22/22 Unknown History topiramate 25 mg tablet 75 mg PO BID headaches 12/22/22 Unknown History fluticasone fur. 200 mcg-umeclid 1 inh inhalation DAILY breathing 04/18/23 Unknown Rx 62.5 mcg-vilant 25 mcg #60 ea inhalat.powder (Trelegy Ellipta) nitroglycerin 0.4 mg sublingual 0.4 mg sublingual QDAY PRN chest 07/29/23 Unknown History tablet pain albuterol sulfate 2.5 mg/3 mL 2.5 mg inhalation Q8H PRN 08/24/23 Unknown History (0.083 %) solution for nebulization shortness of breath or wheezing Allergy/AdvReac Type Severity Reaction Status Date / Time lisinopril AdvReac Intermediate cough Verified 08/26/23 08:33 Family History Mother Diabetes Father Cancer prostate Sister Diabetes Surgical History History of esophagogastroduodenoscopy (EGD) Hx of cholecystectomy History of skin graft History of rotator cuff surgery History of colonoscopy with polypectomy Social History (Updated 08/27/23 @ 03:[address] Gianna Martell MD) household members: spouse Smoking Status: Former smoker how long ago did patient quit smokin alcohol intake: never substance use type: does not use caffeine: Yes what type of physical activity do you participate in: none (more content not included)... Normal [facility] D-Dimer Quantitative (DVT/PE )on 08-27-2023 D-DIMER QUANT 0.69 FEU/ug/m Invalid Interpretation Code 0.27-0.49 [facility] Comment on above: Result Comment: D-Di dianne ELEVATED (>0.49): Additional studies and clinical assessments are indicated to conclude diagnosis of: Deep Vein Thrombosis (DVT) or Pulmonary Embolism (PE) CRITICAL VALUE VERIFIED. CALLED TO EMILLER 08/27/23 0053 Sharmin Fuentes. RESULTS READ BACK BY SAME. Performed By: #### L 100.0100, L500.2500, L300.8000, L501.5425 ####[facility] [address] [facility] [place], [address] Emergency Department Summary on 08-27-2023 Emergency Department Summary [facility] Medical Records Department [address] [place] [address] Emergency Department Summary 08/27/23 MR#: [id number] Acct: [id number] Name: EDILIA NORTON Rep #: [id number] : 1955 68 From: Rowdy Lemus DO PCP: Dr. Abiodun Grider MD Status:ADM VICK Location: [address] History of Present Illness Chief Complaint: Chest Pain Informant: patient, spouse/S.O. and EMS Narrative Narrative: 68-year-old male presenting to the emergency room chief complaint of chest pain. Patient states he has no history of heart disease. He states he has no medical history but then notes a history of COPD/asthma. Patient was admitted into the hospital several days ago with a small bowel obstruction and had an NG tube placed which resolved the obstruction. Patient states this evening he developed pain in his heart. He states it is 10 out of 10 and the equivalent to being eaten alive by a bear. He had a burrito earlier in the day. He denies any indigestion vomiting or nausea. States he has more cough than normal. EMS notes that he is pulse ox was in the high 80s on room air. He does not wear oxygen at home. He denies history of DVT or PE. No aortic aneurysm or dissection history. [facility] Medical History Wears hearing aid Wears glasses Arthritis Former smoker BiPAP (biphasic positive airway pressure) dependence Sleep apnea Emphysema, unspecified Asthma Shortness of breath on exertion Leg cramps History of stress test Cardiology follow-up encounter Hypertension Personal history of colonic polyps SBO (small bowel obstruction) Nicotine dependence Nonsustained paroxysmal supraventricular tachycardia Atherosclerosis of coronary artery of [place] heart without angina pectoris GALE on CPAP Hyperlipidemia (Unknown) Essential hypertension GERD (gastroesophageal reflux disease) Depression COPD (chronic obstructive pulmonary disease) Home Medications ???Medication ???Instructions ???Recorded ???Last Taken ???Type aspirin 81 mg tablet,delayed 81 mg PO DAILY@0800 preventive 03/20/17 10/13/18 History release atenolol 50 mg tablet 50 mg PO DAILY bp 03/20/17 10/30/18 06:30 History fluoxetine 20 mg capsule 20 mg PO DAILY mood 03/20/17 10/13/18 History bupropion HCl 100 mg tablet,12 hr 100 mg PO BID mood 10/13/18 10/13/18 History sustained-release atorvastatin 20 mg tablet 20 mg PO QHS cholestrol 09/11/19 Unknown History losartan 100 mg tablet 100 mg PO DAILY bp #90 tabs 10/02/19 Unknown Rx albuterol sulfate 90 mcg/actuation 2 puff inhalation Q4H PRN PRN Sob 10/14/22 Unknown Rx aerosol inhaler /Or Wheezing #8.5 grams amlodipine 5 mg tablet 5 mg PO DAILY blood pressure 12/22/22 Unknown History topiramate 25 mg tablet 75 mg PO BID headaches 12/22/22 Unknown History fluticasone fur. 200 mcg-umeclid 1 inh inhalation DAILY breathing 04/18/23 Unknown Rx 62.5 mcg-vilant 25 mcg #60 ea inhalat.powder (Trelegy Ellipta) nitroglycerin 0.4 mg sublingual 0.4 mg sublingual QDAY PRN chest 07/29/23 Unknown History tablet pain albuterol sulfate 2.5 mg/3 mL 2.5 mg inhalation Q8H PRN 08/24/23 Unknown History (0.083 %) solution for nebulization shortness of breath or wheezing Allergy/AdvReac Type Severity Reaction Status Date / Time lisinopril AdvReac Intermediate cough Verified 08/26/23 08:33 Family History Mother Diabetes Father Cancer prostate Sister Diabetes Surgical History History of esophagogastroduodenoscopy (EGD) Hx of cholecystectomy History of skin graft History of rotator cuff surgery History of colonoscopy with polypectomy Social History Smoking Status: Former smoker how long ago did patient quit smokin alcohol intake: never substance use type: does not use caffeine: Yes what type of physical activity do you participate in: none frequency: does not exercise ROS ROS ED Constitutional Constitutional ED: Denies chills, fever(s) or weight loss Eyes Eyes: Denies change in vision or diplopia ENT ENT ED: Denies ear pain, rhinorrhea or sore throat Cardiovascular Cardiovascular: Reports chest pain; Denies orthopnea, palpitations or racing heartbeat Respiratory/Chest Respiratory/Chest: Reports cough and other Details: No change in chronic dyspnea ; Denies dyspnea or orthopnea Gastrointestinal Gastrointestinal: Denies abdominal pain, diarrhea, nausea or vomiting Genitourinary Genitourinary ED: Denies dysuria, hematuria or urinary frequency Musculoskeletal Musculoskeletal: Denies arthralgias or myalgias Integumentary Denies abscess or rash Neurologic Neurologic: Denies head (more content not included)... Normal [facility] H AND P Exam - Hospitaliston 08-27-2023 H&P Exam - Hospitalist [facility] Medical Records Department [address] [place] [address] H P Exam - Hospitalist 08/27/23 0242 MR#: [id number] Acct: [id number] Name: EDILIA NORTON Rep #: [id number] : 1955 68 From: Gianna Martell MD PCP: Dr. Abiodun Grider MD Status:ADM VICK [facility] [id number] HPI - General General Date of Admission: 08/27/23 Date of Service: 08/27/23 Chief Complaint: Chest pain. HPI Narrative The patient is a 68 y/o M w/ PMHx: COPD/Asthma, Former tobacco use, GALE not using PAP therapy reporting that he was told it was not longer medically necessary, HTN, HLD, GERD, Anxiety and Depression, recent discharge 08/25/23 following evaluation and treatment conservatively of SBO who now re-presents to the [facility] ED on 08/27/23 following onset of sudden left-sided chest discomfort described as severe and sharp tentative 10 in severity with mild increased cough with dyspnea sensation prompting immediate EMS call who reported that patient was in the 80s on room air upon their initial evaluation prompting eventual ED evaluation. He notes that his abdomen has felt fine and has been tolerating food with no nausea or emesis or abdominal discomfort since his discharge. In the ED upon evaluation currently for admission he notes his pain is 0.5-1 out of 10 but significantly improved with only aerosol and oxygen supplementation he notes. Workup in the ED included T99, heart rate 113, BP 154/84, respiratory rate 24, initially 87% on room air with most recent repeat vital signs T98.9, heart rate 99, BP 114/81, respiratory rate 20, 95% on 2 L nasal cannula, CBC with WC 10.5, hemoglobin 15.2, platelet 139 without marked shift, D-dimer 0.69, BMP unremarkable, troponin 6 with repeat delta 5, chest x-ray with sinus tachycardia with nonspecific changes with no acute evidence of ischemia, chest x-ray with a small left apical pneumothorax of less than 10%, follow-up CTPA with small left pneumothoraces approximately 10%, more prominent at the lung base, no evidence of any pulmonary embolism, centrilobular emphysematous changes to the lung, 3 mm right upper lobe pulmonary nodule. In the ED patient administered DuoNeb therapy, morphine 4 mg IV x 1 and Zofran 4 mg IV x 1. ED discussed case with general surgery Dr. Baker. [facility] Medical History Wears hearing aid Wears glasses Arthritis Former smoker BiPAP (biphasic positive airway pressure) dependence Sleep apnea Emphysema, unspecified Asthma Shortness of breath on exertion Leg cramps History of stress test Cardiology follow-up encounter Hypertension Personal history of colonic polyps SBO (small bowel obstruction) Nicotine dependence Nonsustained paroxysmal supraventricular tachycardia Atherosclerosis of coronary artery of [place] heart without angina pectoris GALE on CPAP Hyperlipidemia (Unknown) Essential hypertension GERD (gastroesophageal reflux disease) Depression COPD (chronic obstructive pulmonary disease) Home Medications ???Medication ???Instructions ???Recorded ???Last Taken ???Type aspirin 81 mg tablet,delayed 81 mg PO DAILY@0800 preventive 03/20/17 10/13/18 History release atenolol 50 mg tablet 50 mg PO DAILY bp 03/20/17 10/30/18 06:30 History fluoxetine 20 mg capsule 20 mg PO DAILY mood 03/20/17 10/13/18 History bupropion HCl 100 mg tablet,12 hr 100 mg PO BID mood 10/13/18 10/13/18 History sustained-release atorvastatin 20 mg tablet 20 mg PO QHS cholestrol 09/11/19 Unknown History losartan 100 mg tablet 100 mg PO DAILY bp #90 tabs 10/02/19 Unknown Rx albuterol sulfate 90 mcg/actuation 2 puff inhalation Q4H PRN PRN Sob 10/14/22 Unknown Rx aerosol inhaler /Or Wheezing #8.5 grams amlodipine 5 mg tablet 5 mg PO DAILY blood pressure 12/22/22 Unknown History topiramate 25 mg tablet 75 mg PO BID headaches 12/22/22 Unknown History fluticasone fur. 200 mcg-umeclid 1 inh inhalation DAILY breathing 04/18/23 Unknown Rx 62.5 mcg-vilant 25 mcg #60 ea inhalat.powder (Trelegy Ellipta) nitroglycerin 0.4 mg sublingual 0.4 mg sublingual QDAY PRN chest 07/29/23 Unknown History tablet pain albuterol sulfate 2.5 mg/3 mL 2.5 mg inhalation Q8H PRN 08/24/23 Unknown History (0.083 %) solution for nebulization shortness of breath or wheezing Allergy/AdvReac Type Severity Reaction Status Date / Time lisinopril AdvReac Intermediate cough Verified 08/26/23 08:33 Family History Mother Diabetes Father Cancer prostate Sister Diabetes Surgical History History of esophagogastroduodenoscopy (EGD) Hx of cholecystectomy History of skin graft History of rotator cuff surgery History of colonoscopy with polypectomy Social History (Updated (more content not included)... Normal [facility] L501.4020on 08-27-2023 TROPONIN-I HS 5 pg/mL Normal 3.0-78.0 [facility] Comment on above: Result Comment: Plea se Note: New Test Units and Gender Specific Reference Ranges. For more information see Policy Stat Procedure [place] High Sensitivity Troponin (TNIH) and attachments. Performed By: #### L 501.4020 #### [facility] Laboratory [address] [facility] [place], [address] L501.5425on 08-27-2023 TROPONIN-I HS 6 pg/mL Normal 3.0-78.0 [facility] Comment on above: Order Comment: 1Y Result Comment: Plea se Note: New Test Units and Gender Specific Reference Ranges. For more information see Policy Stat Procedure [place] High Sensitivity Troponin (TNIH) and attachments. Performed By: #### L 100.0100, L500.2500, L300.8000, L501.5425 ####[facility] [address] [place], [address] Abdomen Single View (Portabl e)on 08-25-2023 Abdomen Single View (Portable) [facility] Imaging Services [address] [place] [address] Abdomen Single View (Portable) MR#: [id number] Acct: [id number] Name: EDILIA NORTON Rep #: [id number] : 1955 M 68 From: Dean preciado MD PCP: Dr. Abiodun Grider MD Status: ADM IN Study: Abdomen Single View (Portable) Date of Exam: 0 08/25/23 Exam# [id number] Ordering Dr: Jen Baker MD [id number] STUDY: X-RAY - ABDOMEN/PELVIS REASON FOR EXAM: Male, 68 years old. sbo -- portable TECHNIQUE: Single AP view of the abdomen / pelvis. COMPARISON: Comparison is made with prior study dated August 24, 2023. ____ FINDINGS: Normal visualized lung bases. A nasogastric tube is seen with the tip in the second portion of the duodenum. There is an unremarkable bowel gas pattern. The visualized liver, spleen and kidneys are grossly normal in size and morphology. Patient status post cholecystectomy. IV contrast is seen within the urinary bladder. Penile implant is visualized. Mild levoscoliosis. ____ RAD/Abdomen Single View (Portable) IMPRESSION: The tip of the nasogastric tube is in the second portion of the duodenum. Electronically Signed: Dean Oviedo MD at 9:04 EDT , CC: Dr. Abiodun Grider MD; Dr. Jen Baker MD Oil Change Technician: Signed Normal [facility] Basic Metabolic Profile (BMP )on 08-25-2023 BUN/CRE 15.2 RATIO Normal 10-20 [facility] Comment on above: Performed By: #### L 500.2500, L100.0100 ####[facility] [address] [place], [address] CA,Total 9.0 mg/dL Normal 8.5-10.1 [facility] Comment on above: Performed By: #### L 500.2500, L100.0100 ####[facility] [address] [place], [address] Chloride [Moles/Vol] 110 mmol/L High 98-107 [facility] Comment on above: Performed By: #### L 500.2500, L100.0100 ####[facility] [address] [place], [address] CO2 [Moles/Vol] 25.0 mmol/L Normal 21.0-32.0 [facility] Comment on above: Performed By: #### L 500.2500, L100.0100 ####[facility] [address] [place], [address] Creatinine [Mass/Vol] 0.99 mg/dL Normal 0.70-1.30 [facility] Comment on above: Result Comment: The validity of the calculated GFR GFRAA in patients over 70 years has not been determined. Clinical correlation is essential. Performed By: #### L 500.2500, L100.0100 ####[facility] [address] [place], [address] ECRCL 69.09 ml/min Normal [facility] Comment on above: Performed By: #### L 500.2500, L100.0100 ####[facility] [address] [place], [address] EST GFR - AA 97 mL/min Normal >60 [facility] Comment on above: Result Comment: Afri can Ghanaian GFR Calc Performed By: #### L 500.2500, L100.0100 ####[facility] [address] [place], [address] GAP 8 Normal 5-15 [facility] Comment on above: Performed By: #### L 500.2500, L100.0100 ####[facility] [address] [place], [address] GFR/1.73 sq M.predicted among non-blacks MDRD (S/P/Bld) [Vol rate/Area] 80 mL/min/{1.73_m2} Normal >60 [facility] Comment on above: Result Comment: Non- GFR Calc Performed By: #### L 500.2500, L100.0100 ####[facility] [address] [place], [address] Glucose [Mass/Vol] 118 mg/dL High 74-106 [facility] Comment on above: Result Comment: Fast ing Glucose result from 100 to 125 mg/dL suggests IMPAIRED HOMEOSTASIS per A.D.A. criteria. Performed By: #### L 500.2500, L100.0100 ####[facility] [address] [place], [address] Potassium [Moles/Vol] 3.6 mmol/L Normal 3.5-5.1 [facility] Comment on above: Performed By: #### L 500.2500, L100.0100 ####[facility] [address] [place], [address] Sodium [Moles/Vol] 143 mmol/L Normal 136-145 [facility] Comment on above: Performed By: #### L 500.2500, L100.0100 ####[facility] [address] [place], [address] Urea nitrogen [Mass/Vol] 15 mg/dL Normal 7-18 [facility] Comment on above: Performed By: #### L 500.2500, L100.0100 ####[facility] [address] [place], [address] CBC W/Diff, Automatedon 05-3 0-2024 Absolute Lymph 1.83 X10 3/uL Normal 0.83-4.51 [facility] Comment on above: Performed By: #### L 500.2500, L100.0100 ####[facility] [address] [place], [address] Absolute Neut 5.3 X10 3/uL Normal 2.0-7.7 [facility] Comment on above: Performed By: #### L 500.2500, L100.0100 ####[facility] [address] [place], [address] Basophils/100 WBC (Bld) 0.9 % Normal 0-1 [facility] Comment on above: Performed By: #### L 500.2500, L100.0100 ####[facility] [address] [place], [address] Eosinophils/100 WBC (Bld) 5.8 % High 0-5 [facility] Comment on above: Performed By: #### L 500.2500, L100.0100 ####[facility] [address] [place], [address] Erythrocyte distribution width (RBC) [Ratio] 13.3 % Normal 11.6-14.6 [facility] Comment on above: Performed By: #### L 500.2500, L100.0100 ####[facility] [address] [place], [address] Hematocrit (Bld) [Volume fraction] 44.8 % Normal 40-54 [facility] Comment on above: Performed By: #### L 500.2500, L100.0100 ####[facility] [address] [place], [address] Hemoglobin (Bld) [Mass/Vol] 14.7 g/dL Normal 13.0-16.5 [facility] Comment on above: Performed By: #### L 500.2500, L100.0100 ####[facility] [address] [place], [address] IG% 0.700 Normal 0.0-0.9 [facility] Comment on above: Result Comment: IG% - Immature Granulocytes (promyelocytes, myelocytes and metamyelocytes) > 1% indicates that a LEFT SHIFT is Present. Performed By: #### L 500.2500, L100.0100 ####[facility] [address] [place], [address] Lymphocytes/100 WBC (Bld) 21.2 % Normal 19-41 [facility] Comment on above: Performed By: #### L 500.2500, L100.0100 ####[facility] [address] [place], [address] MCH (RBC) [Entitic mass] 29.2 pg Normal 27.0-32.0 [facility] Comment on above: Performed By: #### L 500.2500, L100.0100 ####[facility] [address] [place], [address] MCHC (RBC) [Mass/Vol] 32.8 g/dL Normal 32-36 [facility] Comment on above: Performed By: #### L 500.2500, L100.0100 ####[facility] [address] [place], [address] MCV (RBC) [Entitic vol] 88.9 fL Normal 80-94 [facility] Comment on above: Performed By: #### L 500.2500, L100.0100 ####[facility] [address] [place], [address] Monocytes/100 WBC (Bld) 9.7 % Normal 0-10 [facility] Comment on above: Performed By: #### L 500.2500, L100.0100 ####[facility] [address] [place], [address] Neutrophils/100 WBC (Bld) 61.7 % Normal 47-70 [facility] Comment on above: Performed By: #### L 500.2500, L100.0100 ####[facility] [address] [place], [address] Nucleated RBC (Bld) [#/Vol] 0 10*3/uL Normal 0-5 [facility] Comment on above: Performed By: #### L 500.2500, L100.0100 ####[facility] [address] [place], [address] Platelet mean volume (Bld) [Entitic vol] 13.8 fL High 6.2-12.0 [facility] Comment on above: Performed By: #### L 500.2500, L100.0100 ####[facility] [address] [place], [address] Platelets (Bld) [#/Vol] 129 10*3/uL Low 150-450 [facility] Comment on above: Performed By: #### L 500.2500, L100.0100 ####[facility] [address] [place], [address] RBC (Bld) [#/Vol] 5.04 10*6/uL Normal 4.6-6.2 [facility] Comment on above: Performed By: #### L 500.2500, L100.0100 ####[facility] [address] [place], [address] RDW SD 43.1 fl Normal 35.1-43.9 [facility] Comment on above: Performed By: #### L 500.2500, L100.0100 ####[facility] [address] [place], [address] WBC (Bld) [#/Vol] 8.6 10*3/uL Normal 4.4-11.0 [facility] Comment on above: Performed By: #### L 500.2500, L100.0100 ####[facility] [address] [place], [address] Consultation - Surgicalon Consultation - Surgical [facility] Medical Records Department [address] [place] [address] Consultation - Surgical 08/25/23 0710 MR#: [id number] Acct: [id number] Name: EDILIA NORTON Rep #: [id number] : 1955 68 From: Jen Baker MD PCP: Dr. Abiodun Grider MD Status:ADM IN Location: NC3 [id number] Jen Baker MD on 08/25/23 at 1038 Addendum SBFT: Contrast within the colon???left colon after an hour. Will DC NG start clears if tolerates okay to advance to soft if tolerates okay to DC from surgery standpoint. 08/25/23 1038 Cosigner Signature (if applicable): cc: Dr. Abiodun Grider MD * Signed Assessment Plan Assessment/Plan (1) SBO (small bowel obstruction): PLAN: Plan Continue NG/n.p.o./IV fluids. Will check KUB this morning. Likely do a small bowel follow-through later this morning. Discussed with patient and he is agreeable with plan. Patient does state he is currently having some flatus and denies any abdominal pain. Jen Baker M.D. Pager: [phone] [facility] [address] [place] [address], [facility], [address] [place] [address] Office: [phone] HPI Consult Data Date of Consult: 08/25/23 HPI Narrative HPI Narrative: EDILIA NORTON, is a 68 M who presents to the ER due to abdominal pain mid abdomen. Patient states started about 10 AM yesterday morning with nausea no vomiting. CT abdomen pelvis showed small bowel obstruction. NG was placed in the ER. Patient has gotten up 1500 out yesterday with the thousand overnight and has about 700 in the container currently. Patient denies any abdominal pain currently states he is having a small amount of flatus. Patient's last bowel movement was yesterday on the looser side but not diarrhea. Patient's only abdominal surgery is laparoscopic cholecystectomy. Patient did have a similar episode 09/2018 NG was unable to be placed at that time but by the next morning patient was doing well was able to be DC'd home. [facility] Medical History (Updated 08/24/23 @ 19:09 by Rachel Skelton) Former smoker Hypertension Personal history of colonic polyps SBO (small bowel obstruction) Nicotine dependence Nonsustained paroxysmal supraventricular tachycardia Atherosclerosis of coronary artery of [place] heart without angina pectoris GALE on CPAP Hyperlipidemia (Unknown) Essential hypertension GERD (gastroesophageal reflux disease) Depression COPD (chronic obstructive pulmonary disease) Home Medications ???Medication ???Instructions ???Recorded ???Last Taken ???Type aspirin 81 mg tablet,delayed 81 mg PO DAILY@0800 preventive 03/20/17 10/13/18 History release atenolol 50 mg tablet 50 mg PO DAILY bp 03/20/17 10/30/18 06:30 History fluoxetine 20 mg capsule 20 mg PO DAILY mood 03/20/17 10/13/18 History bupropion HCl 100 mg tablet,12 hr 100 mg PO BID mood 10/13/18 10/13/18 History sustained-release atorvastatin 20 mg tablet 20 mg PO QHS cholestrol 09/11/19 Unknown History losartan 100 mg tablet 100 mg PO DAILY bp #90 tabs 10/02/19 Unknown Rx albuterol sulfate 90 mcg/actuation 2 puff inhalation Q4H PRN PRN Sob 10/14/22 Unknown Rx aerosol inhaler /Or Wheezing #8.5 grams amlodipine 5 mg tablet 5 mg PO DAILY blood pressure 12/22/22 Unknown History topiramate 25 mg tablet 25 mg PO BID headaches 12/22/22 Unknown History fluticasone fur. 200 mcg-umeclid 1 inh inhalation DAILY breathing 04/18/23 Unknown Rx 62.5 mcg-vilant 25 mcg #60 ea inhalat.powder (Trelegy Ellipta) nitroglycerin 0.4 mg sublingual 0.4 mg sublingual QDAY PRN chest 07/29/23 Unknown History tablet pain albuterol sulfate 2.5 mg/3 mL 2.5 mg inhalation Q8H PRN 08/24/23 Unknown History (0.083 %) solution for nebulization shortness of breath or wheezing Allergy/AdvReac Type Severity Reaction Status Date / Time lisinopril AdvReac Intermediate cough Verified 08/24/23 14:05 Family History Mother Diabetes Father Cancer prostate Sister Diabetes Surgical History Hx of cholecystectomy History of skin graft History of rotator cuff surgery History of arthroscopy of right shoulder History of colonoscopy with polypectomy Social History Smoking Status: Former smoker how long ago did patient quit smokin alcohol intake: never substance use type: does not use caffeine: Yes what type of physical activity do you participate in: none frequency: does not exercise ROS Constitutional Constitutional: Reports anorexia; Denies fever(s) Eyes Eyes: Denies loss of central vision ENT HEENT: Denies dysphagia Cardiovascular Cardiovascular: Denies chest pain Respiratory (more content not included)... Normal [facility] Discharge Instructionon 07-28 Discharge Instruction [facility] Medical Records Department [address] [place] [address] Instructions for Home/Discharge Instructions 08/25/23 1338 MR#: [id number] Acct: [id number] Name: EDILIA NORTON Rep #: [id number] : 1955 68 From: Kristian Mills DO PCP: Dr. Abiodun Grider MD Status:ADM IN Discharge Instructions Diet Discharge Diet: No restrictions Activity Discharge Activity: Return to Normal Activity Weight Bearing Status: Full weight bearing Follow Up Care Test Results: Test results from this visit will be discussed in further detail at your follow-up appointment, if applicable. Discharge Plan Admission Admit Date/Time: 08/24/23 18:07 Primary Reason for Your Visit: small bowel obstruction Attending Provider: Kristian Mills Primary Care Provider: Abiodun Grider Consulting Providers: Jen Baker; Marco Antonio Vasquez Discharge Orders/Prescriptions Prescriptions: Continued atorvastatin 20 mg tablet 20 mg PO QHS albuterol sulfate 90 mcg/actuation HFA aerosol inhaler 2 puff inhalation Q4H PRN PRN (Reason: Sob /Or Wheezing) Qty: 8.5 11RF Trelegy Ellipta 200-62.5-25 mcg blister with device 1 inh inhalation DAILY Qty: 60 6RF topiramate 25 mg tablet 25 mg PO BID amlodipine 5 mg tablet 5 mg PO DAILY Patient Comments: TAKE 1 TABLET BY MOUTHgONCE DAILY nitroglycerin 0.4 mg tablet, sublingual 0.4 mg sublingual QDAY PRN (Reason: chest pain) aspirin 81 MG tablet 81 mg PO DAILY@0800 fluoxetine 20 MG capsule 20 mg PO DAILY Patient Comments: TAKE ONE (1) CAPSULE BY MOUTH ONCE DAILY atenolol 50 MG tablet 50 mg PO DAILY Patient Comments: TAKE 1 TABLET BY MOUTH ONCE DAILY. bupropion HCl 100 MG tablet sustained-release 12 hr 100 mg PO BID Patient Comments: TAKE ONE (1) TABLET BY MOUTH TWICE DAILY albuterol sulfate 2.5 mg /3 mL (0.083 %) solution for nebulization 2.5 mg inhalation Q8H PRN (Reason: shortness of breath or wheezing) losartan 100 mg tablet 100 mg PO DAILY Qty: 90 6RF Referrals / Follow Up: Abiodun Grider MD [Primary Care Provider] - Within 1 Month Disposition Disposition (needs filled in before D/C Order can be placed): Home, Self Care 08/25/23 1345 Kristian Mills DO CC: Dr. Marco Antonio Vasquez MD; Dr. Abiodun Grider MD; Dr. Jen Baker MD Signed Normal [facility] Small Bowel Series Onlyon Small Bowel Series Only [facility] Imaging Services [address] [place], [place] [address] Small Bowel Series Only MR#: [id number] Acct: [id number] Name: EDILIA NORTON Rep #: [id number] : 1955 M 68 From: Dean preciado MD PCP: Dr. Abiodun Grider MD Status: ADM IN Study: Small Bowel Series Only Date of Exam: 08/25/23 Exam# [id number] Ordering Dr: Jen Baker MD [id number] STUDY: MODIFIED GASTROGRAFIN SMALL BOWEL FOLLOW-THROUGH EXAMINATION. REASON FOR EXAM: Male, 68 years old. sbo-gastrografin -- modified-KUB 1hr/3hr- gastrografin TECHNIQUE: Gastrografin was introduced through the indwelling nasogastric tube. COMPARISON: None. ____ FINDINGS: Imaging at one hour was obtained. Contrast is seen throughout the colon. No evidence of bowel obstruction. ____ RAD/Small Bowel Series Only IMPRESSION: No evidence of bowel obstruction. Electronically Signed: Dean Oviedo MD at 10:53 EDT , CC: Dr. Abiodun Grider MD; Dr. Jen Baker MD Oil Change Technician: Signed Normal [facility] Abdomen Single View (Portabl e)on 08-24-2023 Abdomen Single View (Portable) [facility] Imaging Services [address] [place] [address] Abdomen Single View (Portable) MR#: [id number] Acct: [id number] Name: EDILIA NORTON Rep #: [id number] : 1955 68 From: Maikol spivey MD PCP: Dr. Abiodun Grider MD Status: ADM IN Study: Abdomen Single View (Portable) Date of Exam: 0 08/24/23 Exam# [id number] Ordering Dr: Lucia Jackman DO [id number] STUDY: X-RAY - ABDOMEN/PELVIS REASON FOR EXAM: Male, 68 years old. NG Insertion TECHNIQUE: Single AP view of the abdomen / pelvis. COMPARISON: CT scan of earlier today. ____ FINDINGS: Normal visualized lung bases. There is a nasogastric tube coiled in the proximal stomach . Multiple dilated small bowel loops are still noted. Electronically Signed: Maikol Bhagat MD at 18:37 EDT , RAD/Abdomen Single View (Portable) IMPRESSION: undefined CC: Dr. Abiodun Grider MD; Dr. Lucia Jackman DO Oil Change Technician: Signed Normal [facility] Abdomen/Pelvis W IV Cont ONL Yon 08-24-2023 Abdomen/Pelvis W IV Cont ONLY [facility] Imaging Services [address] [place] [address] Abdomen/Pelvis W IV Cont ONLY MR#: [id number] Acct: [id number] Name: EDILIA NORTON Rep #: [id number] : 1955 M 68 From: Maikol spivey MD PCP: Dr. Abiodun Grider MD Status: REG ER Study: Abdomen/Pelvis W IV Cont ONLY Date of Exam: Exam# [id number] Ordering Dr: Lucia Jackman DO [id number] EXAM: CT ABDOMEN AND PELVIS WITH INTRAVENOUS CONTRAST CLINICAL INDICATION: abdominal pain TECHNIQUE: Helically acquired images were obtained of the abdomen and pelvis with intravenous contrast. This CT exam was performed using one or more of the following dose reduction techniques: automated exposure control, adjustment of the mA and/or kV according to patient size, and/or use of iterative reconstruction technique. CONTRAST: IV 100mL Isovue-300 RADIATION DOSE: CTDIvol = 17.42 mGy, DLP = 727.50 mGy-cm COMPARISON: No relevant prior studies available. FINDINGS: LOWER THORAX: Unremarkable. Lung bases are clear. No cardiomegaly. No significant pericardial effusion. ABDOMEN: LIVER: Unremarkable. Normal shape and size of the liver. There are multiple liver cysts measuring as much as 2 cm in the dome of the liver. 2 cm hemangioma in the posterior surface of right hepatic lobe. GALLBLADDER AND BILE DUCTS: Cholecystectomy. No extrahepatic biliary ductal dilation. PANCREAS: Unremarkable. No focal cystic or solid mass. SPLEEN: Unremarkable. Normal size without focal cystic or solid mass. ADRENALS: Unremarkable. No nodules. KIDNEYS AND URETERS: 3.1 cm mid right renal cysts. No acute abnormalities. Normal renal size and position. No hydronephrosis. STOMACH AND BOWEL: Evaluation of the GI tract is limited by absence of oral contrast. Cannot exclude stomach wall thickening. Cannot exclude segmental thickening of the garcia of the small or large bowel. Cannot exclude enteritis or colitis. Moderate diffuse fecal retention. Normal caliber large bowel Diverticulosis without definite diverticulitis. Distended fluid-filled small bowel in the midabdomen with normal caliber ileum and large bowel . Prominent transition point in the mid bowel consistent with obstruction. A specific etiology is not seen. No focal inflammatory change. PELVIS: APPENDIX: No evidence of acute appendicitis. BLADDER: Unremarkable. REPRODUCTIVE: Moderate prostate enlargement. Fluid-filled reservoir for penile prosthesis in the right lower quadrant. ABDOMEN and PELVIS: INTRAPERITONEAL SPACE: Unremarkable. No ascites or other fluid collection. No free air. BONES/JOINTS: Unremarkable. No suspicious lytic or blastic abnormality. SOFT TISSUES: Unremarkable. No discrete abdominal or pelvic wall hernia. VASCULATURE: Heavily calcified aorta and iliac branches with no aneurysm. LYMPH NODES: Unremarkable. No enlarged lymph nodes. CT/Abdomen/Pelvis W IV Cont ONLY IMPRESSION: 1. Findings consistent with mid small bowel obstruction. 2. Intra hepatic bile duct. Electronically Signed: Maikol Bhagat MD at 17:09 EDT , CC: Dr. Abiodun Grider MD; Dr. Lucia Jackman DO Oil Change Technician: Signed Normal [facility] Basic Metabolic Profile (BMP )on 08-24-2023 BUN/CRE 14.5 RATIO Normal 10-20 [facility] Comment on above: Performed By: #### L 503.6005, L100.0100, L500.2500 #### [facility] Laboratory [address] [place], [address] CA,Total 9.8 mg/dL Normal 8.5-10.1 [facility] Comment on above: Performed By: #### L 503.6005, L100.0100, L500.2500 #### [facility] [address] [place], [address] Chloride [Moles/Vol] 110 mmol/L High 98-107 [facility] Comment on above: Performed By: #### L 503.6005, L100.0100, L500.2500 #### [facility] [address] [place], [address] CO2 [Moles/Vol] 26.0 mmol/L Normal 21.0-32.0 [facility] Comment on above: Performed By: #### L 503.6005, L100.0100, L500.2500 #### [facility] [address] [place], [address] Creatinine [Mass/Vol] 1.10 mg/dL Normal 0.70-1.30 [facility] Comment on above: Result Comment: The validity of the calculated GFR GFRAA in patients over 70 years has not been determined. Clinical correlation is essential. Performed By: #### L 503.6005, L100.0100, L500.2500 #### [facility] [address] [place], [address] ECRCL 62.18 ml/min Normal [facility] Comment on above: Performed By: #### L 503.6005, L100.0100, L500.2500 #### [facility] [address] [place], [address] EST GFR - AA 86 mL/min Normal >60 [facility] Comment on above: Result Comment: Afri can Ghanaian GFR Calc Performed By: #### L 503.6005, L100.0100, L500.2500 #### [facility] [address] [place], [address] GAP 5 Normal 5-15 [facility] Comment on above: Performed By: #### L 503.6005, L100.0100, L500.2500 #### [facility] [address] [place], [address] GFR/1.73 sq M.predicted among non-blacks MDRD (S/P/Bld) [Vol rate/Area] 71 mL/min/{1.73_m2} Normal >60 [facility] Comment on above: Result Comment: Non- GFR Calc Performed By: #### L 503.6005, L100.0100, L500.2500 #### [facility] [address] [place], [address] Glucose [Mass/Vol] 86 mg/dL Normal 74-106 [facility] Comment on above: Performed By: #### L 503.6005, L100.0100, L500.2500 #### [facility] [address] [place], [address] Potassium [Moles/Vol] 4.7 mmol/L Normal 3.5-5.1 [facility] Comment on above: Performed By: #### L 503.6005, L100.0100, L500.2500 #### [facility] [address] [place], [address] Sodium [Moles/Vol] 141 mmol/L Normal 136-145 [facility] Comment on above: Performed By: #### L 503.6005, L100.0100, L500.2500 #### [facility] [facility] [address] [place], [address] Urea nitrogen [Mass/Vol] 16 mg/dL Normal 7-18 [facility] Comment on above: Performed By: #### L 503.6005, L100.0100, L500.2500 #### [facility] [address] [place], [address] CBC W/Diff, Automatedon 05-2 Absolute Lymph 1.28 X10 3/uL Normal 0.83-4.51 [facility] Comment on above: Performed By: #### L 503.6005, L100.0100, L500.2500 #### [facility] [address] [place], [address] Absolute Neut 6.8 X10 3/uL Normal 2.0-7.7 [facility] Comment on above: Performed By: #### L 503.6005, L100.0100, L500.2500 #### [facility] [address] [place], [address] Basophils/100 WBC (Bld) 0.8 % Normal 0-1 [facility] Comment on above: Performed By: #### L 503.6005, L100.0100, L500.2500 #### [facility] [address] [place], [address] Eosinophils/100 WBC (Bld) 3.8 % Normal 0-5 [facility] Comment on above: Performed By: #### L 503.6005, L100.0100, L500.2500 #### [facility] [address] [place], [address] Erythrocyte distribution width (RBC) [Ratio] 13.4 % Normal 11.6-14.6 [facility] Comment on above: Performed By: #### L 503.6005, L100.0100, L500.2500 #### [facility] [address] [place], [address] Hematocrit (Bld) [Volume fraction] 50.0 % Normal 40-54 [facility] Comment on above: Performed By: #### L 503.6005, L100.0100, L500.2500 #### [facility] [address] [place], [address] Hemoglobin (Bld) [Mass/Vol] 15.9 g/dL Normal 13.0-16.5 [facility] Comment on above: Performed By: #### L 503.6005, L100.0100, L500.2500 #### [facility] [address] [place], [address] IG% 0.800 Normal 0.0-0.9 [facility] Comment on above: Result Comment: IG% - Immature Granulocytes (promyelocytes, myelocytes and metamyelocytes) > 1% indicates that a LEFT SHIFT is Present. Performed By: #### L 503.6005, L100.0100, L500.2500 #### [facility] [address] [place], [address] Lymphocytes/100 WBC (Bld) 13.9 % Low 19-41 [facility] Comment on above: Performed By: #### L 503.6005, L100.0100, L500.2500 #### [facility] [address] [place], [address] MCH (RBC) [Entitic mass] 28.4 pg Normal 27.0-32.0 [facility] Comment on above: Performed By: #### L 503.6005, L100.0100, L500.2500 #### [facility] [address] [place], [address] MCHC (RBC) [Mass/Vol] 31.8 g/dL Low 32-36 [facility] Comment on above: Performed By: #### L 503.6005, L100.0100, L500.2500 #### [facility] [address] [place], [address] MCV (RBC) [Entitic vol] 89.4 fL Normal 80-94 [facility] Comment on above: Performed By: #### L 503.6005, L100.0100, L500.2500 #### [facility] [address] [place], [address] Monocytes/100 WBC (Bld) 7.5 % Normal 0-10 [facility] Comment on above: Performed By: #### L 503.6005, L100.0100, L500.2500 #### [facility] [address] [place], [address] Neutrophils/100 WBC (Bld) 73.2 % High 47-70 [facility] Comment on above: Performed By: #### L 503.6005, L100.0100, L500.2500 #### [facility] [address] [place], [address] Nucleated RBC (Bld) [#/Vol] 0 10*3/uL Normal 0-5 [facility] Comment on above: Performed By: #### L 503.6005, L100.0100, L500.2500 #### [facility] [address] [place], [address] Platelet mean volume (Bld) [Entitic vol] 14.0 fL High 6.2-12.0 [facility] Comment on above: Performed By: #### L 503.6005, L100.0100, L500.2500 #### [facility] [address] [place], [address] Platelets (Bld) [#/Vol] 130 10*3/uL Low 150-450 [facility] Comment on above: Performed By: #### L 503.6005, L100.0100, L500.2500 #### [facility] [address] [place], [address] RBC (Bld) [#/Vol] 5.59 10*6/uL Normal 4.6-6.2 [facility] Comment on above: Performed By: #### L 503.6005, L100.0100, L500.2500 #### [facility] [address] [place], [address] RDW SD 43.5 fl Normal 35.1-43.9 [facility] Comment on above: Performed By: #### L 503.6005, L100.0100, L500.2500 #### [facility] [address] [place], [address] WBC (Bld) [#/Vol] 9.2 10*3/uL Normal 4.4-11.0 [facility] Comment on above: Performed By: #### L 503.6005, L100.0100, L500.2500 #### [facility] [address] [place], [address] Emergency Department Summary on 08-24-2023 Emergency Department Summary [facility] Medical Records Department [address] [place] [address] Emergency Department Summary 08/24/23 MR#: [id number] Acct: [id number] Name: EDILIA NORTON Rep #: [id number] : 1955 68 From: Lucia Jackman DO PCP: Dr. Abiodun Grider MD Status:ADM IN [place] [facility] [id number] HPI HPI - GI History of Present Illness Chief Complaint: Abd Pain Detail of Chief Complaint: Abdominal pain Informant: patient Narrative Narrative: Patient presents to the emergency department complaint of abdominal pain that started this morning. Patient states that he woke up feeling fine and gradually developed lower abdomen pain. Patient has nausea but no vomiting. Has had no fever. Pain worse with certain movements and rates it a 10 out of 10. He denies urinary symptoms. Pain does not go to his back. Has had prior cholecystectomy. No history of diverticulitis. [facility] Medical History (Updated 08/24/23 @ 17:[address] Lucia Jackman DO) Personal history of colonic polyps SBO (small bowel obstruction) Nicotine dependence Nonsustained paroxysmal supraventricular tachycardia Atherosclerosis of coronary artery of [place] heart without angina pectoris GALE on CPAP Hyperlipidemia (Unknown) Essential hypertension GERD (gastroesophageal reflux disease) Depression COPD (chronic obstructive pulmonary disease) Home Medications ???Medication ???Instructions ???Recorded ???Last Taken ???Type aspirin 81 mg tablet,delayed 81 mg PO DAILY@0800 03/20/17 10/13/18 History release atenolol 50 mg tablet 50 mg PO DAILY 03/20/17 10/30/18 06:30 History fluoxetine 20 mg capsule 20 mg PO DAILY 03/20/17 10/13/18 History bupropion HCl 100 mg tablet,12 hr 100 mg PO BID 10/13/18 10/13/18 History sustained-release atorvastatin 20 mg tablet 20 mg PO QHS 09/11/19 Unknown History losartan 100 mg tablet 100 mg PO DAILY #90 tabs 10/02/19 Unknown Rx albuterol sulfate 2.5 mg/3 mL 2.5 mg (3 mL) inhalation Q8H #180 06/23/22 Unknown Rx (0.083 %) solution for nebulization mL albuterol sulfate 90 mcg/actuation 2 puff inhalation Q4H PRN PRN Sob 10/14/22 Unknown Rx aerosol inhaler /Or Wheezing #8.5 grams amlodipine 5 mg tablet 5 mg PO 12/22/22 Unknown History topiramate 25 mg tablet 25 mg PO BID 12/22/22 Unknown History fluticasone fur. 200 mcg-umeclid 1 inh inhalation DAILY #60 ea 04/18/23 Unknown Rx 62.5 mcg-vilant 25 mcg inhalat.powder (Trelegy Ellipta) nitroglycerin 0.4 mg sublingual 0.4 mg sublingual QDAY 07/29/23 Unknown History tablet rizatriptan 10 mg tablet mg PO 07/29/23 Unknown History Allergy/AdvReac Type Severity Reaction Status Date / Time lisinopril AdvReac Intermediate cough Verified 08/24/23 14:05 Family History Mother Diabetes Father Cancer prostate Sister Diabetes Surgical History Hx of cholecystectomy History of skin graft History of rotator cuff surgery History of arthroscopy of right shoulder History of colonoscopy with polypectomy Social History Smoking Status: Former smoker how long ago did patient quit smokin alcohol intake: never substance use type: does not use caffeine: Yes what type of physical activity do you participate in: none frequency: does not exercise ROS ROS ED Review of Systems ROS Unobtainable: other Constitutional Constitutional ED: Reports lethargy; Denies chills, fever(s), sweats or weight loss Eyes Eyes: Denies blurry vision, change in vision or diplopia ENT ENT ED: Denies rhinorrhea or sore throat Cardiovascular Cardiovascular: Denies chest pain, orthopnea or racing heartbeat Respiratory/Chest Respiratory/Chest: Denies cough, dyspnea, dyspnea on exertion, orthopnea or sputum Gastrointestinal Gastrointestinal: Reports abdominal pain and nausea; Denies diarrhea or vomiting Genitourinary Genitourinary ED: Denies dysuria, hematuria or urinary frequency Musculoskeletal Musculoskeletal: Denies arthralgias, back pain, myalgias or neck pain Integumentary Denies abscess, Abrasions or rash Neurologic Neurologic: Denies headache(s) or weakness Psychiatric Psychiatric: Denies anxiety, depression or suicidal thoughts Endocrine Endocrinology: Denies polydipsia, polyphagia or polyuria Hematologic/Lymphatic Hematologic/Lymphatic: Denies easy bleeding, easy bruising or lymphadenopathy Allergic/Immunologic Allergic/Immunologic ED: Denies mouth swelling, tongue swelling or urticaria EXAM Physical Exam Const Vital Signs: 08/24/23 14:03 Temperature 97.6 F L Temperature Source Temporal Pulse Rate 102 H Respiratory Rate 18 Blood Pressure 139/91 H Blood Pressure Mean 107 Pulse Ox 9 (more content not included)... Normal [facility] H AND P Exam - [facility] 08-24-2023 H&P Exam - Hospitalist [facility] Medical Records Department [address] [place] [address] H P Exam - Hospitalist 08/24/23 1730 MR#: [id number] Acct: [id number] Name: EDILIA NORTON Rep #: [id number] : 1955 68 From: Marco Antonio Vasquez MD PCP: Dr. Abiodun Grider MD Status:ADM IN [place] [facility] [id number] - General General Date of Admission: 08/24/23 Date of Service: 08/24/23 Chief Complaint: Lower abdominal pain HPI Narrative EDILIA NORTON, is a 68 M with a significant history of COPD; hypertension; GERD; cholecystectomy; and former smoker who presents with excruciating lower abdominal pain that started on the morning of the day of presentation. His pain started when he was taking his dog to defecate. His pain was sudden onset and it persisted. The intensity of the pain was 10 out of 10. He denies any aggravating or ambulating factors to the pain. However he was given some morphine at the emergency department; and that helped with his pain. Associated symptoms is nausea without vomiting. He had a bowel movement on the same day of presentation and before his pain started. His stool was mushy. At the emergency department imaging showed small bowel obstruction. Emergency department doctor discussed the case with general surgery who recommended admission to internal medicine with general surgery following. [facility] Medical History (Updated 08/24/23 @ 19:09 by Rachel Skelton) Former smoker Hypertension Personal history of colonic polyps SBO (small bowel obstruction) Nicotine dependence Nonsustained paroxysmal supraventricular tachycardia Atherosclerosis of coronary artery of [place] heart without angina pectoris GALE on CPAP Hyperlipidemia (Unknown) Essential hypertension GERD (gastroesophageal reflux disease) Depression COPD (chronic obstructive pulmonary disease) Home Medications ???Medication ???Instructions ???Recorded ???Last Taken ???Type aspirin 81 mg tablet,delayed 81 mg PO DAILY@0800 preventive 03/20/17 10/13/18 History release atenolol 50 mg tablet 50 mg PO DAILY bp 03/20/17 10/30/18 06:30 History fluoxetine 20 mg capsule 20 mg PO DAILY mood 03/20/17 10/13/18 History bupropion HCl 100 mg tablet,12 hr 100 mg PO BID mood 10/13/18 10/13/18 History sustained-release atorvastatin 20 mg tablet 20 mg PO QHS cholestrol 09/11/19 Unknown History losartan 100 mg tablet 100 mg PO DAILY bp #90 tabs 10/02/19 Unknown Rx albuterol sulfate 90 mcg/actuation 2 puff inhalation Q4H PRN PRN Sob 10/14/22 Unknown Rx aerosol inhaler /Or Wheezing #8.5 grams amlodipine 5 mg tablet 5 mg PO DAILY blood pressure 12/22/22 Unknown History topiramate 25 mg tablet 25 mg PO BID headaches 12/22/22 Unknown History fluticasone fur. 200 mcg-umeclid 1 inh inhalation DAILY breathing 04/18/23 Unknown Rx 62.5 mcg-vilant 25 mcg #60 ea inhalat.powder (Trelegy Ellipta) nitroglycerin 0.4 mg sublingual 0.4 mg sublingual QDAY PRN chest 07/29/23 Unknown History tablet pain albuterol sulfate 2.5 mg/3 mL 2.5 mg inhalation Q8H PRN 08/24/23 Unknown History (0.083 %) solution for nebulization shortness of breath or wheezing Allergy/AdvReac Type Severity Reaction Status Date / Time lisinopril AdvReac Intermediate cough Verified 08/24/23 14:05 Family History Mother Diabetes Father Cancer prostate Sister Diabetes Surgical History Hx of cholecystectomy History of skin graft History of rotator cuff surgery History of arthroscopy of right shoulder History of colonoscopy with polypectomy Social History Smoking Status: Former smoker how long ago did patient quit smokin alcohol intake: never substance use type: does not use caffeine: Yes what type of physical activity do you participate in: none frequency: does not exercise ROS ROS Narrative Pertinent positives and pertinent negatives as noted in HPI. All other systems were reviewed and are negative Vital Signs Vital Signs Vital Signs: 08/24/23 14:03 08/24/23 17:24 Temperature 97.6 F L 96.9 F L Temperature Source Temporal Temporal Pulse Rate 102 H 65 Respiratory Rate 18 16 Blood Pressure 139/91 H 142/94 H Blood Pressure Mean 107 110 Pulse Ox 95 Oxygen Delivery Method Room Air Weight Weight: 73.527 kg Body Mass Index (BMI) 24.6 Physical Exam Narrative Physical exam: General: Well-nourished, well-developed. Head: Normocephalic, atraumatic, no tenderness Eyes: Vision is grossly intact. EOMI ENT, no trauma, moist mucous membranes, no rhinorrhea Neck: Nontender, No thyromegaly. CVS: Regular rate and rhythm. S1-S2 present. No murmur, gallop or rub. Respiratory : c (more content not included)... Normal [facility] Lactic Acidon 08-24-2023 Lactate [Moles/Vol] 1.1 mmol/L Normal 0.4-1.9 [facility] Comment on above: Order Comment: Y Performed By: #### L 503.6006, L100.0100, L500.2500 #### [facility] [address] [place], [address] Urinalysis, Completeon 08-23 BACTERIA 0 SEEN Normal None Seen [facility] Comment on above: Order Comment: Inter face Comments: HTN Order Date: 05/21/24 Order Info: [id number] - CMP Order Info: [id number] - LIPID Comments: Abnormal hyperlipidemia HTN Performed By: #### L 500.4050, L500.4100 #### [facility] [address] [place], [address] EPI,SQUAMOUS 0 SEEN Normal 0-5 [facility] Comment on above: Order Comment: Inter face Comments: HTN Order Date: 05/21/24 Order Info: [id number] - CMP Order Info: - LIPID Comments: Abnormal hyperlipidemia HTN Performed By: #### L 500.4050, L500.4100 #### [facility] [address] [place], [address] Mucus Ql (Urine sed) 0 SEEN Normal [facility] Comment on above: Order Comment: Inter face Comments: HTN Order Date: 05/21/24 Order Info: [id number] - CMP Order Info: - LIPID Comments: Abnormal hyperlipidemia HTN Performed By: #### L 500.4050, L500.4100 #### [facility] [address] [place], [address] RBC 0 SEEN Normal 0-5 [facility] Comment on above: Order Comment: Inter face Comments: HTN Order Date: 05/21/24 Order Info: [id number] - CMP Order Info: - LIPID Comments: Abnormal hyperlipidemia HTN Performed By: #### L 500.4050, L500.4100 #### [facility] [address] [place], [address] WBC 0 SEEN Normal 0-5 [facility] Comment on above: Order Comment: Inter face Comments: HTN Order Date: 05/21/24 Order Info: [id number] - CMP Order Info: - LIPID Comments: Abnormal hyperlipidemia HTN Performed By: #### L 500.4050, L500.4100 #### [facility] [address] [place], [address] CNPNon 11-24-2022 CNPN Telephone (PODIST) EDILIA NORTON ([id number]) 1955 M [facility] Date Time Provider Department 11/24/22 KELLE LOGAN During your visit today, we recorded the following information about you: Chelsy Argueta RN 11/24/2022 11:13 AM Signed LVM for patient to call the office. Urea Cream denied by insurance- not a covered medication. Can use Good Rx to get at lower cost. Nika Posey 11/26/2022 10:47 AM Signed Patient returning call from Dr. Logan's office. Didn't answer because he did not recognize number. He can be reached at [phone]. JOANNA Snider Susan, RN 11/26/2022 1:19 PM [...] once daily. - clotrimazole (MYCELEX) 10 mg rose Use 1 Rose as instructed five times daily. - doxycycline [...] rotator cuff [M75.121] 02/02/2016 SVT (supraventricular tachycardia) ([facility]) [I47.1]03/19 (more content not included)... Normal [facility] CNOVon 11-17-2022 CNOV Office Visit (PODIMM ) EDILIA NORTON ([id number]) 1955 [place] Date Time Provider Department 11/17/22 2:40 PM KELLE LOGAN PODIMM During your visit today, we recorded the following information about you: Kelle Logan DPM 11/17/2022 3:35 PM Signed Initial [...] in the last 1 encounters. PCP: Abiodun Grider MD HBA1C, [place] Date Value Ref Range [...] READY FOR DOSE* clotrimazole (MYCELEX) 10 mg rose Use 1 Rose as instructed five times daily. doxycycline monohydrate [...] in younger (more content not included)... Normal [facility] Basophil percentageOrdered B y: Abiodun Grider on 11-05-2022 Chloride [Moles/Vol] 111 mmol/L 98-107 [facility] Cholesterol [Mass/Vol] 126 mg/dL <200 [facility] Comment on above: <200 mg/dL Desirable 200-240 mg/dL Borderline >240 mg/dL High Risk Glucose [Mass/Vol] 95 mg/dL 74-106 [facility] Potassium [Moles/Vol] 4.2 mmol/L 3.5-5.1 [facility] Sodium [Moles/Vol] 140 mmol/L 136-145 [facility] Triglyceride [Mass/Vol] 109 mg/dL <199 [facility] Comment on above: The drugs N-Acetylcy steine and Metamizole may falsely depress this assay.Serum Triglycerides Reference Interval Normal <150 mg/dL Borderline high 150 - 199 mg/dL High 200 - 499 mg/dL Very High > or = 500 mg/dL Laboratory - Chemistry and C hemistry - challengeOrdered By: Abiodun Grider on 11-05-2022 CO2 [Moles/Vol] 26.0 mmol/L 21.0-32.0 [facility] Urea nitrogen/Creatinine [Mass ratio] 15.7 mg/mg 10-20 [facility] No Panel InformationOrdered By: Abiodun Grider on 11-05-2022 Estimated GFR (MDRD) Amer 88 mL/min >60 [facility] Comment on above: GFR Calc Estimated GFR (MDRD) Non-Af Amer 72 mL/min >60 [facility] Comment on above: Non- GFR Calc Serum or plasma calcium leno urement (mass/volume)Ordered By: Abiodun Grider on 11-05-2022 Calcium [Mass/Vol] 9.0 mg/dL 8.5-10.1 [facility] Serum or plasma cholesterol in HDL measurement (mass/volume)Ordered By: Abiodun Grider on 11-05-2022 Cholesterol in HDL [Mass/Vol] 32 mg/dL >40 [facility] Comment on above: The drugs N-Acetylcy steine and Metamizole may falsely depress this assay. Reference Range HDL <40 mg/dL Low HDL Cholesterol HDL >or= 60 mg/dL High HDL Cholesterol Serum or plasma cholesterol in VLDL measurement (mass/volume)Ordered By: Abiodun Gridre on 11-05-2022 Cholesterol in VLDL [Mass/Vol] 22 mg/dL 5-40 [facility] Serum or plasma creatinine m easurement (mass/volume)Ordered By: Abiodun Grider on 11-05-2022 Creatinine [Mass/Vol] 1.08 mg/dL 0.70-1.30 [facility] Comment on above: The validity of the calculated GFR & GFRAA in patients over 70 years has not been determined. Clinical correlation is essential. Serum or plasma low density lipoprotein (LDL) cholesterol measurement (mass/volume)Ordered By: Abiodun Grider on 11-05-2022 Cholesterol in LDL [Mass/Vol] 72 mg/dL 0-130 [facility] Serum or plasma urea nitroge n measurement (mass/volume)Ordered By: Abiodun Grider on 11-05-2022 Urea nitrogen [Mass/Vol] 17 mg/dL 7-18 [facility] Thin prep Papanicolaou smear with manual screeningOrdered By: Abiodun Grider on 11-05-2022 Thin prep Papanicolaou smear with manual screening 3 5-15 [facility] Absolute lymphocyte countOrd ered By: Abiodun Grider on 10-14-2022 Lymphocytes Auto (Unsp spec) [#/Vol] 2.05 10*3/uL 0.83-4.51 [facility] Basophil percentageOrdered B y: Abiodun Grider on 10-14-2022 Basophils/100 WBC (Bld) 1.4 % 0-1 [facility] Bilirubin [Mass/Vol] 0.50 mg/dL 0.20-1.00 [facility] Comment on above: For patients on eltr ombopag therapy, use of Dimension [place] TBIL is not recommended. Chloride [Moles/Vol] 108 mmol/L 98-107 [facility] Eosinophils/100 WBC (Bld) 4.4 % 0-5 [facility] Glucose [Mass/Vol] 112 mg/dL 74-106 [facility] Comment on above: Fasting Glucose resu lt from 100 to 125 mg/dL suggests IMPAIRED HOMEOSTASIS per A.D.A. criteria. Neutrophils (Bld) [#/Vol] 4.6 10*3/uL 2.0-7.7 [facility] Neutrophils/100 WBC (Bld) 59.8 % 47-70 [facility] Potassium [Moles/Vol] 4.4 mmol/L 3.5-5.1 [facility] Protein [Mass/Vol] 6.6 g/dL 6.4-8.2 [facility] Sodium [Moles/Vol] 138 mmol/L 136-145 [facility] WBC (Bld) [#/Vol] 7.7 10*3/uL 4.4-11.0 [facility] Blood erythrocytes count (nu mber/volume)Ordered By: Abiodun Grider on 10-14-2022 RBC (Bld) [#/Vol] 5.20 10*6/uL 4.6-6.2 [facility] Blood hemoglobin measurement (mass/volume)Ordered By: Abiodun Grider on 10-14-2022 Hemoglobin (Bld) [Mass/Vol] 15.2 g/dL 13.0-16.5 [facility] Blood lymphocytes/100 leukoc ytesOrdered By: Abiodun Grider on 10-14-2022 Lymphocytes/100 WBC (Bld) 26.6 % 19-41 [facility] Blood monocytes/100 leukocyt esOrdered By: Abiodun Grider on 10-14-2022 Monocytes/100 WBC (Bld) 7.0 % 0-10 [facility] Blood platelet mean volumeOr dered By: Abiodun Grider on 10-14-2022 Platelet mean volume (Bld) [Entitic vol] 13.9 fL 6.2-12.0 [facility] Determination of erythrocyte mean corpuscular volume (MCV)Ordered By: Abiodun Grider on 10-14-2022 MCV (RBC) [Entitic vol] 89.8 fL 80-94 [facility] Hematocrit Auto (Bld) [Volum e fraction]Ordered By: Abiodun Grider on 10-14-2022 Hematocrit (Bld) [Volume fraction] 46.7 % 40-54 [facility] Laboratory - Chemistry and C hemistry - challengeOrdered By: Abiodun Grider on 10-14-2022 ALP [Catalytic activity/Vol] 115 U/L 45-117 [facility] ALT [Catalytic activity/Vol] 22 U/L 16-61 [facility] CO2 [Moles/Vol] 25.0 mmol/L 21.0-32.0 [facility] Globulin (S) [Mass/Vol] 3.2 g/dL 2.2-4.2 [facility] Urea nitrogen/Creatinine [Mass ratio] 13.6 mg/mg 10-20 [facility] Laboratory - Hematology and Cell countsOrdered By: Abiodun Grider on 10-14-2022 Erythrocyte distribution width (RBC) [Entitic vol] 42.3 fL 35.1-43.9 [facility] Erythrocyte distribution width (RBC) [Ratio] 12.9 % 11.6-14.6 [facility] Immature granulocytes/100 WBC (Bld) 0.800 % 0.0-0.9 [facility] Comment on above: IG% - Immature Granu locytes (promyelocytes, myelocytes and metamyelocytes) > 1% indicates that a LEFT SHIFT is Present. MCH (RBC) [Entitic mass] 29.2 pg 27.0-32.0 [facility] Nucleated RBC/100 WBC (Bld) [Ratio] 0 % 0-5 [facility] MCHC Auto (RBC) [Mass/Vol]Or dered By: Abiodun Grider on 10-14-2022 MCHC (RBC) [Mass/Vol] 32.5 g/dL 32-36 [facility] No Panel InformationOrdered By: Abiodun Grider on 10-14-2022 Estimated GFR (MDRD) Amer 74 mL/min >60 [facility] Comment on above: GFR Calc Estimated GFR (MDRD) Non-Af Amer 61 mL/min >60 [facility] Comment on above: Non- GFR Calc Platelets bldOrdered By: Jesica Grider on 10-14-2022 Platelets (Bld) [#/Vol] 130 10*3/uL 150-450 [facility] Serum or plasma albumin leno urement (mass/volume)Ordered By: Abiodun Grider on 10-14-2022 Albumin [Mass/Vol] 3.4 g/dL 3.2-5.0 [facility] Serum or plasma albumin/glob ulin mass ratioOrdered By: Abiodun Grider on 10-14-2022 Albumin/Globulin [Mass ratio] 1.1 {ratio} 0.9-2.4 [facility] Serum or plasma calcium leno urement (mass/volume)Ordered By: Abiodun Grider on 10-14-2022 Calcium [Mass/Vol] 9.0 mg/dL 8.5-10.1 [facility] Serum or plasma creatinine m easurement (mass/volume)Ordered By: Abiodun Grider on 10-14-2022 Creatinine [Mass/Vol] 1.25 mg/dL 0.70-1.30 [facility] Comment on above: The validity of the calculated GFR & GFRAA in patients over 70 years has not been determined. Clinical correlation is essential. Serum or plasma urea nitroge n measurement (mass/volume)Ordered By: Abiodun Grider on 10-14-2022 Urea nitrogen [Mass/Vol] 17 mg/dL 7-18 [facility] Thin prep Papanicolaou smear with manual screeningOrdered By: Abiodun Grider on 10-14-2022 Thin prep Papanicolaou smear with manual screening 12 U/L 15-37 [facility] Thin prep Papanicolaou smear with manual screening 5 5-15 [facility] Basophil percentageOrdered B y: Dr. Grider on 05-12-2022 Bilirubin [Mass/Vol] 0.50 mg/dL 0.20-1.00 [facility] Comment on above: For patients on eltr ombopag therapy, use of Dimension [place] TBIL is not recommended. Chloride [Moles/Vol] 108 mmol/L 98-107 [facility] Cholesterol [Mass/Vol] 165 mg/dL <200 [facility] Comment on above: <200 mg/dL Desirable 200-240 mg/dL Borderline >240 mg/dL High Risk Glucose [Mass/Vol] 88 mg/dL 74-106 [facility] Potassium [Moles/Vol] 4.5 mmol/L 3.5-5.1 [facility] Protein [Mass/Vol] 6.3 g/dL 6.4-8.2 [facility] Sodium [Moles/Vol] 142 mmol/L 136-145 [facility] Triglyceride [Mass/Vol] 153 mg/dL <199 [facility] Comment on above: The drugs N-Acetylcy steine and Metamizole may falsely depress this assay.Serum Triglycerides Reference Interval Normal <150 mg/dL Borderline high 150 - 199 mg/dL High 200 - 499 mg/dL Very High > or = 500 mg/dL Laboratory - Chemistry and C hemistry - challengeOrdered By: Dr. Grider on 05-12-2022 ALP [Catalytic activity/Vol] 137 U/L 45-117 [facility] ALT [Catalytic activity/Vol] 25 U/L 16-61 [facility] CO2 [Moles/Vol] 29.0 mmol/L 21.0-32.0 [facility] Globulin (S) [Mass/Vol] 2.9 g/dL 2.2-4.2 [facility] Urea nitrogen/Creatinine [Mass ratio] 17.5 mg/mg 10-20 [facility] No Panel InformationOrdered By: Dr. Grider on 05-12-2022 Estimated GFR (MDRD) Amer 73 mL/min >60 [facility] Comment on above: GFR Calc Estimated GFR (MDRD) Non-Af Amer 61 mL/min >60 [facility] Comment on above: Non- GFR Calc Serum or plasma albumin leno urement (mass/volume)Ordered By: Dr. Grider on 05-12-2022 Albumin [Mass/Vol] 3.4 g/dL 3.2-5.0 [facility] Serum or plasma albumin/glob ulin mass ratioOrdered By: Dr. Grider on 05-12-2022 Albumin/Globulin [Mass ratio] 1.2 {ratio} 0.9-2.4 [facility] Serum or plasma calcium leno urement (mass/volume)Ordered By: Dr. Grider on 05-12-2022 Calcium [Mass/Vol] 9.2 mg/dL 8.5-10.1 [facility] Serum or plasma cholesterol in HDL measurement (mass/volume)Ordered By: Dr. Grider on 05-12-2022 Cholesterol in HDL [Mass/Vol] 36 mg/dL >40 [facility] Comment on above: The drugs N-Acetylcy steine and Metamizole may falsely depress this assay. Reference Range HDL <40 mg/dL Low HDL Cholesterol HDL >or= 60 mg/dL High HDL Cholesterol Serum or plasma cholesterol in VLDL measurement (mass/volume)Ordered By: Dr. Grider on 05-12-2022 Cholesterol in VLDL [Mass/Vol] 31 mg/dL 5-40 [facility] Serum or plasma creatinine m easurement (mass/volume)Ordered By: Dr. Grider on 05-12-2022 Creatinine [Mass/Vol] 1.26 mg/dL 0.70-1.30 [facility] Comment on above: The validity of the calculated GFR & GFRAA in patients over 70 years has not been determined. Clinical correlation is essential. Serum or plasma low density lipoprotein (LDL) cholesterol measurement (mass/volume)Ordered By: Dr. Grider on 05-12-2022 Cholesterol in LDL [Mass/Vol] 98 mg/dL 0-130 [facility] Serum or plasma urea nitroge n measurement (mass/volume)Ordered By: Dr. Grider on 05-12-2022 Urea nitrogen [Mass/Vol] 22 mg/dL 7-18 [facility] Thin prep Papanicolaou smear with manual screeningOrdered By: Dr. Grider on 05-12-2022 Thin prep Papanicolaou smear with manual screening 13 U/L 15-37 [facility] Thin prep Papanicolaou smear with manual screening 5 5-15 [facility] Basophil percentageon 2021 Chloride [Moles/Vol] 112 mmol/L 98-107 [facility] Work Phone: Cholesterol [Mass/Vol] 134 mg/dL <200 [facility] Work Phone: Comment on above: <200 mg/dL Desirable 200-240 mg/dL Borderline >240 mg/dL High Risk Glucose [Mass/Vol] 100 mg/dL 74-106 [facility] Work Phone: Comment on above: Fasting Glucose resu lt from 100 to 125 mg/dL suggests IMPAIRED HOMEOSTASIS per A.D.A. criteria. Potassium [Moles/Vol] 4.1 mmol/L 3.5-5.1 [facility] Work Phone: Sodium [Moles/Vol] 142 mmol/L 136-145 [facility] Work Phone: Triglyceride [Mass/Vol] 257 mg/dL <199 [facility] Work Phone: Comment on above: The drugs N-Acetylcy steine and Metamizole may falsely depress this assay.Serum Triglycerides Reference Interval Normal <150 mg/dL Borderline high 150 - 199 mg/dL High 200 - 499 mg/dL Very High > or = 500 mg/dL Laboratory - Chemistry and C hemistry - challengeon 11-12-2021 CO2 [Moles/Vol] 26.0 mmol/L 21.0-32.0 [facility] Work Phone: Urea nitrogen/Creatinine [Mass ratio] 16.2 mg/mg 10-20 [facility] Work Phone: No Panel Informationon 11-12 Estimated GFR (MDRD) Amer 80 mL/min >60 [facility] Work Phone: Comment on above: GFR Calc Estimated GFR (MDRD) Non-Af Amer 66 mL/min >60 [facility] Work Phone: Comment on above: Non- GFR Calc Serum or plasma calcium leno urement (mass/volume)on 11-12-2021 Calcium [Mass/Vol] 9.0 mg/dL 8.5-10.1 [facility] Work Phone: Serum or plasma cholesterol in HDL measurement (mass/volume)on 11-12-2021 Cholesterol in HDL [Mass/Vol] 29 mg/dL >40 [facility] Work Phone: Comment on above: The drugs N-Acetylcy steine and Metamizole may falsely depress this assay. Reference Range HDL <40 mg/dL Low HDL Cholesterol HDL >or= 60 mg/dL High HDL Cholesterol Serum or plasma cholesterol in VLDL measurement (mass/volume)on 11-12-2021 Cholesterol in VLDL [Mass/Vol] 51 mg/dL 5-40 [facility] Work Phone: Serum or plasma creatinine m easurement (mass/volume)on 11-12-2021 Creatinine [Mass/Vol] 1.17 mg/dL 0.70-1.30 [facility] Work Phone: Comment on above: The validity of the calculated GFR & GFRAA in patients over 70 years has not been determined. Clinical correlation is essential. Serum or plasma low density lipoprotein (LDL) cholesterol measurement (mass/volume)on 11-12-2021 Cholesterol in LDL [Mass/Vol] 54 mg/dL 0-130 [facility] Work Phone: Serum or plasma urea nitroge n measurement (mass/volume)on 11-12-2021 Urea nitrogen [Mass/Vol] 19 mg/dL 7-18 [facility] Work Phone: Thin prep Papanicolaou smear with manual screeningon 11-12-2021 Thin prep Papanicolaou smear with manual screening 4 5-15 [facility] Work Phone: Absolute lymphocyte counton 07-08-2021 Lymphocytes Auto (Unsp spec) [#/Vol] 0.29 10*3/uL 0.83-4.51 [facility] Work Phone: Basophil percentageon 2021 Basophils/100 WBC (Bld) 0.4 % 0-1 [facility] Work Phone: Bilirubin [Mass/Vol] 0.60 mg/dL 0.20-1.00 [facility] Work Phone: Comment on above: For patients on eltr ombopag therapy, use of Dimension [place] TBIL is not recommended. Chloride [Moles/Vol] 109 mmol/L 98-107 [facility] Work Phone: Eosinophils/100 WBC (Bld) 0.1 % 0-5 [facility] Work Phone: Glucose [Mass/Vol] 127 mg/dL 74-106 [facility] Work Phone: Comment on above: Fasting Glucose resu lt greater than or equal to 126 mg/dL suggests DIABETES MELLITUS per A.D.A. criteria. Neutrophils (Bld) [#/Vol] 9.9 10*3/uL 2.0-7.7 [facility] Work Phone: Neutrophils/100 WBC (Bld) 92.6 % 47-70 [facility] Work Phone: Potassium [Moles/Vol] 4.1 mmol/L 3.5-5.1 [facility] Work Phone: Protein [Mass/Vol] 7.0 g/dL 6.4-8.2 [facility] Work Phone: Sodium [Moles/Vol] 142 mmol/L 136-145 [facility] Work Phone: WBC (Bld) [#/Vol] 10.7 10*3/uL 4.4-11.0 [facility] Work Phone: [phone] Blood erythrocytes count (nu mber/volume)on 07-08-2021 RBC (Bld) [#/Vol] 5.74 10*6/uL 4.6-6.2 [facility] Work Phone: [phone] Blood hemoglobin measurement (mass/volume)on 07-08-2021 Hemoglobin (Bld) [Mass/Vol] 16.3 g/dL 13.0-16.5 [facility] Work Phone: Blood lymphocytes/100 leukoc yteson 07-08-2021 Lymphocytes/100 WBC (Bld) 2.7 % 19-41 [facility] Work Phone: [phone] Blood manual differential co mment interpretation (narrative result)on 07-08-2021 Manual differential comment Timur (Bld) [Interp] SCANNED [facility] Work Phone: [phone] Comment on above: LYMPHOPENIA NOTED Blood monocytes/100 leukocyt eson 07-08-2021 Monocytes/100 WBC (Bld) 3.6 % 0-10 [facility] Work Phone: [phone] Blood platelet mean volumeon 07-08-2021 Platelet mean volume (Bld) [Entitic vol] 13.4 fL 6.2-12.0 [facility] Work Phone: Determination of erythrocyte mean corpuscular volume (MCV)on 07-08-2021 MCV (RBC) [Entitic vol] 87.5 fL 80-94 [facility] Work Phone: [phone] Direct bilirubinon Bilirubin.direct [Mass/Vol] 0.17 mg/dL 0.00-0.30 [facility] Work Phone: [phone] Hematocrit Auto (Bld) [Volum e fraction]on 07-08-2021 Hematocrit (Bld) [Volume fraction] 50.2 % 40-54 [facility] Work Phone: [phone] Laboratory - Chemistry and C hemistry - challengeon 07-08-2021 ALP [Catalytic activity/Vol] 107 U/L 45-117 [facility] Work Phone: ALT [Catalytic activity/Vol] 22 U/L 16-61 [facility] Work Phone: [phone] CO2 [Moles/Vol] 25.0 mmol/L 21.0-32.0 [facility] Work Phone: [phone] Globulin (S) [Mass/Vol] 3.4 g/dL 2.2-4.2 [facility] Work Phone: [phone] Lipase [Catalytic activity/Vol] 43 U/L 73-393 [facility] Work Phone: [phone] Urea nitrogen/Creatinine [Mass ratio] 17.5 mg/mg 10-20 [facility] Work Phone: [phone] Laboratory - Hematology and Cell countson 07-08-2021 Erythrocyte distribution width (RBC) [Entitic vol] 45.5 fL 35.1-43.9 [facility] Work Phone: [phone] Erythrocyte distribution width (RBC) [Ratio] 14.2 % 11.6-14.6 [facility] Work Phone: [phone] Immature granulocytes/100 WBC (Bld) 0.600 % 0.0-0.9 [facility] Work Phone: [phone] Comment on above: IG% - Immature Granu locytes (promyelocytes, myelocytes and metamyelocytes) > 1% indicates that a LEFT SHIFT is Present. MCH (RBC) [Entitic mass] 28.4 pg 27.0-32.0 [facility] Work Phone: Nucleated RBC/100 WBC (Bld) [Ratio] 0 % 0-5 [facility] Work Phone: MCHC Auto (RBC) [Mass/Vol]on 07-08-2021 MCHC (RBC) [Mass/Vol] 32.5 g/dL 32-36 [facility] Work Phone: No Panel Informationon 07-08 Estimated Creatinine Clearance Calc 49.16 ml/min [facility] Work Phone: Estimated GFR (MDRD) Amer 64 mL/min >60 [facility] Work Phone: Comment on above: GFR Calc Estimated GFR (MDRD) Non-Af Amer 53 mL/min >60 [facility] Work Phone: Comment on above: Non- GFR Calc Platelets bldon 07-08-2021 Platelets (Bld) [#/Vol] 152 10*3/uL 150-450 [facility] Work Phone: Serum or plasma albumin leno urement (mass/volume)on 07-08-2021 Albumin [Mass/Vol] 3.6 g/dL 3.2-5.0 [facility] Work Phone: Serum or plasma calcium leno urement (mass/volume)on 07-08-2021 Calcium [Mass/Vol] 9.3 mg/dL 8.5-10.1 [facility] Work Phone: Serum or plasma creatinine m easurement (mass/volume)on 07-08-2021 Creatinine [Mass/Vol] 1.43 mg/dL 0.70-1.30 [facility] Work Phone: Comment on above: The validity of the calculated GFR & GFRAA in patients over 70 years has not been determined. Clinical correlation is essential. Serum or plasma urea nitroge n measurement (mass/volume)on 07-08-2021 Urea nitrogen [Mass/Vol] 25 mg/dL 7-18 [facility] Work Phone: Thin prep Papanicolaou smear with manual screeningon 07-08-2021 Thin prep Papanicolaou smear with manual screening 12 U/L 15-37 [facility] Work Phone: Thin prep Papanicolaou smear with manual screening 8 5-15 [facility] Work Phone: Erythrocyte sedimentation ra cassidy 05-06-2021 ESR (Bld) [Velocity] 16 mm/h 0-20 [facility] Work Phone: Serum or plasma C reactive p rotein measurement (mass/volume)on 05-06-2021 CRP [Mass/Vol] 8.57 mg/L 0.0-3.0 [facility] Work Phone: Comment on above: C-Reactive Protein ( CRP) provides useful information for thediagnosis, therapy and monitoring of inflammatory processesand associated diseases. For the evaluation of Relative Riskfor Cardiovascular Disease, a High Sensitivity CRP (HSCRP)should be ordered. Basophil percentageon 2021 Basophil percentage < 10.0 umol/L 11-32 [facility] Work Phone: Laboratory - Chemistry and C hemistry - challengeon 04-15-2021 Cobalamin (Vitamin B12) [Mass/Vol] 554 pg/mL 211-911 [facility] Work Phone: No Panel Informationon 04-15 Ceruloplasmin 23.8 mg/dL [facility] Work Phone: Thyroid Stimulating Hormone (TSH) 1.78 uIU/mL 0.358-3.74 [facility] Work Phone: Thin prep Papanicolaou smear with manual screeningon 04-15-2021 Thin prep Papanicolaou smear with manual screening 100 ug/dL [facility] Work Phone: Comment on above: Detection Limit = 5P erformed at: [facility] [id number] Director: Brayden Peña PhD, Phone: [phone] at: [address] [place], [place] [id number] Director: Natasha Birmingham MD, Phone: [phone] Basophil percentageon 2020 Chloride [Moles/Vol] 106 mmol/L 98-107 [facility] Work Phone: Cholesterol [Mass/Vol] 143 mg/dL <200 [facility] Work Phone: Comment on above: <200 mg/dL Desirable 200-240 mg/dL Borderline >240 mg/dL High Risk Glucose [Mass/Vol] 94 mg/dL 74-106 [facility] Work Phone: Comment on above: Please note revised GLUCOSE reference range effective 2017. Potassium [Moles/Vol] 4.9 mmol/L 3.5-5.1 [facility] Work Phone: Sodium [Moles/Vol] 139 mmol/L 136-145 [facility] Work Phone: Triglyceride [Mass/Vol] 90 mg/dL [facility] Work Phone: Comment on above: The drugs N-Acetylcy steine and Metamizole may falsely depress this assay.Serum Triglycerides Reference Interval Normal <150 mg/dL Borderline high 150 - 199 mg/dL High 200 - 499 mg/dL Very High > or = 500 mg/dL Laboratory - Chemistry and C hemistry - challengeon 03-19-2021 CO2 [Moles/Vol] 28.0 mmol/L 21.0-32.0 [facility] Work Phone: Urea nitrogen/Creatinine [Mass ratio] 13.8 mg/mg 10-20 [facility] Work Phone: No Panel Informationon 03-19 Estimated GFR (MDRD) Amer 87 mL/min >60 [facility] Work Phone: Comment on above: GFR Calc Estimated GFR (MDRD) Non-Af Amer 72 mL/min >60 [facility] Work Phone: Comment on above: Non- GFR Calc Serum or plasma calcium leno urement (mass/volume)on 03-19-2021 Calcium [Mass/Vol] 9.4 mg/dL 8.5-10.1 [facility] Work Phone: Serum or plasma cholesterol in HDL measurement (mass/volume)on 03-19-2021 Cholesterol in HDL [Mass/Vol] 35 mg/dL [facility] Work Phone: Comment on above: The drugs N-Acetylcy steine and Metamizole may falsely depress this assay. Reference Range HDL <40 mg/dL Low HDL Cholesterol HDL >or= 60 mg/dL High HDL Cholesterol Serum or plasma cholesterol in VLDL measurement (mass/volume)on 03-19-2021 Cholesterol in VLDL [Mass/Vol] 18 mg/dL 5-40 [facility] Work Phone: Serum or plasma creatinine m easurement (mass/volume)on 03-19-2021 Creatinine [Mass/Vol] 1.09 mg/dL 0.70-1.30 [facility] Work Phone: Comment on above: The validity of the calculated GFR & GFRAA in patients over 70 years has not been determined. Clinical correlation is essential. Serum or plasma low density lipoprotein (LDL) cholesterol measurement (mass/volume)on 03-19-2021 Cholesterol in LDL [Mass/Vol] 90 mg/dL 0-130 [facility] Work Phone: Serum or plasma urea nitroge n measurement (mass/volume)on 03-19-2021 Urea nitrogen [Mass/Vol] 15 mg/dL 7-18 [facility] Work Phone: Thin prep Papanicolaou smear with manual screeningon 03-19-2021 Thin prep Papanicolaou smear with manual screening 5 5-15 [facility] Work Phone: CNOVon 11-22-2017 CNOV Office Visit (AKURFL) EDILIA PAINTING ([id number]) 1955 [facility] Time Provider Department11/22/17 1:30 PM GABRIEL PILLAI During your visit today, we recorded the following information about you: Blood pressure Weight Height 122/64 74.8 kg 1.727 Maximiliano Pillai DO, MBA 11/22/2017 2:29 PM SignedCYSTOSCOPY PROCEDURE NOTE:Edilia Norton is a 62 year old male who presents with hematuria gross forcystoscopy.Pt ID verified with patient: YesProcedure verified with patient: YesProcedure confirmed with physician and operations support professionals: YesSign InHistory and Physical Exam reviewed and is unchanged. .Informed Consent Discussed: Yes. Risks, benefits, alternatives and personneldiscussed with patient who consents to proceed.Sign in Communication: CompletedTime Out: Team Confirms the Correct Patient, Correct Procedure; Cystoscopy,Correct Site and Site Marking, Correct Position (if applicable).Affirmation of Time Out: YesSign Out: Sign Out Discussion: CompletedPhysician: Gabriel Pillai DO, MBAA urinalysis was performed revealing [...] oral antibiotics and increase oral fluid intake asdirected.ASSESSMENT/PLAN:Simi s hematuriaCysto negative todayPSA pending - last one in 2016 was 1.85Father has prostate cancerCT urogram negative and reviewed with patientCytology negativeF/U with [facility]aker with PSA resultsGabriel Pillai DO MBAReferring Provider: KIMBERLEY JAUREGUI [[id number]]Allergies As of Date: 11/22/2017 Noted Allergy ReactionLISINOPRIL 12/14/2013 3 - CoughDate Reviewed: 11/22/2017Reviewed by: Gabriel Pillai - Fully AssessedReason for Visit: Procedure [88]Primary Visit Diagnosis:Gross hematuria [R31.0] Other Visit Diagnosis:Family history of malignant neoplasm of prostate [Z80.42]Order(s):UA DIP, URINE (POC) [[id number]] Order #: [id number]. #:[id number] [] ciprofloxacin HCl 500 mg tab(s) (CIPRO)Disp: [...] PUFFS BY MOUTH EVERY* CLOTRIMAZOLE 10 MG ROSE Use 1 Rose as instructed fi* DOXYCYCLINE MONOHYDRATE 100 M* [...] improve.Follow-up and Disposition History RecordedLetter TextEncounter Number: [id number] Status:Closed by AUDREY GABRIEL on 11/22/17 [facility] PROCEDUREon 11-22-2017 Protein mass conc HNO ID: [id number] thor: Gabriel GeeJack: (none)Author Type: PhysicianType: ProceduresFiled: 11/22/2017 2:29 PMNote Text:CYSTOSCOPY PROCEDURE NOTE:Edilia Norton is a 62 year old male who presents with hematuria gross forcystoscopy.Pt ID verified with patient: YesProcedure verified with patient: YesProcedure confirmed with physician and operations support professionals: YesSign InHistory and Physical Exam reviewed and is unchanged. .Informed Consent Discussed: Yes. Risks, benefits, alternatives andpersonnel discussed with patient who consents to proceed.Sign in Communication: CompletedTime Out: Team Confirms the Correct Patient, Correct Procedure;Cystoscopy, Correct Site and Site Marking, Correct Position (ifapplicable).Affirmation of Time Out: YesSign Out: Sign Out Discussion: CompletedPhysician: Gabriel Pillai DO, MBAA urinalysis was performed revealing [...] with patientCytology negativeF/U with Julianne with PSA resultsGabriel Pillai DO, MBA [facility] Rishabh 04-28-2017 SRAVANN Telephone (AGCARDWST) EDILIA HUANG ([id number]) 1955 M [facility] Time Provider Department04/28/17 CHEIKH JONES During your visit today, we recorded the following information about you:Hunter Carty RN, RN 04/28/2017 4:26 PM Signed----- Message from Cheikh Jones sent at 04/28/2017 4:05 PM EST -----Lipids are not quite as good. Please change to Lipitor 20 milligrams daily.This works much better then simvastatin and will be better tolerated. Repeatlipid profile in 3 months.Alo Cantu, RN, RN 04/28/2017 4:28 PM SignedLeft generic msg for patient to return call.Sharmin Waterman MA 04/29/2017 4:00 PM SignedPatient notified and verbalized understanding.Please file orders and d/c simvastatin.Kvng Elise MD 04/29/2017 4:21 PM SignedThe following approved medication requests have been transmitted electronically.Signed Prescriptions Disp Refills atorvastatin (LIPITOR) 20 mg tablet 90 tablet 3 Sig: Take 1 tablet by mouth once daily. Authorizing Provider: CHEIKH JONES MDAdam Gilmor RN, RN 04/29/2017 4:38 PM Signedescript confirmed.Claudia Cunha Psr 05/16/2017 10:29 AM SignedPatient states that the fluoxetin had 11 refills, but patient states thepharmacy does not have remaining refills. Please call patient.Allergies As of Date: 04/28/2017 Noted Allergy ReactionLISINOPRIL 12/14/2013 3 - CoughDate Reviewed: 04/27/2017Reviewed by: Sharmin Silva) Columba - Fully AssessedReason for Visit: Results [95]Primary Visit Diagnosis:Mixed hyperlipidemia [E78.2]Order(s):atorvastatin (LIPITOR) 20 mg tabletTake 1 tablet by mouth once daily.Disp: 90 tabletRfl: 3 LIPID PANEL BASIC [SQLIPB] Order #: [id number] FUTUREPrescriptions as of 04/28/2017 Sig: ATORVASTATIN 20 MG TABLET Take 1 tablet by mouth once d* ASPIRIN 81 MG TABLET,DELAYED * Take 1 tablet by mouth once d* VENTOLIN HFA 90 MCG/ACTUATION* INHALE 2 PUFFS BY MOUTH EVERY* CLOTRIMAZOLE 10 MG ROSE Use 1 Rose as instructed fi* DOXYCYCLINE MONOHYDRATE 100 M* [...] file. Status:Closed by HUNTER CARTY on 04/29/17 [facility] CNOVon 04-27-2017 CNOV Office Visit (AGCARDWST) PARAG EDILIA CARRENO ([id number]) 1955 [facility] Time Provider Department04/27/17 8:30 AM CHEIKH JONESWSAbimael During your visit today, we recorded the following information about you: Pulse Blood pressure Weight Height 70/minute 116/80 74.2 kg 1.727 Herrera Jones MD 04/27/2017 5:40 PM SignedPERTINENT CARDIAC HISTORYASHD - RCA ischemia by stress 03/12HTNHLOSA - CPAPSVTADHERENCE TO GUIDELINESACE-I or ARB for HF with prior LVEFANDlt;40 (NQF 0081) - N/AASA or Plavix for ASHD (NQF 0067) - metBeta jose for ASHD with prior HI or prior LVEFANDlt;40 (NQF 0070) - N/ABeta jose for HF with prior LVEFANDlt;40 (NQF 0083) [...] with treatment plan.This note was generated using Mobile [employer] voice recognition system, and there may besome [...] and claudication.He's had no recent episodes of palpitation.ALLERGIES:ALLERGIES Allergen Reactions- Lisinopril CoughCURRENT OUTPATIENT MEDICATIONS:aspirin, enteric coated [...] supplies. Dx. GALE 327.23clotrimazole (MYCELEX) 10 mg rose Use 1 Rose as instructed five timesdaily.doxycycline monohydrate 100 mg [...] Right shoulder arthroscopy- COLONOSCOP W/ OR W/O BRSH SPEC 08/16/13 Colonoscopy- COLONOSCOPY ANDamp; POLYPECTOMY 09/02/09 [...] within normal limits. There is nosignificant change.Electronically Signed:Cheikh Jones MDApril 27, 2017 8:57 [facility]:Vito Chin MD 04/27/2017 9:38 AM SignedLIFESTYLE CHANGEA healthy lifestyle is the most important component [...] physician about programs in your area.Referring Provider: CHEIKH JONES [[id number]]Allergies As of Date: 04/27/2017 Noted Allergy ReactionLISINOPRIL 12/14/2013 3 - CoughDate Reviewed: 04/27/2017Reviewed by: Sharmin Waterman - Fully AssessedReason for Visit: Follow Up [171]Primary Visit Diagnosis:SVT (supraventricular tachycardia) ([facility]) [I47.1] Other Visit Diagnosis:ASHD (arteriosclerotic heart disease) [I25.10]Order(s):aspirin, enteric coated (ASPIRIN, ENTERIC COATED) 81 mg EC tabletTake 1 tablet by mouth once daily.Disp: 30 tabletRfl: 0 ECG B/O W INTERP (MED OFFICE) [ECG06] Order #: [id number] LIPID PANEL BASIC [SQLIPB] Order #: [id number] FUTURE ALT/SGPT [SQALT] Order #: [id number] FUTURE CK CREATINE KINASE [SQCK] Order #: [id number] FUTUREPrescriptions as of 04/27/2017 Sig: VENTOLIN HFA [...] by mouth once d* CLOTRIMAZOLE 10 MG RSOE Use 1 Rose as instructed fi* DOXYCYCLINE MONOHYDRATE 100 M* Take 1 tablet by mouth twice * BENZONATATE 100 MG CAPSULE Take 1 capsule by mouth three* TRAZODONE 50 MG TABLET Take 1 tablet by mouth at bed*Medication notes this encounter CLOTRIMAZOLE 10 MG ROSE >> Sharmin Waterman MA 04/27/2017 8:35 AM >> SHARMIN WATERMAN MA TueApr 27, 2017 8:35 AM Course of therapy completed. DOXYCYCLINE MONOHYDRATE 100 MG TABLET >> Sharmin Waterman MA 04/27/2017 8:35 AM >> SHARMIN WTAERMAN MA TueApr 27, 2017 8:35 AM Course of therapy completed. BENZONATATE 100 MG CAPSULE >> Sharmin Waterman MARCO 04/27/2017 8:35 AM >> SHARMIN WATERMAN MA TueApr 27, 2017 8:35 AM Course of therapy completed. 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 EAT A WHOLE FOOD, PLANT BASED [...] way you eat. This is not a diet. It is a way of life that [...] discontinue is not on file. Status:Closed by CHEIKH JONES MD on 04/27/17 [facility] PROGRESSon 04-27-2017 Protein mass conc HNO ID: [id number] thor: Cheikh Leung: (none)Author Type: PhysicianType: Progress NotesFiled: 04/27/2017 5:40 PMNote Text:PERTINENT CARDIAC HISTORYASHD - RCA ischemia by stress 03/12HTNHLOSA - CPAPSVTADHERENCE TO GUIDELINESACE-I or ARB for HF with prior LVEF<40 (NQF 0081) - N/AASA or Plavix for ASHD (NQF 0067) - metBeta jose for ASHD with prior HI or prior LVEF<40 (NQF 0070) - N/ABeta jose for HF with prior LVEF<40 (NQF 0083) - N/AACE-I or ARB for ASHD with DM or prior LVEF<40 (NQF 0066) - N/AStatin therapy for ASHD or FHL or DM - metBMI documented and plan if >25 (NQF 0421) - lifestyle recommendation formTobacco use screening and referral (NQF 0028) - lifestyle recommendationformRecommendatio n for whole food, plant based diet - [...] with treatment plan.This note was generated using Mobile [employer] voice recognition system, and theremay be some [...] and claudication.He's had no recent episodes of palpitation.ALLERGIES:ALLERGIES Allergen Reactions- Lisinopril CoughCURRENT OUTPATIENT MEDICATIONS:aspirin, enteric coated [...] supplies. Dx. GALE 327.23clotrimazole (MYCELEX) 10 mg rose Use 1 Rose as instructed five timesdaily.doxycycline monohydrate 100 mg [...] Right shoulder arthroscopy- COLONOSCOP W/ OR W/O BRSH SPEC 08/16/13 Colonoscopy- COLONOSCOPY AND POLYPECTOMY 09/02/09 [...] a moderate perfusion defect in theentire inferior wall.Recent labs were reviewed. Hemoglobin is normal. Renal function is normal.LDL was 119. TSH is normal.Previous Holter monitor showed runs of SVT.EKG demonstrates sinus rhythm and is within normal limits. There is nosignificant change.Electronically Signed:Cheikh Jones MDJanuary 2017 8:57 [facility]:Sage Neri MD Normal [facility] Vital Signs Date Time Vital Sign Value Performing Clinician Facility 06-12-2024 07:42-0400 Body mass index (BMI) [Ratio] 25.4 kg/m2 Dr. Abiodun Grider MD Work Phone: [facility] 06-12-2024 07:42-0400 Body temperature 97.4 [degF] Dr. Abiodun Grider MD Work Phone: [facility] 06-12-2024 07:42-0400 Body weight 75.[address] Abiodun Grider MD Work Phone: [facility] 06-12-2024 07:42-0400 Diastolic blood pressure 107 mm[Hg] Dr. Abiodun Grider MD Work Phone: [facility] 06-12-2024 07:42-0400 Heart rate 89 /min Dr. Abiodun Grider MD Work Phone: [facility] 06-12-2024 07:42-0400 Respiratory rate 20 /min Dr. Abiodun Grider MD Work Phone: 7(761)767-854525 [address] 06-12-2024 07:42-0400 SaO2% (BldA) [Mass fraction] 95 % Dr. Abiodun Grider MD Work Phone: 0(940)764-746563 [place] [address] 06-12-2024 07:42-0400 Systolic blood pressure 160 mm[Hg] Dr. Abiodun Grider MD Work Phone: [facility] 06-13-2023 07:36-0400 Body height 172.[address] Abiodun Grider Work Phone: 7(652)388-281563 [place] [address] 06-13-2023 07:36-0400 Body mass index (BMI) [Ratio] 23.8 kg/m2 Dr. Abiodun Grider Work Phone: 0(487)609-814963 [place] [address] 06-13-2023 07:36-0400 Body temperature 97.8 [degF] Dr. Abiodun Grider Work Phone: [facility] 06-13-2023 07:36-0400 Body weight 71.[address] Abiodun Grider Work Phone: [facility] 06-13-2023 07:36-0400 Diastolic blood pressure 95 mm[Hg] Dr. Abiodun Grider Work Phone: [facility] 06-13-2023 07:36-0400 Heart rate 57 /min Dr. Abiodun Grider Work Phone: [facility] 06-13-2023 07:36-0400 Respiratory rate 18 /min Dr. Abiodun Grider Work Phone: [facility] 06-13-2023 07:36-0400 SaO2% (BldA) [Mass fraction] 99 % Dr. Abiodun Grider Work Phone: [facility] 06-13-2023 07:36-0400 Systolic blood pressure 149 mm[Hg] Dr. Abiodun Grider Work Phone: [facility] 04-18-2023 08:54-0500 Body mass index (BMI) [Ratio] 23 kg/m2 Dr. Abiodun Grider Work Phone: [facility] 04-18-2023 08:54-0500 Body temperature 98 [degF] Dr. Abiodun Grider Work Phone: [facility] 04-18-2023 08:54-0500 Body weight 68.[address] Abiodun Grider Work Phone: [facility] 04-18-2023 08:54-0500 Diastolic blood pressure 75 mm[Hg] Dr. Abiodun Grider Work Phone: [facility] 04-18-2023 08:54-0500 Heart rate 80 /min Dr. Abiodun Grider Work Phone: [facility] 04-18-2023 08:54-0500 Respiratory rate 18 /min Dr. Abiodun Grider Work Phone: [facility] 04-18-2023 08:54-0500 SaO2% (BldA) [Mass fraction] 97 % Dr. Abiodun Grider Work Phone: [facility] 04-18-2023 08:54-0500 Systolic blood pressure 125 mm[Hg] Dr. Abiodun Grider Work Phone: [facility] 12-22-2022 14:07-0400 Body height 172.[address] Abiodun Grider Work Phone: [facility] 12-22-2022 14:07-0400 Body mass index (BMI) [Ratio] 25.5 kg/m2 Dr. Abiodun Grdier Work Phone: [facility] 12-22-2022 14:07-0400 Body weight 76.[address] Abiodun Grider Work Phone: [facility] 12-22-2022 14:07-0400 Diastolic blood pressure 74 mm[Hg] Dr. Abiodun Grider Work Phone: [facility] 12-22-2022 14:07-0400 Respiratory rate 16 /min Dr. Abiodun Grider Work Phone: [facility] 12-22-2022 14:07-0400 Systolic blood pressure 124 mm[Hg] Dr. Abiodun Grider Work Phone: [facility] 10-14-2022 06:35-0400 Body height 172.[address] Abiodun Grider Work Phone: [facility] 10-14-2022 06:35-0400 Body mass index (BMI) [Ratio] 25.2 kg/m2 Dr. Abiodun Grider Work Phone: [facility] 10-14-2022 06:35-0400 Body temperature 97.3 [degF] Dr. Abiodun Grider Work Phone: [facility] 10-14-2022 06:35-0400 Body weight 75.[address] Abiodun Grider Work Phone: 2(066)332-334063 [place] [address] 10-14-2022 06:35-0400 Diastolic blood pressure 86 mm[Hg] Dr. Abiodun Grider Work Phone: [facility] 10-14-2022 06:35-0400 Heart rate 72 /min Dr. Abiodun Grider Work Phone: [facility] 10-14-2022 06:35-0400 Respiratory rate 20 /min Dr. Abiodun Grider Work Phone: [facility] 10-14-2022 06:35-0400 SaO2% (BldA) [Mass fraction] 95 % Dr. Abiodun Grider Work Phone: [phone])[phone] [place] [address] 10-14-2022 06:35-0400 Systolic blood pressure 146 mm[Hg] Dr. Abiodun Grider Work Phone: [facility] 03-24-2022 07:48-0500 Body height 172.[address] Abiodun Grider Work Phone: [facility] 03-24-2022 07:48-0500 Body mass index (BMI) [Ratio] 25.7 kg/m2 Dr. Abiodun Grider Work Phone: [facility] 03-24-2022 07:48-0500 Body temperature 97.2 [degF] Dr. Abiodun Grider Work Phone: [facility] 03-24-2022 07:48-0500 Body weight 76.[address] Abiodun Grider Work Phone: [facility] 03-24-2022 07:48-0500 Diastolic blood pressure 83 mm[Hg] Dr. Abiodun Grider Work Phone: [facility] 03-24-2022 07:48-0500 Heart rate 75 /min Dr. Abiodun Grider Work Phone: [facility] 03-24-2022 07:48-0500 Respiratory rate 20 /min Dr. Abiodun Grider Work Phone: [facility] 03-24-2022 07:48-0500 SaO2% (BldA) [Mass fraction] 95 % Dr. Abiodun Grider Work Phone: [facility] 03-24-2022 07:48-0500 Systolic blood pressure 170 mm[Hg] Dr. Abiodun Grider Work Phone: [facility] 03-17-2022 09:44-0500 Diastolic blood pressure 87 mm[Hg] hCay Leal MD Work Phone: [facility] 03-17-2022 09:44-0500 Heart rate 74 /min Chay Leal MD Work Phone: [facility] 03-17-2022 09:44-0500 SaO2% (BldA) [Mass fraction] 90 % Chay Leal MD Work Phone: [facility] 03-17-2022 09:44-0500 Systolic blood pressure 161 mm[Hg] Chay Leal MD Work Phone: [facility] 12-23-2021 11:04-0400 Body mass index (BMI) [Ratio] 24.33 kg/m2 Chay Leal MD Work Phone: [facility] 12-23-2021 11:04-0400 Body weight 72.58 kg Chay Leal MD Work Phone: [facility] 12-23-2021 11:04-0400 Diastolic blood pressure 80 mm[Hg] Chay Leal MD Work Phone: [facility] 12-23-2021 11:04-0400 Heart rate 77 /min Chay Leal MD Work Phone: [facility] 12-23-2021 11:04-0400 SaO2% (BldA) [Mass fraction] 91 % Chay Leal MD Work Phone: [facility] 12-23-2021 11:04-0400 Systolic blood pressure 136 mm[Hg] Chay Leal MD Work Phone: [facility] 09-01-2021 07:29-0400 Body height 172.[address] Edilia Brady Work Phone: [facility] Work Phone: 09-01-2021 07:29-0400 Body mass index (BMI) [Ratio] 24.6 kg/m2 Dr. Edilia Brady Work Phone: [facility] Work Phone: 09-01-2021 07:29-0400 Body temperature 98.6 [degF] Dr. Edilia Brady Work Phone: [facility] Work Phone: 09-01-2021 07:29-0400 Body weight 73.[address] Edilia Brady Work Phone: [facility] Work Phone: 09-01-2021 07:29-0400 Diastolic blood pressure 75 mm[Hg] Dr. Edilia Brady Work Phone: [facility] Work Phone: 09-01-2021 07:29-0400 Heart rate 52 /min Dr. Edilia Brady Work Phone: [facility] Work Phone: 09-01-2021 07:29-0400 Respiratory rate 16 /min Dr. Edilia Brady Work Phone: [facility] Work Phone: 09-01-2021 07:29-0400 SaO2% (BldA) [Mass fraction] 95 % Dr. Edilia Brady Work Phone: [facility] Work Phone: 09-01-2021 07:29-0400 Systolic blood pressure 146 mm[Hg] Dr. Edilia Brady Work Phone: [facility] Work Phone: 08-05-2021 08:15-0400 Body temperature 98.4 [degF] Chay Leal MD Work Phone: [facility] 08-05-2021 08:15-0400 Diastolic blood pressure 80 mm[Hg] Chay Leal MD Work Phone: [facility] 08-05-2021 08:15-0400 Heart rate 76 /min Chay Leal MD Work Phone: [facility] 08-05-2021 08:15-0400 SaO2% (BldA) [Mass fraction] 95 % Chay Leal MD Work Phone: [facility] 08-05-2021 08:15-0400 Systolic blood pressure 119 mm[Hg] Chay Leal MD Work Phone: [facility] 07-22-2021 08:12-0400 Body mass index (BMI) [Ratio] 24.3 kg/m2 Dr. Edilia Brady Work Phone: [facility] Work Phone: 07-22-2021 08:12-0400 Body temperature 96.9 [degF] Dr. Edilia Brady Work Phone: [facility] Work Phone: 07-22-2021 08:12-0400 Body weight 72.[address] Edilia Brady Work Phone: [facility] Work Phone: 07-22-2021 08:12-0400 Diastolic blood pressure 83 mm[Hg] Dr. Edilia Brady Work Phone: [facility] Work Phone: 07-22-2021 08:12-0400 Heart rate 82 /min Dr. Edilia Brady Work Phone: [facility] Work Phone: 07-22-2021 08:12-0400 Respiratory rate 18 /min Dr. Edilia Brady Work Phone: [facility] Work Phone: 07-22-2021 08:12-0400 SaO2% (BldA) [Mass fraction] 92 % Dr. Edilia Brady Work Phone: [facility] Work Phone: 07-22-2021 08:12-0400 Systolic blood pressure 143 mm[Hg] Dr. Edilia Brady Work Phone: [facility] Work Phone: 07-08-2021 19:42-0400 Diastolic blood pressure 76 mm[Hg] [facility] Work Phone: 07-08-2021 19:42-0400 Heart rate 84 /min [facility] Work Phone: 07-08-2021 19:42-0400 Respiratory rate 18 /min [facility] Work Phone: 07-08-2021 19:42-0400 Systolic blood pressure 139 mm[Hg] [facility] Work Phone: 07-08-2021 16:48-0400 Body height 172.72 cm [facility] Work Phone: 07-08-2021 16:48-0400 Body mass index (BMI) [Ratio] 25.4 kg/m2 [facility] Work Phone: 07-08-2021 16:48-0400 Body temperature 98.3 [degF] [facility] Work Phone: 07-08-2021 16:48-0400 Body weight 76 kg [facility] Work Phone: 07-08-2021 16:48-0400 SaO2% (BldA) [Mass fraction] 95 % [facility] Work Phone: Encounters Encounter Date Encounter Type Care Provider Facility Start: 08-08-2024 End: 08-08-[address] Abiodun Grider MD Work Phone: [facility] Work Phone: Start: 08-08-2024 End: 08-08-[address] Abiodun Grider MD -[facility] Start: 08-08-2024 End: 08-08-2024 ambulatory Abiodun Grider Facility:[facility] Start: 06-12-2024 End: 06-12-2024 Patient encounter procedure Mylene HIGHTOWER -[facility] Work Phone: Start: 06-12-2024 End: 06-12-2024 ambulatory Abiodun Grider Facility:[facility] Start: 05-11-2024 End: 05-11-[address] [facility] Start: 05-11-2024 End: 05-11-2024 ambulatory Abiodun Grider Facility:[facility] Start: 02-14-2024 End: 02-15-2024 ambulatory Abiodun Grider Facility:[facility] Start: 01-27-2024 End: 01-27-2024 ambulatory MILLIE S WEYGANDT Not Available Start: 01-27-2024 End: 01-27-2024 Bamboo flowsheet Millie Monzon LIQUOR INSPECTOR Work Phone: [facility] Start: 01-27-2024 End: 01-27-2024 Bamboo flowsheet Millie Monzon LIQUOR INSPECTOR Work Phone: [facility] Start: 01-27-2024 End: 01-27-2024 Office outpatient visit 15 minutes Millie Monzon LIQUOR INSPECTOR Work Phone: [facility] Comment on above: Chronic migraine wit hout aura, intractable, without status migrainosus (CMS/HCC) Start: 01-19-2024 End: 01-19-2024 ambulatory Mylene Albarran NP Facility:[facility] Start: 09-08-2023 ambulatory Prashant Daniels Facility:[facility] Start: 09-08-2023 End: 09-08-2023 ambulatory [facility] Facility:[facility] Start: 09-05-2023 End: 09-05-2023 ambulatory Abiodun Grider Facility:[facility] Start: 09-02-2023 End: 09-02-2023 ambulatory Abiodun Grider Facility:[facility] Start: 08-31-2023 ambulatory Ant Jessica Facility :[facility] Start: 08-31-2023 End: 08-31-2023 ambulatory Abiodun Grider Facility:[facility] Start: 08-30-2023 End: 08-30-2023 ambulatory [facility] Facility:[facility] Start: 08-27-2023 End: 08-28-2023 ambulatory Gianna Martell Facility:[facility] Start: 08-24-2023 ambulatory Abiodun Grider Facility:[facility] Start: 08-24-2023 End: 08-25-2023 Evaluation and management of inpatient Abiodun Grider Facility:[facility] Start: 08-15-2023 ambulatory Abiodun Grider Facility:[facility] Start: 08-08-2023 End: 08-08-2023 ambulatory MILLIE MONZON Not Available Start: 07-25-2023 End: 07-25-[address] Abiodun Grider Work Phone: [facility] Work Phone: Start: 07-25-2023 End: 07-25-[address] Abiodun Grider Work Phone[facility] Start: 07-12-2023 End: 07-12-2023 ambulatory MILLIE S WEYGANDT Not Available Start: 06-17-2023 End: 06-17-[address] Abiodun Grider Work Phone: [facility] Work Phone: Start: 06-17-2023 End: 06-17-[address] Abiodun Grider Work Phone: [facility]-Sleep Lab Work Phone: Start: 06-13-2023 End: 06-13-[address] [facility] Work Phone: Start: 06-08-2023 End: 06-08-[address] Abiodun Grider Work Phone: [facility] Work Phone: Start: 06-08-2023 End: 06-08-[address] Abiodun Grider Work Phone: [facility] Work Phone: Start: 04-18-2023 End: 04-18-[address] [facility] Work Phone: Start: 04-14-2023 End: 04-14-2023 ambulatory MILLIE S WEYGANDT Not Available Start: 01-17-2023 End: 01-17-[address] Abiodun Grider Work Phone: [facility] Work Phone: Start: 01-17-2023 End: 01-17-[address] Abiodun Grider Work Phone: [facility] Work Phone: Start: 01-05-2023 End: 01-05-[address] Abiodun Grider Work Phone: [facility] Work Phone: Start: 12-22-2022 End: 12-22-2022 Patient encounter procedure Dr. Abiodun Grider Work Phone: [facility] Work Phone: Start: 11-25-2022 End: 11-25-[address] Abiodun Grider Work Phone: [facility] Work Phone: Start: 11-25-2022 End: 11-25-[address] Abiodun Grider Work Phone: [facility] Work Phone: Start: 11-24-2022 Telephone encounter Kelle Logan DPM Work Phone: Podiatry Comment on above: Medication Problem Start: 11-17-2022 End: 11-17-2022 ambulatory ABIODUN GRIDER Facility:[facility] Start: 11-17-2022 End: 11-17-2022 Patient encounter procedure Kelle Logan DPM Work Phone: Podiatry Comment on above: Onychomycosis (Prima ry Dx); Onychocryptosis; Pain; Pain in toe of left foot; Pain in toe of right foot; Tyloma; Diminished pulses in lower extremity Start: 11-05-2022 End: 11-05-[address] Aboidun Grider Work Phone: [facility] Work Phone: Start: 11-05-2022 End: 11-05-[address] Abiodun Grider Work Phone: [facility] Start: 10-14-2022 End: 10-14-[address] Abiodun Grider Work Phone: [facility] Start: 10-14-2022 End: 10-14-[address] [facility] Work Phone: Start: 05-12-2022 End: 05-12-[address] Abiodun Grider Work Phone: [facility] Work Phone: Start: 05-12-2022 End: 05-12-[address] Abiodun Grider Work Phone: [facility] Start: 03-24-2022 End: 03-24-[address] Abiodun Grider Work Phone: [facility] Start: 03-17-2022 End: 03-17-2022 ambulatory [address]UN GRIDER [facility] Start: 03-17-2022 End: 03-17-2022 Office outpatient visit 25 minutes Chay Leal MD Work Phone: [facility] Comment on above: Erectile dysfunction , unspecified erectile dysfunction type Start: 01-01-2022 End: 01-01-2022 ambulatory [facility] Work Phone: Start: 01-01-2022 End: 01-01-2022 Patient encounter procedure [facility] Start: 12-23-2021 End: 12-23-2021 ambulatory CHAY LEAL [facility] Start: 12-23-2021 End: 12-23-2021 Postop follow up visit related to original px Chay Leal MD Work Phone: [facility] Comment on above: Erectile dysfunction , unspecified erectile dysfunction type Start: 11-12-2021 End: 11-12-[address] Edilia Brady Work Phone: [facility] Work Phone: Start: 11-12-2021 End: 11-12-[address] Edilia Brady Work Phone: [facility]-Laboratory Start: 11-04-2021 End: 11-04-2021 ambulatory [facility] Start: 10-21-2021 End: 10-25-2021 ambulatory ALEISHA AKHTAR [facility] Start: 10-08-2021 ambulatory [facility] Ambulatory Start: 10-06-2021 Documentation procedure Ghada hernandez MA [facility] Start: 10-05-2021 Orders Only Chay Leal MD Work Phone: [facility] Comment on above: Erectile dysfunction , unspecified erectile dysfunction type (Primary Dx) Start: 09-01-2021 End: 09-01-[address] Ed[facility] Start: 08-12-2021 Preprocedural examin ation done Chay Leal MD Work Phone: [facility] Work Phone: Start: 08-12-2021 End: 08-16-2021 ambulatory [facility] Start: 08-05-2021 End: 08-05-2021 ambulatory [facility] Start: 08-05-2021 End: 08-05-2021 Office outpatient new 45 minutes Chay Leal MD Work Phone: [facility] Comment on above: Erectile dysfunction , unspecified erectile dysfunction type Start: 07-22-2021 End: 07-22-[address] Edilia Brady Work Phone: [facility] Start: 07-08-2021 End: 07-08-2021 Emergency department patient visit [facility]-Emergency Department Start: 06-23-2021 Transcribe Orders Abiodun Grider MD Work Phone: [facility] Comment on above: Erectile dysfunction , unspecified erectile dysfunction type (Primary Dx) Start: 06-22-2021 ambulatory CHAY MORRELL LEAL [facility] Ambulatory Start: 05-06-2021 End: 05-06-2021 Patient encounter procedure [facility] Start: 04-17-2021 End: 04-17-2021 Patient encounter procedure [facility]MRI - [facility] Start: 04-15-2021 End: 04-15-2021 Patient encounter procedure [facility]Laboratory Start: 03-19-2021 Patient encounter procedure [facility] Start: 12-26-2017 Patient encounter CHEIKH ROBERT Ceballos ility:[facility] Start: 11-22-2017 End: 11-22-2017 Patient encounter GABRIEL PILLAI [facility] Start: 04-27-2017 End: 04-27-2017 Patient encounter CHEIKH JONES [facility] Procedures Date Procedure Procedure Detail Performing Clinician Start: 05-11-2024 Measurement of renal function Dr. Abiodun Grider MD Work Phone: Comment on above: GFR Calc Start: 07-25-2023 Plain chest X-ray Dr. Boris Grider Work Phone: Start: 06-08-2023 Plain chest X-ray Dr. Boris Grider Work Phone: Start: 01-17-[address] Abiodun yates Work Phone: Start: 11-25-2022 Computed tomography of abdomen and pelvis with contrast Dr. Abiodun Grider Work Phone: Start: 01-01-2022 CT of chest Start: 04-17-2021 MRI of brain without contrast Start: 08-16-2013 Colonoscopy Kelle Logan DPGracy Work Phone: Plan of Treatment Date Care Activity Detail Author Start: 01-27-2024 End: 01-27-2024 Telemedicine consultation with patient 01/27/2024 9:00 AM EDT Telemedicine [facility] [address] [place] [phone] Millie Monzon NP [address] [place] [address] Arrived [facility] Comment on above: Arrived Start: 09-20-2023 Tetanus vaccination Tetanus: Every 1 0yrs [facility] Start: 09-20-2023 Urine microalbumin profile DTAP,TDAP,TD (2 - Td or Tdap) [facility] Start: 01-25-2023 Pneumococcal Vaccine : Age 65+ (2 - PCV) Pneumococcal Vaccine: Age 65+ (2 - PCV) [facility] Start: 01-06-2023 LIPID SCREEN LIPID SCREEN [facility] Start: 11-26-2022 Influenza vaccination INFLUENZA (#1) [facility] Start: 11-25-2022 PROSTATE CANCER SCRE ENING DISCUSSION PROSTATE CANCER SCREENING DISCUSSION [facility] Start: 06-23-2022 End: 06-23-2022 Patient encounter procedure 06/23/2022 Office Visit Urology Leal, Chay Morrell MD [address] [place] [address] [place] [address] [facility] Start: 03-28-2022 ADVANCE DIRECTIVE DISCUSSION ADVANCE DIRECTIVE DISCUSSION [facility] Start: 12-31-2021 COVID-19 Vaccine (5 - Booster for Pfizer series) COVID-19 Vaccine (5 - Booster for Pfizer series) [facility] Start: 12-31-2021 COVID-19 VACCINE (5 - Pfizer series) COVID-19 VACCINE (5 - Pfizer series) [facility] Start: 11-26-2021 Influenza vaccination [facility] Start: 10-21-2021 End: 10-21-2021 Admission to establishment 10/21/2021 Clinical Support Pre-Admission Testing [facility] Preadmission Testing Start: 09-23-2021 COVID-19 Vaccine (3 - Booster for Pfizer series) COVID-19 Vaccine (3 - Booster for Pfizer series) [facility] Start: 08-26-2021 End: 08-26-2021 Admission to same day surgery center 08/26/2021 Surgery Leal, Chay Morrell MD [address] [place] [address] INSERTION PENILE PROSTHESIS INFLATABLE (AMS 700) [facility] Periop Comment on above: INSERTION PENILE PRO STHESIS INFLATABLE (AMS 700) Start: 08-26-2021 End: 08-26-2021 INSERTION PENILE PROSTHESIS INFLATABLE INSERTION PENILE PROSTHESIS INFLATABLE Erectile dysfunction, unspecified erectile dysfunction type 08/26/2021 1:57 PM EDT [facility] Main OR Start: 08-26-2021 Subsequent hospital visit by physician 08/26/2021 Hospital Encounter Leal, Chay Morrell MD [address] [place] [address] [facility] Start: 08-12-2021 End: 08-12-2021 Admission to establishment 08/12/2021 Clinical Support Pre-Admission Testing [facility] Preadmission Testing Start: 08-05-2021 End: 08-05-2021 Patient encounter procedure 08/05/2021 Office Visit Urology Leal, Chay Morrell MD [address] [place] [address] [facility] Start: 11-26-2020 Influenza vaccination Sequenti al Influenza Vaccine (#1) [facility] Start: 2020 Fall risk assessment Falls Risk Asse ssment [facility] Start: 2020 Pneumococcal Vaccine : Age 65+ (1 - PCV) Pneumococcal Vaccine: Age 65+ (1 - PCV) [facility] Start: 2020 Pneumococcal Vaccine : Age 65+ (1 of 1 - PPSV23) Pneumococcal Vaccine: Age 65+ (1 of 1 - PPSV23) [facility] Start: 01-20-2020 DIABETES SCREEN DIABETES SCREEN [facility] Start: 08-16-2018 Colonoscopy COLONOSCOPY [facility] Start: 08-16-2018 COLORECTAL CANCER SCREENING COLORECTAL CANCER SCREENING [facility] Start: 03-08-2017 Screening for malign ant neoplasm of colon [facility] Start: 03-05-2017 FECAL OCCULT BLOOD FECAL OCCULT BLOO D [facility] Start: 03-02-2014 SHINGRIX VACCINE (2 of 3) HERNANDEZ GRIX VACCINE (2 of 3) [facility] Start: 12-25-2013 Pneumococcal Vaccine : Age 65+ (2 - PCV) Pneumococcal Vaccine: Age 65+ (2 - PCV) [facility] Start: 12-25-2013 PNEUMOCOCCAL: 65+ (2 - PCV) PNEUMOCOCCAL: 65+ (2 - PCV) [facility] Start: 2005 Administration of he rpes zoster vaccine Zoster Vaccines (1 of 2) [facility] Start: 2005 Screening for malign ant neoplasm of colon [facility] Start: 2000 COLOGUARD (FIT-DNA) COLOGUARD (FIT-D NA) [facility] Start: [address] COLONOGRAPHY [facility] Start: 2000 SIGMOIDOSCOPY SIGMOIDOSCOPY [facility] Start: 1985 Zoledronic acid therapy ALPHA- 1 ANTITRYPSIN DEFICIENCY SCREENING [facility] Start: 1973 ANNUAL PCP TEAM MANAGER EDUCATIONAL SADE DISEASE VISIT ANNUAL PCP TEAM CHRONIC DISEASE VISIT [facility] Start: 1973 BP CONTROLLED (<130/80) BP CON TROLLED (<130/80) [facility] Start: 1973 Hepatitis C screening Hepatitis C Sc reening [facility] Start: 1967 Depression screening using PHQ-9 (Patient Health Questionnaire 9) score Depression Screening (PHQ-2/9) [facility] Start: 1960 COVID-19 Vaccine (1) COVID-19 Vaccin e (1) [facility] Start: 1958 History and physical examination, annual for health maintenance Wellness Visit [facility] Start: 1955 Abdominal aortic ane urysm screening Abdominal Aortic Ultrasound [facility] Start: 1955 ABDOMINAL AORTIC ANE URYSM SCREENING ABDOMINAL AORTIC ANEURYSM SCREENING [facility] Start: 1955 Prostate specific an tigen measurement PSA Level [facility] Start: 1955 Screening for malign ant neoplasm of colon [facility] Start: 1955 Tetanus vaccination Tetanus: Every 1 0yrs [facility] INSERTION PENILE PROSTHESIS INFLATABLE INSERTION PENILE PROSTHESIS INFLATABLE Erectile dysfunction, unspecified erectile dysfunction type [facility] Main OR Patient Education ED Vomiting (Adult) [facility] Work Phone: Patient referral [facility] Work Phone: Polysomnography [facility] End: 10-23-2023 XR FOOT GENERAL 3V AP/LAT/OBL BILATERAL XR FOOT GENERAL 3V AP/LAT/OBL BILATERAL Radiology Routine Pain 1 Occurrences starting 09/23/2022 until 10/23/2023 [facility] Work Phone: Comment on above: 1 Occurrences starti ng 09/23/2022 until 10/23/2023 Immunizations Immunization Date Immunization Notes Care Provider Hillary escobedo 12-27-2016 influenza, injectabl e, quadrivalent, contains preservative Kelle Hild DPM Work Phone: [facility] 01-09-2016 influenza, injectabl e, quadrivalent, contains preservative Kelle Hild DPM Work Phone: [facility] Work Phone: 12-20-2014 influenza, seasonal, injectable Kelle Hild DPM Work Phone: [facility] 01-05-2014 zoster vaccine, live Kelle Hi ld DPM Work Phone: [facility] 12-26-2013 influenza, seasonal, injectable Kelle Hild DPM Work Phone: [facility] 09-19-2013 tetanus toxoid, redu milagros diphtheria toxoid, and acellular pertussis vaccine, adsorbed Kelle Hild DPM Work Phone: [facility] 12-25-2012 pneumococcal polysaccharide vaccine, 23 valent Kelle Hild DPM Work Phone: [facility] Payers Date Payer Category Payer Self-pay [id number] 2023 Medicare (Managed Care) [facility] MEDICARE [id number] 2022 Unknown [id number] 2021 Medicaid [id number] 2021 Medicaid MEDICAID [facility] [id number] 2021-[facility] [phone] [address] [place] [address] [id number]. [id number] 2020 Unknown [id number] 2020 Medicare [id number] 2020 Medicare [id number] 1955 Unknown [id number] 2.840.1.410270.3.579.2. 903 1955 Unknown [id number] 2.16840.1.555146.3.579.2. 903 1955 Unknown [id number] 2.16840.1.176345.3.579.2. 903 1955 Unknown [id number] 2.16840.1.875486.3.579.2. 903 1955 Unknown [id number] 2.16.840.1.683021.3.579.2. 903 1955 Unknown [id number] 2.16.840.1.896482.3.579.2. 903 1955 Unknown [id number] 2.16.840.1.371228.3.579.2. 903 1955 Unknown [id number] 2.16.840.1.815104.3.579.2. 903 1955 Unknown [id number] 2.16.840.1.203515.3.579.2. 903 1955 Unknown [id number] 2.16.840.1.018004.3.579.2. 903 1955 Unknown [id number] 2..840.1.653739.3.579.2. 1259 1955 Unknown [id number] 2.16.840.1.772827.3.579.2. 1259 1955 Unknown [id number] 2..840.1.437376.3.579.2. 1259 1955 Unknown [id number] 2.16.840.1.330589.3.579.2. 1259 Medicaid [id number] Medicare [id number] Unknown [id number] 2.16.840.1.185922.3.579.2. 462 Unknown [id number] 2.840.1.481980.3.579.2. 462 Unknown [id number] 2.16.840.1.570569.3.579.2. 462 Unknown [id number] 2.16.840.1.484628.3.579.2. 462 Unknown [id number] 2.16.840.1.129939.3.579.2. 462 Unknown [id number] 2.16.840.1.721530.3.579.2. 462 Unknown [id number] 2.16.840.1.219688.3.579.2. 462 Unknown [id number] 2.16840.1.929312.3.579.2. 462 Unknown [id number] 2.16840.1.319475.3.579.2. 462 Unknown [id number] 2.16.840.1.684280.3.579.2. 462 Unknown [id number] 2.16840.1.445840.3.579.2. 462 Unknown [id number] 2.840.1.100149.3.579.2. 462 Unknown [id number] 2.840.1.834918.3.579.2. 462 Unknown [id number] 2.840.1.411286.3.579.2. 462 Unknown [id number] 2.840.1.217954.3.579.2. 462 Unknown [id number] 2.840.1.413212.3.579.2. 462 Unknown [id number] 2.840.1.716274.3.579.2. 462 Unknown [id number] 2.840.1.140294.3.579.2. 462 Unknown [id number] 2.840.1.720735.3.579.2. 462 Unknown [id number] 2.840.1.490982.3.579.2. 462 Unknown [id number] 2.840.1.501048.3.579.2. 462 Unknown [id number] 2.840.1.841322.3.579.2. 462 Unknown [id number] 2.840.1.826566.3.579.2. 462 Unknown [id number] 2.840.1.801482.3.579.2. 462 Social History Date Type Detail Facility Start: 07-08-2021 End: 06-13-2023 Tobacco smoking status MDIS Tobacco smoking consumption unknown [facility] Start: 1955 Sex Assigned At Not on file [facility] Start: 10-13-2018 None [facility] Start: 10-13-2018 Spouse/ Significant Other [facility] Start: 10-14-2018 Cigarettes [facility] Start: 1955 Sex Assigned At Male [facility] Start: 07-26-2021 End: 03-17-2022 Exposure to SARS-CoV-2 (event) Not sure [facility] Start: 08-12-2021 End: 08-27-2023 Tobacco smoking status NHIS Ex-smoker [facility] End: 08-26-2020 History of tobacco use Current smoker [facility] Start: 03-28-1970 End: 08-26-2020 History of tobacco use Cigarette Smoker [facility] Start: 08-12-2021 End: 03-17-2022 Alcohol intake Ex-drinker (finding) [facility] Start: 10-21-2021 End: 01-26-2023 Tobacco use and exposure Smokeless tobacco non-user [facility] Start: 03-28-1970 Tobacco smoking status MDIS Smokes tobacco daily [facility] Start: 11-17-2022 End: 01-26-2023 Cigarettes smoked current (pack per day) - Reported 0.3 [facility] Start: 11-17-2022 Alcohol intake Current non-drinker of alcohol (finding) [facility] Start: 11-17-2022 End: 01-26-2023 Tobacco use panel [facility] National Score (1-10 0), lower number is lower risk 66 [facility] Start: 01-06-2017 Alcohol Comment has drank in 30 years, in younger day s drank [facility] Start: 07-20-2018 Gender identity Identifies as male gender (finding) [facility] Start: 07-20-2018 Sexual orientation Heterosexual (finding) [facility] Start: 01-26-2023 End: 01-27-2024 Alcoholic beverage intake Lifetime non-drinker (finding) [facility] Start: 01-26-2023 Tobacco Comment Heavy cigarette smoker (20-39/day) [facility] Start: 01-26-2023 Alcohol Comment caffeine: more than 4 cups per day soda/ pop mt. dew [facility] Medical Equipment Procedure Code Equipment Code Equipment Origin al Text Equipment Identifier Dates Ams 700 Lgx Ms Pump [id number], [id number] FDA Start: 11-04-2021 [place] Bio-Swivelock 4.75mm 24.5mm Suture Self Punch Sterile Disposable - [id number] Start: 12-19-2015 Comment on above: Description: Suture [place] Clinical Notes 12-05-2015 to 06-12-2024 Note Date & Type Note Facility 06-12-2024 Evaluation note Diagnosis Onset Date Resolution Asthma-COPD overlap syndrome chronic June 12, 2024 9:45am Hypoxia chronic June 12 9:45am Smoking greater than 30 pack years chronic June 12, 2024 9:45am [facility] Work Phone: 1(739) 207-171311-01-2024 History of Present illness Narrative* Millie Miranda Monzon, LIQUOR INSPECTOR - 01/27/2024 9:00 AM EDT Images from the original note were not included. CHIEF COMPLAINT: migraines HISTORY OF PRESENT ILLNESS: 68 year old male to follow up on migraines via telemedicine visit, verbal consent obtained. Migraines well controlled with topamax, migraine free from last visit, has not needed to take maxalt. Rare occasions may get a mild valdes- not bothersome, no abortive needed. Tolerates topamax well. Denies further questions or concerns. Current Outpatient Medications on File Prior to Visit Medication Sig Dispense Refill amLODIPine (Norvasc) 5 MG tablet Take 5 mg by mouth in the morning. aspirin (Aspirin EC Low Strength) 81 MG EC tablet Take 81 mg by mouth in the morning. atenolol (Tenormin) 50 MG tablet Take 50 mg by mouth in the morning. buPROPion SR (Wellbutrin SR) 100 MG 12 hr tablet Take 100 mg by mouth in the morning and 100 mg before bedtime. FLUoxetine (PROzac) 20 MG capsule Take 1 capsule by mouth 1 (one) time each day at the same time. Lipitor 20 MG tablet Take 20 mg by mouth in the morning. losartan (Cozaar) 100 MG tablet Take 100 mg by mouth in the morning. omeprazole (PriLOSEC) [address] capsule Take 20 mg by mouth in the morning. Take before meals. pantoprazole (ProtoNix) 40 MG EC tablet Take 40 mg by mouth rizatriptan (Maxalt) 10 MG tablet Take 1 tablet (10 mg) by mouth 1 (one) time if needed for migraine (1 tablet daiily as needed for onset of migraine. may repeat 2nd dose in 2 hrs if needed. Mas 2 doses in 24 hours) May repeat in 2 hours if unresolved. Do not exceed 30 mg in 24 hours. 9 tablet 2 topiramate (Topamax) 25 MG tablet Take 3 tablets (75 mg) by mouth in the morning and 3 tablets (75 mg) before bedtime. 540 tablet 1 Trelegy Ellipta 200-62.5-25 MCG/ACT aerosol powder No current facility-administered medications on file prior to visit. Past Medical History: Diagnosis Date Acid reflux COPD (chronic obstructive pulmonary disease) (CMS/[facility]) Emphysema lung ([facility]/HCC) High blood pressure ([facility]/HCC) High cholesterol ([facility]/HCC) History of being hospitalized Breathing issues- Jan and Feb 2021 [facility] Memory loss Obstructive sleep apnea Tremors of nervous system Past Surgical History: Procedure Laterality Date GALLBLADDER OTHER SURGICAL HISTORY lump removed from head OTHER SURGICAL HISTORY 10/2021 ED PUMP ROTATOR CUFF REPAIR Right Family History Problem Relation Name Age of Onset Diabetes Mother Cancer Father Pancreatic/Lung Unexplained Brother Heart disease Other Spouse Hole in heart Diabetes Sibling No Known Problems Son No Known Problems Son No Known Problems Daughter Social History Tobacco Use Smoking status: Former Current packs/day: 0.00 Types: Cigarettes Quit date: 08/26/2020 Years since quittin.4 Smokeless tobacco: Never Tobacco comments: Heavy cigarette smoker (20-39/day) Substance Use Topics Alcohol use: Never Comment: caffeine: more than 4 cups per day soda/ pop mt. [employer] ALLERGIES: Lisinopril REVIEW OF SYSTEMS: General: Appetite change: denies. Chills: denies. Fever: denies. Allergy/Immunology: Unusual rection to medications, food, animals or insects reaction: denies. Ophthalmologic: Visual acuity change: denies. ENT: Decreased hearing: denies. Endocrine: Weight loss: denies. Respiratory: Cough: denies. Wheezing: denies. Cardiovascular: Chest pain: denies. Palpitations: denies. Gastrointestinal: Abdominal pain: denies. Difficulty swallowing: denies Hematology: Bleeding problems: denies. Genitourinary: Painful urination: denies. Musculoskeletal: Joint pain: denies. Joint edema: denies. Skin: Rash: denies. Neurologic: Ataxia: denies, Tremor: denies. Psychiatric Anxiety: denies. Depression: denies. Insomnia: denies. Suicidal thoughts: denies. Also see HPI for elements of ROS documented therein and for details of positive findings, which shall supersede the foregoing. OBJECTIVE: Objective There were no vitals filed for this visit. There is no height or weight on file to calculate BMI. Examination: General Exam: pleasant, well nourished, well developed, in no acute distress Eyes: extraocular movement intact (EOMI) upper eyelids normal , lower eyelids normal Neurologic: nonfocal, alert and oriented, cognitive exam grossly normal, cranial nerves 2-12 grossly intact - Exam limited d/t telemedicine Psych: pleasant, cooperative, good eye contact , speech clear , judgement and insight good ASSESSMENT/PLAN: 1. Chronic migraine without aura, intractable, without status migrainosus (CMS/HCC) Stable, continue topamax 75 mg bid, maxalt prn - topiramate (Topamax) 25 MG tablet; Take 3 tablets (75 mg) by mouth in the morning and 3 tablets (75 mg) before bedtime. Dispense: 540 tablet; Refill: 1 Pt has been fully educated on their diagnosis, treatment options, follow up plan, and return instructions. documented in this encounterReynolds [facility] [id number] [facility] Records Department [address] [place] [address] History Physical Exam 08/31/23 1000 MR#: [id number] Acct: [id number] Name: EDILIA NORTON Rep #: [id number] : 1955 68 From: Ant Friend DO PCP: Dr. Abiodun Grider MD Status:[facility] Location: [place] [address] HPI - General General Date of Admission: 08/31/23 Date of Service: 08/31/23 Chief Complaint: Screening colonoscopy HPI Narrative EDILIA NORTON, is a 68 M who presents with a history of small bowel obstruction, thrombocytopenia, sleep apnea, COPD who arrives here for screening colonoscopy. He does not have any abdominal pain. He is not of any cramping. He denies any chest pain or shortness of breath. He is not have any weakness. Overall he is in very good health. [facility] Medical History Wears hearing aid Wears glasses Arthritis Former smoker BiPAP (biphasic positive airway pressure) dependence Sleep apnea Emphysema, unspecified Asthma Shortness of breath on exertion Leg cramps History of stress test Cardiology follow-up encounter Hypertension Personal history of colonic polyps SBO (small bowel obstruction) Nicotine dependence Nonsustained paroxysmal supraventricular tachycardia Atherosclerosis of coronary artery of [place] heart without angina pectoris GALE on CPAP Hyperlipidemia (Unknown) Essential hypertension GERD (gastroesophageal reflux disease) Depression COPD (chronic obstructive pulmonary disease) Home Medications ???Medication ???Instructions ???Recorded ???Last Taken ???Type aspirin 81 mg tablet,delayed 81 mg PO DAILY@0800 preventive 03/20/17 08/27/23 History release atenolol 50 mg tablet 50 mg PO DAILY bp 03/20/17 10/30/18 06:30 History fluoxetine 20 mg capsule 20 mg PO DAILY mood 03/20/17 10/13/18 History bupropion HCl 100 mg tablet,12 hr 100 mg PO BID mood 10/13/18 10/13/18 History sustained-release atorvastatin 20 mg tablet 20 mg PO QHS cholestrol 09/11/19 Unknown History losartan 100 mg tablet 100 mg PO DAILY bp #90 tabs 10/02/19 Unknown Rx albuterol sulfate 90 mcg/actuation 2 puff inhalation Q4H PRN PRN Sob 10/14/22 Unknown Rx aerosol inhaler /Or Wheezing #8.5 grams amlodipine 5 mg tablet 5 mg PO DAILY blood pressure 12/22/22 Unknown History topiramate 25 mg tablet 75 mg PO BID headaches 12/22/22 Unknown History fluticasone fur. 200 mcg-umeclid 1 inh inhalation DAILY breathing 04/18/23 Unknown Rx 62.5 mcg-vilant 25 mcg #60 ea inhalat.powder (Trelegy Ellipta) nitroglycerin 0.4 mg sublingual 0.4 mg sublingual QDAY PRN chest 07/29/23 Unknown History tablet pain albuterol sulfate 2.5 mg/3 mL 2.5 mg inhalation Q8H PRN 08/24/23 Unknown History (0.083 %) solution for nebulization shortness of breath or wheezing polyethylene glycol 3350 17 17 g PO DAILY 1 month #510 grams 08/28/23 Unknown Rx gram/dose oral powder (Miralax) sennosides 8.6 mg-docusate sodium 2 tab PO BID #0 tabs 08/28/23 Unknown Rx 50 mg tablet (Stool Softener-Stimulant Laxative) Allergy/AdvReac Type Severity Reaction Status Date / Time lisinopril AdvReac Intermediate cough Verified 08/31/23 08:10 Family History Mother Diabetes Father Cancer prostate Sister Diabetes Surgical History History of esophagogastroduodenoscopy (EGD) Hx of cholecystectomy History of skin graft History of rotator cuff surgery History of colonoscopy with polypectomy Social History (Updated 08/27/23 @ 03:[address] Gianna Martell MD) household members: spouse Smoking Status: Former smoker how long ago did patient quit smokin alcohol intake: never substance use type: does not use caffeine: Yes what type of physical activity do you participate in: none frequency: does not exercise ROS ROS Narrative Admission Review of Systems: CONSTITUTIONAL: No weight loss, fever, chills, + weakness or fatigue. HEENT: Eyes: No visual loss, blurred vision, double vision or yellow sclerae. Ears, Nose, Throat: No hearing loss, sneezing, congestion, runny nose or sore throat. SKIN: No rash or itching, lesions, wounds. CARDIOVASCULAR: chest pain. No+ palpitations, edema, orthopnea, syncopal events. RESPIRATORY: + Dyspnea, increased cough. No markedly productive sputum, wheezing, hemoptysis. GASTROINTESTINAL: No anorexia, nausea, vomiting or diarrhea, abdominal pain, melena, BRBPR. GENITOURINARY: No dysuria, frequency, urgency or retention. NEUROLOGICAL: No headache, dizziness, syncope, paralysis, ataxia, numbness or tingling in the extremities, focal weakness, change in bowel or bladder control, seizure. MUSCULOSKELETAL: + muscle, back pain, joint pain or stiffness. HEMATOLOGIC: No anemia (more content not included)...[facility] 08-28-2023 [facility] Medical Records Department [address] [place] [address] Discharge Summary 08/28/23 1052 MR#: [id number] Acct: [id number] Name: EDILIA NORTON Rep #: [id number] : 1955 68 From: Paul Klein MD PCP: Dr. Abiodun Grider MD Status:ADM [facility] Location: [place] [address] Providers Date of Admission: 08/27/23 Date of Discharge: 08/28/23 Primary Care Physician: Dr. Abiodun Grider MD Consultations 08/27/23 04:41 Consult: General Surgery Routine Consulting Provider: Jen Baker Reason for Consult: Small spontaneous PTX EMERGENT Consult: No MD Notified: Yes Date Notified: 08/27/23 Time Notified: 02:45 Method of Notification: ED Physician Initiated Reason For Visit: PTX, SMALL Diagnosis Discharge Diagnosis (1) Pneumothorax: Status: Acute Code(s): J93.9 - Pneumothorax, unspecified (2) History of COPD: Status: Chronic Code(s): Z87.09 - Personal history of other diseases of the respiratory system Plan The patient is a 68 y/o M was brought to ED by EMS for acute left-sided chest discomfort, localized, nonradiating 10/10 in intensity on and off for the whole day. Pain worse with deep breathing. Patient has chronic cough with increased severity and white clear mucus. History of smoking. #1. Spontaneous small left-sided pneumothoraces with associated chest discomfort, improving: [facility] Discussed with the surgeon.Chest CT scan and repeat chest x-ray from morning today reviewed. Shows stable 10% left apical pneumothorax. No pleural effusion, airspace opacification/consolidation. Chronic hyperinflation suggesting emphysema. Patient will need repeat chest x-ray tomorrow. No plan for surgical chest tube insertion. 08/28/2023: Repeat chest x-ray PA and lateral, the images individually reviewed with the surgeon. Small and stable left apical pneumothorax persistent. About 10% left apical pneumothorax. Patient is discharged with instruction for outpatient chest x-ray PA and lateral on 08/30/2023 and follow-up with surgeon Dr. Baker. #2. Incidental pulmonary nodule: CTPA with noted 3 mm right upper lobe nodule, will need follow-up outpatient CT reassessment. #3. Recent SBO, resolved: Patient with no recurrent symptoms of abdominal discomfort, distention, nausea or emesis and appropriate bowel movements as well as tolerating diet. Continue to closely monitor but appears completely resolved. Bowel sounds present. Passing flatus but no bowel movements for the last 2 days 6/: Continue fljy-hsv-jgpegyk senna as and MiraLAX. Follow-up with surgery. #4. Anxiety and depression: We will continue patient home fluoxetine and bupropion regimen, encourage continued outpatient follow-up and assessment. #5. Hypertension: Continue home regimen including losartan, atenolol, amlodipine, PRN hydralazine. #6. Hyperlipidemia:continue patient on statin therapy. #7. Chronic headache/migraine: continue patient home topiramate regimen. #8. GALE: Not currently using PAP therapy, encourage continued outpatient follow- up to assure not necessary as patient notes he was told medically he did not need it any longer. #9. GERD: On Mylanta as needed #10. Former tobacco use: Encourage continued tobacco cessation. #11. Chronic COPD/asthma: Will maintain on continuous 2 L nasal cannula supplementation given acute presentation as noted #1 unless further increased oxygen requirement is necessary, maintain on ATC budesonide therapy, PRN albuterol, HOB, IS parameters. #12. DVT prophylaxis: SCDs, will defer chemoprophylaxis in case pneumothoraces worsens and intervention is necessary. #13. CODE STATUS: Full Code. Discharge medication reconciliation done. Discharge follow-up instructions completed. Discharge process discussed with the patient and all questions were answered to patient's satisfaction. Follow with PCP in 1 to 2 weeks Total time spent, exact 35 minutes on discharge meds reconciliation, examination, coordination of care with nurses and ancillary staff, review of imaging and blood test and discussion with the patient on follow-up instructions. Medications at Discharge Home Medications aspirin 81 mg tablet,delayed release 81 mg PO DAILY@0800 preventive 03/20/17 atenolol 50 mg tablet 50 mg PO DAILY bp 03/20/17 fluoxetine 20 mg capsule 20 mg PO DAILY mood 03/20/17 bupropion HCl 100 mg tablet,12 hr sustained-release 100 mg PO BID mood 10/13/18 atorvastatin 20 mg tablet 20 mg PO QHS cholestrol 09/11/19 losartan 100 mg tablet 100 mg PO DAILY bp #90 tabs 10/02/19 albuterol sulfate 90 mcg/actuation aerosol inhaler 2 puff inhalation Q4H PRN PRN Sob /Or Wheezing #8.5 grams 10/14/22 amlodipine 5 mg tablet 5 mg PO DAILY blood pressure 12/22/22 topiramate 25 mg tablet 75 mg PO BID headaches 12/22/22 fluticasone fur. 200 mcg-umeclid 62.5 mcg-vilant 25 mcg inha (more content not included)...[facility]05-30-2024 [facility] Medical Records Department [address] [place] [address] Discharge Summary 08/25/23 1345 MR#: [id number] Acct: [id number] Name: EDILIA NORTON Rep #: [id number] : 1955 68 From: Kristian Mills DO PCP: Dr. Abiodun Grider MD Status:ADM IN Location: [facility] [id number] Providers Date of Admission: 08/24/23 Date of Discharge: 08/25/23 Primary Care Physician: Dr. Abiodun Grider MD Consultations 08/24/23 19:31 Consult: General Surgery Routine Consulting Provider: Jen Baker Reason for Consult: sbo EMERGENT Consult: No MD Notified: Yes Date Notified: 08/24/23 Time Notified: 18:12 Method of Notification: ED Physician Initiated Reason For Visit: SMALL BOWEL OBSTRUCTION Diagnosis Discharge Diagnosis (1) SBO (small bowel obstruction): Status: Acute Code(s): K56.609 - Unspecified intestinal obstruction, unspecified as to partial versus complete obstruction Plan 1. Small bowel obstruction- #2 chronic obstructive pulmonary disease-patient is on room air at this time, he is on albuterol aerosols as needed, I will place him on DuoNeb aerosol treatments every 6 hours while awake #3 essential hypertension-patient's blood pressure will be monitored, he is on IV hydralazine as needed #4 chronic depression-patient's home medications are being held at this time due to his NG tube Total clinical time spent by myself addressing the patient's medical issues, reviewing all of his data, and collaborating with patient's care team: 35 minutes Medications at Discharge Home Medications aspirin 81 mg tablet,delayed release 81 mg PO DAILY@0800 preventive 03/20/17 atenolol 50 mg tablet 50 mg PO DAILY bp 03/20/17 fluoxetine 20 mg capsule 20 mg PO DAILY mood 03/20/17 bupropion HCl 100 mg tablet,12 hr sustained-release 100 mg PO BID mood 10/13/18 atorvastatin 20 mg tablet 20 mg PO QHS cholestrol 09/11/19 losartan 100 mg tablet 100 mg PO DAILY bp #90 tabs 10/02/19 albuterol sulfate 90 mcg/actuation aerosol inhaler 2 puff inhalation Q4H PRN PRN Sob /Or Wheezing #8.5 grams 10/14/22 amlodipine 5 mg tablet 5 mg PO DAILY blood pressure 12/22/22 topiramate 25 mg tablet 25 mg PO BID headaches 12/22/22 fluticasone fur. 200 mcg-umeclid 62.5 mcg-vilant 25 mcg inhalat.powder (Trelegy Ellipta) 1 inh inhalation DAILY breathing #60 ea 04/18/23 nitroglycerin 0.4 mg sublingual tablet 0.4 mg sublingual QDAY PRN chest pain 07/29/23 albuterol sulfate 2.5 mg/3 mL (0.083 %) solution for nebulization 2.5 mg inhalation Q8H PRN shortness of breath or wheezing 08/24/23 Hospital Course Operations None Procedures None Summary of Care Provided Minutes Spent on Discharge: 30 Hospital Course: This 68-year-old white male was seen in the emergency room at [facility] with complaints of abdominal pain, he stated the abdominal pain was in the lower abdomen, he had nausea but no vomiting. Lab work done in the emergency room showed a normal white blood cell count, chemistry profile was unremarkable, CT scan of the abdomen and pelvis was read by radiology as a small bowel obstruction. General surgery was contacted, they recommended insertion of an NG tube and the patient was admitted to [place] [address] under the hospitalist service. Patient received IV fluids and a small bowel follow-through was obtained on 08/25/2023 which showed resolution of the small bowel obstruction. Etiology of the small bowel obstruction was not known but it was suspected that the patient may have had adhesions. Patient's medical condition stabilized and his small bowel obstruction resolved quicker than expected. On 08/25/2023, patient was seen and examined: On examination he appeared in good health and spirits. Vital signs as documented. Skin warm and dry and without overt rashes. Neck without JVD, neck was supple, trachea midline, thyroid was normal. Lungs clear bilaterally, normal air movement was noted. Heart exam notable for regular rhythm, normal sounds and absence of murmurs, rubs or gallops. Abdomen unremarkable and without evidence of organomegaly, masses, or abdominal aortic enlargement. Bowel sounds are present, abdomen is not distended. Extremities nonedematous, no cyanosis was noted, no clubbing was noted. Neuro: Cranial nerves II through XII are grossly intact, no focal motor deficits were noted, sensation to light touch and pinprick intact, motor exam 5/5 throughout. Psych: Patient is alert and oriented x3, he does not appear anxious or depressed, he does not appear agitated. On 08/25/2023, patient was seen and examined and felt in stable condition for discharge home Weight / BMI Weight Weight: 70.1 kg Body Mass Index (BMI) 23.5 ABG / Lab / Microbiology Data 08/25/23 06:03 08/25/23 06:03 Laboratory: Laboratory Results - last 24 hr 08/24/23 15:05: WBC 9.2, RBC 5.59, Hgb 15 (more content not included)...[facility]09-07-2023 Miscellaneous Notes* Telephone Encounter - Chelsy Argueta RN - 12/02/2022 8:26 AM EDT Patient has not returned calls. * Telephone Encounter - Chelsy Argueta RN - 12/01/2022 9:03 AM EDT LVM for patient to call the office. Please relay message below: Urea Cream denied by insurance- not a covered medication. Can use Good Rx to get at lower cost. Go online type in GoodRx, type in medication and can get a coupon, or stop by office and get one. Most pharmacies can help with this as well. * Telephone Encounter - Chelsy Argueta RN - 11/26/2022 12:55 PM EDT LVM for patient to call the office. Please relay message below: Urea Cream denied by insurance- not a covered medication. Can use Good Rx to get at lower cost. Go online type in GoodRx, type in medication and can get a coupon, or stop by office and get one. Most pharmacies can help with this as well. * Telephone Encounter - Nika Posey - 11/26/2022 10:45 AM EDT Patient returning call from Dr. Logan's office. Didn't answer because he did not recognize number. He can be reached at [phone]. JOANNA Snider * Telephone Encounter - Chelsy Argueta RN - 11/24/2022 11:12 AM EDT LVM for patient to call the office. Urea Cream denied by insurance- not a covered medication. Can use Good Rx to get at lower cost. documented [facility] NoteHNO ID: [id number] Author: Kelle Logan DPM Service: ? Author Type: Physician [...] in the last 1 encounters. PCP: Abiodun Grider MD HBA1C, Van Date Value Ref Range Status 03/31/2010 5.8 [...] READY FOR DOSE* clotrimazole (MYCELEX) 10 mg rose Use 1 Rose as instructed five times daily. doxycycline monohydrate [...] shortness of breath CARDIO (more content not included)...[facility]08-23-2023 Instructions* Patient Instructions* Kelle Logan DPM - 11/17/2022 3:30 PM EDT [...] have found are amlactin/lac-hydrin 12% (usually at [facility]) unles s you have been prescribed UREA 40 cream [...] best for this. Use a file on thetop of your nails. The thinner your nails are the more likely the medication will be able to penetrate the thick nail plate and attack the fungus which are deep under the nail plate. Once nail fungushas cleared (which often times takes a year or more) then continue to treat preventatively with themedicine a few times a week or weekly. [...] office to discuss other options. [facility] will accept Good RX as well and may offer substantial saving if the cost to you for this medication is high. documented in this encounterBrecksville [facility]08-[facility] History of Present illness Narrative* Kelle Logan DPM - 11/17/2022 3:25 PM EDT Initial Podiatric Office Visit: Chief Complaint: This 67 year old patient who presents with: thickened toenails. HPI Patient presents today for concerns regarding nail fungus. Patient states that they have elongated,thickened toenails that are difficult to trim on [...] in the last 1 encounters. PCP: Abiodun Grider MD HBA1C, Van Date Value Ref Range Status 03/31/2010 5.8 [...] READY FOR DOSE* clotrimazole (MYCELEX) 10 mg rose Use 1 Rose as instructed five times daily. doxycycline monohydrate 100 mg tablet Take 1 tablet by mouth twice daily. benzonatate (TESSALON PERLE) 100 mg capsule Take 1 capsule by mouth three times daily as needed forCough. terbinafine HCl (LAMISIL) 1 % cream APPLY [...] hypertrophic and dystrophic. Over growth of penlac onall nails today. Nails are brittle and have [...] both length and thickness without complication. Overgrown nailstoday, thick with penlac 3. For nail fungus I recommend penlac which was prescribed today. Apply once daily for a year. Keepnails thin while treating for best results. The [...] discuss other options. 4. RX Urea 40. Kelle Logan DPM, TREVOR, FACFAS Pager: [phone] [facility] and [facility] locations documented in this encounterBrec[facility]12-21-2022 Evaluation + Plan note* Assessment & Plan Note - Chay Leal MD - 03/17/2022 10:04 AM EST Associated Problem(s): Erectile dysfunction He felt like [...] while he was in the office today. [id number] History of Present illness Narrative* Chay Leal MD - 03/17/2022 10:04 AM EST Images from the original note were not [...] Initially seen by and referred by Abiodun Grider MD . Duration: Chronic Aggravating Factors: Multiple [...] Take 1 (one) tablet by mouth daily Morning., Disp: , Rfl: atorvastatin (LIPITOR) 20 MG tablet, Take 1 (one) tablet (20 mg total) by mouth daily Morning ., Disp: , Rfl: buPROPion (WELLBUTRIN SR) 100 MG 12 hr tablet, Take by mouth Morning ., Disp: , Rfl: custom prescription (e-prescribable), cpap mask. Sleep apnea, Disp: , Rfl: FLUoxetine (PROZAC) 20 MG capsule, Take by mouth Morning ., Disp: , Rfl: xvfguejmujk-ceadtaecp-zwoztfvm (Trelegy Ellipta) 200-62.5-25 mcg DsDv, daily AM ., Disp: , Rfl: losartan (COZAAR) 100 MG tablet, Take 1 (one) tablet (100 mg total) by mouth daily morning ., Disp:, Rfl: tiotropium bromide (Spiriva Respimat) 2.5 mcg/actuation [...] discussed treatment options including: Chay Leal M.D [facility] documented in this [id number] Miscellaneous Notes* Assessment & Plan Note - Chay Leal MD - 03/17/2022 10:04 AM ESTAssociated Problem(s): Erectile dysfunction He felt like he [...] in the office today. documented in this [id number] History of Present illness Narrative* Chay Leal MD - 12/23/2021 11:21 AM EDT Images from the original note were not included. DATE: 12/23/2021 CHIEF COMPLAINT: Chief Complaint Patient presents with Post-op HISTORY OF PRESENT ILLNESS: Edilia Norton is a 66 y.o. male with history of erectile dysfunction now status post insertion of an inflatable penile prosthesis (AMS 700) on November 04, 2021. He presentsfor his postop follow-up. He is healing well. He has no pain. He has no voiding issues. Initially seen by and referred by Abiodun Grider MD . Duration: Chronic Aggravating Factors: Multiple [...] by mouth Morning ., Disp: , Rfl: vdepejjiblh-rutdbdjnq-mfvscawv (Trelegy Ellipta) 200-62.5-25 mcg DsDv, daily AM [...] good position of the cylinders in the pump.I reviewed operation of the device in detail with the patient. We had the patient actually practiceinflation and deflation while in the office. Plan will be to see him back in about 6 months. We discussed the differential diagnosis which includes: Patient wants to pursue evaluation with: We discussed treatment options including: Chay Leal M.D [facility] documented in this [id number] Evaluation + Plan note* Assessment & Plan Note - Chay Leal MD - 12/23/2021 11:20 AM EDT Associated Problem(s): Erectile dysfunction He has healed nicely status post insertion of inflatable penile prosthesis on November 04, 2021. I was able to cycle the device with ease today and there was good position of the cylinders in the pump.I reviewed operation of the device in detail with the patient. We had the patient actually practiceinflation and deflation while in the office. Plan will be to see him back in about 6 months. [id number] Miscellaneous Notes* Assessment & Plan Note - Chay Leal MD - 12/23/2021 11:20 AM EDTAssociated Problem(s): Erectile dysfunction He has healed nicely status post insertion of inflatable penile prosthesis on November 04, 2021. I was able to cycle the device with ease today and there was good position of the cylinders in the pump.I reviewed operation of the device in detail with the patient. We had the patient actually practiceinflation and deflation while in the office. Plan will be to see him back in about 6 months. documented in this [id number] History of Present illness Narrative* Ghada Arevalo MA - 10/06/2021 3:14 PM EDT [facility] for Frederick Wu penile rep to call office to schedule for this procedure. documented in this [id number] History of Present illness Narrative* Ghada Arevalo MA - 10/06/2021 10:30 AM EDT Patient faxed a reversal decision from insurance company that approved his penile implant surgery. Patient has been informed that surgery is scheduled for 11/04/21 and PAT 10/21/21 @ 8 am. Patient is also aware that he is to arrive at [facility] @ 1130 am on day of surgery. Patient was informed to follow all previous instructions for surgery. He stated that he understood. documented in this [id number] History of Present illness Narrative* Chay Leal MD - 08/05/2021 8:46 AM EDT Images from the original note were not [...] Initially seen by and referred by Abiodun Grider MD . Duration: Chronic Aggravating Factors: Hypertension and elevated cholesterol Alleviating Factors: None Associated Symptoms: None Systemic:The patient denies any weight loss, malaise, fatigue, pain, or night sweats. Urinary: The patient reports normal FOS and urinary function. Patient denies urinary dysuria, frequency, urgency, nocturia, hematuria, or incontinence. Bowel: No constipation, diarrhea, or fecal incontinence HISTORY: [facility] Past Medical History: Diagnosis Date Anxiety COPD [...] Take by mouth ., Disp: , Rfl: dwlfvipmoxu-mtlnfowox-rxvuwycj (Trelegy Ellipta) 200-62.5-25 mcg DsDv, every night [...] discussed treatment options including: Chay Leal M.D [facility] documented in this [id number] Evaluation + Plan note* Assessment & Plan Note - Chay Leal MD - 08/05/2021 8:45 AM EDTAssociated Problem(s): Erectile dysfunction He has failed oral [...] potential complications of the device were discussed. [id number] Miscellaneous Notes* Assessment & Plan Note - Chay Leal MD - 08/05/2021 8:45 AM EDTAssociated Problem(s): Erectile dysfunction He has failed oral [...] the device were discussed. documented in this [id number] History of Past illness Narrative* Problem Noted Date Diagnosed Date Resolved Date Thrombocytopenia 12/05/2015 05/13/2016 Skin lesion of scalp 04/13/2014 017 Lipoma of unspecified site 04/13/2014 0 05/13/2016 Sebaceous cyst 04/03/2014 05/13/2016 Right rotator cuff tear 11/20/201204/28 Pain in joint, shoulder region 10/10/2012 05/13/2016 Abdominal muscle strain 07/16/201104/28 Back pain 07/16/2011 05/13/2016 Bloating 05/13/2016 documented as of this encounter (statuses as of 11/18/2022) [facility]09-[facility]2016 History of Past illness Narrative* Problem [...] of this encounter (statuses as of 12/02/2022) [facility] note* Diagnosis Erectile dysfunction, unspecified erectile dysfunction type- Primary [facility] noteNo assessment information availableWSelect [facility] [place] Work Phone: evaluation note* Diagnosis Erectile dysfunction, unspecified erectile dysfunction type Erectile dysfunction, unspecified erectile dysfunction type documented in this encounter [facility] note* Diagnosis Erectile dysfunction, unspecified erectile dysfunction type- Primary [facility] Onset Date Resolution Status Nicotine dependence, cigarettes, in remission acute GALE (obstructive sleep apnea) acute Asthma-COPD overlap syndrome chronic Nicotine dependence, cigarettes, in remission acute GALE (obstructive sleep apnea) acute Asthma-COPD overlap syndrome chronic [facility] Work Phone: evaluation note* Diagnosis Erectile dysfunction, unspecified erectile dysfunction type documented in this encounter [facility] note* Diagnosis Erectile dysfunction, unspecified erectile dysfunction type [facility] Diagnosis Onset Date Resolution Status GALE (obstructive sleep apnea) acute Smoking greater than 30 pack years acute Asthma-COPD overlap syndrome [facility] Work Phone: evaluation note* Diagnosis Onset Date Resolution Status Nicotine dependence, cigarettes, in remission acute GALE (obstructive sleep apnea) acute Asthma-COPD overlap syndrome [facility] Work Phone: evaluation note* Diagnosis Onychomycosis- Primary Dermatophytosis of nail Onychocryptosis Ingrowing nail Pain Generalized pain Pain in toe of left foot Pain in limb Pain in toe of right foot Pain in limb Tyloma Corns and callosities Diminished pulses in lower extremity Other symptoms involving cardiovascular system documented in this encounter [facility] note* Diagnosis Onset Date Resolution Status Nicotine dependence, cigarettes, in remission acute GALE (obstructive sleep apnea) acute Asthma-COPD overlap syndrome chronic Diastasis recti acute Diastasis recti acute GERD (gastroesophageal reflux disease) acute [facility] Work Phone: evaluation note* Diagnosis Onset Date Resolution Status Asthma-COPD overlap syndrome chronic GALE (obstructive sleep apnea) chronic Smoking greater than 30 pack years chronic Asthma-COPD overlap syndrome chronic GALE (obstructive sleep apnea) chronic Smoking greater than 30 pack years [facility] Work Phone: Evaluation note* Diagnosis Chronic migraine without aura, intractable, without status migrainosus (CMS/HCC) documented [facility] Diagnostic Procedure Only (Routine) - Authorized Specialty Diagnoses / Procedures Referred By Lauryn ladnry Referred To Contact XR IMAGING Diagnoses Pain Procedures XR FOOT GENERAL 3V AP/LAT/OBL BILATERAL RADEX FOOT COMPLETE MINIMUM 3 VIEWS Kelle Logan DPM [id number] [place] [address] [place] [address] Referral ID Status Reason Start Date Expiration Date Visits Requested Visits Authorized [id number] Authorized Auto-Generat ed Referral 11/17/2022 03/27/2023 3 3 [facility] for referral (narrative)No reason for referral information availableWSelect [facility] [place] Work Phone: Summary Purpose Family History No Family History Records Found Relationship Condition Age at Onset Recorded Date/T fadi mother Diabetes mellitus Unknown father Malignant neoplasm Unknown sister Diabetes mellitus Unknown Advance Directives No Advanced Directives Records FoundDocuments on File Type Date Recorded Patient Loan Review Officer Expl anation Advance Directives and Livin g Will 06/22/2021 12:00 AM Advance Directive Response Recorded Date/ Time Living Will Yes July 08, 2021 4:53pm Power of Administrative Support Clerk Yes July 08 4:53pm Documents on File Type Date Recorded Patient Loan Review Officer Expl anation Advance Directives and Living Will Advance Directive Response Recorded Date/ Time Living Will Yes July 08, 2021 3:53pm Power of Administrative Support Clerk Yes July 08 3:53pm Documents on File Type Date Recorded Patient Loan Review Officer Expl anation Advance Directive(s) 01/21/2016 9:00 PM Documents on File Type Date Recorded Patient Loan Review Officer Expl anation Advance Directive(s) 01/21/2016 9:00 PM Reason for Referral Specialty Diagnoses / Procedures Referred By Lauryn landry Referred To Contact Urology Diagnoses Erectile dysfunction, unspecified erectile dysfunction type Abiodun Grider MD [address] [place] [address] Chay Leal MD [address] [place] [address] Referral ID Status Reason Start Date Expiration Date Visits Requested Visits Authorized [id number] Pending Review Specialty Services Required/Pat ient's Best Interest 06/23/2021 06/23/2022 1 1 Chief Complaint and Reason for Visit Chief Complaint TREMORS OF NERVOUS S YSTEM,MEMORY LOSS R51.9 VOMITING Chief Complaint 6 M FU 6 M FU Reason for Visit Nicotine dependence, cigarettes, in remission GALE (obstructive sleep apnea) Asthma-COPD overlap syndrome Nicotine dependence, cigarettes, in remission GALE (obstructive sleep apnea) Asthma-COPD overlap syndrome Chief Complaint NICOTINE DEPENDENCE Chief Complaint 6 M FU Reason for Visit GALE (obstructive sle ep apnea) Smoking greater than 30 pack years Asthma-COPD overlap syndrome Chief Complaint 3 M FU Reason for Visit Nicotine dependence, cigarettes, in remission GALE (obstructive sleep apnea) Asthma-COPD overlap syndrome Chief Complaint 3 M FU ABDOMINAL PAIN Reason for Visit Nicotine dependence, cigarettes, in remission GALE (obstructive sleep apnea) Asthma-COPD overlap syndrome Chief Complaint 3 M FU ABDOMINAL PAIN POSSIBLE UMBILICAL HERNIA 2WK F/U POSSIBLE UMBILICAL HERNIA NICOTINE DEP Reason for Visit Nicotine dependence, cigarettes, in remission GALE (obstructive sleep apnea) Asthma-COPD overlap syndrome Diastasis recti Diastasis recti GERD (gastroesophageal reflux disease) Chief Complaint 6 M FU EORDER Discuss inspire Reason for Visit Asthma-COPD overlap syndrome GALE (obstructive sleep apnea) Smoking greater than 30 pack years Asthma-COPD overlap syndrome GALE (obstructive sleep apnea) Smoking greater than 30 pack years Chief Complaint 6 M FU EORDER Discuss inspire GALE Reason for Visit Asthma-COPD overlap syndrome GALE (obstructive sleep apnea) Smoking greater than 30 pack years Asthma-COPD overlap syndrome GALE (obstructive sleep apnea) Smoking greater than 30 pack years Chief Complaint Admit Date 4 M FU June 12, 2024 9:4 5am Reason for Visit Admit Date Asthma-COPD overlap syndrome June 12, 2024 9:45am Hypoxia June 12, 2024 9:4 5am Smoking greater than 30 pack years June 12, 2024 9:45am Additional Source Comments (unrecognized sect ion and content) No Status Records FoundNo Status Records FoundNo Status Records FoundNo Status Records FoundNo Status Records FoundNo Status Records FoundNo Status Records FoundNo Status Records Found INFORMATION SOURCE (unrecogn ized section and content) DATE CREATED AUTHOR 11/29/2017 [facility] DATE CREATED AUTHOR AUTHOR'S ORGANIZ ATION 11/29/2017 [facility] DATE CREATED AUTHOR AUTHOR'S ORGANIZ ATION 11/06/2021 [facility] DATE CREATED AUTHOR AUTHOR'S ORGANIZ ATION 03/20/2022 [facility] DATE CREATED AUTHOR AUTHOR'S ORGANIZ ATION 11/18/2022 [facility] DATE CREATED AUTHOR AUTHOR'S ORGANIZ ATION 12/03/2022 [facility] DATE CREATED AUTHOR AUTHOR'S ORGANIZ ATION 01/29/2024 [facility] DATE CREATED AUTHOR AUTHOR'S ORGANIZ ATION 08/12/2024 [facility] Care Teams (unrecognized sec tion and content) Real Estate Investment Analyst Relationship Specialty Start Date End Date Abiodun Grider MD [address] [place] [address] PCP - General Family Medicine 06/23/21 Real Estate Investment Analyst Relationship Specialty Start Date End Date Abiodun Grider MD [address] [place] [address] PCP - General Family Medicine 06/23/21 Real Estate Investment Analyst Relationship Specialty Start Date End Date Abiodun Grider MD [address] [place] [address] PCP - General Family Medicine 06/23/21 Real Estate Investment Analyst Relationship Specialty Start Date End Date Abiodun Grider MD [address] [place] [address] PCP - General Family Medicine 06/23/21 Real Estate Investment Analyst Relationship Specialty Start Date End Date Abiodun Grider MD [address] [facility] [address] [place] [address] PCP - General Family Medicine 06/23/21 Real Estate Investment Analyst Relationship Specialty Start Date End Date Abiodun Grider MD [address] [facility] [address] [place] [address] PCP - General Family Medicine 06/23/21 Team Status: Active Member Role Status Dates Dr. Kimberley Jauregui MD Family Provider Active Dr. Abiodun Grider MD Primary Care Provider Active Team Status: Inactive Member Role Status Dates Dr. Abiodun Grider MD Primary Care Provider, Referring Provider Active Mylene Albarran LIQUOR INSPECTOR, LIQUOR INSPECTOR-C Attending Provider Active Team Status: Inactive Member Role Status Dates Dr. Abiodun Grider MD Primary Care Provi golden, Attending Provider, Referring Provider Active Team Status: Inactive Member Role Status Dates Dr. Abiodun Grider MD Primary Care Provider, Referring Provider Active Dr. Prashant Daniels DO Attending Provider Active Team Status: Inactive Member Role Status Dates Dr. Abiodun Grider MD Primary Care Provider, Attending Provider Active Real Estate Investment Analyst Relationship Specialty Start Date End Date Abiodun Grider MD [address] [place] [address] [address] [place] [address] PCP - [facility] Family Medicine 05/26/21 Real Estate Investment Analyst Relationship Specialty Start Date End Date Abiodun Grider MD [address] [place] [address] [address] [place] [address] PCP - General Family Medicine 05/26/21 Team Status: Inactive Member Role Status Dates Dr. Abiodun Grider MD Primary Care Provider, Referring Provider Active Dr. Jen Baker MD Attending Provider Active Team Status: Inactive Member Role Status Dates Dr. Abiodun Grider MD Primary Care Provider Active Dr. Jen Baker MD Attending Provider, Referring Provider Active Team Status: Inactive Member Role Status Dates Dr. Abiodun Grider MD Primary Care Provider Active Mylene Albarran LIQUOR INSPECTOR, LIQUOR INSPECTOR-C Attending Provider, Referrin g Provider Active Team Status: Inactive Member Role Status Dates Dr. Abiodun Grider MD Primary Care Provider Active Dr. Edilia Hernandez MD Attending Provider, Referring Provider Active Team Status: Inactive Member Role Status Dates Dr. Abiodun Grider MD Primary Care Provider Active Start: May 11, 2024 End: May 11, 2024 Dr. Abiodun Grider MD Attending Provider Active Start: May 11, 2024 End: May 11, 2024 Dr. Abiodun Grider MD Referring Provider Active Start: May 11, 2024 End: May 11, 2024 Team Status: Inactive Member Role Status Dates Dr. Abiodun Grider MD Primary Care Provider Active Start: June 12, 2024 End: June 12, 2024 Dr. Abiodun Grider MD Referring Provider Active Start: June 12, 2024 End: June 12, 2024 Mylene Albarran NP, LIQUOR INSPECTOR-C Attending Provider Active Start: June 12, 2024 End: June 12, 2024 Team Status: Inactive Member Role Status Dates Dr. Abiodun Grider MD Primary Care Provider Active Start: August 08, 2024 End: August 08, 2024 Dr. Abiodun Grider MD Attending Provider Active Start: August 08, 2024 End: August 08, 2024 Dr. Abiodun Grider MD Referring Provider Active Start: August 08, 2024 End: August 08, 2024 Goals (unrecognized section and content) Goals may be documented in a n alternate sectionGoals may be documented in an alternate sectionGoals may be documented in an alternate sectionGoals may be documented in an alternate sectionGoals may be documented in an alternate sectionGoals may be documented in an alternate sectionGoals may be documented in an alternate sectionGoals may be documented in an alternate sectionGoals may be documented in an alternate sectionGoals may be documented in an alternate sectionGoals may be documented in an alternate section Reason for Visit (unrecogniz ed section and content) Reason Comments Erectile Dysfunction Specialty Diagnoses / Procedures Referred By Contac t Referred To Contact Urology Diagnoses Erectile dysfunction, unspecified erectile dysfunction type Abiodun Grider MD [address] [place] [address] Chay Leal MD [address] [place] [id number] Referral ID Status Reason Start Date Expiration Date V isits Requested Visits Authorized [id number] Closed Specialty Services Required/Lakeshia ent's Best Interest 06/23/2021 06/23/2022 1 1 Reason Comments Post-op Reason Comments Penile Implant Assessment Reason Comments New Nail Check Reason Comments Medication Problem Source Comments (unrecognize d section and content) In the event this informatio n is protected by the [facility] Confidentiality of Alcohol and Drug Abuse Patient Records regulations: The Federal rules restrict any use of the information to criminally investigate or prosecute any alcohol or drug abuse patient.[facility] the event this information is protected by the Federal Confidentiality of Alcohol and Drug Abuse Patient Records regulations: The Federal rules restrict any use of the information to criminally investigate or prosecute any alcohol or drug abuse patient.[facility] FOR RECORDS PERTAINING TO PATIENTS WHO ARE [...] BE BASED ON THE PRIMARY CLINICAL RECORDS. [employer] provides no warranty or guarantee of the accuracy or completeness of information in this document.
== END | disposition home or self-care (01) ==
LOC: MTRAD 12:36
PROVIDERS: PCP Family Medicine; Referring Provider Family Medicine; Visit Provider Family Medicine
DX: R07.81 Pleurodynia (principal)
CPT/HCPCS: 71046; 71100